=== PATIENT | female | born 1940 | race Caucasian/White ===

== ENCOUNTER 2016-06-16 10:56 | Outpatient (RCR) | payer MEDICARE ==
[2016-03-24 10:28] LABS: BASOPHILS % (AUTO) 0 % (0-10); EOSINOPHILS % (AUTO) 0 % (0-10); LYMPHOCYTES % (AUTO) 23 % (12-44); MEAN CORPUSCULAR HEMOGLOBIN 34 PG (25-34); MEAN CORPUSCULAR HGB CONC 33 G/DL (32-36); MEAN CORPUSCULAR VOLUME 103 FL (80-99); MEAN PLATELET VOLUME 9.1 FL (7.4-10.4); MONOCYTES # (AUTO) 0.7 X 10^3 (0.0-1.0); MONOCYTES % (AUTO) 17 % (0-12); NEUTROPHILS # (AUTO) 2.6 X 10^3 (1.8-7.8); NEUTROPHILS % (AUTO) 61 % (42-75); PLATELET COUNT 202 10^3/uL (130-400); RED BLOOD COUNT 2.73 10^6/uL (4.35-5.85); WHITE BLOOD COUNT 4.3 10^3/uL (4.3-11.0)
[2016-03-24 10:30] LABS: PEP REPORT SEE PATH REPORT
[2016-03-24 10:53] LABS: ALBUMIN 3.9 G/DL (3.2-4.5); BILIRUBIN,TOTAL 0.8 MG/DL (0.1-1.0); CALCIUM 9.4 MG/DL (8.5-10.1); CREATININE SERUM 1.23 MG/DL (0.60-1.30); MAGNESIUM 1.7 MG/DL (1.8-2.4); POTASSIUM 3.5 MMOL/L (3.6-5.0); TOTAL PROTEIN 5.5 G/DL (6.4-8.2)
[2016-03-24 11:47] LABS: BILIRUBIN,URINE NEGATIVE (NEGATIVE); KETONES,URINE NEGATIVE (NEGATIVE); LEUKOCYTE ESTERASE ,URINE NEGATIVE (NEGATIVE); NITRITE,URINE NEGATIVE (NEGATIVE); PH,URINE 5 (5-9); PROTEIN,URINE NEGATIVE (NEGATIVE); UROBILINOGEN,URINE NORMAL (NORMAL)
[2016-03-24 12:00] LABS: SQUAMOUS EPITHELIAL CELL,UR RARE /HPF
[2016-03-25 01:29] LABS: LIGHT CHAIN KAPPA SERUM QUANT 1.33 mg/L (3.30-19.40)
[2016-03-28 17:17] LABS: CLIN PATHOLOGY REPORT FOOTNOTE; SERUM PROTEIN ELEC DETAIL L-16-0012755
[2016-04-01 10:16] LABS: BASOPHILS % (AUTO) 0 % (0-10); EOSINOPHILS % (AUTO) 0 % (0-10); LYMPHOCYTES # (AUTO) 0.9 X 10^3 (1.0-4.0); LYMPHOCYTES % (AUTO) 20 % (12-44); MEAN CORPUSCULAR HEMOGLOBIN 34 PG (25-34); MEAN CORPUSCULAR HGB CONC 33 G/DL (32-36); MEAN CORPUSCULAR VOLUME 101 FL (80-99); MEAN PLATELET VOLUME 9.2 FL (7.4-10.4); MONOCYTES # (AUTO) 0.7 X 10^3 (0.0-1.0); MONOCYTES % (AUTO) 15 % (0-12); NEUTROPHILS % (AUTO) 64 % (42-75); PLATELET COUNT 215 10^3/uL (130-400); RED BLOOD COUNT 3.15 10^6/uL (4.35-5.85); RED CELL DISTRIBUTION WIDTH 14.6 % (10.0-14.5); WHITE BLOOD COUNT 4.6 10^3/uL (4.3-11.0)
[2016-04-01 10:36] LABS: CALCIUM 9.6 MG/DL (8.5-10.1); CREATININE SERUM 0.94 MG/DL (0.60-1.30); MAGNESIUM 1.7 MG/DL (1.8-2.4); POTASSIUM 3.2 MMOL/L (3.6-5.0)
[2016-04-07 10:03] LABS: PEP REPORT SEE PATH REPORT
[2016-04-07 10:04] LABS: BASOPHILS % (AUTO) 0 % (0-10); EOSINOPHILS % (AUTO) 1 % (0-10); LYMPHOCYTES # (AUTO) 1.2 X 10^3 (1.0-4.0); LYMPHOCYTES % (AUTO) 27 % (12-44); MEAN CORPUSCULAR HEMOGLOBIN 34 PG (25-34); MEAN CORPUSCULAR HGB CONC 33 G/DL (32-36); MEAN CORPUSCULAR VOLUME 103 FL (80-99); MEAN PLATELET VOLUME 9.2 FL (7.4-10.4); MONOCYTES # (AUTO) 0.6 X 10^3 (0.0-1.0); MONOCYTES % (AUTO) 13 % (0-12); NEUTROPHILS # (AUTO) 2.7 X 10^3 (1.8-7.8); NEUTROPHILS % (AUTO) 59 % (42-75); PLATELET COUNT 232 10^3/uL (130-400); RED CELL DISTRIBUTION WIDTH 14.9 % (10.0-14.5); WHITE BLOOD COUNT 4.6 10^3/uL (4.3-11.0)
[2016-04-07 10:33] LABS: ALANINE AMINOTRANSFERASE 17 U/L (0-55); ALBUMIN 3.8 G/DL (3.2-4.5); ANION GAP 9 MMOL/L (5-14); ASPARTATE AMINO TRANSFERASE 15 U/L (5-34); BILIRUBIN,TOTAL 0.9 MG/DL (0.1-1.0); BLOOD UREA NITROGEN 12 MG/DL (7-18); BUN/CREATININE RATIO 14; CALCIUM 9.2 MG/DL (8.5-10.1); CARBON DIOXIDE 22 MMOL/L (21-32); CHLORIDE 109 MMOL/L (98-107); CREATININE SERUM 0.83 MG/DL (0.60-1.30); GFR ESTIMATED > 60; GLUCOSE 87 MG/DL (70-105); MAGNESIUM 1.7 MG/DL (1.8-2.4); POTASSIUM 3.5 MMOL/L (3.6-5.0); SODIUM 140 MMOL/L (135-145); TOTAL PROTEIN 5.6 G/DL (6.4-8.2)
[2016-04-07 10:56] LABS: THYROID STIMULATING HORMONE 1.28 UIU/ML (0.35-4.94)
[2016-04-08 02:08] LABS: LIGHT CHAIN KAPPA SERUM QUANT 4.11 mg/L (3.30-19.40)
[2016-04-12 09:32] LABS: CLIN PATHOLOGY REPORT FOOTNOTE; SERUM PROTEIN ELEC DETAIL L-16-0013400
[2016-04-14 09:16] LABS: BASOPHILS % (AUTO) 0 % (0-10); EOSINOPHILS # (AUTO) 0.1 10^3/uL (0.0-0.3); EOSINOPHILS % (AUTO) 1 % (0-10); LYMPHOCYTES # (AUTO) 1.3 X 10^3 (1.0-4.0); LYMPHOCYTES % (AUTO) 12 % (12-44); MEAN CORPUSCULAR HEMOGLOBIN 34 PG (25-34); MEAN CORPUSCULAR HGB CONC 33 G/DL (32-36); MEAN CORPUSCULAR VOLUME 102 FL (80-99); MEAN PLATELET VOLUME 9.7 FL (7.4-10.4); MONOCYTES # (AUTO) 1.2 X 10^3 (0.0-1.0); MONOCYTES % (AUTO) 11 % (0-12); NEUTROPHILS # (AUTO) 7.9 X 10^3 (1.8-7.8); NEUTROPHILS % (AUTO) 76 % (42-75); PLATELET COUNT 224 10^3/uL (130-400); RED BLOOD COUNT 3.23 10^6/uL (4.35-5.85); RED CELL DISTRIBUTION WIDTH 14.9 % (10.0-14.5); WHITE BLOOD COUNT 10.5 10^3/uL (4.3-11.0)
[2016-04-14 09:40] LABS: CALCIUM 9.2 MG/DL (8.5-10.1); CREATININE SERUM 1.03 MG/DL (0.60-1.30); MAGNESIUM 1.6 MG/DL (1.8-2.4); POTASSIUM 3.8 MMOL/L (3.6-5.0)
[2016-04-21 14:16] LABS: EOSINOPHILS % (AUTO) 1 % (0-10); LYMPHOCYTES % (AUTO) 17 % (12-44); MEAN CORPUSCULAR HEMOGLOBIN 34 PG (25-34); MEAN CORPUSCULAR HGB CONC 34 G/DL (32-36); MEAN CORPUSCULAR VOLUME 101 FL (80-99); MEAN PLATELET VOLUME 9.2 FL (7.4-10.4); MONOCYTES % (AUTO) 10 % (0-12); NEUTROPHILS % (AUTO) 72 % (42-75); PLATELET COUNT 261 10^3/uL (130-400); RED BLOOD COUNT 3.14 10^6/uL (4.35-5.85); RED CELL DISTRIBUTION WIDTH 14.6 % (10.0-14.5); WHITE BLOOD COUNT 7.6 10^3/uL (4.3-11.0)
[2016-04-21 14:17] LABS: BASOPHILS % (AUTO) 0 % (0-10); EOSINOPHILS # (AUTO) 0.1 10^3/uL (0.0-0.3); LYMPHOCYTES # (AUTO) 1.3 X 10^3 (1.0-4.0); MONOCYTES # (AUTO) 0.8 X 10^3 (0.0-1.0); NEUTROPHILS # (AUTO) 5.4 X 10^3 (1.8-7.8)
[2016-04-21 15:08] LABS: CALCIUM 9.4 MG/DL (8.5-10.1); CREATININE SERUM 1.14 MG/DL (0.60-1.30); MAGNESIUM 1.7 MG/DL (1.8-2.4); POTASSIUM 3.7 MMOL/L (3.6-5.0)
[2016-04-28 09:21] LABS: BASOPHILS % (AUTO) 0 % (0-10); EOSINOPHILS # (AUTO) 0.1 10^3/uL (0.0-0.3); EOSINOPHILS % (AUTO) 1 % (0-10); LYMPHOCYTES # (AUTO) 1.1 X 10^3 (1.0-4.0); LYMPHOCYTES % (AUTO) 19 % (12-44); MEAN CORPUSCULAR HEMOGLOBIN 34 PG (25-34); MEAN CORPUSCULAR HGB CONC 33 G/DL (32-36); MEAN CORPUSCULAR VOLUME 101 FL (80-99); MEAN PLATELET VOLUME 9.4 FL (7.4-10.4); MONOCYTES # (AUTO) 0.5 X 10^3 (0.0-1.0); MONOCYTES % (AUTO) 8 % (0-12); NEUTROPHILS # (AUTO) 4.4 X 10^3 (1.8-7.8); NEUTROPHILS % (AUTO) 72 % (42-75); PLATELET COUNT 273 10^3/uL (130-400); RED BLOOD COUNT 3.35 10^6/uL (4.35-5.85); WHITE BLOOD COUNT 6.1 10^3/uL (4.3-11.0)
[2016-04-28 09:27] LABS: PEP REPORT SEE PATH REPORT
[2016-04-28 09:57] LABS: ALBUMIN 3.8 G/DL (3.2-4.5); BILIRUBIN,TOTAL 0.8 MG/DL (0.1-1.0); CALCIUM 9.6 MG/DL (8.5-10.1); CREATININE SERUM 1.12 MG/DL (0.60-1.30); MAGNESIUM 2.2 MG/DL (1.8-2.4); POTASSIUM 3.2 MMOL/L (3.6-5.0); TOTAL PROTEIN 5.8 G/DL (6.4-8.2)
[2016-04-29 01:51] LABS: LIGHT CHAIN KAPPA SERUM QUANT 8.14 mg/L (3.30-19.40); LIGHT CHAIN LAMBDA SERUM QUANT 1.18 mg/L (5.71-26.30)
[2016-05-02 12:03] LABS: SERUM PROTEIN ELEC DETAIL L-16-0014381
[2016-05-05 13:46] LABS: BASOPHILS % (AUTO) 0 % (0-10); EOSINOPHILS % (AUTO) 1 % (0-10); LYMPHOCYTES # (AUTO) 1.7 X 10^3 (1.0-4.0); LYMPHOCYTES % (AUTO) 22 % (12-44); MEAN CORPUSCULAR HEMOGLOBIN 33 PG (25-34); MEAN CORPUSCULAR HGB CONC 32 G/DL (32-36); MEAN CORPUSCULAR VOLUME 102 FL (80-99); MEAN PLATELET VOLUME 9.4 FL (7.4-10.4); MONOCYTES # (AUTO) 0.8 X 10^3 (0.0-1.0); MONOCYTES % (AUTO) 10 % (0-12); NEUTROPHILS % (AUTO) 67 % (42-75); PLATELET COUNT 265 10^3/uL (130-400); RED BLOOD COUNT 3.34 10^6/uL (4.35-5.85); RED CELL DISTRIBUTION WIDTH 14.2 % (10.0-14.5); WHITE BLOOD COUNT 7.4 10^3/uL (4.3-11.0)
[2016-05-05 14:20] LABS: CALCIUM 9.3 MG/DL (8.5-10.1); CREATININE SERUM 1.06 MG/DL (0.60-1.30); MAGNESIUM 1.9 MG/DL (1.8-2.4); POTASSIUM 3.8 MMOL/L (3.6-5.0)
[2016-05-11 09:15] LABS: BASOPHILS % (AUTO) 0 % (0-10); EOSINOPHILS # (AUTO) 0.1 10^3/uL (0.0-0.3); EOSINOPHILS % (AUTO) 1 % (0-10); LYMPHOCYTES # (AUTO) 1.5 X 10^3 (1.0-4.0); LYMPHOCYTES % (AUTO) 20 % (12-44); MEAN CORPUSCULAR HEMOGLOBIN 33 PG (25-34); MEAN CORPUSCULAR HGB CONC 33 G/DL (32-36); MEAN CORPUSCULAR VOLUME 100 FL (80-99); MEAN PLATELET VOLUME 9.5 FL (7.4-10.4); MONOCYTES # (AUTO) 0.8 X 10^3 (0.0-1.0); MONOCYTES % (AUTO) 11 % (0-12); NEUTROPHILS # (AUTO) 5.3 X 10^3 (1.8-7.8); NEUTROPHILS % (AUTO) 69 % (42-75); PLATELET COUNT 226 10^3/uL (130-400); RED BLOOD COUNT 3.49 10^6/uL (4.35-5.85); RED CELL DISTRIBUTION WIDTH 13.8 % (10.0-14.5); WHITE BLOOD COUNT 7.7 10^3/uL (4.3-11.0)
[2016-05-11 09:43] LABS: CALCIUM 9.6 MG/DL (8.5-10.1); CREATININE SERUM 1.07 MG/DL (0.60-1.30); POTASSIUM 3.8 MMOL/L (3.6-5.0)
[2016-05-18 07:27] LABS: CLIN PATHOLOGY REPORT FOOTNOTE
[2016-05-19 13:20] LABS: BASOPHILS % (AUTO) 0 % (0-10); EOSINOPHILS # (AUTO) 0.1 10^3/uL (0.0-0.3); EOSINOPHILS % (AUTO) 1 % (0-10); LYMPHOCYTES % (AUTO) 25 % (12-44); MEAN CORPUSCULAR HEMOGLOBIN 33 PG (25-34); MEAN CORPUSCULAR HGB CONC 33 G/DL (32-36); MEAN CORPUSCULAR VOLUME 100 FL (80-99); MEAN PLATELET VOLUME 9.2 FL (7.4-10.4); MONOCYTES # (AUTO) 0.7 X 10^3 (0.0-1.0); MONOCYTES % (AUTO) 9 % (0-12); NEUTROPHILS # (AUTO) 5.1 X 10^3 (1.8-7.8); NEUTROPHILS % (AUTO) 65 % (42-75); PLATELET COUNT 241 10^3/uL (130-400); RED BLOOD COUNT 3.65 10^6/uL (4.35-5.85); RED CELL DISTRIBUTION WIDTH 14.1 % (10.0-14.5); WHITE BLOOD COUNT 7.8 10^3/uL (4.3-11.0)
[2016-05-19 14:01] LABS: CALCIUM 9.3 MG/DL (8.5-10.1); CREATININE SERUM 0.95 MG/DL (0.60-1.30)
[2016-05-26 09:20] LABS: BASOPHILS % (AUTO) 0 % (0-10); EOSINOPHILS # (AUTO) 0.1 10^3/uL (0.0-0.3); EOSINOPHILS % (AUTO) 1 % (0-10); LYMPHOCYTES # (AUTO) 1.5 X 10^3 (1.0-4.0); LYMPHOCYTES % (AUTO) 19 % (12-44); MEAN CORPUSCULAR HEMOGLOBIN 33 PG (25-34); MEAN CORPUSCULAR HGB CONC 33 G/DL (32-36); MEAN CORPUSCULAR VOLUME 99 FL (80-99); MEAN PLATELET VOLUME 9.5 FL (7.4-10.4); MONOCYTES # (AUTO) 0.8 X 10^3 (0.0-1.0); MONOCYTES % (AUTO) 10 % (0-12); NEUTROPHILS # (AUTO) 5.6 X 10^3 (1.8-7.8); NEUTROPHILS % (AUTO) 69 % (42-75); PLATELET COUNT 228 10^3/uL (130-400); RED BLOOD COUNT 3.53 10^6/uL (4.35-5.85); RED CELL DISTRIBUTION WIDTH 13.7 % (10.0-14.5)
[2016-05-26 09:23] LABS: PEP REPORT SEE PATH REPORT
[2016-05-26 09:54] LABS: ALBUMIN 3.8 G/DL (3.2-4.5); BILIRUBIN,TOTAL 0.6 MG/DL (0.1-1.0); CALCIUM 9.4 MG/DL (8.5-10.1); CREATININE SERUM 1.1 MG/DL (0.60-1.30); MAGNESIUM 1.9 MG/DL (1.8-2.4); POTASSIUM 3.7 MMOL/L (3.6-5.0); TOTAL PROTEIN 5.7 G/DL (6.4-8.2)
[2016-05-27 08:23] LABS: LIGHT CHAIN KAPPA SERUM QUANT 6.76 mg/L (3.30-19.40); LIGHT CHAIN LAMBDA SERUM QUANT 1.15 mg/L (5.71-26.30)
[2016-05-28 09:05] LABS: IMMUNOGLOBULIN IGA 17 mg/dL (71-263); IMMUNOGLOBULIN IGG 402 mg/dL (672-1680)
[2016-05-30 08:10] LABS: IMMUNOGLOBULIN IGM <10 mg/dL (47-209)
[2016-05-30 11:27] LABS: CLIN PATHOLOGY REPORT FOOTNOTE; SERUM PROTEIN ELEC DETAIL L-16-0015642
[2016-06-02 13:31] LABS: BASOPHILS % (AUTO) 0 % (0-10); EOSINOPHILS # (AUTO) 0.1 10^3/uL (0.0-0.3); EOSINOPHILS % (AUTO) 1 % (0-10); LYMPHOCYTES # (AUTO) 1.2 X 10^3 (1.0-4.0); LYMPHOCYTES % (AUTO) 13 % (12-44); MEAN CORPUSCULAR HEMOGLOBIN 33 PG (25-34); MEAN CORPUSCULAR HGB CONC 34 G/DL (32-36); MEAN CORPUSCULAR VOLUME 98 FL (80-99); MEAN PLATELET VOLUME 10.1 FL (7.4-10.4); MONOCYTES % (AUTO) 11 % (0-12); NEUTROPHILS % (AUTO) 75 % (42-75); PLATELET COUNT 268 10^3/uL (130-400); RED BLOOD COUNT 3.85 10^6/uL (4.35-5.85); RED CELL DISTRIBUTION WIDTH 14.1 % (10.0-14.5); WHITE BLOOD COUNT 9.3 10^3/uL (4.3-11.0)
[2016-06-02 14:14] LABS: CALCIUM 9.4 MG/DL (8.5-10.1); MAGNESIUM 2.2 MG/DL (1.8-2.4); POTASSIUM 3.9 MMOL/L (3.6-5.0)
[2016-06-09 11:36] LABS: BASOPHILS % (AUTO) 0 % (0-10); EOSINOPHILS % (AUTO) 0 % (0-10); LYMPHOCYTES # (AUTO) 1.5 X 10^3 (1.0-4.0); LYMPHOCYTES % (AUTO) 14 % (12-44); MEAN CORPUSCULAR HEMOGLOBIN 33 PG (25-34); MEAN CORPUSCULAR HGB CONC 34 G/DL (32-36); MEAN CORPUSCULAR VOLUME 95 FL (80-99); MEAN PLATELET VOLUME 9.9 FL (7.4-10.4); MONOCYTES # (AUTO) 0.9 X 10^3 (0.0-1.0); MONOCYTES % (AUTO) 8 % (0-12); NEUTROPHILS # (AUTO) 8.5 X 10^3 (1.8-7.8); NEUTROPHILS % (AUTO) 77 % (42-75); PLATELET COUNT 248 10^3/uL (130-400); RED BLOOD COUNT 4.01 10^6/uL (4.35-5.85); RED CELL DISTRIBUTION WIDTH 13.1 % (10.0-14.5)
[2016-06-09 11:59] LABS: CALCIUM 9.5 MG/DL (8.5-10.1); CREATININE SERUM 1.08 MG/DL (0.60-1.30); POTASSIUM 3.3 MMOL/L (3.6-5.0)
[~2016-06-16] VITALS: Ht 160 cm; Wt 63.0 kg
[~2016-06-16 10:56] MED LIST: ACETAMINOPHEN 325 MG TAB (TYLENOL) CANCER CTR PO PRN; ACYC400T PO; DARATUMUMAB IV SCH; DEXA4TAB PO; FAMOTIDINE 20MG/2ML IV (CANCER CTR) IV SCH; HYDR-3454 PO; HYDR12.56 PO; LORATADINE (CLARITIN) 10 MG TAB PO SCH; METO-270 PO; MORP15TA PO; NS IV 1000 ML (CANCER CTR) IV SCH; NS IV SCH; ONDANSETRON MDV (CANCER CENTER 16 MG in NS (IVPB) CANCER CENTER 50 ML IV SCH; PANT20TA3 PO; RT-ALBUTEROL HFA (VENTOLIN) PER PUFF IH SCH; SIMV20TA3 PO; diphenhydrAMINE 25 MG TAB (BENADRYL) CANCER CENTER PO SCH; diphenhydrAMINE 50 MG/ML INJ (CANCER CENTER) ONE; methylPREDNISolone 125 MG/2 ML (SOLU-MEDROL) CANCER CTR IV SCH
[2016-06-16 11:07] LABS: BASOPHILS % (AUTO) 0 % (0-10); EOSINOPHILS # (AUTO) 0.1 10^3/uL (0.0-0.3); EOSINOPHILS % (AUTO) 1 % (0-10); LYMPHOCYTES # (AUTO) 1.9 X 10^3 (1.0-4.0); LYMPHOCYTES % (AUTO) 16 % (12-44); MEAN CORPUSCULAR HEMOGLOBIN 32 PG (25-34); MEAN CORPUSCULAR HGB CONC 33 G/DL (32-36); MEAN CORPUSCULAR VOLUME 97 FL (80-99); MEAN PLATELET VOLUME 9.9 FL (7.4-10.4); MONOCYTES % (AUTO) 9 % (0-12); NEUTROPHILS # (AUTO) 8.7 X 10^3 (1.8-7.8); NEUTROPHILS % (AUTO) 75 % (42-75); PLATELET COUNT 349 10^3/uL (130-400); RED BLOOD COUNT 3.94 10^6/uL (4.35-5.85); RED CELL DISTRIBUTION WIDTH 13.6 % (10.0-14.5); WHITE BLOOD COUNT 11.7 10^3/uL (4.3-11.0)
[2016-06-16 11:31] LABS: CALCIUM 9.5 MG/DL (8.5-10.1); CREATININE SERUM 1.06 MG/DL (0.60-1.30); MAGNESIUM 1.9 MG/DL (1.8-2.4); POTASSIUM 4.1 MMOL/L (3.6-5.0)
== END 2016-06-22 | disposition home or self-care (01) ==
LOC: ONC 10:56
PROVIDERS: ATTEND Internal Medicine Hematology & Oncology
DX: Z51.11 Encounter for antineoplastic chemotherapy (principal); C90.00 Multiple myeloma not having achieved remission; E83.52 Hypercalcemia; D64.9 Anemia, unspecified; I10 Essential (primary) hypertension; Z79.899 Other long term (current) drug therapy
CPT/HCPCS: 36415; 36591; 80048; 80053; 81000; 82232; 82784; 83735; 83883; 84155; 84165; 84443; 85025; 87070; 87077; 87186; 87205; 96375; 96413; 96415; 99213

== ENCOUNTER 2016-09-15 11:13 | Outpatient (RCR) | payer MEDICARE ==
[2016-06-23 09:54] LABS: BASOPHILS % (AUTO) 0 % (0-10); EOSINOPHILS # (AUTO) 0.1 10^3/uL (0.0-0.3); EOSINOPHILS % (AUTO) 1 % (0-10); LYMPHOCYTES # (AUTO) 1.9 X 10^3 (1.0-4.0); LYMPHOCYTES % (AUTO) 26 % (12-44); MEAN CORPUSCULAR HEMOGLOBIN 32 PG (25-34); MEAN CORPUSCULAR HGB CONC 33 G/DL (32-36); MEAN CORPUSCULAR VOLUME 97 FL (80-99); MEAN PLATELET VOLUME 9.7 FL (7.4-10.4); MONOCYTES # (AUTO) 0.9 X 10^3 (0.0-1.0); MONOCYTES % (AUTO) 12 % (0-12); NEUTROPHILS # (AUTO) 4.4 X 10^3 (1.8-7.8); NEUTROPHILS % (AUTO) 60 % (42-75); PLATELET COUNT 212 10^3/uL (130-400); RED BLOOD COUNT 3.48 10^6/uL (4.35-5.85); WHITE BLOOD COUNT 7.3 10^3/uL (4.3-11.0)
[2016-06-23 09:59] LABS: PEP REPORT SEE PATH REPORT
[2016-06-23 10:20] LABS: ALBUMIN 3.7 G/DL (3.2-4.5); BILIRUBIN,TOTAL 0.4 MG/DL (0.1-1.0); CALCIUM 9.2 MG/DL (8.5-10.1); CREATININE SERUM 0.96 MG/DL (0.60-1.30); POTASSIUM 3.7 MMOL/L (3.6-5.0); TOTAL PROTEIN 5.6 G/DL (6.4-8.2)
[2016-06-24 05:56] LABS: IMMUNOGLOBULIN IGA 21 mg/dL (71-263); IMMUNOGLOBULIN IGG 421 mg/dL (672-1680)
[2016-06-24 06:39] LABS: LIGHT CHAIN KAPPA SERUM QUANT 6.44 mg/L (3.30-19.40); LIGHT CHAIN LAMBDA SERUM QUANT 1.19 mg/L (5.71-26.30)
[2016-06-24 07:05] LABS: IMMUNOGLOBULIN IGM 14 mg/dL (47-209)
[2016-06-28 07:52] LABS: CLIN PATHOLOGY REPORT FOOTNOTE
[2016-06-28 07:53] LABS: SERUM PROTEIN ELEC DETAIL L-17-0000229
[2016-06-30 11:11] LABS: BASOPHILS % (AUTO) 0 % (0-10); EOSINOPHILS # (AUTO) 0.1 10^3/uL (0.0-0.3); EOSINOPHILS % (AUTO) 1 % (0-10); LYMPHOCYTES # (AUTO) 1.7 X 10^3 (1.0-4.0); LYMPHOCYTES % (AUTO) 26 % (12-44); MEAN CORPUSCULAR HEMOGLOBIN 32 PG (25-34); MEAN CORPUSCULAR HGB CONC 33 G/DL (32-36); MEAN CORPUSCULAR VOLUME 97 FL (80-99); MEAN PLATELET VOLUME 9.8 FL (7.4-10.4); MONOCYTES # (AUTO) 0.7 X 10^3 (0.0-1.0); MONOCYTES % (AUTO) 10 % (0-12); NEUTROPHILS # (AUTO) 4.2 X 10^3 (1.8-7.8); NEUTROPHILS % (AUTO) 63 % (42-75); PLATELET COUNT 255 10^3/uL (130-400); RED BLOOD COUNT 3.92 10^6/uL (4.35-5.85); RED CELL DISTRIBUTION WIDTH 14.7 % (10.0-14.5); WHITE BLOOD COUNT 6.7 10^3/uL (4.3-11.0)
[2016-06-30 12:07] LABS: CALCIUM 9.4 MG/DL (8.5-10.1); CREATININE SERUM 0.93 MG/DL (0.60-1.30); MAGNESIUM 1.9 MG/DL (1.8-2.4)
[2016-07-07 09:09] LABS: BASOPHILS % (AUTO) 0 % (0-10); EOSINOPHILS # (AUTO) 0.1 10^3/uL (0.0-0.3); EOSINOPHILS % (AUTO) 1 % (0-10); LYMPHOCYTES # (AUTO) 1.8 X 10^3 (1.0-4.0); LYMPHOCYTES % (AUTO) 21 % (12-44); MEAN CORPUSCULAR HEMOGLOBIN 33 PG (25-34); MEAN CORPUSCULAR HGB CONC 34 G/DL (32-36); MEAN CORPUSCULAR VOLUME 97 FL (80-99); MEAN PLATELET VOLUME 9.6 FL (7.4-10.4); MONOCYTES # (AUTO) 0.9 X 10^3 (0.0-1.0); MONOCYTES % (AUTO) 11 % (0-12); NEUTROPHILS # (AUTO) 5.5 X 10^3 (1.8-7.8); NEUTROPHILS % (AUTO) 66 % (42-75); PLATELET COUNT 221 10^3/uL (130-400); RED BLOOD COUNT 3.72 10^6/uL (4.35-5.85); RED CELL DISTRIBUTION WIDTH 14.8 % (10.0-14.5); WHITE BLOOD COUNT 8.3 10^3/uL (4.3-11.0)
[2016-07-07 09:44] LABS: CALCIUM 9.4 MG/DL (8.5-10.1); CREATININE SERUM 1.09 MG/DL (0.60-1.30); MAGNESIUM 1.9 MG/DL (1.8-2.4); POTASSIUM 3.7 MMOL/L (3.6-5.0)
[2016-07-14 11:30] LABS: BASOPHILS % (AUTO) 0 % (0-10); EOSINOPHILS # (AUTO) 0.1 10^3/uL (0.0-0.3); EOSINOPHILS % (AUTO) 1 % (0-10); LYMPHOCYTES # (AUTO) 2.1 X 10^3 (1.0-4.0); LYMPHOCYTES % (AUTO) 27 % (12-44); MEAN CORPUSCULAR HEMOGLOBIN 33 PG (25-34); MEAN CORPUSCULAR HGB CONC 34 G/DL (32-36); MEAN CORPUSCULAR VOLUME 98 FL (80-99); MEAN PLATELET VOLUME 10.1 FL (7.4-10.4); MONOCYTES # (AUTO) 0.8 X 10^3 (0.0-1.0); MONOCYTES % (AUTO) 10 % (0-12); NEUTROPHILS # (AUTO) 5.1 X 10^3 (1.8-7.8); NEUTROPHILS % (AUTO) 63 % (42-75); PLATELET COUNT 239 10^3/uL (130-400); RED BLOOD COUNT 3.86 10^6/uL (4.35-5.85); RED CELL DISTRIBUTION WIDTH 15.1 % (10.0-14.5); WHITE BLOOD COUNT 8.1 10^3/uL (4.3-11.0)
[2016-07-14 12:30] LABS: CALCIUM 9.6 MG/DL (8.5-10.1); CREATININE SERUM 1.12 MG/DL (0.60-1.30); POTASSIUM 4.1 MMOL/L (3.6-5.0)
[2016-07-21 09:27] LABS: BASOPHILS % (AUTO) 1 % (0-10); EOSINOPHILS # (AUTO) 0.1 10^3/uL (0.0-0.3); EOSINOPHILS % (AUTO) 2 % (0-10); LYMPHOCYTES # (AUTO) 1.4 X 10^3 (1.0-4.0); LYMPHOCYTES % (AUTO) 23 % (12-44); MEAN CORPUSCULAR HEMOGLOBIN 32 PG (25-34); MEAN CORPUSCULAR HGB CONC 33 G/DL (32-36); MEAN CORPUSCULAR VOLUME 97 FL (80-99); MEAN PLATELET VOLUME 9.6 FL (7.4-10.4); MONOCYTES # (AUTO) 0.7 X 10^3 (0.0-1.0); MONOCYTES % (AUTO) 11 % (0-12); NEUTROPHILS # (AUTO) 3.9 X 10^3 (1.8-7.8); NEUTROPHILS % (AUTO) 64 % (42-75); PLATELET COUNT 216 10^3/uL (130-400); RED BLOOD COUNT 3.81 10^6/uL (4.35-5.85); RED CELL DISTRIBUTION WIDTH 14.9 % (10.0-14.5)
[2016-07-21 09:30] LABS: PEP REPORT SEE PATH REPORT
[2016-07-21 09:55] LABS: ALBUMIN 3.9 G/DL (3.2-4.5); BILIRUBIN,TOTAL 0.7 MG/DL (0.1-1.0); CALCIUM 9.4 MG/DL (8.5-10.1); CREATININE SERUM 0.99 MG/DL (0.60-1.30); MAGNESIUM 1.9 MG/DL (1.8-2.4); POTASSIUM 3.5 MMOL/L (3.6-5.0); TOTAL PROTEIN 5.8 G/DL (6.4-8.2)
[2016-07-22 02:11] LABS: LIGHT CHAIN KAPPA SERUM QUANT 5.63 mg/L (3.30-19.40); LIGHT CHAIN LAMBDA SERUM QUANT 0.88 mg/L (5.71-26.30)
[2016-07-25 13:03] LABS: CLIN PATHOLOGY REPORT FOOTNOTE; SERUM PROTEIN ELEC DETAIL L-17-0001536
[2016-07-28 13:55] LABS: BASOPHILS % (AUTO) 0 % (0-10); EOSINOPHILS # (AUTO) 0.1 10^3/uL (0.0-0.3); EOSINOPHILS % (AUTO) 1 % (0-10); LYMPHOCYTES # (AUTO) 2.2 X 10^3 (1.0-4.0); LYMPHOCYTES % (AUTO) 28 % (12-44); MEAN CORPUSCULAR HEMOGLOBIN 33 PG (25-34); MEAN CORPUSCULAR HGB CONC 34 G/DL (32-36); MEAN CORPUSCULAR VOLUME 98 FL (80-99); MEAN PLATELET VOLUME 9.5 FL (7.4-10.4); MONOCYTES # (AUTO) 0.8 X 10^3 (0.0-1.0); MONOCYTES % (AUTO) 10 % (0-12); NEUTROPHILS # (AUTO) 4.6 X 10^3 (1.8-7.8); NEUTROPHILS % (AUTO) 60 % (42-75); PLATELET COUNT 233 10^3/uL (130-400); RED BLOOD COUNT 3.91 10^6/uL (4.35-5.85); WHITE BLOOD COUNT 7.6 10^3/uL (4.3-11.0)
[2016-07-28 14:38] LABS: CALCIUM 9.1 MG/DL (8.5-10.1); CREATININE SERUM 1.34 MG/DL (0.60-1.30); MAGNESIUM 2.1 MG/DL (1.8-2.4); POTASSIUM 4.2 MMOL/L (3.6-5.0)
[2016-08-04 09:30] LABS: BASOPHILS % (AUTO) 0 % (0-10); EOSINOPHILS # (AUTO) 0.1 10^3/uL (0.0-0.3); EOSINOPHILS % (AUTO) 1 % (0-10); LYMPHOCYTES # (AUTO) 1.6 X 10^3 (1.0-4.0); LYMPHOCYTES % (AUTO) 12 % (12-44); MEAN CORPUSCULAR HEMOGLOBIN 32 PG (25-34); MEAN CORPUSCULAR HGB CONC 33 G/DL (32-36); MEAN CORPUSCULAR VOLUME 96 FL (80-99); MONOCYTES % (AUTO) 8 % (0-12); NEUTROPHILS # (AUTO) 10.1 X 10^3 (1.8-7.8); NEUTROPHILS % (AUTO) 79 % (42-75); PLATELET COUNT 242 10^3/uL (130-400); RED BLOOD COUNT 4.09 10^6/uL (4.35-5.85); RED CELL DISTRIBUTION WIDTH 14.9 % (10.0-14.5); WHITE BLOOD COUNT 12.8 10^3/uL (4.3-11.0)
[2016-08-04 09:58] LABS: BILIRUBIN,TOTAL 0.7 MG/DL (0.1-1.0); CALCIUM 9.4 MG/DL (8.5-10.1); CREATININE SERUM 1.05 MG/DL (0.60-1.30); MAGNESIUM 1.9 MG/DL (1.8-2.4); POTASSIUM 3.8 MMOL/L (3.6-5.0)
[2016-08-11 14:33] LABS: BASOPHILS % (AUTO) 0 % (0-10); EOSINOPHILS # (AUTO) 0.1 10^3/uL (0.0-0.3); EOSINOPHILS % (AUTO) 1 % (0-10); LYMPHOCYTES # (AUTO) 2.1 X 10^3 (1.0-4.0); LYMPHOCYTES % (AUTO) 23 % (12-44); MEAN CORPUSCULAR HEMOGLOBIN 33 PG (25-34); MEAN CORPUSCULAR HGB CONC 34 G/DL (32-36); MEAN CORPUSCULAR VOLUME 97 FL (80-99); MEAN PLATELET VOLUME 10.6 FL (7.4-10.4); MONOCYTES # (AUTO) 0.8 X 10^3 (0.0-1.0); MONOCYTES % (AUTO) 9 % (0-12); NEUTROPHILS # (AUTO) 6.2 X 10^3 (1.8-7.8); NEUTROPHILS % (AUTO) 67 % (42-75); PLATELET COUNT 250 10^3/uL (130-400); RED BLOOD COUNT 4.19 10^6/uL (4.35-5.85); RED CELL DISTRIBUTION WIDTH 14.8 % (10.0-14.5); WHITE BLOOD COUNT 9.2 10^3/uL (4.3-11.0)
[2016-08-11 14:46] LABS: CALCIUM 9.5 MG/DL (8.5-10.1); CREATININE SERUM 1.04 MG/DL (0.60-1.30); POTASSIUM 3.6 MMOL/L (3.6-5.0)
[2016-08-18 13:35] LABS: BASOPHILS % (AUTO) 0 % (0-10); EOSINOPHILS # (AUTO) 0.1 10^3/uL (0.0-0.3); EOSINOPHILS % (AUTO) 1 % (0-10); LYMPHOCYTES # (AUTO) 1.3 X 10^3 (1.0-4.0); LYMPHOCYTES % (AUTO) 11 % (12-44); MEAN CORPUSCULAR HEMOGLOBIN 33 PG (25-34); MEAN CORPUSCULAR HGB CONC 34 G/DL (32-36); MEAN CORPUSCULAR VOLUME 97 FL (80-99); MEAN PLATELET VOLUME 10.2 FL (7.4-10.4); MONOCYTES # (AUTO) 0.8 X 10^3 (0.0-1.0); MONOCYTES % (AUTO) 6 % (0-12); NEUTROPHILS # (AUTO) 9.8 X 10^3 (1.8-7.8); NEUTROPHILS % (AUTO) 82 % (42-75); PLATELET COUNT 245 10^3/uL (130-400); RED BLOOD COUNT 3.96 10^6/uL (4.35-5.85); RED CELL DISTRIBUTION WIDTH 14.7 % (10.0-14.5); WHITE BLOOD COUNT 11.9 10^3/uL (4.3-11.0)
[2016-08-18 14:05] LABS: CALCIUM 9.5 MG/DL (8.5-10.1); CREATININE SERUM 1.07 MG/DL (0.60-1.30); MAGNESIUM 1.9 MG/DL (1.8-2.4); POTASSIUM 3.6 MMOL/L (3.6-5.0)
[2016-08-25 13:27] LABS: BASOPHILS % (AUTO) 0 % (0-10); EOSINOPHILS % (AUTO) 0 % (0-10); LYMPHOCYTES # (AUTO) 1.7 X 10^3 (1.0-4.0); LYMPHOCYTES % (AUTO) 20 % (12-44); MEAN CORPUSCULAR HEMOGLOBIN 33 PG (25-34); MEAN CORPUSCULAR HGB CONC 34 G/DL (32-36); MEAN CORPUSCULAR VOLUME 96 FL (80-99); MEAN PLATELET VOLUME 9.7 FL (7.4-10.4); MONOCYTES # (AUTO) 0.6 X 10^3 (0.0-1.0); MONOCYTES % (AUTO) 8 % (0-12); NEUTROPHILS % (AUTO) 72 % (42-75); PLATELET COUNT 264 10^3/uL (130-400); RED CELL DISTRIBUTION WIDTH 14.6 % (10.0-14.5); WHITE BLOOD COUNT 8.4 10^3/uL (4.3-11.0)
[2016-08-25 14:05] LABS: CALCIUM 9.5 MG/DL (8.5-10.1); CREATININE SERUM 0.97 MG/DL (0.60-1.30); POTASSIUM 3.7 MMOL/L (3.6-5.0)
[2016-09-01 09:38] LABS: BASOPHILS % (AUTO) 1 % (0-10); EOSINOPHILS # (AUTO) 0.1 10^3/uL (0.0-0.3); EOSINOPHILS % (AUTO) 2 % (0-10); LYMPHOCYTES # (AUTO) 1.8 X 10^3 (1.0-4.0); LYMPHOCYTES % (AUTO) 31 % (12-44); MEAN CORPUSCULAR HEMOGLOBIN 33 PG (25-34); MEAN CORPUSCULAR HGB CONC 34 G/DL (32-36); MEAN CORPUSCULAR VOLUME 96 FL (80-99); MEAN PLATELET VOLUME 9.7 FL (7.4-10.4); MONOCYTES # (AUTO) 0.7 X 10^3 (0.0-1.0); MONOCYTES % (AUTO) 12 % (0-12); NEUTROPHILS # (AUTO) 3.2 X 10^3 (1.8-7.8); NEUTROPHILS % (AUTO) 55 % (42-75); PLATELET COUNT 255 10^3/uL (130-400); RED BLOOD COUNT 3.86 10^6/uL (4.35-5.85); RED CELL DISTRIBUTION WIDTH 14.1 % (10.0-14.5); WHITE BLOOD COUNT 5.9 10^3/uL (4.3-11.0)
[2016-09-01 09:44] LABS: PEP REPORT SEE PATH REPORT
[2016-09-01 10:05] LABS: ALBUMIN 3.9 G/DL (3.2-4.5); BILIRUBIN,TOTAL 0.6 MG/DL (0.1-1.0); CALCIUM 9.4 MG/DL (8.5-10.1); CREATININE SERUM 0.98 MG/DL (0.60-1.30); MAGNESIUM 1.9 MG/DL (1.8-2.4); POTASSIUM 3.9 MMOL/L (3.6-5.0); TOTAL PROTEIN 5.8 G/DL (6.4-8.2)
[2016-09-02 05:11] LABS: LIGHT CHAIN KAPPA SERUM QUANT 8.04 mg/L (3.30-19.40)
[2016-09-05 11:24] LABS: CLIN PATHOLOGY REPORT FOOTNOTE; SERUM PROTEIN ELEC DETAIL L-17-0003567
[2016-09-08 09:23] LABS: BASOPHILS % (AUTO) 1 % (0-10); EOSINOPHILS # (AUTO) 0.1 10^3/uL (0.0-0.3); EOSINOPHILS % (AUTO) 1 % (0-10); LYMPHOCYTES % (AUTO) 25 % (12-44); MEAN CORPUSCULAR HEMOGLOBIN 32 PG (25-34); MEAN CORPUSCULAR HGB CONC 34 G/DL (32-36); MEAN CORPUSCULAR VOLUME 96 FL (80-99); MEAN PLATELET VOLUME 9.7 FL (7.4-10.4); MONOCYTES # (AUTO) 0.9 X 10^3 (0.0-1.0); MONOCYTES % (AUTO) 11 % (0-12); NEUTROPHILS % (AUTO) 62 % (42-75); PLATELET COUNT 230 10^3/uL (130-400); RED BLOOD COUNT 3.86 10^6/uL (4.35-5.85); RED CELL DISTRIBUTION WIDTH 14.3 % (10.0-14.5)
[2016-09-08 10:00] LABS: CALCIUM 9.5 MG/DL (8.5-10.1); CREATININE SERUM 0.99 MG/DL (0.60-1.30); MAGNESIUM 1.9 MG/DL (1.8-2.4); POTASSIUM 3.9 MMOL/L (3.6-5.0)
[~2016-09-15] VITALS: Ht 160 cm; Wt 63.0 kg
[~2016-09-15 11:13] MED LIST changes: -diphenhydrAMINE 50 MG/ML INJ (CANCER CENTER) ONE
[2016-09-15 11:30] LABS: BASOPHILS % (AUTO) 0 % (0-10); EOSINOPHILS # (AUTO) 0.1 10^3/uL (0.0-0.3); EOSINOPHILS % (AUTO) 1 % (0-10); LYMPHOCYTES # (AUTO) 2.2 X 10^3 (1.0-4.0); LYMPHOCYTES % (AUTO) 22 % (12-44); MEAN CORPUSCULAR HEMOGLOBIN 32 PG (25-34); MEAN CORPUSCULAR HGB CONC 34 G/DL (32-36); MEAN CORPUSCULAR VOLUME 97 FL (80-99); MONOCYTES % (AUTO) 10 % (0-12); NEUTROPHILS # (AUTO) 6.7 X 10^3 (1.8-7.8); NEUTROPHILS % (AUTO) 67 % (42-75); PLATELET COUNT 244 10^3/uL (130-400); RED BLOOD COUNT 4.29 10^6/uL (4.35-5.85); RED CELL DISTRIBUTION WIDTH 14.4 % (10.0-14.5)
[2016-09-15 12:45] LABS: CALCIUM 9.7 MG/DL (8.5-10.1); CREATININE SERUM 1.17 MG/DL (0.60-1.30); MAGNESIUM 2.2 MG/DL (1.8-2.4)
== END 2016-09-21 | disposition home or self-care (01) ==
LOC: ONC 11:13
PROVIDERS: ATTEND Internal Medicine Hematology & Oncology
DX: Z51.11 Encounter for antineoplastic chemotherapy (principal); C90.00 Multiple myeloma not having achieved remission; E83.52 Hypercalcemia; D64.9 Anemia, unspecified; I10 Essential (primary) hypertension; Z79.899 Other long term (current) drug therapy
CPT/HCPCS: 36415; 36591; 80048; 80053; 82232; 82784; 83615; 83735; 83883; 84155; 84165; 85025; 96375; 96413; 96415; 99213

== ENCOUNTER → 2016-11-07 | Outpatient (CLI) | payer MEDICARE ==
[~2016-11-07] MED LIST changes: -ACETAMINOPHEN 325 MG TAB (TYLENOL) CANCER CTR PO PRN; -DARATUMUMAB IV SCH; -FAMOTIDINE 20MG/2ML IV (CANCER CTR) IV SCH; -LORATADINE (CLARITIN) 10 MG TAB PO SCH; -NS IV 1000 ML (CANCER CTR) IV SCH; -NS IV SCH; -ONDANSETRON MDV (CANCER CENTER 16 MG in NS (IVPB) CANCER CENTER 50 ML IV SCH; -RT-ALBUTEROL HFA (VENTOLIN) PER PUFF IH SCH; -diphenhydrAMINE 25 MG TAB (BENADRYL) CANCER CENTER PO SCH; -methylPREDNISolone 125 MG/2 ML (SOLU-MEDROL) CANCER CTR IV SCH
--- NOTE | 2016-11-07 10:19 | Diagnostic Imaging Report ---
PROCEDURE: CT pelvis without contrast. TECHNIQUE: Multiple contiguous axial images were obtained through the pelvis without the use of intravenous contrast. Sagittal and coronal reformations were performed. INDICATION: Bilateral hip pain. Multiple myeloma. FINDINGS: There are advanced degenerative changes at the hip joints worse on the right side with near cfzm-gi-ektc appearance compatible with complete cartilage loss at the lateral aspect of the right hip joint. There are prominent osteophytes bilaterally. Moderate/severe joint space loss in the left hip lateral aspect is noted. There is no acute fracture. The sacroiliac joints demonstrate mild degenerative changes with subchondral sclerosis. No subluxation or dislocation is seen. There are areas of decreased bone density suggestive of osteopenia with no discrete soft tissue mass identified. Degenerative changes in the lower lumbar spine seen with disc herniation of mild degree at L5-S1 level suggested. Bilateral foraminal stenosis at L5-S1 is also noted of moderate degree on the right and moderate/ severe degree on the left. There is deformity along the inferior left pubic ramus suggestive of an old fracture. The soft tissue findings demonstrate diverticulosis. No diverticulitis or fluid collection. No soft tissue mass in the pelvis identified. IMPRESSION: Advanced degenerative changes in the hip joints, worse on the right side. Osteopenia. No acute fracture. Dictated by: Dictated on workstation # [id number]
== END ==
LOC: RAD 08:41
PROVIDERS: ATTEND Internal Medicine Hematology & Oncology
DX: M25.551 Pain in right hip (principal); M25.552 Pain in left hip; M16.0 Bilateral primary osteoarthritis of hip; M85.80 Other specified disorders of bone density and structure, unspecified site
CPT/HCPCS: 72192

== ENCOUNTER → 2016-11-30 | Outpatient (CLI) | payer MEDICARE ==
[2016-11-30 10:28] LABS: CHOLESTEROL 180 MG/DL (< 200); DIRECT LDL 97 MG/DL (1-129); TRIGLYCERIDES 115 MG/DL (<150); VLDL CHOLESTEROL 23 MG/DL (5-40)
== END ==
LOC: LAB 09:27
PROVIDERS: ATTEND Family Medicine
DX: E78.5 Hyperlipidemia, unspecified (principal)
CPT/HCPCS: 36415; 80061

== ENCOUNTER 2016-12-15 14:16 | Outpatient (RCR) | payer MEDICARE ==
[2016-09-22 11:36] LABS: BASOPHILS % (AUTO) 0 % (0-10); EOSINOPHILS # (AUTO) 0.1 10^3/uL (0.0-0.3); EOSINOPHILS % (AUTO) 1 % (0-10); LYMPHOCYTES # (AUTO) 1.8 X 10^3 (1.0-4.0); LYMPHOCYTES % (AUTO) 21 % (12-44); MEAN CORPUSCULAR HEMOGLOBIN 33 PG (25-34); MEAN CORPUSCULAR HGB CONC 34 G/DL (32-36); MEAN CORPUSCULAR VOLUME 97 FL (80-99); MONOCYTES # (AUTO) 0.8 X 10^3 (0.0-1.0); MONOCYTES % (AUTO) 9 % (0-12); NEUTROPHILS # (AUTO) 5.9 X 10^3 (1.8-7.8); NEUTROPHILS % (AUTO) 69 % (42-75); PLATELET COUNT 217 10^3/uL (130-400); RED CELL DISTRIBUTION WIDTH 14.1 % (10.0-14.5); WHITE BLOOD COUNT 8.6 10^3/uL (4.3-11.0)
[2016-09-22 12:06] LABS: CALCIUM 9.5 MG/DL (8.5-10.1); CREATININE SERUM 1.1 MG/DL (0.60-1.30); POTASSIUM 4.5 MMOL/L (3.6-5.0)
[2016-09-29 13:07] LABS: BASOPHILS % (AUTO) 0 % (0-10); EOSINOPHILS # (AUTO) 0.1 10^3/uL (0.0-0.3); EOSINOPHILS % (AUTO) 1 % (0-10); LYMPHOCYTES # (AUTO) 2.2 X 10^3 (1.0-4.0); LYMPHOCYTES % (AUTO) 28 % (12-44); MEAN CORPUSCULAR HEMOGLOBIN 33 PG (25-34); MEAN CORPUSCULAR HGB CONC 34 G/DL (32-36); MEAN CORPUSCULAR VOLUME 96 FL (80-99); MEAN PLATELET VOLUME 10.1 FL (7.4-10.4); MONOCYTES # (AUTO) 0.6 X 10^3 (0.0-1.0); MONOCYTES % (AUTO) 8 % (0-12); NEUTROPHILS # (AUTO) 4.9 X 10^3 (1.8-7.8); NEUTROPHILS % (AUTO) 63 % (42-75); PLATELET COUNT 251 10^3/uL (130-400); RED CELL DISTRIBUTION WIDTH 13.8 % (10.0-14.5); WHITE BLOOD COUNT 7.8 10^3/uL (4.3-11.0)
[2016-09-29 13:59] LABS: ANION GAP 12 MMOL/L (5-14); BLOOD UREA NITROGEN 18 MG/DL (7-18); BUN/CREATININE RATIO 21; CALCIUM 9.7 MG/DL (8.5-10.1); CARBON DIOXIDE 23 MMOL/L (21-32); CHLORIDE 108 MMOL/L (98-107); CREATININE SERUM 0.86 MG/DL (0.60-1.30); GFR ESTIMATED > 60; GLUCOSE 90 MG/DL (70-105); MAGNESIUM 1.9 MG/DL (1.8-2.4); POTASSIUM 3.9 MMOL/L (3.6-5.0); SODIUM 143 MMOL/L (135-145)
[2016-10-06 09:24] LABS: BASOPHILS % (AUTO) 0 % (0-10); EOSINOPHILS # (AUTO) 0.1 10^3/uL (0.0-0.3); EOSINOPHILS % (AUTO) 2 % (0-10); LYMPHOCYTES # (AUTO) 1.8 X 10^3 (1.0-4.0); LYMPHOCYTES % (AUTO) 26 % (12-44); MEAN CORPUSCULAR HEMOGLOBIN 33 PG (25-34); MEAN CORPUSCULAR HGB CONC 34 G/DL (32-36); MEAN CORPUSCULAR VOLUME 96 FL (80-99); MEAN PLATELET VOLUME 9.9 FL (7.4-10.4); MONOCYTES # (AUTO) 0.8 X 10^3 (0.0-1.0); MONOCYTES % (AUTO) 11 % (0-12); NEUTROPHILS # (AUTO) 4.3 X 10^3 (1.8-7.8); NEUTROPHILS % (AUTO) 61 % (42-75); PLATELET COUNT 233 10^3/uL (130-400); RED BLOOD COUNT 3.79 10^6/uL (4.35-5.85); RED CELL DISTRIBUTION WIDTH 13.6 % (10.0-14.5)
[2016-10-06 09:26] LABS: PEP REPORT SEE PATH REPORT
[2016-10-06 09:47] LABS: ALBUMIN 3.9 G/DL (3.2-4.5); BILIRUBIN,TOTAL 0.7 MG/DL (0.1-1.0); CALCIUM 9.1 MG/DL (8.5-10.1); CREATININE SERUM 0.98 MG/DL (0.60-1.30); MAGNESIUM 1.8 MG/DL (1.8-2.4); POTASSIUM 3.9 MMOL/L (3.6-5.0); TOTAL PROTEIN 5.8 G/DL (6.4-8.2)
[2016-10-07 06:23] LABS: IMMUNOGLOBULIN IGA 13 mg/dL (71-263); IMMUNOGLOBULIN IGG 462 mg/dL (672-1680); LIGHT CHAIN KAPPA SERUM QUANT 7.93 mg/L (3.30-19.40); LIGHT CHAIN LAMBDA SERUM QUANT 0.92 mg/L (5.71-26.30)
[2016-10-07 07:24] LABS: IMMUNOGLOBULIN IGM 11 mg/dL (47-209)
[2016-10-10 09:51] LABS: CLIN PATHOLOGY REPORT FOOTNOTE; SERUM PROTEIN ELEC DETAIL L-17-0005266
[2016-10-13 12:24] LABS: BASOPHILS % (AUTO) 0 % (0-10); EOSINOPHILS # (AUTO) 0.1 10^3/uL (0.0-0.3); EOSINOPHILS % (AUTO) 1 % (0-10); LYMPHOCYTES # (AUTO) 1.7 X 10^3 (1.0-4.0); LYMPHOCYTES % (AUTO) 22 % (12-44); MEAN CORPUSCULAR HEMOGLOBIN 33 PG (25-34); MEAN CORPUSCULAR HGB CONC 34 G/DL (32-36); MEAN CORPUSCULAR VOLUME 98 FL (80-99); MEAN PLATELET VOLUME 10.8 FL (7.4-10.4); MONOCYTES # (AUTO) 0.7 X 10^3 (0.0-1.0); MONOCYTES % (AUTO) 9 % (0-12); NEUTROPHILS # (AUTO) 5.1 X 10^3 (1.8-7.8); NEUTROPHILS % (AUTO) 67 % (42-75); PLATELET COUNT 211 10^3/uL (130-400); RED BLOOD COUNT 3.95 10^6/uL (4.35-5.85); RED CELL DISTRIBUTION WIDTH 13.5 % (10.0-14.5); WHITE BLOOD COUNT 7.6 10^3/uL (4.3-11.0)
[2016-10-13 12:39] LABS: CALCIUM 9.2 MG/DL (8.5-10.1); CREATININE SERUM 0.94 MG/DL (0.60-1.30); MAGNESIUM 2.1 MG/DL (1.8-2.4); POTASSIUM 3.8 MMOL/L (3.6-5.0)
[2016-10-20 13:25] LABS: BASOPHILS % (AUTO) 0 % (0-10); EOSINOPHILS # (AUTO) 0.1 10^3/uL (0.0-0.3); EOSINOPHILS % (AUTO) 1 % (0-10); LYMPHOCYTES # (AUTO) 2.2 X 10^3 (1.0-4.0); LYMPHOCYTES % (AUTO) 25 % (12-44); MEAN CORPUSCULAR HEMOGLOBIN 33 PG (25-34); MEAN CORPUSCULAR HGB CONC 33 G/DL (32-36); MEAN CORPUSCULAR VOLUME 98 FL (80-99); MEAN PLATELET VOLUME 9.8 FL (7.4-10.4); MONOCYTES # (AUTO) 0.8 X 10^3 (0.0-1.0); MONOCYTES % (AUTO) 9 % (0-12); NEUTROPHILS # (AUTO) 5.5 X 10^3 (1.8-7.8); NEUTROPHILS % (AUTO) 64 % (42-75); PLATELET COUNT 228 10^3/uL (130-400); RED CELL DISTRIBUTION WIDTH 13.7 % (10.0-14.5); WHITE BLOOD COUNT 8.6 10^3/uL (4.3-11.0)
[2016-10-20 14:13] LABS: CALCIUM 9.5 MG/DL (8.5-10.1); CREATININE SERUM 1.13 MG/DL (0.60-1.30); MAGNESIUM 1.9 MG/DL (1.8-2.4); POTASSIUM 4.1 MMOL/L (3.6-5.0)
[2016-10-27 11:26] LABS: BASOPHILS % (AUTO) 0 % (0-10); EOSINOPHILS # (AUTO) 0.1 10^3/uL (0.0-0.3); EOSINOPHILS % (AUTO) 1 % (0-10); LYMPHOCYTES # (AUTO) 1.9 X 10^3 (1.0-4.0); LYMPHOCYTES % (AUTO) 28 % (12-44); MEAN CORPUSCULAR HEMOGLOBIN 33 PG (25-34); MEAN CORPUSCULAR HGB CONC 34 G/DL (32-36); MEAN CORPUSCULAR VOLUME 97 FL (80-99); MONOCYTES # (AUTO) 0.7 X 10^3 (0.0-1.0); MONOCYTES % (AUTO) 10 % (0-12); NEUTROPHILS # (AUTO) 4.1 X 10^3 (1.8-7.8); NEUTROPHILS % (AUTO) 60 % (42-75); PLATELET COUNT 245 10^3/uL (130-400); RED BLOOD COUNT 3.76 10^6/uL (4.35-5.85); RED CELL DISTRIBUTION WIDTH 13.6 % (10.0-14.5); WHITE BLOOD COUNT 6.8 10^3/uL (4.3-11.0)
[2016-10-27 12:11] LABS: CALCIUM 9.6 MG/DL (8.5-10.1); CREATININE SERUM 0.97 MG/DL (0.60-1.30)
[2016-11-03 09:29] LABS: PEP REPORT SEE PATH REPORT
[2016-11-03 09:30] LABS: BASOPHILS % (AUTO) 0 % (0-10); EOSINOPHILS # (AUTO) 0.1 10^3/uL (0.0-0.3); EOSINOPHILS % (AUTO) 1 % (0-10); LYMPHOCYTES # (AUTO) 2.1 X 10^3 (1.0-4.0); LYMPHOCYTES % (AUTO) 29 % (12-44); MEAN CORPUSCULAR HEMOGLOBIN 33 PG (25-34); MEAN CORPUSCULAR HGB CONC 34 G/DL (32-36); MEAN CORPUSCULAR VOLUME 95 FL (80-99); MEAN PLATELET VOLUME 10.1 FL (7.4-10.4); MONOCYTES # (AUTO) 0.8 X 10^3 (0.0-1.0); MONOCYTES % (AUTO) 10 % (0-12); NEUTROPHILS # (AUTO) 4.3 X 10^3 (1.8-7.8); NEUTROPHILS % (AUTO) 59 % (42-75); PLATELET COUNT 217 10^3/uL (130-400); RED BLOOD COUNT 3.87 10^6/uL (4.35-5.85); WHITE BLOOD COUNT 7.2 10^3/uL (4.3-11.0)
[2016-11-03 09:50] LABS: BILIRUBIN,TOTAL 0.6 MG/DL (0.1-1.0); CALCIUM 9.6 MG/DL (8.5-10.1); CREATININE SERUM 0.92 MG/DL (0.60-1.30); MAGNESIUM 2.1 MG/DL (1.8-2.4); POTASSIUM 3.8 MMOL/L (3.6-5.0); TOTAL PROTEIN 5.8 G/DL (6.4-8.2)
--- NOTE | 2016-11-03 18:36 | Diagnostic Imaging Report ---
EXAMINATION: AP pelvis and bilateral hip radiographs. INDICATION: Bilateral hip pain. FINDINGS: There is hcmldhto-eo-cwwtyt osteoarthritis in the hip joints more on the right side. Joint space narrowing is seen. No subluxation or dislocation. No acute fracture. Old fracture in the inferior pubic ramus on the right side is seen. SI joints demonstrate mild degenerative changes. IMPRESSION: Zwxqahyj-wb-tpssei osteoarthritis of the hip joints, worse on the right side. Dictated by: Dictated on workstation # [id number]
[2016-11-04 01:33] LABS: LIGHT CHAIN KAPPA SERUM QUANT 8.86 mg/L (3.30-19.40); LIGHT CHAIN LAMBDA SERUM QUANT 1.18 mg/L (5.71-26.30)
[2016-11-08 08:03] LABS: CLIN PATHOLOGY REPORT FOOTNOTE; SERUM PROTEIN ELEC DETAIL L-17-0006546
[2016-11-10 11:01] LABS: BASOPHILS % (AUTO) 0 % (0-10); EOSINOPHILS # (AUTO) 0.1 10^3/uL (0.0-0.3); EOSINOPHILS % (AUTO) 1 % (0-10); LYMPHOCYTES # (AUTO) 2.4 X 10^3 (1.0-4.0); LYMPHOCYTES % (AUTO) 25 % (12-44); MEAN CORPUSCULAR HEMOGLOBIN 33 PG (25-34); MEAN CORPUSCULAR HGB CONC 34 G/DL (32-36); MEAN CORPUSCULAR VOLUME 96 FL (80-99); MEAN PLATELET VOLUME 10.3 FL (7.4-10.4); MONOCYTES % (AUTO) 10 % (0-12); NEUTROPHILS # (AUTO) 6.2 X 10^3 (1.8-7.8); NEUTROPHILS % (AUTO) 64 % (42-75); PLATELET COUNT 216 10^3/uL (130-400); RED BLOOD COUNT 4.19 10^6/uL (4.35-5.85); RED CELL DISTRIBUTION WIDTH 13.3 % (10.0-14.5); WHITE BLOOD COUNT 9.7 10^3/uL (4.3-11.0)
[2016-11-10 11:20] LABS: CALCIUM 9.7 MG/DL (8.5-10.1); CREATININE SERUM 0.97 MG/DL (0.60-1.30); MAGNESIUM 2.1 MG/DL (1.8-2.4)
[2016-11-17 14:01] LABS: BASOPHILS % (AUTO) 0 % (0-10); EOSINOPHILS # (AUTO) 0.1 10^3/uL (0.0-0.3); EOSINOPHILS % (AUTO) 1 % (0-10); LYMPHOCYTES # (AUTO) 2.5 X 10^3 (1.0-4.0); LYMPHOCYTES % (AUTO) 28 % (12-44); MEAN CORPUSCULAR HEMOGLOBIN 32 PG (25-34); MEAN CORPUSCULAR HGB CONC 34 G/DL (32-36); MEAN CORPUSCULAR VOLUME 96 FL (80-99); MEAN PLATELET VOLUME 9.8 FL (7.4-10.4); MONOCYTES # (AUTO) 0.7 X 10^3 (0.0-1.0); MONOCYTES % (AUTO) 8 % (0-12); NEUTROPHILS # (AUTO) 5.8 X 10^3 (1.8-7.8); NEUTROPHILS % (AUTO) 63 % (42-75); PLATELET COUNT 248 10^3/uL (130-400); RED CELL DISTRIBUTION WIDTH 13.6 % (10.0-14.5); WHITE BLOOD COUNT 9.1 10^3/uL (4.3-11.0)
[2016-11-17 14:41] LABS: CALCIUM 10.3 MG/DL (8.5-10.1); CREATININE SERUM 1.11 MG/DL (0.60-1.30); MAGNESIUM 2.1 MG/DL (1.8-2.4); POTASSIUM 4.2 MMOL/L (3.6-5.0)
[2016-11-30 09:51] LABS: PEP REPORT SEE PATH REPORT
[2016-11-30 09:55] LABS: BASOPHILS % (AUTO) 0 % (0-10); EOSINOPHILS # (AUTO) 0.1 10^3/uL (0.0-0.3); EOSINOPHILS % (AUTO) 1 % (0-10); LYMPHOCYTES % (AUTO) 28 % (12-44); MEAN CORPUSCULAR HEMOGLOBIN 32 PG (25-34); MEAN CORPUSCULAR HGB CONC 34 G/DL (32-36); MEAN CORPUSCULAR VOLUME 96 FL (80-99); MEAN PLATELET VOLUME 10.1 FL (7.4-10.4); MONOCYTES # (AUTO) 0.6 X 10^3 (0.0-1.0); MONOCYTES % (AUTO) 9 % (0-12); NEUTROPHILS # (AUTO) 4.4 X 10^3 (1.8-7.8); NEUTROPHILS % (AUTO) 61 % (42-75); PLATELET COUNT 241 10^3/uL (130-400); RED CELL DISTRIBUTION WIDTH 13.4 % (10.0-14.5); WHITE BLOOD COUNT 7.1 10^3/uL (4.3-11.0)
[2016-11-30 10:27] LABS: ALBUMIN 3.9 GM/DL (3.2-4.5); BILIRUBIN,TOTAL 0.5 MG/DL (0.1-1.0); CALCIUM 9.8 MG/DL (8.5-10.1); CREATININE SERUM 0.98 MG/DL (0.60-1.30); MAGNESIUM 1.9 MG/DL (1.8-2.4); POTASSIUM 3.4 MMOL/L (3.6-5.0); TOTAL PROTEIN 6.2 GM/DL (6.4-8.2)
[2016-12-01 07:50] LABS: LIGHT CHAIN KAPPA SERUM QUANT 10.11 mg/L (3.30-19.40); LIGHT CHAIN LAMBDA SERUM QUANT 0.96 mg/L (5.71-26.30)
[2016-12-02 17:04] LABS: CLIN PATHOLOGY REPORT FOOTNOTE
[2016-12-02 17:05] LABS: SERUM PROTEIN ELEC DETAIL L-17-0007755
[2016-12-08 11:58] LABS: BASOPHILS % (AUTO) 0 % (0-10); EOSINOPHILS # (AUTO) 0.1 10^3/uL (0.0-0.3); EOSINOPHILS % (AUTO) 1 % (0-10); LYMPHOCYTES # (AUTO) 2.4 X 10^3 (1.0-4.0); LYMPHOCYTES % (AUTO) 25 % (12-44); MEAN CORPUSCULAR HEMOGLOBIN 33 PG (25-34); MEAN CORPUSCULAR HGB CONC 34 G/DL (32-36); MEAN CORPUSCULAR VOLUME 95 FL (80-99); MEAN PLATELET VOLUME 10.6 FL (7.4-10.4); MONOCYTES # (AUTO) 0.9 X 10^3 (0.0-1.0); MONOCYTES % (AUTO) 9 % (0-12); NEUTROPHILS # (AUTO) 6.5 X 10^3 (1.8-7.8); NEUTROPHILS % (AUTO) 66 % (42-75); PLATELET COUNT 212 10^3/uL (130-400); RED BLOOD COUNT 4.11 10^6/uL (4.35-5.85); RED CELL DISTRIBUTION WIDTH 13.5 % (10.0-14.5); WHITE BLOOD COUNT 9.9 10^3/uL (4.3-11.0)
[2016-12-08 12:21] LABS: POTASSIUM 3.9 MMOL/L (3.6-5.0)
[2016-12-08 12:22] LABS: ALBUMIN 4.2 GM/DL (3.2-4.5); BILIRUBIN,TOTAL 0.6 MG/DL (0.1-1.0); CALCIUM 9.8 MG/DL (8.5-10.1); CREATININE SERUM 0.97 MG/DL (0.60-1.30); ICTERUS 0.6 (-100-1.9); TOTAL PROTEIN 6.6 GM/DL (6.4-8.2)
[~2016-12-15] VITALS: Ht 160 cm; Wt 61.7 kg
[~2016-12-15 14:16] MED LIST changes: +ACETAMINOPHEN 325 MG TAB (TYLENOL) CANCER CTR PO PRN; +DARATUMUMAB IV SCH; +FAMOTIDINE 20MG/2ML IV (CANCER CTR) IV SCH; +LORATADINE (CLARITIN) 10 MG TAB PO SCH; -METO-270 PO; +METO-387 PO; +NS IV 1000 ML (CANCER CTR) IV SCH; +NS IV SCH; +ONDANSETRON MDV (CANCER CENTER 16 MG in NS (IVPB) CANCER CENTER 50 ML IV SCH; +RT-ALBUTEROL HFA (VENTOLIN) PER PUFF IH SCH; +diphenhydrAMINE 25 MG TAB (BENADRYL) CANCER CENTER PO SCH; +methylPREDNISolone 125 MG/2 ML (SOLU-MEDROL) CANCER CTR IV SCH
[2016-12-15 14:47] LABS: BASOPHILS % (AUTO) 0 % (0-10); EOSINOPHILS # (AUTO) 0.1 10^3/uL (0.0-0.3); EOSINOPHILS % (AUTO) 1 % (0-10); LYMPHOCYTES # (AUTO) 2.1 X 10^3 (1.0-4.0); LYMPHOCYTES % (AUTO) 21 % (12-44); MEAN CORPUSCULAR HEMOGLOBIN 33 PG (25-34); MEAN CORPUSCULAR HGB CONC 35 G/DL (32-36); MEAN CORPUSCULAR VOLUME 95 FL (80-99); MEAN PLATELET VOLUME 10.6 FL (7.4-10.4); MONOCYTES # (AUTO) 0.7 X 10^3 (0.0-1.0); MONOCYTES % (AUTO) 7 % (0-12); NEUTROPHILS # (AUTO) 7.1 X 10^3 (1.8-7.8); NEUTROPHILS % (AUTO) 72 % (42-75); PLATELET COUNT 226 10^3/uL (130-400); RED BLOOD COUNT 3.93 10^6/uL (4.35-5.85); RED CELL DISTRIBUTION WIDTH 13.4 % (10.0-14.5); WHITE BLOOD COUNT 9.9 10^3/uL (4.3-11.0)
[2016-12-15 15:07] LABS: CALCIUM 9.6 MG/DL (8.5-10.1); CREATININE SERUM 0.97 MG/DL (0.60-1.30); MAGNESIUM 2.1 MG/DL (1.8-2.4); POTASSIUM 3.7 MMOL/L (3.6-5.0)
== END 2016-12-21 | disposition home or self-care (01) ==
LOC: ONC 14:16
PROVIDERS: ATTEND Internal Medicine Hematology & Oncology
DX: Z51.11 Encounter for antineoplastic chemotherapy (principal); C90.00 Multiple myeloma not having achieved remission; E83.52 Hypercalcemia; D64.9 Anemia, unspecified; I10 Essential (primary) hypertension; Z79.899 Other long term (current) drug therapy
CPT/HCPCS: 36415; 36591; 73523; 80048; 80053; 82232; 82784; 83735; 83883; 84155; 84165; 85025; 96375; 96413; 96415; 99213

== ENCOUNTER 2016-12-29 09:10 | Outpatient (RCR) | payer MEDICARE ==
[2016-12-23 10:08] LABS: BASOPHILS % (AUTO) 1 % (0-10); EOSINOPHILS # (AUTO) 0.1 10^3/uL (0.0-0.3); EOSINOPHILS % (AUTO) 1 % (0-10); LYMPHOCYTES # (AUTO) 1.9 X 10^3 (1.0-4.0); LYMPHOCYTES % (AUTO) 26 % (12-44); MEAN CORPUSCULAR HEMOGLOBIN 33 PG (25-34); MEAN CORPUSCULAR HGB CONC 34 G/DL (32-36); MEAN CORPUSCULAR VOLUME 95 FL (80-99); MEAN PLATELET VOLUME 10.6 FL (7.4-10.4); MONOCYTES # (AUTO) 0.6 X 10^3 (0.0-1.0); MONOCYTES % (AUTO) 8 % (0-12); NEUTROPHILS # (AUTO) 4.5 X 10^3 (1.8-7.8); NEUTROPHILS % (AUTO) 64 % (42-75); PLATELET COUNT 248 10^3/uL (130-400); RED BLOOD COUNT 3.99 10^6/uL (4.35-5.85); RED CELL DISTRIBUTION WIDTH 13.4 % (10.0-14.5); WHITE BLOOD COUNT 7.1 10^3/uL (4.3-11.0)
[2016-12-23 10:27] LABS: ANION GAP 9 MMOL/L (5-14); BLOOD UREA NITROGEN 15 MG/DL (7-18); BUN/CREATININE RATIO 17; CALCIUM 10.2 MG/DL (8.5-10.1); CARBON DIOXIDE 26 MMOL/L (21-32); CHLORIDE 104 MMOL/L (98-107); GFR ESTIMATED > 60; GLUCOSE 95 MG/DL (70-105); MAGNESIUM 1.9 MG/DL (1.8-2.4); SODIUM 139 MMOL/L (135-145)
[~2016-12-29] VITALS: Ht 160 cm; Wt 61.7 kg
[~2016-12-29 09:10] MED LIST changes: +METO-270 PO; -METO-387 PO
[2016-12-29 09:36] LABS: BASOPHILS % (AUTO) 1 % (0-10); EOSINOPHILS # (AUTO) 0.1 10^3/uL (0.0-0.3); EOSINOPHILS % (AUTO) 1 % (0-10); LYMPHOCYTES # (AUTO) 2.4 X 10^3 (1.0-4.0); LYMPHOCYTES % (AUTO) 32 % (12-44); MEAN CORPUSCULAR HEMOGLOBIN 33 PG (25-34); MEAN CORPUSCULAR HGB CONC 34 G/DL (32-36); MEAN CORPUSCULAR VOLUME 95 FL (80-99); MEAN PLATELET VOLUME 9.8 FL (7.4-10.4); MONOCYTES # (AUTO) 0.7 X 10^3 (0.0-1.0); MONOCYTES % (AUTO) 10 % (0-12); NEUTROPHILS # (AUTO) 4.2 X 10^3 (1.8-7.8); NEUTROPHILS % (AUTO) 56 % (42-75); PLATELET COUNT 258 10^3/uL (130-400); RED BLOOD COUNT 3.93 10^6/uL (4.35-5.85); RED CELL DISTRIBUTION WIDTH 13.4 % (10.0-14.5); WHITE BLOOD COUNT 7.4 10^3/uL (4.3-11.0)
[2016-12-29 09:46] LABS: PEP REPORT SEE PATH REPORT
[2016-12-29 10:14] LABS: ALBUMIN 4.1 GM/DL (3.2-4.5); BILIRUBIN,TOTAL 0.7 MG/DL (0.1-1.0); CALCIUM 9.7 MG/DL (8.5-10.1); CREATININE SERUM 0.93 MG/DL (0.60-1.30); MAGNESIUM 1.9 MG/DL (1.8-2.4); POTASSIUM 3.7 MMOL/L (3.6-5.0); TOTAL PROTEIN 6.5 GM/DL (6.4-8.2)
[2016-12-31 08:30] LABS: LIGHT CHAIN KAPPA SERUM QUANT 12.26 mg/L (3.30-19.40); LIGHT CHAIN LAMBDA SERUM QUANT 0.98 mg/L (5.71-26.30)
[2017-01-05 07:04] LABS: CLIN PATHOLOGY REPORT FOOTNOTE; SERUM PROTEIN ELEC DETAIL L-17-0009113
== END 2017-01-25 10:43 | disposition home or self-care (01) ==
LOC: ONC 09:10
PROVIDERS: ATTEND Internal Medicine Hematology & Oncology
DX: Z51.11 Encounter for antineoplastic chemotherapy (principal); C90.00 Multiple myeloma not having achieved remission; E83.52 Hypercalcemia; D64.9 Anemia, unspecified; I10 Essential (primary) hypertension; Z79.899 Other long term (current) drug therapy
CPT/HCPCS: 36415; 36591; 80048; 80053; 82232; 83735; 83883; 84155; 84165; 85025; 96375; 96413; 96415

== ENCOUNTER 2017-02-23 10:11 | Outpatient (RCR) | payer MEDICARE ==
[2017-01-26 09:42] LABS: BASOPHILS % (AUTO) 0 % (0-10); EOSINOPHILS # (AUTO) 0.2 10^3/uL (0.0-0.3); EOSINOPHILS % (AUTO) 2 % (0-10); LYMPHOCYTES # (AUTO) 2.1 X 10^3 (1.0-4.0); LYMPHOCYTES % (AUTO) 25 % (12-44); MEAN CORPUSCULAR HEMOGLOBIN 33 PG (25-34); MEAN CORPUSCULAR HGB CONC 34 G/DL (32-36); MEAN CORPUSCULAR VOLUME 96 FL (80-99); MEAN PLATELET VOLUME 9.8 FL (7.4-10.4); MONOCYTES # (AUTO) 0.8 X 10^3 (0.0-1.0); MONOCYTES % (AUTO) 10 % (0-12); NEUTROPHILS # (AUTO) 5.1 X 10^3 (1.8-7.8); NEUTROPHILS % (AUTO) 62 % (42-75); PLATELET COUNT 255 10^3/uL (130-400); RED BLOOD COUNT 3.87 10^6/uL (4.35-5.85); RED CELL DISTRIBUTION WIDTH 13.7 % (10.0-14.5); WHITE BLOOD COUNT 8.2 10^3/uL (4.3-11.0)
[2017-01-26 09:53] LABS: PEP REPORT SEE PATH REPORT
[2017-01-26 10:17] LABS: ALBUMIN 4.2 GM/DL (3.2-4.5); BILIRUBIN,TOTAL 0.7 MG/DL (0.1-1.0); CALCIUM 10.1 MG/DL (8.5-10.1); CREATININE SERUM 1.19 MG/DL (0.60-1.30); MAGNESIUM 1.9 MG/DL (1.8-2.4); POTASSIUM 3.7 MMOL/L (3.6-5.0); TOTAL PROTEIN 6.4 GM/DL (6.4-8.2)
[2017-01-27 08:43] LABS: LIGHT CHAIN KAPPA SERUM QUANT 14.73 mg/L (3.30-19.40); LIGHT CHAIN LAMBDA SERUM QUANT 0.81 mg/L (5.71-26.30)
[2017-01-30 15:51] LABS: CLIN PATHOLOGY REPORT FOOTNOTE; SERUM PROTEIN ELEC DETAIL L-17-0010533
[~2017-02-23] VITALS: Ht 160 cm; Wt 63.5 kg
[2017-02-23 10:37] LABS: BASOPHILS % (AUTO) 1 % (0-10); EOSINOPHILS # (AUTO) 0.2 10^3/uL (0.0-0.3); EOSINOPHILS % (AUTO) 3 % (0-10); LYMPHOCYTES % (AUTO) 28 % (12-44); MEAN CORPUSCULAR HEMOGLOBIN 33 PG (25-34); MEAN CORPUSCULAR HGB CONC 34 G/DL (32-36); MEAN CORPUSCULAR VOLUME 96 FL (80-99); MEAN PLATELET VOLUME 10.1 FL (7.4-10.4); MONOCYTES # (AUTO) 0.8 X 10^3 (0.0-1.0); MONOCYTES % (AUTO) 11 % (0-12); NEUTROPHILS % (AUTO) 57 % (42-75); PLATELET COUNT 232 10^3/uL (130-400); RED BLOOD COUNT 3.83 10^6/uL (4.35-5.85); RED CELL DISTRIBUTION WIDTH 13.3 % (10.0-14.5)
[2017-02-23 11:02] LABS: ALBUMIN 3.9 GM/DL (3.2-4.5); BILIRUBIN,TOTAL 0.7 MG/DL (0.1-1.0); CALCIUM 9.8 MG/DL (8.5-10.1); CREATININE SERUM 0.97 MG/DL (0.60-1.30); POTASSIUM 3.8 MMOL/L (3.6-5.0); TOTAL PROTEIN 6.1 GM/DL (6.4-8.2)
[2017-02-23] MEDS ORDERED: NS IV SCH ×2 (11:45)
[2017-02-23] MEDS ORDERED: DARATUMUMAB IV SCH ×2 (11:45)
[2017-02-24 02:35] LABS: LIGHT CHAIN KAPPA SERUM QUANT 18.61 mg/L (3.30-19.40); LIGHT CHAIN LAMBDA SERUM QUANT 0.99 mg/L (5.71-26.30)
== END 2017-03-18 | disposition home or self-care (01) ==
LOC: ONC 10:11
PROVIDERS: ATTEND Internal Medicine Hematology & Oncology
DX: Z51.11 Encounter for antineoplastic chemotherapy (principal); C90.00 Multiple myeloma not having achieved remission; E83.52 Hypercalcemia; D64.9 Anemia, unspecified; I10 Essential (primary) hypertension; Z79.899 Other long term (current) drug therapy
CPT/HCPCS: 36591; 80053; 82232; 82784; 83735; 83883; 84155; 84165; 85025; 96375; 96413; 96415

== ENCOUNTER 2017-03-23 09:17 | Outpatient (RCR) | payer MEDICARE ==
[~2017-03-23] VITALS: Ht 160 cm; Wt 64.4 kg
[2017-03-23 09:56] LABS: BASOPHILS # (AUTO) 0.1 10^3/uL (0.0-0.1); BASOPHILS % (AUTO) 1 % (0-10); EOSINOPHILS # (AUTO) 0.2 10^3/uL (0.0-0.3); EOSINOPHILS % (AUTO) 3 % (0-10); LYMPHOCYTES # (AUTO) 2.1 X 10^3 (1.0-4.0); LYMPHOCYTES % (AUTO) 28 % (12-44); MEAN CORPUSCULAR HEMOGLOBIN 33 PG (25-34); MEAN CORPUSCULAR HGB CONC 34 G/DL (32-36); MEAN CORPUSCULAR VOLUME 96 FL (80-99); MONOCYTES # (AUTO) 0.8 X 10^3 (0.0-1.0); MONOCYTES % (AUTO) 10 % (0-12); NEUTROPHILS # (AUTO) 4.3 X 10^3 (1.8-7.8); NEUTROPHILS % (AUTO) 58 % (42-75); PLATELET COUNT 231 10^3/uL (130-400); RED CELL DISTRIBUTION WIDTH 13.4 % (10.0-14.5); WHITE BLOOD COUNT 7.4 10^3/uL (4.3-11.0)
[2017-03-23 10:14] LABS: BILIRUBIN,TOTAL 0.6 MG/DL (0.1-1.0); CALCIUM 9.7 MG/DL (8.5-10.1); CREATININE SERUM 0.95 MG/DL (0.60-1.30); POTASSIUM 3.5 MMOL/L (3.6-5.0); TOTAL PROTEIN 6.5 GM/DL (6.4-8.2)
== END 2017-04-19 12:05 | disposition home or self-care (01) ==
LOC: ONC 09:17
PROVIDERS: ATTEND Internal Medicine Hematology & Oncology
DX: Z51.11 Encounter for antineoplastic chemotherapy (principal); C90.00 Multiple myeloma not having achieved remission; E83.52 Hypercalcemia; D64.9 Anemia, unspecified; I10 Essential (primary) hypertension; Z79.899 Other long term (current) drug therapy
CPT/HCPCS: 36591; 80053; 82232; 85025; 96375; 96413; 96415

== ENCOUNTER 2017-07-13 08:23 | Outpatient (RCR) | payer MEDICARE ==
[2017-04-20 09:32] LABS: BASOPHILS % (AUTO) 0 % (0-10); EOSINOPHILS # (AUTO) 0.2 10^3/uL (0.0-0.3); EOSINOPHILS % (AUTO) 3 % (0-10); HEMATOCRIT 37 % (35-52); HEMOGLOBIN 12.6 G/DL (11.5-16.0); LYMPHOCYTES # (AUTO) 2.2 X 10^3 (1.0-4.0); LYMPHOCYTES % (AUTO) 31 % (12-44); MEAN CORPUSCULAR HEMOGLOBIN 33 PG (25-34); MEAN CORPUSCULAR HGB CONC 34 G/DL (32-36); MEAN CORPUSCULAR VOLUME 97 FL (80-99); MEAN PLATELET VOLUME 10.2 FL (7.4-10.4); MONOCYTES # (AUTO) 0.8 X 10^3 (0.0-1.0); MONOCYTES % (AUTO) 12 % (0-12); NEUTROPHILS # (AUTO) 3.8 X 10^3 (1.8-7.8); NEUTROPHILS % (AUTO) 54 % (42-75); PLATELET COUNT 250 10^3/uL (130-400); RED BLOOD COUNT 3.79 10^6/uL (4.35-5.85); RED CELL DISTRIBUTION WIDTH 13.5 % (10.0-14.5); WHITE BLOOD COUNT 7.1 10^3/uL (4.3-11.0)
[2017-04-20 09:51] LABS: BILIRUBIN,TOTAL 0.5 MG/DL (0.1-1.0); CALCIUM 9.8 MG/DL (8.5-10.1); CREATININE SERUM 1.11 MG/DL (0.60-1.30); POTASSIUM 3.8 MMOL/L (3.6-5.0); TOTAL PROTEIN 6.3 GM/DL (6.4-8.2)
[2017-05-18 09:01] LABS: BASOPHILS % (AUTO) 0 % (0-10); EOSINOPHILS # (AUTO) 0.2 10^3/uL (0.0-0.3); EOSINOPHILS % (AUTO) 2 % (0-10); HEMATOCRIT 35 % (35-52); HEMOGLOBIN 12.1 G/DL (11.5-16.0); LYMPHOCYTES # (AUTO) 2.3 X 10^3 (1.0-4.0); LYMPHOCYTES % (AUTO) 30 % (12-44); MEAN CORPUSCULAR HEMOGLOBIN 33 PG (25-34); MEAN CORPUSCULAR HGB CONC 35 G/DL (32-36); MEAN CORPUSCULAR VOLUME 96 FL (80-99); MONOCYTES # (AUTO) 0.9 X 10^3 (0.0-1.0); MONOCYTES % (AUTO) 11 % (0-12); NEUTROPHILS # (AUTO) 4.3 X 10^3 (1.8-7.8); NEUTROPHILS % (AUTO) 56 % (42-75); PLATELET COUNT 232 10^3/uL (130-400); RED BLOOD COUNT 3.66 10^6/uL (4.35-5.85); RED CELL DISTRIBUTION WIDTH 13.3 % (10.0-14.5); WHITE BLOOD COUNT 7.7 10^3/uL (4.3-11.0)
[2017-05-18 09:21] LABS: ALANINE AMINOTRANSFERASE 14 U/L (0-55); ALBUMIN 3.9 GM/DL (3.2-4.5); ALKALINE PHOSPHATASE 51 U/L (40-136); BILIRUBIN,TOTAL 0.7 MG/DL (0.1-1.0); BUN/CREATININE RATIO 19; CALCIUM 9.5 MG/DL (8.5-10.1); CARBON DIOXIDE 25 MMOL/L (21-32); CHLORIDE 101 MMOL/L (98-107); CREATININE SERUM 0.85 MG/DL (0.60-1.30); GFR ESTIMATED > 60; GLUCOSE 87 MG/DL (70-105); POTASSIUM 3.8 MMOL/L (3.6-5.0); SODIUM 135 MMOL/L (135-145)
[2017-06-15 09:02] LABS: BASOPHILS % (AUTO) 1 % (0-10); EOSINOPHILS # (AUTO) 0.2 10^3/uL (0.0-0.3); EOSINOPHILS % (AUTO) 2 % (0-10); HEMATOCRIT 35 % (35-52); HEMOGLOBIN 12.2 G/DL (11.5-16.0); LYMPHOCYTES # (AUTO) 2.2 X 10^3 (1.0-4.0); LYMPHOCYTES % (AUTO) 30 % (12-44); MEAN CORPUSCULAR HEMOGLOBIN 33 PG (25-34); MEAN CORPUSCULAR HGB CONC 35 G/DL (32-36); MEAN CORPUSCULAR VOLUME 96 FL (80-99); MEAN PLATELET VOLUME 10.1 FL (7.4-10.4); MONOCYTES # (AUTO) 0.9 X 10^3 (0.0-1.0); MONOCYTES % (AUTO) 13 % (0-12); NEUTROPHILS # (AUTO) 3.9 X 10^3 (1.8-7.8); NEUTROPHILS % (AUTO) 54 % (42-75); PLATELET COUNT 223 10^3/uL (130-400); RED BLOOD COUNT 3.69 10^6/uL (4.35-5.85); RED CELL DISTRIBUTION WIDTH 13.1 % (10.0-14.5); WHITE BLOOD COUNT 7.2 10^3/uL (4.3-11.0)
[2017-06-15 09:32] LABS: ALBUMIN 3.9 GM/DL (3.2-4.5); BILIRUBIN,TOTAL 0.6 MG/DL (0.1-1.0); CALCIUM 9.4 MG/DL (8.5-10.1); CREATININE SERUM 0.96 MG/DL (0.60-1.30); POTASSIUM 3.8 MMOL/L (3.6-5.0); TOTAL PROTEIN 6.2 GM/DL (6.4-8.2)
[2017-07-07 11:46] LABS: BASOPHILS % (AUTO) 0 % (0-10); EOSINOPHILS # (AUTO) 0.1 10^3/uL (0.0-0.3); EOSINOPHILS % (AUTO) 1 % (0-10); HEMATOCRIT 36 % (35-52); HEMOGLOBIN 12.6 G/DL (11.5-16.0); LYMPHOCYTES % (AUTO) 29 % (12-44); MEAN CORPUSCULAR HEMOGLOBIN 33 PG (25-34); MEAN CORPUSCULAR HGB CONC 35 G/DL (32-36); MEAN CORPUSCULAR VOLUME 96 FL (80-99); MEAN PLATELET VOLUME 10.7 FL (7.4-10.4); MONOCYTES # (AUTO) 0.7 X 10^3 (0.0-1.0); MONOCYTES % (AUTO) 10 % (0-12); NEUTROPHILS # (AUTO) 4.1 X 10^3 (1.8-7.8); NEUTROPHILS % (AUTO) 59 % (42-75); PLATELET COUNT 248 10^3/uL (130-400); RED BLOOD COUNT 3.78 10^6/uL (4.35-5.85); RED CELL DISTRIBUTION WIDTH 13.2 % (10.0-14.5); WHITE BLOOD COUNT 6.9 10^3/uL (4.3-11.0)
[2017-07-07 12:06] LABS: BILIRUBIN,TOTAL 0.6 MG/DL (0.1-1.0); CALCIUM 9.8 MG/DL (8.5-10.1); CREATININE SERUM 0.96 MG/DL (0.60-1.30); MAGNESIUM 1.9 MG/DL (1.8-2.4); POTASSIUM 3.8 MMOL/L (3.6-5.0); TOTAL PROTEIN 6.6 GM/DL (6.4-8.2)
[~2017-07-13] VITALS: Ht 160 cm; Wt 66.7 kg
[~2017-07-13 08:23] MED LIST changes: -METO-270 PO; +METO-387 PO
[2017-07-13] MEDS ORDERED: PEGFILGRASTIM 6 MG/0.6ML NEULASTA SC SCH (09:15)
== END 2017-07-19 | disposition home or self-care (01) ==
LOC: ONC 08:23
PROVIDERS: ATTEND Internal Medicine Hematology & Oncology
DX: Z51.11 Encounter for antineoplastic chemotherapy (principal); C90.00 Multiple myeloma not having achieved remission; E83.52 Hypercalcemia; D64.9 Anemia, unspecified; I10 Essential (primary) hypertension; Z79.899 Other long term (current) drug therapy
CPT/HCPCS: 36591; 80053; 82232; 82784; 83735; 83883; 84155; 84165; 85025; 96375; 96413; 96415

== ENCOUNTER 2017-08-10 08:21 | Outpatient (RCR) | payer MEDICARE ==
[2017-08-08 10:00] LABS: BASOPHILS % (AUTO) 0 % (0-10); EOSINOPHILS # (AUTO) 0.2 10^3/uL (0.0-0.3); EOSINOPHILS % (AUTO) 2 % (0-10); HEMATOCRIT 38 % (35-52); HEMOGLOBIN 13.2 G/DL (11.5-16.0); LYMPHOCYTES # (AUTO) 2.2 X 10^3 (1.0-4.0); LYMPHOCYTES % (AUTO) 23 % (12-44); MEAN CORPUSCULAR HEMOGLOBIN 33 PG (25-34); MEAN CORPUSCULAR HGB CONC 35 G/DL (32-36); MEAN CORPUSCULAR VOLUME 96 FL (80-99); MEAN PLATELET VOLUME 10.3 FL (7.4-10.4); MONOCYTES # (AUTO) 0.9 X 10^3 (0.0-1.0); MONOCYTES % (AUTO) 10 % (0-12); NEUTROPHILS # (AUTO) 6.4 X 10^3 (1.8-7.8); NEUTROPHILS % (AUTO) 66 % (42-75); PLATELET COUNT 271 10^3/uL (130-400); RED BLOOD COUNT 4.01 10^6/uL (4.35-5.85); RED CELL DISTRIBUTION WIDTH 13.1 % (10.0-14.5); WHITE BLOOD COUNT 9.6 10^3/uL (4.3-11.0)
[2017-08-08 10:17] LABS: ALBUMIN 4.1 GM/DL (3.2-4.5); BILIRUBIN,TOTAL 0.6 MG/DL (0.1-1.0); CALCIUM 9.8 MG/DL (8.5-10.1); CREATININE SERUM 1.07 MG/DL (0.60-1.30); POTASSIUM 3.6 MMOL/L (3.6-5.0); TOTAL PROTEIN 6.9 GM/DL (6.4-8.2)
[~2017-08-10] VITALS: Ht 160 cm; Wt 64.0 kg
[~2017-08-10 08:21] MED LIST changes: -FAMOTIDINE 20MG/2ML IV (CANCER CTR) IV SCH; -LORATADINE (CLARITIN) 10 MG TAB PO SCH; -ONDANSETRON MDV (CANCER CENTER 16 MG in NS (IVPB) CANCER CENTER 50 ML IV SCH; -RT-ALBUTEROL HFA (VENTOLIN) PER PUFF IH SCH
[2017-08-14] MEDS ORDERED: POTASSIUM CHL INJ (CANCER CTR) 20 MEQ in NS IV 1000 ML (CANCER CTR) 1,000 ML IV SCH (09:15)
== END 2017-08-14 09:21 | disposition home or self-care (01) ==
LOC: ONC 08:21
PROVIDERS: ATTEND Internal Medicine Hematology & Oncology
DX: Z51.11 Encounter for antineoplastic chemotherapy (principal); C90.00 Multiple myeloma not having achieved remission; E83.52 Hypercalcemia; D64.9 Anemia, unspecified; I10 Essential (primary) hypertension; Z79.899 Other long term (current) drug therapy
CPT/HCPCS: 36415; 80053; 82784; 83883; 84155; 84165; 85025; 96375; 96413; 96415

== ENCOUNTER 2017-08-14 09:23 | Outpatient (RCR) | payer MEDICARE ==
[~2017-08-14 09:23] MED LIST changes: -ACETAMINOPHEN 325 MG TAB (TYLENOL) CANCER CTR PO PRN; -DARATUMUMAB IV SCH; -NS IV 1000 ML (CANCER CTR) IV SCH; -NS IV SCH; -diphenhydrAMINE 25 MG TAB (BENADRYL) CANCER CENTER PO SCH; -methylPREDNISolone 125 MG/2 ML (SOLU-MEDROL) CANCER CTR IV SCH
[2017-08-14 09:28] LABS: BASOPHILS % (AUTO) 0 % (0-10); EOSINOPHILS # (AUTO) 0.1 10^3/uL (0.0-0.3); EOSINOPHILS % (AUTO) 1 % (0-10); HEMATOCRIT 40 % (35-52); HEMOGLOBIN 14.1 G/DL (11.5-16.0); LYMPHOCYTES # (AUTO) 1.4 X 10^3 (1.0-4.0); LYMPHOCYTES % (AUTO) 9 % (12-44); MEAN CORPUSCULAR HEMOGLOBIN 33 PG (25-34); MEAN CORPUSCULAR HGB CONC 35 G/DL (32-36); MEAN CORPUSCULAR VOLUME 93 FL (80-99); MEAN PLATELET VOLUME 10.2 FL (7.4-10.4); MONOCYTES # (AUTO) 0.7 X 10^3 (0.0-1.0); MONOCYTES % (AUTO) 4 % (0-12); NEUTROPHILS # (AUTO) 14.7 X 10^3 (1.8-7.8); NEUTROPHILS % (AUTO) 87 % (42-75); PLATELET COUNT 279 10^3/uL (130-400); RED BLOOD COUNT 4.34 10^6/uL (4.35-5.85)
[2017-08-14 09:45] LABS: ALBUMIN 3.8 GM/DL (3.2-4.5); BILIRUBIN,TOTAL 0.6 MG/DL (0.1-1.0); CREATININE SERUM 1.35 MG/DL (0.60-1.30); MAGNESIUM 2.2 MG/DL (1.8-2.4); POTASSIUM 2.8 MMOL/L (3.6-5.0); TOTAL PROTEIN 6.6 GM/DL (6.4-8.2)
== END 2017-08-30 09:54 | disposition home or self-care (01) ==
LOC: ONC 09:23
PROVIDERS: ATTEND Internal Medicine Hematology & Oncology
DX: C90.00 Multiple myeloma not having achieved remission (principal); E83.52 Hypercalcemia; D64.9 Anemia, unspecified; I10 Essential (primary) hypertension; Z79.899 Other long term (current) drug therapy
CPT/HCPCS: 36591; 80053; 83735; 85025; 87324; 87449; 87493; 96365; 96366

== ENCOUNTER → 2017-09-26 | Outpatient (CLI) | payer MEDICARE ==
--- NOTE | 2017-09-26 14:30 | Diagnostic Imaging Report ---
Indication: Multiple myeloma AND plasmacytoma. Serum blood glucose level at time of injection is 98 mg/dL. The patient was administered 13.6 mCi of F-18 FDG intravenously in a left antecubital location and PET imaging was performed from the top of the skull to the mid thighs. In addition, noncontrast CT imaging was performed for anatomic correlation and attenuation correction. No prior PET/CT studies available for comparison. Comparison is made with prior conventional CT chest, abdomen and pelvis study from 10/30/2015. There is symmetric metabolism throughout the brain. The soft tissues of the neck are unremarkable. There is hypermetabolic focus in the left mandible, corresponding to a lucency at this location on the CT images, posterior to the most posterior teeth on the left. A lytic lesion at this location cannot be excluded. Correlation with mandibular films would be useful. SUV max is approximately 7. Low-level metabolism most superior aspect of the left scapula is seen. There is some very mild low level hypermetabolism in the acromion of the left scapula as well. SUV max approximately 3.7. No mediastinal or hilar hypermetabolism is seen. There is some mild uptake in the sternum with SUV max approximately 3. There appears to be a soft tissue component in the retrosternal location in the lower sternum on today's study, new since prior CT from October 2015. Soft tissue component measures 3.7 cm transverse x 1.6 cm AP. There is some low-level hypermetabolism within the soft tissue component reaching approximately 3.3 SUV max. Normal physiologic activity within the abdomen is seen. No significant hypermetabolism within ribs, thoracic spine, lumbar spine or pelvis is seen. There is some mild low-level marrow uptake involving bilateral femora. IMPRESSION: 1. Hypermetabolic focus in the left mandible with associated lytic lesion. Correlation with mandibular films would be useful. 2. Low-level hypermetabolism in the left scapula, as described. 3. New retrosternal soft tissue mass is present since prior CT from October 2015 demonstrating some mild hyper metabolism. Dictated by: Dictated on workstation # [id number]
== END ==
LOC: RAD 08:47
PROVIDERS: ATTEND Internal Medicine Hematology & Oncology
DX: C90.30 Solitary plasmacytoma not having achieved remission (principal)

== ENCOUNTER 2017-11-02 08:17 | Outpatient (RCR) | payer MEDICARE ==
[2017-08-30 10:20] LABS: ABSOLUTE RETIC # 73 10e9/L (24-90); BASOPHILS % (AUTO) 1 % (0-10); EOSINOPHILS # (AUTO) 0.1 10^3/uL (0.0-0.3); EOSINOPHILS % (AUTO) 2 % (0-10); HEMATOCRIT 39 % (35-52); LYMPHOCYTES % (AUTO) 39 % (12-44); MEAN CORPUSCULAR HEMOGLOBIN 32 PG (25-34); MEAN CORPUSCULAR HGB CONC 33 G/DL (32-36); MEAN CORPUSCULAR VOLUME 97 FL (80-99); MEAN PLATELET VOLUME 10.6 FL (7.4-10.4); MONOCYTES # (AUTO) 0.7 X 10^3 (0.0-1.0); MONOCYTES % (AUTO) 9 % (0-12); NEUTROPHILS # (AUTO) 3.9 X 10^3 (1.8-7.8); NEUTROPHILS % (AUTO) 50 % (42-75); PLATELET COUNT 291 10^3/uL (130-400); RED BLOOD COUNT 4.02 10^6/uL (4.35-5.85); RED CELL DISTRIBUTION WIDTH 14.1 % (10.0-14.5); RETICULOCYTE % 1.82 % (0.50-2.40); WHITE BLOOD COUNT 7.8 10^3/uL (4.3-11.0)
[2017-08-30 10:36] LABS: ALBUMIN 3.9 GM/DL (3.2-4.5); BILIRUBIN,TOTAL 0.6 MG/DL (0.1-1.0); CALCIUM 9.4 MG/DL (8.5-10.1); CREATININE SERUM 0.95 MG/DL (0.60-1.30); POTASSIUM 4.2 MMOL/L (3.6-5.0); TOTAL PROTEIN 6.3 GM/DL (6.4-8.2)
[2017-08-30 10:52] LABS: EOSINOPHILS % (MANUAL) 2 %; LYMPHOCYTES % (MANUAL) 15 %; MONOCYTES % (MANUAL) 7 %; NEUTROPHILS % (MANUAL) 54 %; REACTIVE LYMPHOCYTES 22 %
[2017-08-30 10:54] LABS: RBC MORPH NORMAL
[2017-09-08 07:03] LABS: MISC LAB TEST & RESULT CHROM AN PB
[2017-10-05 08:33] LABS: BASOPHILS % (AUTO) 0 % (0-10); EOSINOPHILS # (AUTO) 0.2 10^3/uL (0.0-0.3); EOSINOPHILS % (AUTO) 3 % (0-10); HEMATOCRIT 35 % (35-52); HEMOGLOBIN 11.6 G/DL (11.5-16.0); LYMPHOCYTES # (AUTO) 2.6 X 10^3 (1.0-4.0); LYMPHOCYTES % (AUTO) 38 % (12-44); MEAN CORPUSCULAR HEMOGLOBIN 32 PG (25-34); MEAN CORPUSCULAR HGB CONC 33 G/DL (32-36); MEAN CORPUSCULAR VOLUME 95 FL (80-99); MEAN PLATELET VOLUME 10.2 FL (7.4-10.4); MONOCYTES # (AUTO) 0.7 X 10^3 (0.0-1.0); MONOCYTES % (AUTO) 10 % (0-12); NEUTROPHILS # (AUTO) 3.4 X 10^3 (1.8-7.8); NEUTROPHILS % (AUTO) 49 % (42-75); PLATELET COUNT 280 10^3/uL (130-400); RED BLOOD COUNT 3.66 10^6/uL (4.35-5.85); RED CELL DISTRIBUTION WIDTH 14.6 % (10.0-14.5); WHITE BLOOD COUNT 6.9 10^3/uL (4.3-11.0)
[2017-10-05 08:51] LABS: ALANINE AMINOTRANSFERASE 10 U/L (0-55); ALBUMIN 3.9 GM/DL (3.2-4.5); ALKALINE PHOSPHATASE 46 U/L (40-136); BILIRUBIN,TOTAL 0.6 MG/DL (0.1-1.0); BUN/CREATININE RATIO 18; CALCIUM 9.4 MG/DL (8.5-10.1); CARBON DIOXIDE 27 MMOL/L (21-32); CHLORIDE 103 MMOL/L (98-107); CREATININE SERUM 0.88 MG/DL (0.60-1.30); GFR ESTIMATED > 60; GLUCOSE 100 MG/DL (70-105); POTASSIUM 3.6 MMOL/L (3.6-5.0); SODIUM 137 MMOL/L (135-145); TOTAL PROTEIN 6.5 GM/DL (6.4-8.2)
[~2017-11-02] VITALS: Ht 160 cm; Wt 62.6 kg
[~2017-11-02 08:17] MED LIST changes: +ACETAMINOPHEN 325 MG TAB (TYLENOL) CANCER CTR PO PRN; +DARATUMUMAB IV SCH; +NS IV 1000 ML (CANCER CTR) IV SCH; +NS IV SCH; +ZOLEDRONIC ACID (CANCER CTR) 4 MG in NS (IVPB) CANCER CENTER 100 ML IV SCH; +diphenhydrAMINE 25 MG TAB (BENADRYL) CANCER CENTER PO SCH; +methylPREDNISolone 125 MG/2 ML (SOLU-MEDROL) CANCER CTR IV SCH
[2017-11-02 08:53] LABS: BASOPHILS % (AUTO) 1 % (0-10); EOSINOPHILS # (AUTO) 0.1 10^3/uL (0.0-0.3); EOSINOPHILS % (AUTO) 2 % (0-10); HEMATOCRIT 36 % (35-52); LYMPHOCYTES # (AUTO) 3.3 X 10^3 (1.0-4.0); LYMPHOCYTES % (AUTO) 41 % (12-44); MEAN CORPUSCULAR HEMOGLOBIN 32 PG (25-34); MEAN CORPUSCULAR HGB CONC 34 G/DL (32-36); MEAN CORPUSCULAR VOLUME 96 FL (80-99); MEAN PLATELET VOLUME 10.5 FL (7.4-10.4); MONOCYTES # (AUTO) 0.8 X 10^3 (0.0-1.0); MONOCYTES % (AUTO) 10 % (0-12); NEUTROPHILS # (AUTO) 3.7 X 10^3 (1.8-7.8); NEUTROPHILS % (AUTO) 46 % (42-75); PLATELET COUNT 317 10^3/uL (130-400); RED BLOOD COUNT 3.74 10^6/uL (4.35-5.85); RED CELL DISTRIBUTION WIDTH 14.3 % (10.0-14.5)
[2017-11-02 09:16] LABS: ALANINE AMINOTRANSFERASE 7 U/L (0-55); ALBUMIN 3.9 GM/DL (3.2-4.5); ALKALINE PHOSPHATASE 48 U/L (40-136); BILIRUBIN,TOTAL 0.5 MG/DL (0.1-1.0); BUN/CREATININE RATIO 24; CALCIUM 9.5 MG/DL (8.5-10.1); CARBON DIOXIDE 23 MMOL/L (21-32); CHLORIDE 109 MMOL/L (98-107); CREATININE SERUM 0.84 MG/DL (0.60-1.30); GFR ESTIMATED > 60; GLUCOSE 98 MG/DL (70-105); POTASSIUM 3.7 MMOL/L (3.6-5.0); SODIUM 141 MMOL/L (135-145); TOTAL PROTEIN 6.8 GM/DL (6.4-8.2)
== END 2017-11-28 | disposition home or self-care (01) ==
LOC: ONC 08:17
PROVIDERS: ATTEND Internal Medicine Hematology & Oncology
DX: Z51.11 Encounter for antineoplastic chemotherapy (principal); C90.00 Multiple myeloma not having achieved remission; E83.52 Hypercalcemia; D64.9 Anemia, unspecified; I10 Essential (primary) hypertension; Z79.899 Other long term (current) drug therapy
CPT/HCPCS: 36415; 36591; 38222; 80053; 82232; 82784; 83883; 84155; 84165; 85007; 85025; 85027; 85045; 88184; 88185; 88305; 88311; 88313; 96367; 96375; 96413; 96415; 99213

== ENCOUNTER → 2017-11-30 | Outpatient (CLI) | payer MEDICARE ==
[~2017-11-30] MED LIST changes: -ACETAMINOPHEN 325 MG TAB (TYLENOL) CANCER CTR PO PRN; -DARATUMUMAB IV SCH; -NS IV 1000 ML (CANCER CTR) IV SCH; -NS IV SCH; -ZOLEDRONIC ACID (CANCER CTR) 4 MG in NS (IVPB) CANCER CENTER 100 ML IV SCH; -diphenhydrAMINE 25 MG TAB (BENADRYL) CANCER CENTER PO SCH; -methylPREDNISolone 125 MG/2 ML (SOLU-MEDROL) CANCER CTR IV SCH
--- NOTE | 2017-11-30 16:23 | Diagnostic Imaging Report ---
INDICATION: Left hip pain for one to two weeks. TIME OF EXAM: 02:35 p.m. FINDINGS: Two views of the left hip were obtained. Femoroacetabular alignment is normal. The femoral head and neck are intact. Joint space is fairly well maintained. There are some mild degenerative changes of the left hip. Old left inferior pubic ramus fracture is again noted. IMPRESSION: Stable left hip. No acute bony abnormality is detected. Dictated by: Dictated on workstation # [id number]
== END ==
LOC: RAD 13:57
PROVIDERS: ATTEND Internal Medicine Hematology & Oncology
DX: M25.552 Pain in left hip (principal)
CPT/HCPCS: 73502

== ENCOUNTER 2018-01-16 14:27 | Outpatient (RCR) | payer MEDICARE ==
[2017-11-30 08:34] LABS: BASOPHILS % (AUTO) 0 % (0-10); EOSINOPHILS # (AUTO) 0.2 10^3/uL (0.0-0.3); EOSINOPHILS % (AUTO) 3 % (0-10); HEMATOCRIT 35 % (35-52); HEMOGLOBIN 12.2 G/DL (11.5-16.0); LYMPHOCYTES # (AUTO) 2.4 X 10^3 (1.0-4.0); LYMPHOCYTES % (AUTO) 34 % (12-44); MEAN CORPUSCULAR HEMOGLOBIN 32 PG (25-34); MEAN CORPUSCULAR HGB CONC 35 G/DL (32-36); MEAN CORPUSCULAR VOLUME 94 FL (80-99); MEAN PLATELET VOLUME 9.8 FL (7.4-10.4); MONOCYTES # (AUTO) 0.6 X 10^3 (0.0-1.0); MONOCYTES % (AUTO) 8 % (0-12); NEUTROPHILS # (AUTO) 3.7 X 10^3 (1.8-7.8); NEUTROPHILS % (AUTO) 54 % (42-75); PLATELET COUNT 260 10^3/uL (130-400); RED BLOOD COUNT 3.76 10^6/uL (4.35-5.85); RED CELL DISTRIBUTION WIDTH 13.9 % (10.0-14.5); WHITE BLOOD COUNT 6.9 10^3/uL (4.3-11.0)
[2017-11-30 08:54] LABS: ALBUMIN 3.9 GM/DL (3.2-4.5); BILIRUBIN,TOTAL 0.6 MG/DL (0.1-1.0); CALCIUM 9.8 MG/DL (8.5-10.1); CREATININE SERUM 1.04 MG/DL (0.60-1.30); POTASSIUM 3.5 MMOL/L (3.6-5.0); TOTAL PROTEIN 7.2 GM/DL (6.4-8.2)
[2017-12-28 08:12] LABS: BASOPHILS % (AUTO) 0 % (0-10); EOSINOPHILS # (AUTO) 0.2 10^3/uL (0.0-0.3); EOSINOPHILS % (AUTO) 2 % (0-10); HEMATOCRIT 36 % (35-52); HEMOGLOBIN 12.2 G/DL (11.5-16.0); LYMPHOCYTES # (AUTO) 2.6 X 10^3 (1.0-4.0); LYMPHOCYTES % (AUTO) 27 % (12-44); MEAN CORPUSCULAR HEMOGLOBIN 32 PG (25-34); MEAN CORPUSCULAR HGB CONC 34 G/DL (32-36); MEAN CORPUSCULAR VOLUME 93 FL (80-99); MEAN PLATELET VOLUME 10.1 FL (7.4-10.4); MONOCYTES # (AUTO) 1.1 X 10^3 (0.0-1.0); MONOCYTES % (AUTO) 12 % (0-12); NEUTROPHILS # (AUTO) 5.6 X 10^3 (1.8-7.8); NEUTROPHILS % (AUTO) 59 % (42-75); PLATELET COUNT 303 10^3/uL (130-400); RED BLOOD COUNT 3.81 10^6/uL (4.35-5.85); RED CELL DISTRIBUTION WIDTH 14.4 % (10.0-14.5); WHITE BLOOD COUNT 9.5 10^3/uL (4.3-11.0)
[2017-12-28 08:33] LABS: ALBUMIN 3.9 GM/DL (3.2-4.5); BILIRUBIN,TOTAL 0.5 MG/DL (0.1-1.0); CALCIUM 9.6 MG/DL (8.5-10.1); CREATININE SERUM 1.28 MG/DL (0.60-1.30); POTASSIUM 3.9 MMOL/L (3.6-5.0); TOTAL PROTEIN 7.3 GM/DL (6.4-8.2)
[~2018-01-16] VITALS: Ht 160 cm; Wt 62.1 kg
[~2018-01-16 14:27] MED LIST changes: +ACETAMINOPHEN 325 MG TAB (TYLENOL) CANCER CTR PO PRN; +DARATUMUMAB IV SCH; +NS IV 1000 ML (CANCER CTR) IV SCH; +NS IV SCH; +ZOLEDRONIC ACID (CANCER CTR) 4 MG in NS (IVPB) CANCER CENTER 100 ML IV SCH; +diphenhydrAMINE 25 MG TAB (BENADRYL) CANCER CENTER PO SCH; +methylPREDNISolone 125 MG/2 ML (SOLU-MEDROL) CANCER CTR IV SCH
== END 2018-01-16 14:35 | disposition home or self-care (01) ==
LOC: ONC 14:27
PROVIDERS: ATTEND Internal Medicine Hematology & Oncology
DX: Z51.11 Encounter for antineoplastic chemotherapy (principal); C90.00 Multiple myeloma not having achieved remission; E83.52 Hypercalcemia; D64.9 Anemia, unspecified; I10 Essential (primary) hypertension; Z79.899 Other long term (current) drug therapy
CPT/HCPCS: 36591; 80053; 82232; 82784; 83883; 84155; 84165; 85025; 96367; 96375; 96413; 96415

== ENCOUNTER 2018-02-27 09:36 | Outpatient (RCR) | payer MEDICARE ==
[2018-01-25 08:42] LABS: BASOPHILS % (AUTO) 0 % (0-10); EOSINOPHILS # (AUTO) 0.3 10^3/uL (0.0-0.3); EOSINOPHILS % (AUTO) 4 % (0-10); HEMATOCRIT 34 % (35-52); HEMOGLOBIN 11.4 G/DL (11.5-16.0); LYMPHOCYTES # (AUTO) 2.4 X 10^3 (1.0-4.0); LYMPHOCYTES % (AUTO) 34 % (12-44); MEAN CORPUSCULAR HEMOGLOBIN 31 PG (25-34); MEAN CORPUSCULAR HGB CONC 33 G/DL (32-36); MEAN CORPUSCULAR VOLUME 93 FL (80-99); MEAN PLATELET VOLUME 9.9 FL (7.4-10.4); MONOCYTES # (AUTO) 0.8 X 10^3 (0.0-1.0); MONOCYTES % (AUTO) 11 % (0-12); NEUTROPHILS # (AUTO) 3.6 X 10^3 (1.8-7.8); NEUTROPHILS % (AUTO) 51 % (42-75); PLATELET COUNT 285 10^3/uL (130-400); RED BLOOD COUNT 3.67 10^6/uL (4.35-5.85); RED CELL DISTRIBUTION WIDTH 14.7 % (10.0-14.5); WHITE BLOOD COUNT 7.1 10^3/uL (4.3-11.0)
[2018-01-25 09:09] LABS: ALBUMIN 3.9 GM/DL (3.2-4.5); BILIRUBIN,TOTAL 0.6 MG/DL (0.1-1.0); CALCIUM 9.6 MG/DL (8.5-10.1); CREATININE SERUM 1.41 MG/DL (0.60-1.30); POTASSIUM 3.3 MMOL/L (3.6-5.0); TOTAL PROTEIN 7.3 GM/DL (6.4-8.2)
[2018-02-22 08:43] LABS: BASOPHILS % (AUTO) 0 % (0-10); EOSINOPHILS # (AUTO) 0.1 10^3/uL (0.0-0.3); EOSINOPHILS % (AUTO) 2 % (0-10); HEMATOCRIT 32 % (35-52); HEMOGLOBIN 10.4 G/DL (11.5-16.0); LYMPHOCYTES # (AUTO) 1.5 X 10^3 (1.0-4.0); LYMPHOCYTES % (AUTO) 25 % (12-44); MEAN CORPUSCULAR HEMOGLOBIN 31 PG (25-34); MEAN CORPUSCULAR HGB CONC 33 G/DL (32-36); MEAN CORPUSCULAR VOLUME 94 FL (80-99); MEAN PLATELET VOLUME 9.9 FL (7.4-10.4); MONOCYTES # (AUTO) 0.6 X 10^3 (0.0-1.0); MONOCYTES % (AUTO) 9 % (0-12); NEUTROPHILS # (AUTO) 3.8 X 10^3 (1.8-7.8); NEUTROPHILS % (AUTO) 63 % (42-75); PLATELET COUNT 284 10^3/uL (130-400); RED BLOOD COUNT 3.37 10^6/uL (4.35-5.85); RED CELL DISTRIBUTION WIDTH 14.4 % (10.0-14.5)
[2018-02-22 09:02] LABS: ALBUMIN 3.8 GM/DL (3.2-4.5); BILIRUBIN,TOTAL 0.6 MG/DL (0.1-1.0); CALCIUM 9.5 MG/DL (8.5-10.1); CREATININE SERUM 1.13 MG/DL (0.60-1.30); POTASSIUM 3.5 MMOL/L (3.6-5.0); TOTAL PROTEIN 7.6 GM/DL (6.4-8.2)
== END 2018-03-27 09:57 | disposition home or self-care (01) ==
LOC: ONC 09:36
PROVIDERS: ATTEND Internal Medicine Hematology & Oncology
DX: Z51.0 Encounter for antineoplastic radiation therapy (principal); C90.00 Multiple myeloma not having achieved remission; E83.52 Hypercalcemia; D64.9 Anemia, unspecified; I10 Essential (primary) hypertension; Z79.899 Other long term (current) drug therapy
CPT/HCPCS: 36591; 77280; 77290; 77295; 77300; 77334; 77336; 77402; 77417; 77470; 80053; 82232; 82784; 83883; 84155; 84165; 85025; 99204

== ENCOUNTER 2018-05-29 15:30 | Inpatient (IN) | payer MEDICARE ==
[~2018-05-29] VITALS: Ht 157.5 cm; Wt 60.3 kg
[~2018-05-29 15:30] MED LIST changes: -ACETAMINOPHEN 325 MG TAB (TYLENOL) CANCER CTR PO PRN; -DARATUMUMAB IV SCH; -NS IV 1000 ML (CANCER CTR) IV SCH; -NS IV SCH; -ZOLEDRONIC ACID (CANCER CTR) 4 MG in NS (IVPB) CANCER CENTER 100 ML IV SCH; -diphenhydrAMINE 25 MG TAB (BENADRYL) CANCER CENTER PO SCH; -methylPREDNISolone 125 MG/2 ML (SOLU-MEDROL) CANCER CTR IV SCH
[2018-05-29 16:09] LABS: BASOPHILS % (AUTO) 0 % (0-10); EOSINOPHILS # (AUTO) 0.1 10^3/uL (0.0-0.3); EOSINOPHILS % (AUTO) 1 % (0-10); LYMPHOCYTES # (AUTO) 1.7 X 10^3 (1.0-4.0); LYMPHOCYTES % (AUTO) 12 % (12-44); MEAN CORPUSCULAR HEMOGLOBIN 32 PG (25-34); MEAN CORPUSCULAR HGB CONC 33 G/DL (32-36); MEAN CORPUSCULAR VOLUME 97 FL (80-99); MEAN PLATELET VOLUME 12.5 FL (7.4-10.4); MONOCYTES # (AUTO) 0.7 X 10^3 (0.0-1.0); MONOCYTES % (AUTO) 5 % (0-12); NEUTROPHILS # (AUTO) 11.9 X 10^3 (1.8-7.8); NEUTROPHILS % (AUTO) 83 % (42-75); PLATELET COUNT 121 10^3/uL (130-400); RED BLOOD COUNT 1.13 10^6/uL (4.35-5.85); RED CELL DISTRIBUTION WIDTH 15.7 % (10.0-14.5); WHITE BLOOD COUNT 14.4 10^3/uL (4.3-11.0)
--- NOTE | 2018-05-29 16:11 | ED Lower Extremity ---
General Chief Complaint: Trauma-Non Activation Stated Complaint: ELECTROLIGHTS LOW Nursing Triage Note: PT PRESENTS TO ED WITH COMPLAINTS OF INCREASED LETHARGY, CONSTIPATION, AND A FALL LAST NIGHT WITH PAIN TO R ARM. Nursing Sepsis Screen: No Definite Risk Source: patient Exam Limitations: no limitations History of Present Illness Date Seen by Provider: May 29, 2018 Time Seen by Provider: 15:30 Initial Comments Patient is an 78-year-old female who presents to the emergency room with increasing weakness, possible electrolyte imbalance, fall with complaints of right arm pain last night. She reports that over the past week she has been Increasingly weak causing her fall last night onto her right arm. She denies other injuries from the fall denies hitting her head, neck pain, loss of consciousness. She reports that she has a history of multiple myeloma that causes anemia. Denies any shortness of breath, nausea, vomiting or diarrhea. Onset: last week Pain/Injury Location: right other (arm) Method of Injury: fell Modifying Factors: Worse With Movement Allergies and Home Medications Allergies Coded Allergies: Sulfa (Sulfonamide Antibiotics) (Verified Allergy, Unknown, 05/29/18) Home Medications Acyclovir 400 Mg Tablet, 400 MG PO BID, (Reported) Dexamethasone 4 Mg Tablet, 20 MG PO weekly, (Reported) take 5 (4mg) tabs Hydrochlorothiazide 12.5 Mg Tablet, 12.5 MG PO DAILY, (Reported) Hydrocodone/Acetaminophen 1 Each Tablet, 1 EACH PO Q4H PRN for PAIN Prescribed by: URVASHI PRIETO on 12/18/15 1052 Metoprolol Succinate 25 Mg Tab.er.24h, 25 MG PO DAILY, (Reported) Morphine Sulfate 15 Mg Tablet, 15 MG PO HS, (Reported) Pantoprazole Sodium 20 Mg Tablet.dr, 20 MG PO DAILY, (Reported) Simvastatin 20 Mg Tablet, 20 MG PO HS, (Reported) Patient Home Medication List Home Medication List Reviewed: Yes Review of Systems Constitutional: see HPI, weakness Musculoskeletal: see HPI, other (right arm pain.) All Other Systems Reviewed Negative Unless Noted: Yes Past Vspssfd-Tuehtl-Ylpaju Hx Past Med/Social Hx: Reviewed Nursing Past Med/Soc Hx Patient Social History Alcohol Use: Denies Use Recreational Drug Use: No Smoking Status: Never a Smoker Recent Foreign Travel: No Contact w/Someone Who Travel: No Recent Infectious Disease Expo: No Physical Abuse: No Sexual Abuse: No Mistreated: No Fear: No Past Medical History Surgeries: Yes (left knee scope, PORT PLACED) Appendectomy, Hysterectomy Respiratory: No Cardiac: Yes Hypertension Neurological: No Female Reproductive Disorders: Denies Genitourinary: No Gastrointestinal: No Musculoskeletal: No (multiple myeloma) Endocrine: No Cancer: Yes (multiple myeloma) Psychosocial: No Integumentary: No Blood Disorders: Yes (anemia) Family Medical History Reviewed Nursing Family Hx Physical Exam Vital Signs Vital Signs - First Documented 05/29/18 15:37 Temp 98.2 Pulse 81 Resp 20 B/P (MAP) 144/49 (80) Pulse Ox 99 Capillary Refill : Less Than 3 Seconds Height, Weight, BMI Height: 5'2.00" Weight: 133lbs. 0.0oz. 60.951435pn; 23.0 BMI Method:Stated General Appearance: WD/WN, no apparent distress HEENT: pale conjunctivae (R), pale conjunctivae (L), other (pale mucous membranes) Cardiovascular: normal peripheral pulses, regular rate, rhythm, no edema, no gallop, no JVD, no murmur Respiratory: chest non-tender, lungs clear, normal breath sounds, no respiratory distress, no accessory muscle use Gastrointestinal: normal bowel sounds, non tender, soft, no organomegaly, no pulsatile mass Neurologic/Tendon: normal sensation, normal motor functions, normal tendon functions, responds to pain, no evidence tendon injury, other (pain to right forearm. No obvious deformity, no ecchymosis. Distal pulses present.) Neurologic/Psychiatric: alert, normal mood/affect, oriented x 3 Skin: normal color, warm/dry Progress/Results/Core Measures Results/Orders Lab Results Laboratory Tests Test 05/29/18 16:00 05/29/18 16:18 Range/Units White Blood Count 14.4 H 4.3-11.0 10^3/uL Red Blood Count 1.13 L 4.35-5.85 10^6/uL Hemoglobin 3.6 *L 11.5-16.0 G/DL Hematocrit 11 *L 35-52 % Mean Corpuscular Volume 97 80-99 FL Mean Corpuscular Hemoglobin 32 25-34 PG Mean Corpuscular Hemoglobin Concent 33 32-36 G/DL Red Cell Distribution Width 15.7 H 10.0-14.5 % Platelet Count 121 L 130-400 10^3/uL Mean Platelet Volume 12.5 H 7.4-10.4 FL Neutrophils (%) (Auto) 83 H 42-75 % Lymphocytes (%) (Auto) 12 12-44 % Monocytes (%) (Auto) 5 0-12 % Eosinophils (%) (Auto) 1 0-10 % Basophils (%) (Auto) 0 0-10 % Neutrophils # (Auto) 11.9 H 1.8-7.8 X 10^3 Lymphocytes # (Auto) 1.7 1.0-4.0 X 10^3 Monocytes # (Auto) 0.7 0.0-1.0 X 10^3 Eosinophils # (Auto) 0.1 0.0-0.3 10^3/uL Basophils # (Auto) 0.0 0.0-0.1 10^3/uL Neutrophils % (Manual) 85 % Lymphocytes % (Manual) 10 % Monocytes % (Manual) 3 % Eosinophils % (Manual) 0 % Basophils % (Manual) 0 % Band Neutrophils 2 % Blood Morphology Comment NORMAL Sodium Level 144 135-145 MMOL/L Potassium Level 3.7 3.6-5.0 MMOL/L Chloride Level 115 H 98-107 MMOL/L Carbon Dioxide Level 20 L 21-32 MMOL/L Anion Gap 9 5-14 MMOL/L Blood Urea Nitrogen 77 H 7-18 MG/DL Creatinine 1.23 0.60-1.30 MG/DL Estimat Glomerular Filtration Rate 42 BUN/Creatinine Ratio 63 Glucose Level 110 H 70-105 MG/DL Calcium Level 9.5 8.5-10.1 MG/DL Corrected Calcium 10.1 8.5-10.1 MG/DL Total Bilirubin 0.4 0.1-1.0 MG/DL Aspartate Amino Transf (AST/SGOT) 16 5-34 U/L Alanine Aminotransferase (ALT/SGPT) 11 0-55 U/L Alkaline Phosphatase 26 L 40-136 U/L Total Protein 5.7 L 6.4-8.2 GM/DL Albumin 3.2 3.2-4.5 GM/DL Urine Color YELLOW Urine Clarity SLIGHTLY CLOUDY Urine pH 5 5-9 Urine Specific [place] 1.010 L 1.016-1.022 Urine Protein 1+ H NEGATIVE Urine Glucose (UA) NEGATIVE NEGATIVE Urine Ketones NEGATIVE NEGATIVE Urine Nitrite NEGATIVE NEGATIVE Urine Bilirubin NEGATIVE NEGATIVE Urine Urobilinogen NORMAL NORMAL MG/DL Urine Leukocyte Esterase 1+ H NEGATIVE Urine RBC (Auto) 5+ H NEGATIVE Urine RBC 5-10 H /HPF Urine WBC 0-2 /HPF Urine Squamous Epithelial Cells 0-2 /HPF Urine Crystals PRESENT H /LPF Urine Amorphous Sediment FEW SANDRA URATES H /LPF Urine Bacteria NONE /HPF Urine Casts NONE /LPF Urine Mucus NEGATIVE /LPF Urine Culture Indicated NO My Orders Orders - KYLE COCHRAN Forearm, Right, 2 Views (05/29/18 15:38) Comprehensive Metabolic Panel (05/29/18 15:38) Ua Culture If Indicated (05/29/18 15:38) Saline Lock/Iv-Start (05/29/18 15:38) Cbc With Automated Diff (05/29/18 15:38) Type And Screen (05/29/18 15:38) Manual Differential (05/29/18 16:00) Vital Signs: Special (Order) (05/29/18 16:14) Red Cells Leukocytes Reduced (05/29/18 16:14) Vital Signs/I&O 05/29/18 15:37 Temp 98.2 Pulse 81 Resp 20 B/P (MAP) 144/49 (80) Pulse Ox 99 Blood Pressure Mean: 80 Progress Progress Note : Time: 16:44 Progress Note I have seen and evaluated the patient. I have discussed the case with Dr. Tran ,he agrees to accept the patient to the hospitalist services and recommends transfusing 2 units of packed red blood cells tonight and repeating labs in the morning. I also consulted Dr. Ramos for fracture of the right radius, he recommends putting the patient in a sling tonight for immobilization and he will see the patient in the morning. Patient agrees with plan of care. Diagnostic Imaging Diagonstic Imaging: Xray Plain Films/CT/US/NM/MRI: forearm Comments NAME: LOPEZJOHANN A MED REC#: [id number] PT STATUS: REG ER : 1940 PHYSICIAN: KYLE COCHRAN ADMIT DATE: 05/29/18/ER Signed Date of Exam:05/29/18 FOREARM, RIGHT, 2 VIEWS PATIENT HISTORY: Fall, right forearm pain. TECHNIQUE: 2 views of the right forearm. COMPARISON: None FINDINGS: There is a moderately medially displaced oblique fracture of the proximal right radial diaphysis. There are degenerative changes in the elbow and wrist, and basal joints of the thumb. Linear lucency seen at the trapezium is thought to be due to overlapping structures. The ulna just proximal to the fracture has a somewhat moth-eaten appearance. There is soft tissue edema about the fracture site. IMPRESSION: 1. Medially displaced oblique fracture of the proximal right radial diaphysis. Decreased density in the proximal ulna is concerning for a pathologic fracture, consider cross-sectional imaging. Dictated by: Dictated on workstation # [id number] Dict: 05/29/18 1612 Trans: 05/29/18 1710 [facility] [id number] Interpreted by: DAYAMI POWELL MD Electronically signed by: DAYAMI POWELL MD 05/29/18 1710 Reviewed: Reviewed by Me Departure Communication (Admissions) Time/Spoke to Admitting Phy: 16:44 Marc Time/Spoke to Consulting Phy: 16:51 Maliafuta Impression Primary Impression: Fracture, radius, proximal Additional Impressions: Multiple myeloma Anemia Disposition: ADMITTED INPATIENT Condition: Stable/Unchanged Admissions Decision to Admit Reason: Admit from ER (General) Decision to Admit/Date: May 29, 2018 Time/Decision to Admit Time: 16:44 Departure-Patient Inst. Referrals: KAITLIN MERCADO MD (PCP/Family) Primary Care Physician KYLE COCHRAN May 29, 2018 16:11
[2018-05-29 16:13] LABS: HEMATOCRIT 11 % (35-52); HEMOGLOBIN 3.6 G/DL (11.5-16.0)
--- NOTE | 2018-05-29 16:19 | Diagnostic Imaging Report ---
PATIENT HISTORY: Fall, right forearm pain. TECHNIQUE: 2 views of the right forearm. COMPARISON: None FINDINGS: There is a moderately medially displaced oblique fracture of the proximal right radial diaphysis. There are degenerative changes in the elbow and wrist, and basal joints of the thumb. Linear lucency seen at the trapezium is thought to be due to overlapping structures. The ulna just proximal to the fracture has a somewhat moth-eaten appearance. There is soft tissue edema about the fracture site. IMPRESSION: 1. Medially displaced oblique fracture of the proximal right radial diaphysis. Decreased density in the proximal ulna is concerning for a pathologic fracture, consider cross-sectional imaging. Dictated by: Dictated on workstation # [id number]
[2018-05-29 16:34] LABS: BILIRUBIN,URINE NEGATIVE (NEGATIVE); CLARITY,URINE SLIGHTLY CLOUDY; COLOR,URINE YELLOW; GLUCOSE, URINE (UA) NEGATIVE (NEGATIVE); KETONES,URINE NEGATIVE (NEGATIVE); LEUKOCYTE ESTERASE ,URINE 1+ (NEGATIVE); NITRITE,URINE NEGATIVE (NEGATIVE); PH,URINE 5 (5-9); PROTEIN,URINE 1+ (NEGATIVE); UROBILINOGEN,URINE NORMAL (NORMAL)
[2018-05-29 16:38] LABS: ALBUMIN 3.2 GM/DL (3.2-4.5); BILIRUBIN,TOTAL 0.4 MG/DL (0.1-1.0); CALCIUM 9.5 MG/DL (8.5-10.1); CREATININE SERUM 1.23 MG/DL (0.60-1.30); POTASSIUM 3.7 MMOL/L (3.6-5.0); TOTAL PROTEIN 5.7 GM/DL (6.4-8.2)
[2018-05-29 17:02] LABS: AMORPHOUS SEDIMENT,UR FEW AMOR URATES /LPF; SQUAMOUS EPITHELIAL CELL,UR 0-2 /HPF; WBC,URINE 0-2 /HPF
[2018-05-29 17:09] LABS: BAND NEUTROPHILS 2 %; BASOPHILS % (MANUAL) 0 %; EOSINOPHILS % (MANUAL) 0 %; LYMPHOCYTES % (MANUAL) 10 %; MONOCYTES % (MANUAL) 3 %; NEUTROPHILS % (MANUAL) 85 %; RBC MORPH NORMAL
[2018-05-29] MEDS ORDERED: HYDROcodone/APAP 5 MG/325 MG (LORTAB) TAB PO ONE (17:30)
--- NOTE | 2018-05-29 18:00 | NUR ---
Hawa Lopez admitted to room 415-1, with an admitting diagnosis of right radial head fracture , on 05/29/18 from ED via bed, accompanied by Bernice- Yuriysin.HAWA LOPEZ introduced to surroundings, call light, bed controls, phone, TV, temperature control, lights, meal times, smoking policy, visitor policy, side rail policy, bathrooms and showers. Patient Rights given to patient in the handbook.HAWA LOPEZ verbalizes understanding that [facility] is not responsible for the loss or damage to any personal effects or valuables that are kept in the patients possession during their hospitalization. The following Patient Care Plans were discussed with the patient: Discharge Planning, Anemia, Right Arm Fracture, and knowledge deficit. HAWA LOPEZ verbalizes understanding of Interdisciplinary Patient Education. Patient and/or family were informed about the Rapid Response Team and its purpose.
[2018-05-29] MEDS ORDERED: NS IV 500 ML 500 ML IV SCH (18:30)
[2018-05-29 19:02] VITALS: BP 144/64
[2018-05-29 19:16] VITALS: BP 131/61
--- NOTE | 2018-05-29 19:20 | NUR ---
Started blood at 1906, stayed in room with patient for first 15 minutes. No adverse reactions noted. Vitals stable. Blood rate increased to 125ml/hr. Will report to ARASELI Sanchez.
[2018-05-29 20:00] VITALS: BP 137/53
[2018-05-29 21:28] VITALS: BP 134/62
[2018-05-29] MEDS: HYDROcodone/APAP 5 MG/325 MG (LORTAB) TAB PO PRN (21:32)
[2018-05-29 21:45] VITALS: BP 127/57
[2018-05-29 22:06] VITALS: BP 124/61
[2018-05-30] VITALS (10 sets, daily range): BP systolic 120–144; BP diastolic 57–67
[2018-05-30] MEDS: HYDROcodone/APAP 5 MG/325 MG (LORTAB) TAB PO PRN (04:47)
[2018-05-30 06:13] LABS: BASOPHILS % (AUTO) 0 % (0-10); EOSINOPHILS # (AUTO) 0.3 10^3/uL (0.0-0.3); EOSINOPHILS % (AUTO) 2 % (0-10); LYMPHOCYTES # (AUTO) 1.5 X 10^3 (1.0-4.0); LYMPHOCYTES % (AUTO) 13 % (12-44); MEAN CORPUSCULAR HEMOGLOBIN 31 PG (25-34); MEAN CORPUSCULAR HGB CONC 34 G/DL (32-36); MEAN CORPUSCULAR VOLUME 91 FL (80-99); MEAN PLATELET VOLUME 11.1 FL (7.4-10.4); MONOCYTES # (AUTO) 0.8 X 10^3 (0.0-1.0); MONOCYTES % (AUTO) 7 % (0-12); NEUTROPHILS # (AUTO) 8.9 X 10^3 (1.8-7.8); NEUTROPHILS % (AUTO) 78 % (42-75); PLATELET COUNT 112 10^3/uL (130-400); RED BLOOD COUNT 1.85 10^6/uL (4.35-5.85); RED CELL DISTRIBUTION WIDTH 16.6 % (10.0-14.5); WHITE BLOOD COUNT 11.4 10^3/uL (4.3-11.0)
[2018-05-30 06:22] LABS: HEMATOCRIT 17 % (35-52); HEMOGLOBIN 5.8 G/DL (11.5-16.0)
--- NOTE | 2018-05-30 06:26 | NUR ---
Lab called critical lab values of hemoglobin: 5.8 and hematocrit: 16.9 to this RN. This RN called Dr. Tran to report lab values. Orders received to start the 3rd unit of packed red blood cells that is on hold. Orders read back and verified.
[2018-05-30] MEDS ORDERED: NS IV 500 ML 500 ML ONE (06:35)
[2018-05-30 06:41] LABS: ALBUMIN 2.8 GM/DL (3.2-4.5); BILIRUBIN,TOTAL 0.6 MG/DL (0.1-1.0); CALCIUM 8.7 MG/DL (8.5-10.1); CREATININE SERUM 1.24 MG/DL (0.60-1.30); POTASSIUM 3.7 MMOL/L (3.6-5.0); TOTAL PROTEIN 5.2 GM/DL (6.4-8.2)
[2018-05-30] MEDS ORDERED: NS IV 500 ML 500 ML IV SCH (06:45)
--- NOTE | 2018-05-30 09:30 | History & Physical-Hospitalist ---
DANIELLE FALCON DO 05/30/18 0930: History of Present Illness HPI/Chief Complaint CC: Fall with severe anemia and right radial fracture HPI: This is an 78yoWF clinic patient [place] Dr Seth out [place] [facility] who recently began chemotherapy for MM who presented to the ER s/p fall with right arm pain and found to have an acute right radial fracture but also hgb was 3.6 so she was given 2 units of blood with adequate results but required another unit of blood under hematology recommendations. Currently she is needing her scheduled pain meds she takes at home and denies any other concerns. Source: patient Date Seen 05/30/18 Time Seen by a Provider: 09:00 Attending Physician Micha Tran MD PCP Osmin Seth MD Referring Physician Date of Admission May 29, 2018 at 16:55 Home Medications & Allergies Home Medications Reviewed patient Home Medication Reconciliation performed by pharmacy medication reconciliations tire technician and/or nursing. Patients Allergies have been reviewed. Allergies Allergies Coded Allergies Sulfa (Sulfonamide Antibiotics) (Verified Allergy, Unknown, 05/29/18) Past Lzppofp-Kzatpy-Aohtze Hx Past Med/Social Hx: Reviewed Nursing Past Med/Soc Hx, Reviewed and Corrections made Patient Social History Marrital Status: single Employed/Student: retired Alcohol Use: Denies Use Number of Drinks Today: AA Recreational Drug Use: No Smoking Status: Never a Smoker Physical Abuse Screen: No Sexual Abuse: No Recent Foreign Travel: No Contact w/other who traveled: No Recent Hopitalizations: No Recent Infectious Disease Expo: No Immunizations Up To Date Date of Influenza Vaccine: Feb 21, 2018 Seasonal Allergies Seasonal Allergies: Yes Past Medical History Surgeries: Appendectomy, Hysterectomy Cardiac: Hypertension Female Reproductive Disorders: Denies Cancer: Bone Did You Recieve Any Treatments: Yes What Type of Treatment Did You: Chemotherapy History of Blood Disorders: Yes (anemia) Adverse Reaction to Blood Sheridan: No Family History Reviewed Nursing Family Hx Cardiovascular disease 19 MOTHER Review of Systems Constitutional: see HPI, dizziness, weakness EENTM: no symptoms reported Respiratory: no symptoms reported Cardiovascular: no symptoms reported Gastrointestinal: no symptoms reported Musculoskeletal: see HPI Skin: no symptoms reported Psychiatric/Neurological: No Symptoms Reported All Other Systems Reviewed Negative Unless Noted: Yes Physical Exam Physical Exam Vital Signs Vital Signs - First Documented 05/29/18 05/29/18 15:37 17:41 Temp 98.2 Pulse 81 Resp 20 B/P (MAP) 144/49 (80) Pulse Ox 99 O2 Delivery Room Air Capillary Refill : Less Than 3 SecondsLess Than 3 Seconds Height, Weight, BMI Height: 5'2.00" Weight: 133lbs. 0.0oz. 60.019135uf; 24.3 BMI Method:Stated General Appearance: No Apparent Distress, WD/WN, Chronically ill Eyes: Bilateral Eye Normal Inspection, Bilateral Eye PERRL HEENT: PERRL/EOMI, Normal ENT Inspection, Pharynx Normal Neck: Full Range of Motion, Normal Inspection, Non Tender, Supple, Carotid Bruit Respiratory: Chest Non Tender, Lungs Clear, Normal Breath Sounds, No Accessory Muscle Use, No Respiratory Distress Cardiovascular: Regular Rate, Rhythm, No Edema, No Gallop, No JVD, No Murmur, Normal Peripheral Pulses Gastrointestinal: Normal Bowel Sounds, No Organomegaly, No Pulsatile Mass, Non Tender, Soft Back: Normal Inspection, No CVA Tenderness, No Vertebral Tenderness Extremity: Normal Capillary Refill, Normal Inspection, Normal Range of Motion, Non Tender, No Calf Tenderness, No Pedal Edema, Other (right arm in sling) Neurologic/Psychiatric: Alert, Oriented x3, No Motor/Sensory Deficits, Normal Mood/Affect Skin: Normal Color, Warm/Dry Lymphatic: No Adenopathy Results Results/Procedures Labs Laboratory Tests 05/29/18 16:00 05/30/18 06:05 Patient resulted labs reviewed. Assessment/Plan Admission Diagnosis Assessment: Severe anemia due to chemotherapy Multiple Myeloma Acute right radial fracture Plan: Pain meds Donnell Soto and Richard consultations Monitor hgb Admission Status: Inpatient Order (span 2 midnights) Reason for Inpatient Admission: Severe anemia from MM chemotherapy will require transfusions and possibly right radial fracture surgery Diagnosis/Problems Diagnosis/Problems (1) Anemia Status: Acute Qualifiers: Anemia type: unspecified type Qualified Codes: D64.9 - Anemia, unspecified (2) Multiple myeloma Status: Chronic Qualifiers: Multiple myeloma remission status: not in remission Qualified Codes: C90.00 - Multiple myeloma not having achieved remission (3) Fracture, radius, proximal Status: Acute Qualifiers: Encounter type: initial encounter Fracture type: closed Fracture morphology: unspecified fracture morphology Laterality: right Qualified Codes: S52.101A - Unspecified fracture of upper end of right radius, initial encounter for closed fracture Clinical Quality Measures DVT/VTE Risk/Contraindication: Risk Factor Score Per Nursin RFS Level Per Nursing on Admit: 4+=Very High RONIT TONY MED STUDENT 05/30/18 0953: History of Present Illness HPI/Chief Complaint CC: Anemia, R radial head fracture HPI: This is an 78 yo WF with a PMHx of multiple myeloma and severe anemia who presents today with a R radial fracture. Pt states that she fell on her arm when she went to go to the bathroom- denies LOC, hitting her head, or dizziness. No hx of recent falls. She had been feeling progressively weak for the past 5 or so days before the fall. No recent hx of acute illness. Of note, she has recently started back up on her chemotherapy for her multiple myeloma. Her ER course was significant for a hgb of 3.6- subsequently transfused with 2 units. Third unit was given once she arrived on 4th floor. Source: patient, old records Time Seen by a Provider: 07:40 Past Qwvzjya-Kzeyxf-Grvpnx Hx Family History Cardiovascular disease 19 MOTHER Review of Systems Constitutional: see HPI, weakness EENTM: no symptoms reported Cardiovascular: no symptoms reported Gastrointestinal: no symptoms reported Musculoskeletal: see HPI, other Physical Exam Physical Exam General Appearance: No Apparent Distress, Chronically ill Neck: Normal Inspection Respiratory: Lungs Clear, Normal Breath Sounds Cardiovascular: Regular Rate, Rhythm Extremity: Normal Capillary Refill Neurologic/Psychiatric: Alert, Oriented x3, Normal Mood/Affect Assessment/Plan Assessment and Plan Assessment; R radial head fracture Anemia Multiple myeloma HTN Hyperlipidemia Macular degeneration, L eye Plan: Consult hem/onc for anemia mgmt Consult ortho Pain mgmt Monitor labs closely DANIELLE FALCON DO May 30, 2018 09:30 RONIT TONY MED STUDENT May 30, 2018 09:53
--- NOTE | 2018-05-30 09:40 | CONSULTATION REPORT ---
DATE OF SERVICE: 05/30/2018 INPATIENT CONSULTATION REASON FOR CONSULTATION: Right radius fracture. HISTORY: The patient is an 78-year-old right hand dominant female, who fell early yesterday morning and presented to the Emergency Department. She was found to be markedly anemic. She was also found to have a minimally displaced proximal radial shaft fracture. She was placed in a sling for comfort and admitted for anemia. The patient does have a history of multiple myeloma, but reports this was a traumatic injury in which she fell into side rail at her apartment. PHYSICAL EXAMINATION: The patient has intact MCP extension, finger abduction, thumb IP flexion and extension. She has intact sensation in the radial, ulnar and median distribution. She is tender over her proximal radius. She is nontender over proximal ulna. She is nontender over distal radial ulnar joint. She has no pain with wrist range of motion. Radiographs reveal a very proximal radial shaft fracture with minimal displacement. IMPRESSION: Minimally displaced right proximal radius fracture. PLAN: The patient was counseled that this could require operative intervention. She does not desire this currently. She was placed in a sugar tong cast. We will plan on checking her in the office as an outpatient in 2 weeks with x-rays on arrival. Thank you for the consultation on the patient. Job ID: [id number] DocumentID: [id number] Dictated Date: 05/30/2018 09:30:08 Melt House Drag Operator Date: 05/30/2018 09:39:21 Dictated By: LINO WOOTEN MD
[2018-05-30] MEDS ORDERED: ONDA8TAB12 PO (09:55)
[2018-05-30] MEDS ORDERED: HYDR12.5 PO (09:55)
[2018-05-30] MEDS ORDERED: CALC-676 PO (09:57)
[2018-05-30] MEDS ORDERED: UBID1CAP53 PO (09:57)
[2018-05-30] MEDS ORDERED: OMG1KC PO (09:57)
[2018-05-30] MEDS ORDERED: DIPH25CA79 PO (09:57)
[2018-05-30] MEDS ORDERED: MORP-33 PO (09:58)
--- NOTE | 2018-05-30 10:00 | NUR ---
WENT OVER THE EXT MED HX WITH THE PATIENT AND SHE VERIFIED HOW SHE TAKES THEM. SHE ALSO LISTED HER OTC MEDICATIONS. SHE STATES SHE HAS MORPHINE IR AND MORPHINE ER NEEDED HOWEVER SHE DOES NOT TAKE THEM OFTEN SO SHE HAS NOT FILLED THEM IN QUITE SOME TIME. I CALLED [facility] AND VERIFIED THEY LAST FILLED HER MORPHINE IR 15MG 18 AND MORPHINE ER 15MG 17. OTC MEDS: BENADRYL DAILY ON DAYS SHE TAKES CHEMO CO Q 10 DAILY CALCIUM +D DAILY FISH OIL DAILY
[2018-05-30] MEDS ORDERED: ONDANSETRON 8 MG (ZOFRAN) ORAL DISSOLVE TAB PO PRN (12:30)
[2018-05-30] MEDS: morphine ER 15 MG (MS CONTIN) TAB PO PRN ×2 (14:30→22:54)
--- NOTE | 2018-05-30 17:31 | Consultation ---
History of Present Illness History of Present Illness Patient Consulted On(rosanne/time) 05/30/18 17:25 Date Seen by Provider: May 30, 2018 Time Seen by Provider: 17:30 History of Present Illness Ms. Rice is an 78 yo female with history of multiple myeloma who has progressed on 3-4 different lines of therapy. She was started on elotuzumab, bortezomib and dexamethasone on 05/15/18 after several months without chemotherapy. She was admitted last night with right radius fracture and severe weakness. On arrival, she was found to have a profound acute on chronic anemia, with a hgb drop from 9.2 on 05/22/18 to hgb 3.6 on 05/29/18. Patient reports doing well and attending multiple social events until about four days ago on Monday night, when she developed extreme fatigue and weakness. She fell yesterday morning and hit her right arm against a shower grab bar. She required assistance from family for mobility and toileting. Previously she was wholly independent. Patient denies any gross bleeding; denies blood in stools, blood in urine, abdominal pain or distension, epistaxis. She has been eating well without issues. Denies any syncope or presyncope, chest pain or palpitations. She does not recall the fall event completely but knows she did not pass out. Allergies and Home Medications Allergies Coded Allergies: Sulfa (Sulfonamide Antibiotics) (Verified Allergy, Unknown, 05/29/18) Home Medications Acyclovir 400 Mg Tablet, 400 MG PO BID, (Reported) Calcium Carbonate/Vitamin D3 1 Each Tablet, 1 TAB PO DAILY, (Reported) Dexamethasone 4 Mg Tablet, 20 MG PO Tu PRN for WHEN TAKING CHEMO, (Reported) TAKES 5 (4MG) TABLETS ON CHEMO DAYS Diphenhydramine HCl 25 Mg Capsule, 25 MG PO DAILY PRN for WHEN TAKING CHEMO, ( Reported) Hydrochlorothiazide 12.5 Mg Capsule, 12.5 MG PO DAILY, (Reported) Metoprolol Succinate 25 Mg Tab.er.24h, 25 MG PO DAILY, (Reported) Morphine Sulfate 15 Mg Tablet, 15 MG PO QID PRN for BREAKTHROUGH PAIN, (Reported ) Morphine Sulfate 15 Mg Tablet.er, 15 MG PO Q8H PRN for PAIN-SEVERE, (Reported) Reserve 3 Polyunsat Fatty Acids 1,000 Mg Cap, 1,000 MG PO DAILY, (Reported) Ondansetron HCl 8 Mg Tablet, 8 MG PO TID PRN for NAUSEA/VOMITING-1ST LINE, ( Reported) Simvastatin 20 Mg Tablet, 20 MG PO HS, (Reported) Ubidecarenone/Vit E Acetate 1 Each Capsule, 100 MG PO DAILY, (Reported) Patient Home Medication List Home Medication List Reviewed: Yes Past Pycdosu-Xvdtoo-Kdfhcp Hx Past Med/Social Hx: Reviewed Nursing Past Med/Soc Hx Patient Social History Alcohol Use: Denies Use Number of Drinks Today: AA Recreational Drug Use: No Smoking Status: Never a Smoker Recent Foreign Travel: No Contact w/Someone Who Travel: No Recent Infectious Disease Expo: No Recent Hopitalizations: No Physical Abuse: No Sexual Abuse: No Mistreated: No Fear: No Immunizations Up To Date Date of Influenza Vaccine: Feb 21, 2018 Seasonal Allergies Seasonal Allergies: Yes Past Medical History Surgeries: Yes (left knee scope, PORT PLACED) Appendectomy, Hysterectomy Respiratory: No Cardiac: Yes Hypertension Neurological: No Female Reproductive Disorders: Denies Genitourinary: No Gastrointestinal: No Musculoskeletal: Yes (multiple myeloma) Endocrine: No Cancer: Yes (multiple myeloma) Did You Recieve Any Treatments: Yes What Type of Treatment Did You: Chemotherapy Psychosocial: No Integumentary: No Blood Disorders: Yes (anemia) Adverse Reaction/Blood Tranf: No Family Medical History Reviewed Nursing Family Hx Cardiovascular disease 19 MOTHER Review of Systems-General Constitutional: No chills, No diaphoresis, No dizziness, No fever; weakness EENTM: no symptoms reported Respiratory: no symptoms reported Cardiovascular: no symptoms reported Gastrointestinal: no symptoms reported Genitourinary: no symptoms reported Musculoskeletal: muscle pain Psychiatric/Neurological: No Symptoms Reported Physical Exam-General Problems Physical Exam Vital Signs Vital Signs - First Documented 05/29/18 05/29/18 15:37 17:41 Temp 98.2 Pulse 81 Resp 20 B/P (MAP) 144/49 (80) Pulse Ox 99 O2 Delivery Room Air Capillary Refill : Less Than 3 SecondsLess Than 3 Seconds Eyes: Bilateral Eye Normal Inspection, Bilateral Eye EOMI HEENT: normal ENT inspection Neck: non-tender, normal inspection Respiratory: chest non-tender, lungs clear, normal breath sounds Cardiovascular: regular rate, rhythm, no edema, no gallop, no JVD, no murmur Peripheral Pulses: 2+ Radial Pulses (L) Gastrointestinal: normal bowel sounds, non tender, soft, no organomegaly, no pulsatile mass Extremities: other (right arm in splint and completely wrapped, limited elbow extension/flexion) 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 Recently started on new chemotherapy regimen and was admitted with severe anemia leading to weakness, fall, and right radius fracture. 1. Acute on chronic anemia. Previously disease related and chronic disease associated anemia. Acute decline in hgb over course of 1 week is suspicious for acute blood loss. Theoretically, anemia could be caused by bortezomib, but she has had many months of bortezomib in the past in combination with other myeloma directed agents, and she has never had significant issues with the drug. Elotuzumab and dexamethasone are not known to cause anemia. Progression of marrow disease is possible but I would not expect such a rapid decline. Recommend ruling out acute blood loss with endoscopy. Agree with transfusion as needed to keep hgb >7.0. 2. IgG kappa multiple myeloma. Progressive after several lines of chemotherapy. Currently on elotuzumab, bortezomib, and dexamethasone combination. Just started therapy, unable to assess disease response at this time. If anemia is disease related, it would be in her best interest to continue with this regimen until we know its effectiveness. Thank you for allowing me to participate in the care of Ms. Rice. I will continue to follow while she is admitted. Clinical Quality Measures DVT/VTE Risk/Contraindication: Risk Factor Score Per Nursin RFS Level Per Nursing on Admit: 4+=Very High Results Labs Labs Laboratory Tests 05/30/18 06:05: White Blood Count 11.4H, Red Blood Count 1.85L, Hemoglobin 5.8#*L, Hematocrit 17 *L, Mean Corpuscular Volume 91, Mean Corpuscular Hemoglobin 31, Mean Corpuscular Hemoglobin Concent 34, Red Cell Distribution Width 16.6H, Platelet Count 112L, Mean Platelet Volume 11.1H, Neutrophils (%) (Auto) 78H, Lymphocytes (%) (Auto) 13, Monocytes (%) (Auto) 7, Eosinophils (%) (Auto) 2, Basophils (%) ( Auto) 0, Neutrophils # (Auto) 8.9H, Lymphocytes # (Auto) 1.5, Monocytes # (Auto ) 0.8, Eosinophils # (Auto) 0.3, Basophils # (Auto) 0.0, Sodium Level 143, Potassium Level 3.7, Chloride Level 115H, Carbon Dioxide Level 21, Anion Gap 7, Blood Urea Nitrogen 64H, Creatinine 1.24, Estimat Glomerular Filtration Rate 42 , BUN/Creatinine Ratio 52, Glucose Level 94, Calcium Level 8.7, Corrected Calcium 9.7, Total Bilirubin 0.6, Aspartate Amino Transf (AST/SGOT) 13, Alanine Aminotransferase (ALT/SGPT) 9, Alkaline Phosphatase 23L, Total Protein 5.2L, Albumin 2.8L 05/30/18 13:05: Lab Scanned Report Transfusion Reaction Form Procedures Procedures FOREARM, RIGHT, 2 VIEWS PATIENT HISTORY: Fall, right forearm pain. TECHNIQUE: 2 views of the right forearm. COMPARISON: None FINDINGS: There is a moderately medially displaced oblique fracture of the proximal right radial diaphysis. There are degenerative changes in the elbow and wrist, and basal joints of the thumb. Linear lucency seen at the trapezium is thought to be due to overlapping structures. The ulna just proximal to the fracture has a somewhat moth-eaten appearance. There is soft tissue edema about the fracture site. IMPRESSION: 1. Medially displaced oblique fracture of the proximal right radial diaphysis. Decreased density in the proximal ulna is concerning for a pathologic fracture, consider cross-sectional imaging. TAYLOR HILL MD May 30, 2018 17:31
[2018-05-30] MEDS: ACYCLOVIR 400 MG TABLET (ZOVIRAX) PO SCH (20:16)
[2018-05-30] MEDS ORDERED: diphenhydrAMINE 25 MG TAB (BENADRYL) PO PRN (21:00)
[2018-05-30] MEDS ORDERED: ALPRAZolam 0.25 MG (XANAX) TAB PO PRN (21:00)
[2018-05-30] MEDS ORDERED: DOCUSATE SODIUM 100 MG (COLACE) CAP PO PRN (21:00)
[2018-05-30] MEDS ORDERED: CALCIUM CARBONATE 500 MG (TUMS) TAB.CHEW PO PRN (21:00)
[2018-05-30] MEDS ORDERED: fentaNYL INJECTION 100 MCG/2 ML AMP IVP PRN (21:00)
[2018-05-30] MEDS ORDERED: ONDANSETRON 4 MG/2 ML (SDV) Z0FRAN IVP PRN (21:00)
[2018-05-31] VITALS: BP 134/62
[2018-05-31 04:00] VITALS: BP 134/62
[2018-05-31 06:43] LABS: BASOPHILS % (AUTO) 0 % (0-10); EOSINOPHILS # (AUTO) 0.3 10^3/uL (0.0-0.3); EOSINOPHILS % (AUTO) 3 % (0-10); HEMATOCRIT 21 % (35-52); LYMPHOCYTES # (AUTO) 1.6 X 10^3 (1.0-4.0); LYMPHOCYTES % (AUTO) 17 % (12-44); MEAN CORPUSCULAR HEMOGLOBIN 30 PG (25-34); MEAN CORPUSCULAR HGB CONC 33 G/DL (32-36); MEAN CORPUSCULAR VOLUME 91 FL (80-99); MEAN PLATELET VOLUME 11.2 FL (7.4-10.4); MONOCYTES # (AUTO) 0.7 X 10^3 (0.0-1.0); MONOCYTES % (AUTO) 7 % (0-12); NEUTROPHILS # (AUTO) 6.6 X 10^3 (1.8-7.8); NEUTROPHILS % (AUTO) 73 % (42-75); PLATELET COUNT 135 10^3/uL (130-400); RED BLOOD COUNT 2.33 10^6/uL (4.35-5.85); RED CELL DISTRIBUTION WIDTH 18.9 % (10.0-14.5); WHITE BLOOD COUNT 9.1 10^3/uL (4.3-11.0)
[2018-05-31 07:17] LABS: ALBUMIN 2.9 GM/DL (3.2-4.5); BILIRUBIN,TOTAL 0.5 MG/DL (0.1-1.0); CALCIUM 8.6 MG/DL (8.5-10.1); CREATININE SERUM 1.08 MG/DL (0.60-1.30); POTASSIUM 3.6 MMOL/L (3.6-5.0); TOTAL PROTEIN 5.5 GM/DL (6.4-8.2)
[2018-05-31 08:45] VITALS: BP 135/67
[2018-05-31] MEDS: ACYCLOVIR 400 MG TABLET (ZOVIRAX) PO SCH ×2 (09:17→20:16)
[2018-05-31] MEDS ORDERED: FLEET ENEMA ADULT 1 EA BTL PR PRN (10:15)
--- NOTE | 2018-05-31 11:10 | Progress Note-Hospitalist ---
DANIELLE FALCON DO 05/31/18 1110: Subjective HPI/CC On Admission Date Seen by Provider: May 31, 2018 Time Seen by Provider: 10:00 CC: Fall with severe anemia and right radial fracture HPI: This is an 78yoWF clinic patient of Dr Seth out of [facility] [place] Soto who recently began chemotherapy for MM who presented to the ER s/p fall with right arm pain and found to have an acute right radial fracture but also hgb was 3.6 so she was given 2 units of blood with adequate results but required another unit of blood under hematology recommendations. Currently she is needing her scheduled pain meds she takes at home and denies any other concerns. Subjective/Events-last exam Patient doing much better today Does not require surgery for radial fracture Hgb 7.0 Iron level drawn No Blood per rectum and had Colonoscopy yrs ago. Review of Systems General: Fatigue Gastrointestinal: Constipation Musculoskeletal: arm pain Objective Exam Vital Signs Vital Signs Date Time Temp Pulse Resp B/P (MAP) Pulse Ox O2 Delivery O2 Flow Rate FiO2 05/31/18 15:30 98.8 65 18 149/66 (93) 94 Room Air Capillary Refill : Less Than 3 SecondsLess Than 3 Seconds General Appearance: No Apparent Distress, WD/WN, Chronically ill Respiratory: Chest Non Tender, Lungs Clear, Normal Breath Sounds, No Accessory Muscle Use, No Respiratory Distress Cardiovascular: Regular Rate, Rhythm, No Edema, No Gallop, No JVD, No Murmur, Normal Peripheral Pulses Neurologic/Psychiatric: Alert, Oriented x3, No Motor/Sensory Deficits, Normal Mood/Affect Results/Procedures Lab Laboratory Tests 05/31/18 06:33 Patient resulted labs reviewed. Assessment/Plan Assessment and Plan Assess & Plan/Chief Complaint Monitor labs IRF Hemoccult testing Dr Ruiz consult Iron level Diagnosis/Problems Diagnosis/Problems (1) Anemia Status: Acute Qualifiers: Anemia type: unspecified type Qualified Codes: D64.9 - Anemia, unspecified (2) Multiple myeloma Status: Chronic Qualifiers: Multiple myeloma remission status: not in remission Qualified Codes: C90.00 - Multiple myeloma not having achieved remission (3) Fracture, radius, proximal Status: Acute Qualifiers: Encounter type: initial encounter Fracture type: closed Fracture morphology: unspecified fracture morphology Laterality: right Qualified Codes: S52.101A - Unspecified fracture of upper end of right radius, initial encounter for closed fracture Clinical Quality Measures DVT/VTE Risk/Contraindication: Risk Factor Score Per Nursin RFS Level Per Nursing on Admit: 4+=Very High RONIT TONY MED STUDENT 05/31/18 1121: Subjective Subjective/Events-last exam Pt is sitting up in a chair, awake and alert this morning She reports feeling a lot better today- arm isn't as painful. Will be managed outpatient after d/c. Would like to start ambulating today. Her hips have been bothering her from laying in bed. Requested laxative Focused Exam Respiratory: Chest Non Tender, Lungs Clear Cardiovascular: Regular Rate, Rhythm Skin: warm/dry Objective Exam General Appearance: No Apparent Distress Neck: Normal Inspection Respiratory: Chest Non Tender, Lungs Clear, No Accessory Muscle Use Cardiovascular: Regular Rate, Rhythm, Normal Peripheral Pulses Extremity: No Pedal Edema Neurologic/Psychiatric: Alert, Oriented x3 Assessment/Plan Assessment and Plan Assess & Plan/Chief Complaint Assessment: R radial head fracture Anemia, s/p transfusion Multiple myeloma Plan: D/C catheter Consult surgery - possible scope to evaluate source of blood loss Iron studies Hemoccult testing Bowel regimen PT Pain management Monitor labs DANIELLE FALCON DO May 31, 2018 11:10 RONIT TONY MED STUDENT May 31, 2018 11:21
[2018-05-31 12:00] VITALS: BP 148/77
[2018-05-31] MEDS: DOCUSATE SODIUM 100 MG (COLACE) CAP PO SCH ×2 (12:07→20:16)
[2018-05-31] MEDS: POLYETHYLENE GLYCOL 17 GM (MIRALAX) PACK PO SCH ×2 (12:07→20:17)
[2018-05-31] MEDS: LACTULOSE SYRUP 10GM/15ML (ENULOSE) 30ML UDC PO SCH ×2 (12:08→20:17)
--- NOTE | 2018-05-31 13:41 | Physical Therapy Evaluation ---
PT Evaluation-General Medical Diagnosis Admission Date May 29, 2018 at 16:55 Medical Diagnosis: anemia/multiple myeloma/right radial head fracture Onset Date: May 29, 2018 Therapy Diagnosis Therapy Diagnosis: debibility/weakness Height/Weight Height (Feet): 5 Height (Inches): 2.00 Weight (Pounds): 133 Weight (Ounces): 0.0 Precautions Precautions/Isolations: Fall Prevention, Standard Precautions Weight Bear Status Right Lower Extremity: Right Full Weight Bearing Left Lower Extremity: Left Full Weight Bearing Referral Physician: Farida Reason for Referral: Evaluation/Treatment Medical History Additional Medical History multiple myeloma Current History ED with s/o lethargy, constipation and a fall landing on right UE resulting in right radial head fracture Reviewed History: Yes Social History Home: Assisted Living Current Living Status: Alone Entry Into Home: Level Entry Prior/Core FIM Prior Level of Function Therapy Code Descriptions/Definitions Functional [place] Measure: 0=Not Assessed/NA 4=Minimal Assistance 1=Total Assistance 5=Supervision or Setup 2=Maximal Assistance 6=Modified [place] 3=Moderate Assistance 7=Complete [place] Therapy Quality Codes: 6 Independent with activity with or without an assistive device 5 Patient requires set up or clean up by helper. Patient completes activity by themselves 4 Supervision or touching assist (CGA). [place] provide cues , steadying assist 3 The helper provides less than half the effort to complete the activity 2 The helper provides more than half the effort to complete the activity 1 Dependent. The helper does all the effort to complete an activity 7 Patient refused to complete or attempt activity 9 The patient did not perform the activity before the current illness or injury 88 Not attempted due to Medical conditions or safety concerns Functional Abilities and Goals: Independent: Patient completed the activities by him/herself, with or without an assistive device, with no assistance from a helper. Needed Some Help: Patient needed partial assistance from another person to complete activities. Dependent: A helper completed the activities for the patient. Unknown: Not Applicable: Bed Mobility: 6 Transfers (B,C,W/C) (FIM): 6 Gait: 6 Indoor Mobility (Ambulation): Independent Stairs: Independent Prior Devices Use: None Prior Device Use: cane PT Evaluation-Current Subjective Patient agrees to PT. Pain Numeric Pain Scale: 0-No Pain Location: No Pain Reported Objective Patient Orientation: Normal For Age Problem Solving: Fair Attachments: Franco Catheter ROM/Strength ROM Lower Extremities bilateral LE WFL Strength Lower Extremities 4-/5 grossly bilaterally Integumentary/Posture Integumentary refer to nursing notes Bowel Incontinence: No Bladder Incontinence: Franco Cath Posture WFL Neuromuscular (Tone, Coordination, Reflexes) grossly intact Sensory Vision: Wears Glasses Hearing: Functional Sensation Right Upper Extremit: Intact Sensation Left Upper Extremity: Intact Sensation Right Lower Extremit: Intact Sensation Left Lower Extremity: Intact Transfers Therapy Code Descriptions/Definitions Functional [place] Measure: 0=Not Assessed/NA 4=Minimal Assistance 1=Total Assistance 5=Supervision or Setup 2=Maximal Assistance 6=Modified [place] 3=Moderate Assistance 7=Complete [place] Transfers (B, C, W/C) (FIM): 5 Scootin Rollin Supine to/from Sit: 6 Sit to/from Stand: 5 Gait Mode of Locomotion: Walk Anticipated Mode of Locomotion: Walk Gait (FIM): 5 Distance (FIM): 3=150 ft Distance: 425' Gait Level of Assist: 5 Gait Assistive Device: Cane Single Point Comments/Gait Description steady, safe gait sequence Balance Sitting Static: Normal Sitting Dynamic: Normal Standing Static: Normal Standing Dynamic: Normal Assessment/Needs 78 y.o. female, will benefit from short term skilled PT to address functional strength and mobility to improve current LOF. Patient is SBA with all mobility at this time. Rehab Potential: Fair PT Librarian Special Collections Goals Librarian Special Collections Goals PT [facility] Goals Time Frame: Jun 09, 2018 Transfers (B,C,W/C) (FIM): 6 Gait (FIM): 6 Gait distance (FIM): 3=150 ft Distance: 400' Gait Level of Assist: 6 Gait Assistive Device: Cane Single Point PT Plan Treatment/Plan Treatment Plan: Continue Plan of Care Treatment Plan: Bed Mobility, Education, Functional Activity Yasmany, Functional Strength, Gait, Safety, Therapeutic Exercise, Transfers Treatment Duration: Jun 09, 2018 Frequency: 6 times per week Estimated Hrs Per Day: .25 hour per day Patient and/or Family Agrees t: Yes Discharge Recommendations Therapy D/C Recommendations: Assisted Living, Physical Therapy Home Care Time/GCodes Time In: 1245 Time Out: 1300 Total Billed Treatment Time: 15 Total Billed Treatment 1 visit EVModC 15 min G Codes Necessary: No RAYMUNDO DELEON PT May 31, 2018 13:41
--- NOTE | 2018-05-31 14:23 | NUR ---
IRF Evaluation: Order received to evaluate patient for the ARU. According to PT Evaluation, patient is transferring and ambulating (425ft, SPC) with supervision; therefore, patient does not require intensive therapies, at this time. Thank you for this referral.
[2018-05-31] MEDS ORDERED: BISACODYL 5 MG (DULCOLAX) TABLET PO NR (15:00)
[2018-05-31] MEDS ORDERED: POLYETHYLENE GLYCOL 17 GM (MIRALAX) PACK PO NR (15:00)
--- NOTE | 2018-05-31 15:05 | Consultation ---
History of Present Illness History of Present Illness Patient Consulted On(rosanne/time) 05/31/18 14:56 Time Seen by Provider: 12:28 History of Present Illness Surgery asked to consult regarding Profound Anemia HPI per IM: This is an 78yoWF clinic patient of Dr Seth out of [facility] and Dr Soto who recently began chemotherapy for MM who presented to the ER s/p fall with right arm pain and found to have an acute right radial fracture but also hgb was 3.6 so she was given 2 units of blood with adequate results but required another unit of blood under hematology recommendations. Currently she is needing her scheduled pain meds she takes at home and denies any other concerns. When I spoke to pt this afternoon she denied any abdominal pain. She denied melena, hematochezia, and hematemesis. She states she felt very weak and that is what caused the fall at home. She thinks her blood level has been low before ; but never this low. Allergies and Home Medications Allergies Coded Allergies: Sulfa (Sulfonamide Antibiotics) (Verified Allergy, Unknown, 05/29/18) Home Medications Acyclovir 400 Mg Tablet, 400 MG PO BID, (Reported) Calcium Carbonate/Vitamin D3 1 Each Tablet, 1 TAB PO DAILY, (Reported) Dexamethasone 4 Mg Tablet, 20 MG PO Tu PRN for WHEN TAKING CHEMO, (Reported) TAKES 5 (4MG) TABLETS ON CHEMO DAYS Diphenhydramine HCl 25 Mg Capsule, 25 MG PO DAILY PRN for WHEN TAKING CHEMO, ( Reported) Hydrochlorothiazide 12.5 Mg Capsule, 12.5 MG PO DAILY, (Reported) Metoprolol Succinate 25 Mg Tab.er.24h, 25 MG PO DAILY, (Reported) Morphine Sulfate 15 Mg Tablet, 15 MG PO QID PRN for BREAKTHROUGH PAIN, (Reported ) Morphine Sulfate 15 Mg Tablet.er, 15 MG PO Q8H PRN for PAIN-SEVERE, (Reported) Lucas 3 Polyunsat Fatty Acids 1,000 Mg Cap, 1,000 MG PO DAILY, (Reported) Ondansetron HCl 8 Mg Tablet, 8 MG PO TID PRN for NAUSEA/VOMITING-1ST LINE, ( Reported) Simvastatin 20 Mg Tablet, 20 MG PO HS, (Reported) Ubidecarenone/Vit E Acetate 1 Each Capsule, 100 MG PO DAILY, (Reported) Patient Home Medication List Home Medication List Reviewed: Yes Past Mhpcoxh-Qicrix-Agwvyr Hx Patient Social History Alcohol Use: Denies Use Number of Drinks Today: AA Recreational Drug Use: No Smoking Status: Never a Smoker Recent Foreign Travel: No Contact w/Someone Who Travel: No Recent Infectious Disease Expo: No Recent Hopitalizations: No Physical Abuse Screen: No Sexual Abuse: No Immunizations Up To Date Date of Influenza Vaccine: Feb 21, 2018 Seasonal Allergies Seasonal Allergies: Yes Surgeries History of Surgeries: Yes (left knee scope, PORT PLACED) Surgeries: Appendectomy, Hysterectomy Respiratory History of Respiratory Disorde: No Cardiovascular History of Cardiac Disorders: Yes Cardiac Disorders: Hypertension Neurological History of Neurological Disord: No Reproductive System Female Reproductive Disorders: Denies Genitourinary History of Genitourinary Disor: No Gastrointestinal History of Gastrointestinal Di: No Musculoskeletal History of Musculoskeletal Dis: Yes (multiple myeloma) Endocrine History of Endocrine Disorders: No Cancer History of Cancer: Yes (multiple myeloma) Cancer: Bone Psychosocial History of Psychiatric Problem: No Integumentary History of Skin or Integumenta: No Blood Transfusions History of Blood Disorders: Yes (anemia) Adverse Reaction to a Blood Tr: No Family Medical History Significant Family History: CAD Over 55 Years Old Family Medial History: Cardiovascular disease 19 MOTHER Review of Systems-General Constitutional: No chills; dizziness, malaise, weakness EENTM: blurred vision; No mouth swelling, No epistaxis, No throat swelling Respiratory: No cough, No dyspnea on exertion; short of breath Cardiovascular: No chest pain, No edema, No palpitations Gastrointestinal: No abdominal pain, No constipation, No diarrhea, No dysphagia , No hematemesis Genitourinary: No dysuria, No frequency, No hematuria Musculoskeletal: back pain, joint pain, muscle stiffness Skin: No change in color, No change in hair/nails Psychiatric/Neurological: Denies Anxiety, Denies Depressed, Denies Seizure; Weakness Other pt denies any abnormal bleeding or bruising Physical Exam-General Problems Physical Exam Vital Signs Vital Signs - First Documented 05/29/18 05/29/18 15:37 17:41 Temp 98.2 Pulse 81 Resp 20 B/P (MAP) 144/49 (80) Pulse Ox 99 O2 Delivery Room Air Capillary Refill : Less Than 3 SecondsLess Than 3 Seconds General Appearance: WD/WN, no apparent distress, thin Eyes: Bilateral Eye PERRL, Bilateral Eye EOMI HEENT: pharynx normal; No scleral icterus (R), No scleral icterus (L) Neck: non-tender, normal inspection; No thyromegaly Respiratory: chest non-tender, lungs clear, normal breath sounds, no respiratory distress, no accessory muscle use Cardiovascular: regular rate, rhythm, no edema, no murmur Gastrointestinal: normal bowel sounds, non tender, soft, no organomegaly, no pulsatile mass Rectal: deferred Back: no CVA tenderness, no vertebral tenderness Extremities: no calf tenderness, normal capillary refill, other (right arm in soft cast) Neurologic/Psychiatric: community health program coordinator II-XII nml as tested, no motor/sensory deficits, alert, normal mood/affect, oriented x 3 Skin: normal color, warm/dry Lymphatic: no adenopathy (neck, axilla or groin) Data Review Labs Laboratory Tests 05/31/18 06:33: White Blood Count 9.1, Red Blood Count 2.33L, Hemoglobin 7.0L, Hematocrit 21L, Mean Corpuscular Volume 91, Mean Corpuscular Hemoglobin 30, Mean Corpuscular Hemoglobin Concent 33, Red Cell Distribution Width 18.9H, Platelet Count 135, Mean Platelet Volume 11.2H, Neutrophils (%) (Auto) 73, Lymphocytes (%) (Auto) 17 , Monocytes (%) (Auto) 7, Eosinophils (%) (Auto) 3, Basophils (%) (Auto) 0, Neutrophils # (Auto) 6.6, Lymphocytes # (Auto) 1.6, Monocytes # (Auto) 0.7, Eosinophils # (Auto) 0.3, Basophils # (Auto) 0.0, Sodium Level 143, Potassium Level 3.6, Chloride Level 114H, Carbon Dioxide Level 22, Anion Gap 7, Blood Urea Nitrogen 38H, Creatinine 1.08, Estimat Glomerular Filtration Rate 49, BUN/ Creatinine Ratio 35, Glucose Level 86, Calcium Level 8.6, Corrected Calcium 9.5 , Total Bilirubin 0.5, Aspartate Amino Transf (AST/SGOT) 26, Alanine Aminotransferase (ALT/SGPT) 10, Alkaline Phosphatase 30L, Total Protein 5.5L, Albumin 2.9L 05/31/18 10:55: Assessment/Plan Assessment/Plan Assessment/Plan Profound Anemial - S/P blood transfusion Multiple Myeloma - on chemotherapy Right radial fx - displaced Pt has profound anemia which has come up slightly with transfusions. She denies seeing any obvious acute blood loss and it has occurred to quickly to be due to the chemotherapy. Her Hg started dropping in January, but very quickly dropped over past 2 weeks down to 3.8. Plan to do EGD and Colonoscopy to rule out GI as cause of blood loss. Discussed risks and complications with patient; including but not limited to pain, bleeding, infection and intestinal perforation. All questions answered to her satisfaction. She states it has been "many years" since she had colonoscopy. Clinical Quality Measures DVT/VTE Risk/Contraindication: Risk Factor Score Per Nursin RFS Level Per Nursing on Admit: 4+=Very High GLADYS ALEJO DO May 31, 2018 15:05
[2018-05-31 15:30] VITALS: BP 149/66
--- NOTE | 2018-05-31 16:01 | NUR ---
CALLED REPORT TO ISHMAEL RN --
--- NOTE | 2018-05-31 17:52 | Oncology Progress Note ---
Subjective Date Seen by a Provider: May 31, 2018 Time Seen by a Provider: 17:43 Subjective/Events-last exam Ms. Rice was doing well this evening, with few complaints. She was able to work with physical therapy effectively, the latter who said she probably did not need inpatient rehabilitation. She has no complaints today. Denies fatigue , weakness, shortness of breath, chest pain or palpitations. Review of Systems General: No Chills, No Night Sweats, No Fatigue, No Malaise HEENT: No Head Aches, No Eye Pain, No Ear Pain, No Dysphasia, No Sinus Congestion, No Post Nasal Drip, No Sore Throat Pulmonary: No Dyspnea, No Cough, No Pleuritic Chest Pain Cardiovascular: No: Chest Pain, Palpitations, Orthopnea, Paroxysmal Noc. Dyspnea, Edema, Lt Headedness Gastrointestinal: No: Nausea, Vomiting, Abdominal Pain, Diarrhea, Constipation , Melena, Hematochezia Genitourinary: No Dysuria, No Frequency, No Incontinence, No Hematuria, No Retention Musculoskeletal: arm pain Neurological: No: Weakness, Numbness, Incoordination, Change in speech, Confusion, Seizures, Other Data Review Labs Laboratory Tests 05/31/18 06:33 Laboratory Tests 05/29/18 16:00: White Blood Count 14.4H, Red Blood Count 1.13L, Hemoglobin 3.6*L, Hematocrit 11* L, Red Cell Distribution Width 15.7H, Platelet Count 121L, Mean Platelet Volume 12.5H, Neutrophils (%) (Auto) 83H, Neutrophils # (Auto) 11.9H, Chloride Level 115H, Carbon Dioxide Level 20L, Blood Urea Nitrogen 77H, Glucose Level 110H, Alkaline Phosphatase 26L, Total Protein 5.7L 05/29/18 16:18: Urine Specific [place] 1.010L, Urine Protein 1+H, Urine Leukocyte Esterase 1+H, Urine RBC (Auto) 5+H, Urine RBC 5-10H, Urine Crystals PRESENTH, Urine Amorphous Sediment FEW SANDRA URATESH 05/30/18 06:05: White Blood Count 11.4H, Red Blood Count 1.85L, Hemoglobin 5.8#*L, Hematocrit 17 *L, Red Cell Distribution Width 16.6H, Platelet Count 112L, Mean Platelet Volume 11.1H, Neutrophils (%) (Auto) 78H, Neutrophils # (Auto) 8.9H, Chloride Level 115H, Blood Urea Nitrogen 64H, Alkaline Phosphatase 23L, Total Protein 5.2L, Albumin 2.8L 05/30/18 13:05: 05/31/18 06:33: Red Blood Count 2.33L, Hemoglobin 7.0L, Hematocrit 21L, Red Cell Distribution Width 18.9H, Mean Platelet Volume 11.2H, Chloride Level 114H, Blood Urea Nitrogen 38H, Alkaline Phosphatase 30L, Total Protein 5.5L, Albumin 2.9L 05/31/18 10:55: Physical Exam Vital Signs Vital Signs - First Documented 05/29/18 05/29/18 15:37 17:41 Temp 98.2 Pulse 81 Resp 20 B/P (MAP) 144/49 (80) Pulse Ox 99 O2 Delivery Room Air Capillary Refill : Less Than 3 SecondsLess Than 3 Seconds Height, Weight, BMI Height: 5'2.00" Weight: 133lbs. 0.0oz. 60.729012yh; 24.3 BMI Method:Stated General Appearance: No Apparent Distress, WD/WN Eyes: Bilateral Eye Normal Inspection HEENT: PERRL/EOMI, Normal ENT Inspection, Pharynx Normal, Moist Mucous Membranes Neck: Full Range of Motion Respiratory: Chest Non Tender, Lungs Clear, Normal Breath Sounds Cardiovascular: Regular Rate, Rhythm Gastrointestinal: Normal Bowel Sounds, Non Tender, Soft Extremity: Normal Inspection, No Pedal Edema Neurologic/Psychiatric: Alert, Oriented x3, No Motor/Sensory Deficits, Normal Mood/Affect Skin: Normal Color, Warm/Dry Impression & Plan Impression & Plan 78 yo female with progressive multiple myeloma after multiple lines of therapy. Recently started on new chemotherapy regimen and was admitted with severe anemia leading to weakness, fall, and right radius fracture. 1. Acute on chronic anemia. She received three units of PRBCs and improved hgb from 3.6 at admission to 7.0 this morning. Since we expect about a 1g/dl increase in hgb per unit of blood given, this is an appropriate response to therapy. It also suggests there is no longer acute blood loss, but without consecutive measurements, this is difficult to determine. She is prepared for endoscopy to rule out GI bleed tomorrow. 2. IgG kappa multiple myeloma. Progressive after several lines of chemotherapy. Currently on elotuzumab, bortezomib, and dexamethasone combination. If endoscopy is negative for GI bleed, I would be more concerned for disease progression. In this case, we would be prompted to resume treatment more quickly. Would give patient a week break before resuming therapy on the outpatient side. Clinical Quality Measures DVT/VTE Risk/Contraindication: Risk Factor Score Per Nursin RFS Level Per Nursing on Admit: 4+=Very High TAYLOR HILL MD May 31, 2018 17:52
[2018-05-31 19:50] VITALS: BP 156/70
[2018-05-31] MEDS: BISACODYL 10 MG SUPP (DULCOLAX) PR SCH (20:16)
[2018-05-31] MEDS: morphine ER 15 MG (MS CONTIN) TAB PO PRN (22:46)
[2018-06-01] VITALS: BP 145/67
[2018-06-01 04:00] VITALS: BP 132/64
[2018-06-01 06:27] LABS: BASOPHILS % (AUTO) 0 % (0-10); EOSINOPHILS # (AUTO) 0.1 10^3/uL (0.0-0.3); EOSINOPHILS % (AUTO) 1 % (0-10); HEMATOCRIT 22 % (35-52); HEMOGLOBIN 7.2 G/DL (11.5-16.0); LYMPHOCYTES # (AUTO) 1.3 X 10^3 (1.0-4.0); LYMPHOCYTES % (AUTO) 15 % (12-44); MEAN CORPUSCULAR HEMOGLOBIN 31 PG (25-34); MEAN CORPUSCULAR HGB CONC 33 G/DL (32-36); MEAN CORPUSCULAR VOLUME 92 FL (80-99); MEAN PLATELET VOLUME 10.8 FL (7.4-10.4); MONOCYTES # (AUTO) 0.8 X 10^3 (0.0-1.0); MONOCYTES % (AUTO) 9 % (0-12); NEUTROPHILS # (AUTO) 6.7 X 10^3 (1.8-7.8); NEUTROPHILS % (AUTO) 76 % (42-75); PLATELET COUNT 165 10^3/uL (130-400); RED BLOOD COUNT 2.36 10^6/uL (4.35-5.85); RED CELL DISTRIBUTION WIDTH 18.8 % (10.0-14.5); WHITE BLOOD COUNT 8.9 10^3/uL (4.3-11.0)
[2018-06-01 06:55] LABS: ALBUMIN 2.9 GM/DL (3.2-4.5); BILIRUBIN,TOTAL 1.1 MG/DL (0.1-1.0); CREATININE SERUM 0.97 MG/DL (0.60-1.30); POTASSIUM 3.6 MMOL/L (3.6-5.0); TOTAL PROTEIN 5.8 GM/DL (6.4-8.2)
--- NOTE | 2018-06-01 07:15 | NUR ---
Patient to procedure at this time.
[2018-06-01] MEDS ORDERED: KETAMINE HCL 100 MG/ML 5 ML VIAL ONE (07:20)
[2018-06-01] MEDS ORDERED: PROPOFOL INJECTION 50 ML IV ONE (07:20)
[2018-06-01] MEDS ORDERED: proPOfol 200 MG/20 ML (DIPRIVAN) VIAL IV ONE (07:20)
[2018-06-01] MEDS ORDERED: MIDAZOLAM 2 MG/2 ML (VERSED) VIAL ONE (07:20)
[2018-06-01] MEDS ORDERED: HURRICAINE EXT TUBE (BENZOCAINE) ONE (07:27)
[2018-06-01] MEDS ORDERED: LACTATED RINGERS 1,000 ML IV ONE ×2 (07:28→08:00)
[2018-06-01] MEDS ORDERED: HURRICAINE EXT TUBE (BENZOCAINE) XX ONE (08:00)
--- NOTE | 2018-06-01 08:20 | Progress Note-Post Operative ---
Post-Operative Progess Note Surgeon (s)/Felt Pad Cutter (s) Surgeon GLADYS ALEJO DO Felt Pad Cutter: none Pre-Operative Diagnosis Anemia, Multiple Myeloma Post-Operative Diagnosis Gastric Mass Gastric Ulcer Poor prep Procedure & Operative Findings Date of Procedure 06/01/18 Procedure Performed/Findings EGD with bx Flex sig Anesthesia Type IV sedation by ACCOUNTS PAYABLE TECHNICIAN Estimated Blood Loss Estimated blood loss (mL): scant Specimens/Packing Specimens Removed Antral bx Bx of ulcer in body of stomach Bx of fundic mass GLADYS ALEJO DO Jun 01, 2018 08:20
--- NOTE | 2018-06-01 08:31 | Progress Note-Hospitalist ---
Subjective HPI/CC On Admission Date Seen by Provider: Jun 01, 2018 Time Seen by Provider: 10:30 CC: Fall with severe anemia and right radial fracture HPI: This is an 78yoWF clinic patient of Dr Seth out of [facility] and Dr Soto who recently began chemotherapy for MM who presented to the ER s/p fall with right arm pain and found to have an acute right radial fracture but also hgb was 3.6 so she was given 2 units of blood with adequate results but required another unit of blood under hematology recommendations. Currently she is needing her scheduled pain meds she takes at home and denies any other concerns. Subjective/Events-last exam Patient doing much better Pain is getting more under control Hemoglobin 7.2 Receiving iron infusions Bowels are moving Hemoccult-positive EGD revealed gastric mass awaiting pathology results but appears to be cancerous Active bleeding from the gastric mass and gastric ulcer Will monitor closely Review of Systems General: Fatigue Musculoskeletal: arm pain Objective Exam Vital Signs Vital Signs Date Time Temp Pulse Resp B/P (MAP) Pulse Ox O2 Delivery O2 Flow Rate FiO2 06/01/18 08:00 Room Air 06/01/18 04:00 99.1 69 20 132/64 (86) 96 Capillary Refill : Less Than 3 SecondsLess Than 3 Seconds General Appearance: No Apparent Distress, WD/WN, Chronically ill Respiratory: Chest Non Tender, Lungs Clear, Normal Breath Sounds, No Accessory Muscle Use, No Respiratory Distress Cardiovascular: Regular Rate, Rhythm, No Edema, No Gallop, No JVD, No Murmur, Normal Peripheral Pulses Neurologic/Psychiatric: Alert, Oriented x3, No Motor/Sensory Deficits, Normal Mood/Affect Results/Procedures Lab Laboratory Tests 06/01/18 06:20 Patient resulted labs reviewed. Assessment/Plan Assessment and Plan Assess & Plan/Chief Complaint Assessment: Severe anemia hemoglobin 3.6 on admission status post 3 units of blood and severe iron deficiency of 19 receiving iron infusions now hemoglobin 7.2 Gastric mass likely cancer noted on EGD per Dr. Ruiz this morning at 0820 Gastric ulcer Multiple myeloma Right radial fracture acute does not require surgery Plan: Monitor hemoglobin Await gastric mass pathology results but she is aware that she just has a stomach ulcer until pathology completed Ambulate Pain control Monitor closely Discharge home on Monday Diagnosis/Problems Diagnosis/Problems (1) Anemia Status: Acute Qualifiers: Anemia type: iron deficiency Iron deficiency anemia type: chronic blood loss Qualified Codes: D50.0 - Iron deficiency anemia secondary to blood loss ( chronic) (2) Multiple myeloma Status: Chronic Qualifiers: Multiple myeloma remission status: not in remission Qualified Codes: C90.00 - Multiple myeloma not having achieved remission (3) Fracture, radius, proximal Status: Acute Qualifiers: Encounter type: initial encounter Fracture type: closed Fracture morphology: unspecified fracture morphology Laterality: right Qualified Codes: S52.101A - Unspecified fracture of upper end of right radius, initial encounter for closed fracture (4) Mass of stomach Status: Acute (5) Gastric ulcer with hemorrhage Qualifiers: Gastric ulcer chronicity: acute Qualified Codes: K25.0 - Acute gastric ulcer with hemorrhage Clinical Quality Measures DVT/VTE Risk/Contraindication: Risk Factor Score Per Nursin RFS Level Per Nursing on Admit: 4+=Very High DANIELLE FALCON DO Jun 01, 2018 08:31
[2018-06-01] MEDS: DOCUSATE SODIUM 100 MG (COLACE) CAP PO SCH ×2 (09:25→20:07)
[2018-06-01] MEDS: LACTULOSE SYRUP 10GM/15ML (ENULOSE) 30ML UDC PO SCH ×2 (09:25→20:07)
[2018-06-01] MEDS: ACYCLOVIR 400 MG TABLET (ZOVIRAX) PO SCH ×2 (09:25→20:07)
[2018-06-01] MEDS: POLYETHYLENE GLYCOL 17 GM (MIRALAX) PACK PO SCH ×2 (09:26→20:07)
[2018-06-01] MEDS: BISACODYL 10 MG SUPP (DULCOLAX) PR SCH ×2 (09:26→20:08)
[2018-06-01] MEDS: IRON SUCROSE 200 MG/10 ML (VENOFER) VIAL IV SCH (09:40)
--- NOTE | 2018-06-01 09:51 | NUR ---
Pt didn't qualify for Acute Rehab admission as was considered too functional.Pt lives at [facility]. She complains of feeling weak and is fearful that she will fall again.Discussed continued care options and is interested in hiring private caregivers. Contacted [facility] Director who states pt does have a pull cord in her room which will alert staff of problems but is also willing to assist her in finding private caregivers. will further discuss with pt.
--- NOTE | 2018-06-01 10:57 | Physical Therapy Daily Note ---
PT Daily Note-Current Subjective Patient agrees to PT. Pain Numeric Pain Scale: 0-No Pain Location: No Pain Reported Mental Status Patient Orientation: Normal For Age Transfers Therapy Code Descriptions/Definitions Functional Mccone Measure: 0=Not Assessed/NA 4=Minimal Assistance 1=Total Assistance 5=Supervision or Setup 2=Maximal Assistance 6=Modified Mccone 3=Moderate Assistance 7=Complete Mccone Therapy Quality Codes: 6 Independent with activity with or without an assistive device 5 Patient requires set up or clean up by helper. Patient completes activity by themselves 4 Supervision or touching assist (CGA). [place] provide cues , steadying assist 3 The helper provides less than half the effort to complete the activity 2 The helper provides more than half the effort to complete the activity 1 Dependent. The helper does all the effort to complete an activity 7 Patient refused to complete or attempt activity 9 The patient did not perform the activity before the current illness or injury 88 Not attempted due to Medical conditions or safety concerns Transfers (B, C, W/C) (FIM): 6 Scootin Sit to/from Stand: 6 Weight Bearing Right Lower Extremity: Right Full Weight Bearing Left Lower Extremity: Left Full Weight Bearing Gait Training Gait (FIM): 6 Distance (FIM): 3=150 ft Distance: 175' Gait Level of Assist: 6 Gait Assistive Device: Cane Single Point slow, steady Assessment Patient tolerated treatment well and is up in recliner with needs met. PT to continue to address functional mobility to ensure safe return to home. PT Audiology Assistant Goals Snf Goals PT Audiology Assistant Goals Time Frame: Jun 09, 2018 Transfers (B,C,W/C) (FIM): 6 Gait (FIM): 6 Gait distance (FIM): 3=150 ft Distance: 400' Gait Level of Assist: 6 Gait Assistive Device: Cane Single Point PT Plan Treatment/Plan Treatment Plan: Continue Plan of Care Treatment Plan: Bed Mobility, Education, Functional Activity Yasmany, Functional Strength, Gait, Safety, Therapeutic Exercise, Transfers Treatment Duration: Jun 09, 2018 Frequency: 6 times per week Estimated Hrs Per Day: .25 hour per day Patient and/or Family Agrees t: Yes Time/GCodes Time In: 1016 Time Out: 1028 Total Billed Treatment Time: 12 Total Billed Treatment 1 visit FA 12 min RAYMUNDO DELEON PT Jun 01, 2018 10:57
[2018-06-01 12:00] VITALS: BP 124/60
--- NOTE | 2018-06-01 13:13 | OPERATIVE REPORT ---
DATE OF SERVICE: 06/01/2018 PREOPERATIVE DIAGNOSIS: Profound anemia. POSTOPERATIVE DIAGNOSES: 1. Gastric mass. 2. Gastric ulcer. 3. Hiatal hernia. 4. Gastritis. 5. Poor prep. PROCEDURES: 1. EGD with biopsy. 2. Flexible sigmoidoscopy. SURGEON: Lucien Ruiz DO ITALIAN TEACHER: None. ANESTHESIA: IV sedation by the BOREMATIC OPERATOR. SPECIMENS: Biopsy from the antrum, one biopsy of an ulcer from the body of the stomach and then biopsy of a gastric mass in the fundus. BLOOD LOSS: Scant. FLUIDS: Per anesthesia. POSTOPERATIVE CONDITION: Stable. INDICATION FOR PROCEDURE: The patient is an 78-year-old female, who had a profound anemia and needed a workup to find if there was a primary source of GI bleed causing the anemia. FINDINGS: The patient had mild gastritis. It had been looking like an ulcer in the body of the stomach and then had a large mass that had an ulcerated center up in the fundus as well as some hiatal hernia. Attempted colonoscopy was unsuccessful because of large amounts of retained melanotic stool in the colon and I am able to only do a flexible sigmoidoscopy. PROCEDURE NOTE: After informed consent was obtained, the patient was brought to the endoscopy suite and placed in the left lateral decubitus position. She was administered IV sedation by the BOREMATIC OPERATOR, who then monitored her vitals the entire time, heart rate, blood pressure and pulse ox and the scope was inserted down the mouth through the esophagus and into the stomach, pushed towards the antrum, took a picture of mild gastritis, also saw a small ulcer, took a picture of this pushing the duodenum. Duodenum looked fine. Pulled back and then did a biopsy of antrum, then pulled back a little bit more and then biopsy of the ulcer. Retroflexed the scope and saw a large gastric mass with a very large ulcerated center. This was most likely the cause of the profound GI bleed. Also, when retroflexing the scope, saw small hiatal hernia, did biopsy of this mass, trying not to make it bleed and then pulled the scope up out of the stomach, suctioned out the stomach and then out the esophagus and out the mouth. Switched camera, switched gloves and went to do the colonoscopy. Unfortunately, the patient had a lot of retained melanotic fecal stool. Able to push the scope in up to about the splenic, just short of the splenic flexure, but could not get all of the melanotic stool out. After multiple attempts of suctioning and flushing, at this point, I just elected to stop, did not see any diverticula in the descending colon or sigmoid colon. May have had some small internal hemorrhoids, but again very hard to see because of the large amount of retained fecal material. Scope was removed. The patient tolerated the procedure and she was recovered in the endoscopy suite. Job ID: [id number] DocumentID: [id number] Dictated Date: 06/01/2018 09:48:10 Chair Pad Maker Date: 06/01/2018 13:12:46 Dictated By: LUCIEN RUIZ DO
[2018-06-01] MEDS: HYDROcodone/APAP 5 MG/325 MG (LORTAB) TAB PO PRN ×2 (14:41→22:27)
--- NOTE | 2018-06-01 15:22 | NUR ---
Pt feeling fatigued and fragile. She thinks by Monday she will feel well enough to return to her apt. at [facility]. Advised the facility that she woun't be discharged till after the week-end.
[2018-06-01 15:30] VITALS: BP 127/62
--- NOTE | 2018-06-01 16:38 | Oncology Progress Note ---
Subjective Date Seen by a Provider: Jun 01, 2018 Time Seen by a Provider: 16:33 Subjective/Events-last exam Ms. Rice completed her EGD and colonoscopy this morning. She is feeling well this evening and has no additional complaints. Data Review Labs Laboratory Tests 06/01/18 06:20 Laboratory Tests 05/30/18 06:05: White Blood Count 11.4H, Red Blood Count 1.85L, Hemoglobin 5.8#*L, Hematocrit 17 *L, Red Cell Distribution Width 16.6H, Platelet Count 112L, Mean Platelet Volume 11.1H, Neutrophils (%) (Auto) 78H, Neutrophils # (Auto) 8.9H, Chloride Level 115H, Blood Urea Nitrogen 64H, Alkaline Phosphatase 23L, Total Protein 5.2L, Albumin 2.8L 05/30/18 13:05: 05/31/18 06:33: Red Blood Count 2.33L, Hemoglobin 7.0L, Hematocrit 21L, Red Cell Distribution Width 18.9H, Mean Platelet Volume 11.2H, Chloride Level 114H, Blood Urea Nitrogen 38H, Alkaline Phosphatase 30L, Total Protein 5.5L, Albumin 2.9L 05/31/18 10:55: Iron Level 19L 05/31/18 20:00: Stool Occult Blood Immunoassay POSITIVEH 06/01/18 06:20: Red Blood Count 2.36L, Hemoglobin 7.2L, Hematocrit 22L, Red Cell Distribution Width 18.8H, Mean Platelet Volume 10.8H, Neutrophils (%) (Auto) 76H, Chloride Level 111H, Blood Urea Nitrogen 26H, Calcium Level 8.0L, Total Bilirubin 1.1H, Alkaline Phosphatase 38L, Total Protein 5.8L, Albumin 2.9L Physical Exam Vital Signs Vital Signs - First Documented 05/29/18 05/29/18 15:37 17:41 Temp 98.2 Pulse 81 Resp 20 B/P (MAP) 144/49 (80) Pulse Ox 99 O2 Delivery Room Air Capillary Refill : Less Than 3 SecondsLess Than 3 Seconds Height, Weight, BMI Height: 5'2.00" Weight: 133lbs. 0.0oz. [id number]; 24.3 BMI Method:Stated General Appearance: No Apparent Distress, WD/WN Eyes: Bilateral Eye Normal Inspection HEENT: PERRL/EOMI, Normal ENT Inspection Neck: Full Range of Motion Respiratory: Lungs Clear, Normal Breath Sounds, No Accessory Muscle Use, No Respiratory Distress Cardiovascular: Regular Rate, Rhythm, No Edema Gastrointestinal: Normal Bowel Sounds, Non Tender, Soft Extremity: Normal Inspection, Normal Range of Motion, No Pedal Edema Neurologic/Psychiatric: Alert, Oriented x3, Normal Mood/Affect Skin: Normal Color, Warm/Dry Impression & Plan Impression & Plan 78 yo female with progressive multiple myeloma after multiple lines of therapy. Recently started on new chemotherapy regimen and was admitted with severe anemia leading to weakness, fall, and right radius fracture. 1. Acute on chronic anemia. Hgb is stable after appropriate response to PRBC transfusion. EGD revealed an ulcerated gastric mass that was the likely source of bleeding, although it was not bleeding at the time of endoscopy. 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 Resuming myeloma therapy will be vital, and radiation treatment may also be in the picture. In the less likely situation of primary gastric cancer, we will have to talk extensively about prognosis and goals of care. 2. IgG kappa multiple myeloma. Progressive after several lines of chemotherapy. Currently on elotuzumab, bortezomib, and dexamethasone combination. Will restart treatment as soon as possible once discharged from the hospital and short term nursing care. Clinical Quality Measures DVT/VTE Risk/Contraindication: Risk Factor Score Per Nursin RFS Level Per Nursing on Admit: 4+=Very High TAYLOR HILL MD Jun 01, 2018 16:37
[2018-06-01] MEDS: ACETAMINOPHEN 500 MG TAB (TYLENOL) PO PRN (17:11)
[2018-06-01 20:35] VITALS: BP 132/59
[2018-06-02] VITALS: BP 132/58
[2018-06-02 04:00] VITALS: BP 131/62
[2018-06-02 04:46] LABS: BASOPHILS % (AUTO) 0 % (0-10); EOSINOPHILS # (AUTO) 0.1 10^3/uL (0.0-0.3); EOSINOPHILS % (AUTO) 1 % (0-10); HEMATOCRIT 21 % (35-52); LYMPHOCYTES # (AUTO) 0.8 X 10^3 (1.0-4.0); LYMPHOCYTES % (AUTO) 10 % (12-44); MEAN CORPUSCULAR HEMOGLOBIN 32 PG (25-34); MEAN CORPUSCULAR HGB CONC 33 G/DL (32-36); MEAN CORPUSCULAR VOLUME 95 FL (80-99); MEAN PLATELET VOLUME 11.1 FL (7.4-10.4); MONOCYTES # (AUTO) 0.6 X 10^3 (0.0-1.0); MONOCYTES % (AUTO) 7 % (0-12); NEUTROPHILS % (AUTO) 82 % (42-75); PLATELET COUNT 175 10^3/uL (130-400); RED BLOOD COUNT 2.18 10^6/uL (4.35-5.85); RED CELL DISTRIBUTION WIDTH 18.7 % (10.0-14.5); WHITE BLOOD COUNT 8.6 10^3/uL (4.3-11.0)
[2018-06-02 05:06] LABS: ALBUMIN 2.7 GM/DL (3.2-4.5); BILIRUBIN,TOTAL 0.7 MG/DL (0.1-1.0); CALCIUM 8.2 MG/DL (8.5-10.1); CREATININE SERUM 1.01 MG/DL (0.60-1.30); POTASSIUM 3.3 MMOL/L (3.6-5.0); TOTAL PROTEIN 5.5 GM/DL (6.4-8.2)
--- NOTE | 2018-06-02 07:43 | NUR ---
prior to a.m. medications pulse was 76 b/p 137/52
[2018-06-02] MEDS: LACTULOSE SYRUP 10GM/15ML (ENULOSE) 30ML UDC PO SCH ×2 (07:45→21:37)
[2018-06-02] MEDS: morphine ER 15 MG (MS CONTIN) TAB PO PRN (07:45)
[2018-06-02] MEDS: ACYCLOVIR 400 MG TABLET (ZOVIRAX) PO SCH ×2 (07:45→21:36)
[2018-06-02] MEDS: DOCUSATE SODIUM 100 MG (COLACE) CAP PO SCH ×2 (07:45→21:36)
[2018-06-02] MEDS: POLYETHYLENE GLYCOL 17 GM (MIRALAX) PACK PO SCH ×2 (07:46→22:23)
[2018-06-02] MEDS: BISACODYL 10 MG SUPP (DULCOLAX) PR SCH ×2 (07:51→22:23)
[2018-06-02 08:00] VITALS: BP 128/71
--- NOTE | 2018-06-02 09:46 | Progress Note-Hospitalist ---
Subjective HPI/CC On Admission Date Seen by Provider: Jun 02, 2018 Time Seen by Provider: 09:40 CC: Fall with severe anemia and right radial fracture HPI: This is an 78yoWF clinic patient of Dr Seth out of [facility] and Dr Soto who recently began chemotherapy for MM who presented to the ER s/p fall with right arm pain and found to have an acute right radial fracture but also hgb was 3.6 so she was given 2 units of blood with adequate results but required another unit of blood under hematology recommendations. Currently she is needing her scheduled pain meds she takes at home and denies any other concerns. Subjective/Events-last exam Patient's hemoglobin remains at about 7. She is having increased difficulty walking because of pain in her pelvis and hips. She did not have this before. She is almost a full assistance with transfer and ambulation. Review of Systems Musculoskeletal: other Neurological: Weakness Objective Exam Vital Signs Vital Signs Date Time Temp Pulse Resp B/P (MAP) Pulse Ox O2 Delivery O2 Flow Rate FiO2 06/02/18 08:00 96 Room Air 06/02/18 04:00 99.8 69 20 131/62 (85) Capillary Refill : Less Than 3 SecondsLess Than 3 Seconds General Appearance: Chronically ill, Mild Distress HEENT: Pale Conjunctivae (R) Neck: Normal Inspection, Non Tender Respiratory: Lungs Clear, Normal Breath Sounds, No Accessory Muscle Use Cardiovascular: Regular Rate, Rhythm, No Edema, No Gallop, Systolic Murmur Gastrointestinal: Normal Bowel Sounds, Non Tender, Soft Back: Normal Inspection Extremity: No Pedal Edema Neurologic/Psychiatric: Alert, Oriented x3, No Motor/Sensory Deficits, Depressed Affect Skin: Pallor Results/Procedures Lab Laboratory Tests 06/02/18 04:35 Patient resulted labs reviewed. Assessment/Plan Assessment and Plan Assess & Plan/Chief Complaint Severe anemia hemoglobin stable at 7. Status post transfusion with 3 units of packed cells. Iron deficient and is on iron replacement. Increased disability with pelvic and hip pain since she had a fall will x-ray- she may need a CT Gastric ulcer with GI bleeding pathology pending Multiple myeloma Hypokalemia-will replace Diagnosis/Problems Diagnosis/Problems (1) Hip joint painful on movement Status: Acute Qualifiers: Laterality: unspecified laterality Qualified Codes: M25.559 - Pain in unspecified hip (2) Anemia Status: Acute Qualifiers: Anemia type: iron deficiency Iron deficiency anemia type: chronic blood loss Qualified Codes: D50.0 - Iron deficiency anemia secondary to blood loss ( chronic) (3) Multiple myeloma Status: Chronic Qualifiers: Multiple myeloma remission status: not in remission Qualified Codes: C90.00 - Multiple myeloma not having achieved remission (4) Fracture, radius, proximal Status: Acute Qualifiers: Encounter type: initial encounter Fracture type: closed Fracture morphology: unspecified fracture morphology Laterality: right Qualified Codes: S52.101A - Unspecified fracture of upper end of right radius, initial encounter for closed fracture (5) Gastric ulcer with hemorrhage Qualifiers: Gastric ulcer chronicity: acute Qualified Codes: K25.0 - Acute gastric ulcer with hemorrhage (6) Mass of stomach Status: Acute Clinical Quality Measures DVT/VTE Risk/Contraindication: Risk Factor Score Per Nursin RFS Level Per Nursing on Admit: 4+=Very High DESMOND LOJA MD Jun 02, 2018 09:46
[2018-06-02] MEDS: ACETAMINOPHEN 500 MG TAB (TYLENOL) PO PRN ×2 (10:29→17:44)
--- NOTE | 2018-06-02 11:13 | NUR ---
AFTER GIVING TYLENOL 500 MG PO TEMPERATURE IS DOWN TO 100.0
[2018-06-02] MEDS: KCL 20 MEQ TAB (K-DUR) PO SCH (11:19)
[2018-06-02 11:41] VITALS: BP 132/62
--- NOTE | 2018-06-02 12:59 | Diagnostic Imaging Report ---
INDICATION: Fall one week ago. Pelvic and hip pain. FINDINGS: AP pelvis shows bony ring intact. The SI joints show moderate degenerative change. Femoral heads are in normal articulation bilaterally. 2 views of the right and 2 views of the left hip were obtained. There is advanced degenerative disease more severe on the right. Mild hypertrophic bony changes noted along the lateral aspect of the base of the humeral heads bilaterally. Articulating surfaces are smooth. No fractures are demonstrated. There is old healed fracture along the inferior pubic ramus on the left. IMPRESSION: 1. Diffuse degenerative changes as described with no acute abnormalities. Dictated by: Dictated on workstation # [id number]
--- NOTE | 2018-06-02 13:36 | Physical Therapy Daily Note ---
PT Daily Note-Current Subjective Pt laying Supine in bed upon arrival. Pt agrees to PT. Pain Numeric Pain Scale: 8 Location: Left Location Body Site: Hip Pain Description: Sharp Mental Status Patient Orientation: Person, Place, Time, Situation Attachments: Oxygen Transfers Therapy Code Descriptions/Definitions Functional [place] Measure: 0=Not Assessed/NA 4=Minimal Assistance 1=Total Assistance 5=Supervision or Setup 2=Maximal Assistance 6=Modified [place] 3=Moderate Assistance 7=Complete [place] Therapy Quality Codes: 6 Independent with activity with or without an assistive device 5 Patient requires set up or clean up by helper. Patient completes activity by themselves 4 Supervision or touching assist (CGA). [place] provide cues , steadying assist 3 The helper provides less than half the effort to complete the activity 2 The helper provides more than half the effort to complete the activity 1 Dependent. The helper does all the effort to complete an activity 7 Patient refused to complete or attempt activity 9 The patient did not perform the activity before the current illness or injury 88 Not attempted due to Medical conditions or safety concerns Weight Bearing Right Lower Extremity: Right Full Weight Bearing Left Lower Extremity: Left Full Weight Bearing Exercises Supine Ex: Ankle pumps, Quad Set, Glut sets, Heel Slides, Straight leg raise, Hip abd/add Supine Reps: 15 Treatments Pt completes Supine Ex in bed since she had just gotten back from Xray shortly ago and was fatigued. Pt reported pain in L hip with Ex and was only able to complete AP, QS, GS with both sides, attempted but could not complete with LLE. Assessment Current Status: Fair Progress Pt limited by pain in L hip with Ex. Xray should notify if further action is needed. PT Retirement Goals Buffer Automatic Goals PT Buffer Automatic Goals Time Frame: Jun 09, 2018 Transfers (B,C,W/C) (FIM): 6 Gait (FIM): 6 Gait distance (FIM): 3=150 ft Distance: 400' Gait Level of Assist: 6 Gait Assistive Device: Cane Single Point PT Plan Problem List Problem List: Activity Tolerance, Functional Strength Treatment/Plan Treatment Plan: Continue Plan of Care Treatment Plan: Bed Mobility, Education, Functional Activity Yasmany, Functional Strength, Gait, Safety, Therapeutic Exercise, Transfers Treatment Duration: Jun 09, 2018 Frequency: 6 times per week Estimated Hrs Per Day: .25 hour per day Patient and/or Family Agrees t: Yes Safety Risks/Education Patient Education: Transfer Techniques, Correct Positioning, Safety Issues Teaching Recipient: Patient Teaching Methods: Discussion Response to Teaching: Verbalize Understanding Time/GCodes Time In: 1315 Time Out: 1330 Total Billed Treatment Time: 15 Total Billed Treatment 1, EX (15m) G Codes Necessary: LUKE Paul PTA Jun 02, 2018 13:36
--- NOTE | 2018-06-02 15:03 | Progress Note ---
Subjective Date Seen by a Provider: Jun 02, 2018 Time Seen by a Provider: 08:52 Subjective/Events-last exam patient having some pain in the hips and pelvis. She is tolerating diet. Her Hgb stable at 7. Denies any fever sweats chills shortness of breath or chest pain. Objective Exam Vital Signs Date Time Temp Pulse Resp B/P (MAP) Pulse Ox O2 Delivery O2 Flow Rate FiO2 06/02/18 11:41 100.0 72 18 132/62 (85) 98 Room Air 06/02/18 10:29 100.5 06/02/18 08:00 99.9 75 18 128/71 (90) 97 Room Air 06/02/18 08:00 96 Room Air 06/02/18 04:00 99.8 69 20 131/62 (85) 96 Room Air 06/02/18 00:00 99.3 74 20 132/58 (82) 96 Room Air 06/01/18 20:35 99.4 69 20 132/59 (83) 97 Room Air 06/01/18 20:00 Room Air 06/01/18 17:41 100.6 06/01/18 17:11 100.6 06/01/18 17:10 100.6 06/01/18 15:30 100.2 77 16 127/62 (83) 96 Room Air I & O 06/02/18 07:00 Intake Total 1180 ml Output Total 800 ml Balance 380 ml Capillary Refill : Less Than 3 SecondsLess Than 3 Seconds General Appearance: Chronically ill, Mild Distress HEENT: Pale Conjunctivae (R) Neck: Normal Inspection, Non Tender Respiratory: Lungs Clear, Normal Breath Sounds, No Accessory Muscle Use Cardiovascular: Regular Rate, Rhythm, No Edema, No Gallop Peripheral Pulses: 2+ Radial Pulses (L) Gastrointestinal: normal bowel sounds, non tender, soft, no organomegaly, no pulsatile mass Extremity: No Pedal Edema Neurologic/Psychiatric: Alert, Oriented x3, No Motor/Sensory Deficits, Depressed Affect Skin: Pallor Lymphatic: No Adenopathy Results Lab Laboratory Tests 06/02/18 04:35: White Blood Count 8.6, Red Blood Count 2.18L, Hemoglobin 7.0L, Hematocrit 21L, Mean Corpuscular Volume 95, Mean Corpuscular Hemoglobin 32, Mean Corpuscular Hemoglobin Concent 33, Red Cell Distribution Width 18.7H, Platelet Count 175, Mean Platelet Volume 11.1H, Neutrophils (%) (Auto) 82H, Lymphocytes (%) (Auto) 10L, Monocytes (%) (Auto) 7, Eosinophils (%) (Auto) 1, Basophils (%) (Auto) 0, Neutrophils # (Auto) 7.0, Lymphocytes # (Auto) 0.8L, Monocytes # (Auto) 0.6, Eosinophils # (Auto) 0.1, Basophils # (Auto) 0.0, Sodium Level 139, Potassium Level 3.3L, Chloride Level 112H, Carbon Dioxide Level 19L, Anion Gap 8, Blood Urea Nitrogen 27H, Creatinine 1.01, Estimat Glomerular Filtration Rate 53, BUN/ Creatinine Ratio 27, Glucose Level 101, Calcium Level 8.2L, Corrected Calcium 9.2, Total Bilirubin 0.7, Aspartate Amino Transf (AST/SGOT) 25, Alanine Aminotransferase (ALT/SGPT) 16, Alkaline Phosphatase 43, Total Protein 5.5L, Albumin 2.7L Microbiology 05/31/18 MRSA Screen - Final, Complete MRSA not isolated Assessment/Plan Assessment/Plan Assessment/Plan Profound Anemial - S/P blood transfusion Gastric ulcer/mass Multiple Myeloma - on chemotherapy Right radial fx - displaced Pt has profound anemia which hgb stable at this time. continue to monitor await biopsy results. no changes at this time. Clinical Quality Measures DVT/VTE Risk/Contraindication: Risk Factor Score Per Nursin RFS Level Per Nursing on Admit: 4+=Very High SWATI CAMPOS DO Jun 02, 2018 15:03
--- NOTE | 2018-06-02 15:27 | NUR ---
THIS RN COBY BONNER RN REPORT AT THIS TIME, SHE WILL ASSUME CARE AT THIS TIME.
[2018-06-02 16:15] VITALS: BP 154/77
[2018-06-02] MEDS: HYDROcodone/APAP 5 MG/325 MG (LORTAB) TAB PO PRN (21:37)
[2018-06-03] VITALS (7 sets, daily range): BP systolic 104–154; BP diastolic 51–67
[2018-06-03] MEDS: ACETAMINOPHEN 500 MG TAB (TYLENOL) PO PRN (02:04)
[2018-06-03 05:33] LABS: MEAN PLATELET VOLUME 10.7 FL (7.4-10.4); RED BLOOD COUNT 2.03 10^6/uL (4.35-5.85); RED CELL DISTRIBUTION WIDTH 18.7 % (10.0-14.5); WHITE BLOOD COUNT 8.3 10^3/uL (4.3-11.0)
[2018-06-03 05:35] LABS: HEMOGLOBIN 6.2 G/DL (11.5-16.0)
[2018-06-03 05:56] LABS: ALBUMIN 2.6 GM/DL (3.2-4.5); BILIRUBIN,TOTAL 0.7 MG/DL (0.1-1.0); CALCIUM 7.8 MG/DL (8.5-10.1); CREATININE SERUM 1.2 MG/DL (0.60-1.30); POTASSIUM 3.8 MMOL/L (3.6-5.0); TOTAL PROTEIN 5.7 GM/DL (6.4-8.2)
[2018-06-03] MEDS: DOCUSATE SODIUM 100 MG (COLACE) CAP PO SCH ×2 (09:41→20:42)
[2018-06-03] MEDS: IRON SUCROSE 200 MG/10 ML (VENOFER) VIAL IV SCH (09:41)
[2018-06-03] MEDS: POLYETHYLENE GLYCOL 17 GM (MIRALAX) PACK PO SCH ×3 (09:41→20:42)
[2018-06-03] MEDS: LACTULOSE SYRUP 10GM/15ML (ENULOSE) 30ML UDC PO SCH ×3 (09:41→20:42)
[2018-06-03] MEDS: morphine ER 15 MG (MS CONTIN) TAB PO PRN ×2 (09:42→20:42)
[2018-06-03] MEDS: BISACODYL 10 MG SUPP (DULCOLAX) PR SCH ×3 (09:42→20:48)
[2018-06-03] MEDS: ACYCLOVIR 400 MG TABLET (ZOVIRAX) PO SCH ×2 (09:42→20:42)
--- NOTE | 2018-06-03 10:30 | Progress Note ---
Subjective Date Seen by a Provider: Jun 03, 2018 Time Seen by a Provider: 10:28 Subjective/Events-last exam patient no new complaints. still with pain in hips and legs. tolerating diet. slight drop in hgb. denies n/v fever sweats chills shortness of breath or chest pain. Objective Exam Vital Signs Date Time Temp Pulse Resp B/P (MAP) Pulse Ox O2 Delivery O2 Flow Rate FiO2 06/03/18 04:20 99.3 06/03/18 00:55 100.3 72 20 104/51 (68) 97 Room Air 06/02/18 20:35 100.4 06/02/18 20:00 Room Air 06/02/18 19:01 101.4 06/02/18 16:15 101.2 77 18 154/77 (102) 98 Room Air 06/02/18 11:41 100.0 72 18 132/62 (85) 98 Room Air 06/02/18 10:29 100.5 I & O 06/03/18 07:00 Intake Total 1400 ml Output Total 1050 ml Balance 350 ml Capillary Refill : Less Than 3 SecondsLess Than 3 Seconds General Appearance: Chronically ill, Mild Distress HEENT: Pale Conjunctivae (R) Neck: Normal Inspection, Non Tender Respiratory: Lungs Clear, Normal Breath Sounds, No Accessory Muscle Use Cardiovascular: Regular Rate, Rhythm, No Edema, No Gallop Peripheral Pulses: 2+ Radial Pulses (L) Gastrointestinal: normal bowel sounds, non tender, soft, no organomegaly, no pulsatile mass Extremity: No Pedal Edema Neurologic/Psychiatric: Alert, Oriented x3, No Motor/Sensory Deficits, Depressed Affect Skin: Pallor Lymphatic: No Adenopathy Results Lab Laboratory Tests 06/03/18 05:10: White Blood Count 8.3, Red Blood Count 2.03L, Hemoglobin 6.2*L, Hematocrit 19*L , Mean Corpuscular Volume 96, Mean Corpuscular Hemoglobin 31, Mean Corpuscular Hemoglobin Concent 32, Red Cell Distribution Width 18.7H, Platelet Count 222, Mean Platelet Volume 10.7H 06/03/18 05:26: Sodium Level 140, Potassium Level 3.8, Chloride Level 113H, Carbon Dioxide Level 19L, Anion Gap 8, Blood Urea Nitrogen 27H, Creatinine 1.20, Estimat Glomerular Filtration Rate 43, BUN/Creatinine Ratio 23, Glucose Level 96, Calcium Level 7.8L, Corrected Calcium 8.9, Total Bilirubin 0.7, Aspartate Amino Transf (AST/SGOT) 28, Alanine Aminotransferase (ALT/SGPT) 20, Alkaline Phosphatase 64, Total Protein 5.7L, Albumin 2.6L Microbiology 05/31/18 MRSA Screen - Final, Complete MRSA not isolated Assessment/Plan Assessment/Plan Assessment/Plan Profound Anemial - S/P blood transfusion Gastric ulcer/mass Multiple Myeloma - on chemotherapy Right radial fx - displaced Pt has profound anemia which hgb slight drop at this time, consider prbc transfusion and continue to monitor await biopsy results. no changes at this time. Clinical Quality Measures DVT/VTE Risk/Contraindication: Risk Factor Score Per Nursin RFS Level Per Nursing on Admit: 4+=Very High SWATI CAMPOS DO Jun 03, 2018 10:30
[2018-06-03] MEDS ORDERED: NS IV 500 ML 500 ML ONE (11:03)
[2018-06-03] MEDS: KCL 20 MEQ TAB (K-DUR) PO SCH (12:01)
[2018-06-03] MEDS: HYDROcodone/APAP 5 MG/325 MG (LORTAB) TAB PO PRN (15:31)
[2018-06-04] VITALS: BP 138/61
[2018-06-04] MEDS: ACETAMINOPHEN 500 MG TAB (TYLENOL) PO PRN ×2 (01:41→08:05)
[2018-06-04 08:00] VITALS: BP 134/71
[2018-06-04] MEDS: LACTULOSE SYRUP 10GM/15ML (ENULOSE) 30ML UDC PO SCH ×2 (08:05→20:30)
[2018-06-04] MEDS: DOCUSATE SODIUM 100 MG (COLACE) CAP PO SCH ×2 (08:05→20:30)
[2018-06-04] MEDS: BISACODYL 10 MG SUPP (DULCOLAX) PR SCH ×2 (08:05→20:31)
[2018-06-04] MEDS: ACYCLOVIR 400 MG TABLET (ZOVIRAX) PO SCH ×2 (08:05→20:32)
[2018-06-04] MEDS: POLYETHYLENE GLYCOL 17 GM (MIRALAX) PACK PO SCH ×2 (08:05→20:30)
--- NOTE | 2018-06-04 10:26 | Diagnostic Imaging Report ---
INDICATION: Fever. PA and lateral views of the chest are obtained. Comparison is made to study of 04/07/2016. FINDINGS: There is mild cardiomegaly. There has been mild increase in pulmonary vascularity and interstitial markings. Expansion of the right sixth rib is again noted. Overall, no other new abnormality is seen. IMPRESSION: Mild pulmonary venous congestion and mild interstitial prominence may reflect underlying edema or possible pneumonitis. Otherwise, there is mild cardiomegaly without other evidence of acute abnormality. Dictated by: Dictated on workstation # [id number]
[2018-06-04 10:52] LABS: BASOPHILS % (AUTO) 0 % (0-10); EOSINOPHILS # (AUTO) 0.2 10^3/uL (0.0-0.3); EOSINOPHILS % (AUTO) 2 % (0-10); HEMATOCRIT 27 % (35-52); HEMOGLOBIN 8.9 G/DL (11.5-16.0); LYMPHOCYTES # (AUTO) 0.6 X 10^3 (1.0-4.0); LYMPHOCYTES % (AUTO) 7 % (12-44); MEAN CORPUSCULAR HGB CONC 33 G/DL (32-36); MEAN CORPUSCULAR VOLUME 93 FL (80-99); MEAN PLATELET VOLUME 10.7 FL (7.4-10.4); MONOCYTES # (AUTO) 0.7 X 10^3 (0.0-1.0); MONOCYTES % (AUTO) 7 % (0-12); NEUTROPHILS # (AUTO) 8.1 X 10^3 (1.8-7.8); NEUTROPHILS % (AUTO) 84 % (42-75); PLATELET COUNT 305 10^3/uL (130-400); RED BLOOD COUNT 2.92 10^6/uL (4.35-5.85); RED CELL DISTRIBUTION WIDTH 17.7 % (10.0-14.5); WHITE BLOOD COUNT 9.6 10^3/uL (4.3-11.0)
[2018-06-04 10:53] LABS: MEAN CORPUSCULAR HEMOGLOBIN 30 PG (25-34)
[2018-06-04 11:11] LABS: BAND NEUTROPHILS 1 %; BASOPHILS % (MANUAL) 0 %; EOSINOPHILS % (MANUAL) 3 %; LYMPHOCYTES % (MANUAL) 7 %; MONOCYTES % (MANUAL) 8 %; NEUTROPHILS % (MANUAL) 81 %
[2018-06-04 11:12] LABS: ANISOCYTOSIS SLIGHT
[2018-06-04 11:16] LABS: CALCIUM 8.5 MG/DL (8.5-10.1); CREATININE SERUM 1.11 MG/DL (0.60-1.30); POTASSIUM 3.9 MMOL/L (3.6-5.0)
[2018-06-04 12:11] LABS: BILIRUBIN,URINE NEGATIVE (NEGATIVE); CLARITY,URINE VERY CLOUDY; COLOR,URINE AMBER; GLUCOSE, URINE (UA) NEGATIVE (NEGATIVE); KETONES,URINE NEGATIVE (NEGATIVE); NITRITE,URINE NEGATIVE (NEGATIVE)
[2018-06-04 12:25] LABS: LEUKOCYTE ESTERASE ,URINE 3+ (NEGATIVE); PH,URINE 5 (5-9); PROTEIN,URINE 3+ (NEGATIVE); UROBILINOGEN,URINE 1 MG/DL (NORMAL)
[2018-06-04] MEDS: KCL 20 MEQ TAB (K-DUR) PO SCH (12:26)
[2018-06-04 12:37] LABS: RBC,URINE 50-100 /HPF; WBC,URINE TNTC /HPF
[2018-06-04 12:38] LABS: BACTERIA,URINE MODERATE /HPF
--- NOTE | 2018-06-04 14:22 | Physical Therapy Daily Note ---
PT Daily Note-Current Subjective Patient agrees to PT. No c/o. Pain Numeric Pain Scale: 0-No Pain Location: No Pain Reported Mental Status Patient Orientation: Normal For Age Transfers Therapy Code Descriptions/Definitions Functional [place] Measure: 0=Not Assessed/NA 4=Minimal Assistance 1=Total Assistance 5=Supervision or Setup 2=Maximal Assistance 6=Modified [place] 3=Moderate Assistance 7=Complete [place] Therapy Quality Codes: 6 Independent with activity with or without an assistive device 5 Patient requires set up or clean up by helper. Patient completes activity by themselves 4 Supervision or touching assist (CGA). [place] provide cues , steadying assist 3 The helper provides less than half the effort to complete the activity 2 The helper provides more than half the effort to complete the activity 1 Dependent. The helper does all the effort to complete an activity 7 Patient refused to complete or attempt activity 9 The patient did not perform the activity before the current illness or injury 88 Not attempted due to Medical conditions or safety concerns Transfers (B, C, W/C) (FIM): 5 Scootin Rollin Supine to/from Sit: 5 Sit to/from Stand: 5 Weight Bearing Right Lower Extremity: Right Full Weight Bearing Left Lower Extremity: Left Full Weight Bearing Gait Training Gait (FIM): 5 Distance (FIM): 3=150 ft Distance: 275' Gait Level of Assist: 5 Gait Assistive Device: Cane Single Point slow, and steady Assessment Patient returned to bed with needs met. Plans dismissal this week to home with caregiver. PT Mcc Goals Mcc Goals PT Mcc Goals Time Frame: Jun 09, 2018 Transfers (B,C,W/C) (FIM): 6 Gait (FIM): 6 Gait distance (FIM): 3=150 ft Distance: 400' Gait Level of Assist: 6 Gait Assistive Device: Cane Single Point PT Plan Treatment/Plan Treatment Plan: Continue Plan of Care Treatment Plan: Bed Mobility, Education, Functional Activity Yasmany, Functional Strength, Gait, Safety, Therapeutic Exercise, Transfers Treatment Duration: Jun 09, 2018 Frequency: 6 times per week Estimated Hrs Per Day: .25 hour per day Patient and/or Family Agrees t: Yes Time/GCodes Time In: 1307 Time Out: 1320 Total Billed Treatment Time: 13 Total Billed Treatment 1 visit FA 13 min RAYMUNDO DELEON PT Jun 04, 2018 14:22
--- NOTE | 2018-06-04 14:48 | Progress Note-Hospitalist ---
Subjective HPI/CC On Admission Date Seen by Provider: Jun 04, 2018 Time Seen by Provider: 10:27 CC: Fall with severe anemia and right radial fracture HPI: This is an 78yoWF clinic patient of Dr Seth out [place] [facility] [place] Soto who recently began chemotherapy for MM who presented to the ER s/p fall with right arm pain and found to have an acute right radial fracture but also hgb was 3.6 so she was given 2 units of blood with adequate results but required another unit of blood under hematology recommendations. Currently she is needing her scheduled pain meds she takes at home and denies any other concerns. Subjective/Events-last exam Pt reports feeling better today. Reports weakness improving. No other complaints. States has arranged from a friend to come stay with her as she knows she need help upon discharge. Objective Exam Vital Signs Vital Signs Date Time Temp Pulse Resp B/P (MAP) Pulse Ox O2 Delivery O2 Flow Rate FiO2 06/06/18 08:15 98 Room Air 06/06/18 07:53 98.4 84 20 135/58 (83) Capillary Refill : Less Than 3 SecondsLess Than 3 Seconds General Appearance: No Apparent Distress, Chronically ill Respiratory: Lungs Clear, No Respiratory Distress Cardiovascular: Regular Rate, Rhythm, No Murmur Gastrointestinal: Normal Bowel Sounds, Soft Neurologic/Psychiatric: Alert, Oriented x3 Results/Procedures Lab Laboratory Tests 06/06/18 04:50 Patient resulted labs reviewed. Assessment/Plan Assessment and Plan Assess & Plan/Chief Complaint Severe anemia of 3.6 on admission now 8.9 following 5 units pRBCs Radial fracture- Ortho consulted appreciate recs, currently in sugar tong cast Increased disability with falls at home- continue PT/OT Gastric ulcer with GI bleeding pathology pending Multiple myeloma- likely contributing to anemia Hypokalemia- resolved Diagnosis/Problems Diagnosis/Problems (1) Gastric ulcer with hemorrhage Qualifiers: Gastric ulcer chronicity: acute Qualified Codes: K25.0 - Acute gastric ulcer with hemorrhage (2) Mass of stomach Status: Acute (3) Fracture, radius, proximal Status: Acute Qualifiers: Encounter type: initial encounter Fracture type: closed Fracture morphology: unspecified fracture morphology Laterality: right Qualified Codes: S52.101A - Unspecified fracture of upper end of right radius, initial encounter for closed fracture (4) Multiple myeloma Status: Chronic Qualifiers: Multiple myeloma remission status: not in remission Qualified Codes: C90.00 - Multiple myeloma not having achieved remission (5) Anemia Status: Acute Qualifiers: Anemia type: iron deficiency Iron deficiency anemia type: chronic blood loss Qualified Codes: D50.0 - Iron deficiency anemia secondary to blood loss ( chronic) Clinical Quality Measures DVT/VTE Risk/Contraindication: Risk Factor Score Per Nursin RFS Level Per Nursing on Admit: 4+=Very High PHUONG FORTE MD Jun 04, 2018 14:48
[2018-06-04 16:00] VITALS: BP 149/65
[2018-06-04] MEDS: HYDROcodone/APAP 5 MG/325 MG (LORTAB) TAB PO PRN ×2 (16:20→21:45)
--- NOTE | 2018-06-04 16:25 | NUR ---
On this date,pt states she's feeling better. She has hired a friend to stay with her nights at her Assisted Living Cottage at [facility]. Will discuss possible acceptance of Home Health Care follow-up if ordered by her physician.
[2018-06-05] VITALS: BP 125/58
[2018-06-05] MEDS: HYDROcodone/APAP 5 MG/325 MG (LORTAB) TAB PO PRN ×3 (04:26→18:09)
[2018-06-05 06:12] LABS: BASOPHILS % (AUTO) 0 % (0-10); EOSINOPHILS # (AUTO) 0.2 10^3/uL (0.0-0.3); EOSINOPHILS % (AUTO) 3 % (0-10); HEMATOCRIT 23 % (35-52); HEMOGLOBIN 7.5 G/DL (11.5-16.0); LYMPHOCYTES # (AUTO) 0.7 X 10^3 (1.0-4.0); LYMPHOCYTES % (AUTO) 9 % (12-44); MEAN CORPUSCULAR HEMOGLOBIN 31 PG (25-34); MEAN CORPUSCULAR HGB CONC 33 G/DL (32-36); MEAN CORPUSCULAR VOLUME 94 FL (80-99); MEAN PLATELET VOLUME 10.9 FL (7.4-10.4); MONOCYTES # (AUTO) 0.6 X 10^3 (0.0-1.0); MONOCYTES % (AUTO) 8 % (0-12); NEUTROPHILS # (AUTO) 6.3 X 10^3 (1.8-7.8); NEUTROPHILS % (AUTO) 80 % (42-75); PLATELET COUNT 330 10^3/uL (130-400); RED BLOOD COUNT 2.45 10^6/uL (4.35-5.85); RED CELL DISTRIBUTION WIDTH 17.4 % (10.0-14.5); WHITE BLOOD COUNT 7.9 10^3/uL (4.3-11.0)
[2018-06-05 06:36] LABS: CREATININE SERUM 1.07 MG/DL (0.60-1.30); POTASSIUM 3.9 MMOL/L (3.6-5.0)
[2018-06-05 08:00] VITALS: BP 138/63
[2018-06-05] MEDS: IRON SUCROSE 200 MG/10 ML (VENOFER) VIAL IV SCH (09:07)
[2018-06-05] MEDS: ACYCLOVIR 400 MG TABLET (ZOVIRAX) PO SCH ×2 (09:07→20:44)
[2018-06-05] MEDS: POLYETHYLENE GLYCOL 17 GM (MIRALAX) PACK PO SCH ×2 (09:08→20:44)
[2018-06-05] MEDS: BISACODYL 10 MG SUPP (DULCOLAX) PR SCH ×2 (09:25→20:44)
[2018-06-05] MEDS: LACTULOSE SYRUP 10GM/15ML (ENULOSE) 30ML UDC PO SCH ×2 (09:25→20:44)
[2018-06-05] MEDS: DOCUSATE SODIUM 100 MG (COLACE) CAP PO SCH ×2 (09:25→20:44)
--- NOTE | 2018-06-05 09:41 | Progress Note-Hospitalist ---
Subjective HPI/CC On Admission Date Seen by Provider: Jun 05, 2018 Time Seen by Provider: 09:40 CC: Fall with severe anemia and right radial fracture HPI: This is an 78yoWF clinic patient of Dr Seth out of [facility] and Dr Soto who recently began chemotherapy for MM who presented to the ER s/p fall with right arm pain and found to have an acute right radial fracture but also hgb was 3.6 so she was given 2 units of blood with adequate results but required another unit of blood under hematology recommendations. Currently she is needing her scheduled pain meds she takes at home and denies any other concerns. Subjective/Events-last exam Pt reports feeling better today but considering possible surgical intervention as proposed by Dr Ruiz. She is unsure if she wants to proceed and would like to think about it more. Objective Exam Vital Signs Vital Signs Date Time Temp Pulse Resp B/P (MAP) Pulse Ox O2 Delivery O2 Flow Rate FiO2 06/06/18 08:15 98 Room Air 06/06/18 07:53 98.4 84 20 135/58 (83) Capillary Refill : Less Than 3 SecondsLess Than 3 Seconds General Appearance: No Apparent Distress, WD/WN Respiratory: Lungs Clear, No Respiratory Distress Cardiovascular: Regular Rate, Rhythm, No Murmur Gastrointestinal: Normal Bowel Sounds, Non Tender, Soft Results/Procedures Lab Laboratory Tests 06/06/18 04:50 Patient resulted labs reviewed. Assessment/Plan Assessment and Plan Assess & Plan/Chief Complaint Severe anemia of 3.6 on admission- down 1.5g since yesterday Gastric ulcer with GI bleeding pathology pending, discussed with Dr Ruiz and likely needs gastrectomy due to continued bleeding Multiple myeloma- likely contributing to anemia Radial fracture- Ortho consulted appreciate recs, currently in sugar tong cast Increased disability with falls at home- continue PT/OT Hypokalemia- resolved Diagnosis/Problems Diagnosis/Problems (1) Gastric ulcer with hemorrhage Qualifiers: Gastric ulcer chronicity: acute Qualified Codes: K25.0 - Acute gastric ulcer with hemorrhage (2) Mass of stomach Status: Acute (3) Fracture, radius, proximal Status: Acute Qualifiers: Encounter type: initial encounter Fracture type: closed Fracture morphology: unspecified fracture morphology Laterality: right Qualified Codes: S52.101A - Unspecified fracture of upper end of right radius, initial encounter for closed fracture (4) Multiple myeloma Status: Chronic Qualifiers: Multiple myeloma remission status: not in remission Qualified Codes: C90.00 - Multiple myeloma not having achieved remission (5) Anemia Status: Acute Qualifiers: Anemia type: iron deficiency Iron deficiency anemia type: chronic blood loss Qualified Codes: D50.0 - Iron deficiency anemia secondary to blood loss ( chronic) Clinical Quality Measures DVT/VTE Risk/Contraindication: Risk Factor Score Per Nursin RFS Level Per Nursing on Admit: 4+=Very High PHUONG FORTE MD Jun 05, 2018 09:41
--- NOTE | 2018-06-05 10:52 | Physical Therapy Daily Note ---
PT Daily Note-Current Subjective Patient agrees to PT. She is very tearful due to surgeon report. Family is present. Pain Numeric Pain Scale: 0-No Pain Location: No Pain Reported Mental Status Patient Orientation: Normal For Age Transfers Therapy Code Descriptions/Definitions Functional Hunter Measure: 0=Not Assessed/NA 4=Minimal Assistance 1=Total Assistance 5=Supervision or Setup 2=Maximal Assistance 6=Modified Hunter 3=Moderate Assistance 7=Complete Hunter Therapy Quality Codes: 6 Independent with activity with or without an assistive device 5 Patient requires set up or clean up by helper. Patient completes activity by themselves 4 Supervision or touching assist (CGA). Cuervo provide cues , steadying assist 3 The helper provides less than half the effort to complete the activity 2 The helper provides more than half the effort to complete the activity 1 Dependent. The helper does all the effort to complete an activity 7 Patient refused to complete or attempt activity 9 The patient did not perform the activity before the current illness or injury 88 Not attempted due to Medical conditions or safety concerns Transfers (B, C, W/C) (FIM): 5 Scootin Rollin Supine to/from Sit: 5 Sit to/from Stand: 5 Bed to/from Chair: 5 Weight Bearing Right Lower Extremity: Right Full Weight Bearing Left Lower Extremity: Left Full Weight Bearing Gait Training Gait (FIM): 5 Distance (FIM): 3=150 ft Distance: 275' Gait Level of Assist: 5 Gait Assistive Device: Cane Single Point slightly unsteady with self correction Assessment Patient limits PT due to emotional state and desire to discuss plan with family. PT to continue with POC. PT Crusher Feeder Goals Intermediate Goals PT Intermediate Goals Time Frame: Jun 09, 2018 Transfers (B,C,W/C) (FIM): 6 Gait (FIM): 6 Gait distance (FIM): 3=150 ft Distance: 400' Gait Level of Assist: 6 Gait Assistive Device: Cane Single Point PT Plan Treatment/Plan Treatment Plan: Continue Plan of Care Treatment Plan: Bed Mobility, Education, Functional Activity Yasmany, Functional Strength, Gait, Safety, Therapeutic Exercise, Transfers Treatment Duration: Jun 09, 2018 Frequency: 6 times per week Estimated Hrs Per Day: .25 hour per day Patient and/or Family Agrees t: Yes Time/GCodes Time In: 1031 Time Out: 1042 Total Billed Treatment Time: 11 Total Billed Treatment 1 visit FA 11 min RAYMUNDO DELEON PT Jun 05, 2018 10:52
[2018-06-05] MEDS: KCL 20 MEQ TAB (K-DUR) PO SCH (12:20)
--- NOTE | 2018-06-05 14:16 | Progress Note ---
Subjective Time Seen by a Provider: 09:51 Subjective/Events-last exam Pt seen and examined, states she feels fine but knows that her Hemoglobin dropped again. She is tolerating diet and denies abdominal pain. She states she has seen some black BM's. Review of Systems General: No Chills, No Night Sweats Pulmonary: No Dyspnea, No Cough Cardiovascular: No: Chest Pain, Palpitations Gastrointestinal: No: Nausea, Vomiting, Abdominal Pain Objective Exam Vital Signs Date Time Temp Pulse Resp B/P (MAP) Pulse Ox O2 Delivery O2 Flow Rate FiO2 06/05/18 11:33 99.8 06/05/18 08:00 98.1 68 18 138/63 (88) 98 Room Air 06/05/18 00:00 100.4 73 20 125/58 (80) 97 Room Air 06/04/18 16:00 99.8 67 18 149/65 (93) 99 Room Air I & O 06/05/18 07:00 Intake Total 1770 ml Balance 1770 ml Capillary Refill : Less Than 3 SecondsLess Than 3 Seconds General Appearance: No Apparent Distress, Thin HEENT: Pharynx Normal, Moist Mucous Membranes, Pale Conjunctivae (L), Pale Conjunctivae (R) Neck: Non Tender; No Thyromegaly Respiratory: Lungs Clear, Normal Breath Sounds, No Respiratory Distress Cardiovascular: Regular Rate, Rhythm, No Murmur Peripheral Pulses: 2+ Radial Pulses (L) Gastrointestinal: normal bowel sounds, non tender, soft, no organomegaly, no pulsatile mass Extremity: No Pedal Edema Neurologic/Psychiatric: Alert, Oriented x3 Skin: Pallor Results Lab Laboratory Tests 06/05/18 05:40: White Blood Count 7.9, Red Blood Count 2.45L, Hemoglobin 7.5L, Hematocrit 23L, Mean Corpuscular Volume 94, Mean Corpuscular Hemoglobin 31, Mean Corpuscular Hemoglobin Concent 33, Red Cell Distribution Width 17.4H, Platelet Count 330, Mean Platelet Volume 10.9H, Neutrophils (%) (Auto) 80H, Lymphocytes (%) (Auto) 9L, Monocytes (%) (Auto) 8, Eosinophils (%) (Auto) 3, Basophils (%) (Auto) 0, Neutrophils # (Auto) 6.3, Lymphocytes # (Auto) 0.7L, Monocytes # (Auto) 0.6, Eosinophils # (Auto) 0.2, Basophils # (Auto) 0.0, Sodium Level 138, Potassium Level 3.9, Chloride Level 114H, Carbon Dioxide Level 19L, Anion Gap 5, Blood Urea Nitrogen 39H, Creatinine 1.07, Estimat Glomerular Filtration Rate 49, BUN/ Creatinine Ratio 36, Glucose Level 102, Calcium Level 8.0L Microbiology 05/31/18 MRSA Screen - Final, Complete MRSA not isolated 06/04/18 Urine Culture - Preliminary, Resulted Gram Negative Stefan Assessment/Plan Assessment/Plan Assessment/Plan Profound Anemial - S/P blood transfusion Gastric ulcer/mass Multiple Myeloma - on chemotherapy Right radial fx - displaced Pt continues to have drop in Hg. Unfortunately path is not yet back on the Gastric Mass. I did have conversation with pt about this mass and gave her 3 options. #1 Do nothing, #2 Attempt endoscopic removal of mass #3 Gastric resection to remove mass. We discussed that option 1 is a bad choice because she continues to bleed and it could bleed more than it is now. Option 2 is a possibility, however I am concerned that we could get into bleeding that would be unable to be controlled with the EGD scope. I believe option 3 is her best option, but I am unsure exactly where the mass is located in the stomach. If the mass is on the greater curvature it will be easy to remove, if it is on the lesser curvature than a wedge resection is just a little harder. I think she needs an EGD and tattoing of the mass so that we can see where it is Laparoscopically. I would like to do the surgery without making an open incision; although, that is a possible outcome of attempted surgery. She thinks she wants it removed because of the continued bleeding. Therefore, I will do an EGD with injection of ink around mass tomorrow. All questions answered to her satisfaction. Clinical Quality Measures DVT/VTE Risk/Contraindication: Risk Factor Score Per Nursin RFS Level Per Nursing on Admit: 4+=Very High GLADYS ALEJO DO Jun 05, 2018 14:16
--- NOTE | 2018-06-05 15:15 | NUR ---
Pastoral Care Visit.
[2018-06-05 15:40] VITALS: BP 143/73
[2018-06-05 15:50] VITALS: BP 124/66
[2018-06-05] MEDS: ACETAMINOPHEN 500 MG TAB (TYLENOL) PO PRN (19:14)
[2018-06-05] MEDS: cefTRIAXone FOR IV USE 1,000 MG in NS (IVPB) 50 ML IV SCH (19:16)
[2018-06-06] VITALS: BP 134/63
[2018-06-06] MEDS: HYDROcodone/APAP 5 MG/325 MG (LORTAB) TAB PO PRN ×4 (04:21→18:57)
[2018-06-06 04:56] LABS: BASOPHILS % (AUTO) 1 % (0-10); EOSINOPHILS # (AUTO) 0.2 10^3/uL (0.0-0.3); EOSINOPHILS % (AUTO) 3 % (0-10); HEMATOCRIT 22 % (35-52); HEMOGLOBIN 7.2 G/DL (11.5-16.0); LYMPHOCYTES % (AUTO) 14 % (12-44); MEAN CORPUSCULAR HEMOGLOBIN 31 PG (25-34); MEAN CORPUSCULAR HGB CONC 32 G/DL (32-36); MEAN CORPUSCULAR VOLUME 95 FL (80-99); MEAN PLATELET VOLUME 10.3 FL (7.4-10.4); MONOCYTES # (AUTO) 0.7 X 10^3 (0.0-1.0); MONOCYTES % (AUTO) 10 % (0-12); NEUTROPHILS # (AUTO) 5.2 X 10^3 (1.8-7.8); NEUTROPHILS % (AUTO) 73 % (42-75); PLATELET COUNT 360 10^3/uL (130-400); RED BLOOD COUNT 2.35 10^6/uL (4.35-5.85); RED CELL DISTRIBUTION WIDTH 16.9 % (10.0-14.5); WHITE BLOOD COUNT 7.1 10^3/uL (4.3-11.0)
[2018-06-06 05:14] LABS: CALCIUM 8.4 MG/DL (8.5-10.1); CREATININE SERUM 1.03 MG/DL (0.60-1.30); POTASSIUM 4.1 MMOL/L (3.6-5.0)
[2018-06-06 07:53] VITALS: BP 135/58
[2018-06-06] MEDS: DOCUSATE SODIUM 100 MG (COLACE) CAP PO SCH ×2 (09:10→20:30)
[2018-06-06] MEDS: LACTULOSE SYRUP 10GM/15ML (ENULOSE) 30ML UDC PO SCH ×2 (09:10→20:30)
[2018-06-06] MEDS: POLYETHYLENE GLYCOL 17 GM (MIRALAX) PACK PO SCH ×2 (09:11→20:30)
[2018-06-06] MEDS: BISACODYL 10 MG SUPP (DULCOLAX) PR SCH ×2 (09:11→20:31)
[2018-06-06] MEDS: ACYCLOVIR 400 MG TABLET (ZOVIRAX) PO SCH ×2 (09:11→20:30)
--- NOTE | 2018-06-06 09:20 | NUR ---
0815 ASSESSMENT COMPLETE SEE FLOW SHEET, PT C/O OF PAIN IN RIGHT SHOULDER RATES PAIN AT 6 ON 0-10 SCALE, LORTAB GIVEN FOR PAIN, PT REPOSITIONED IN BED PER COMFORT AND RIGHT ARM/HAND ELEVATED ON PILLOW. PT'S RIGHT FINGERS NOTED TO BE EDEMATOUS, PERIPHERAL PULSES +/+, CALL LIGHT AND OTHER PERSONAL ITEMS WITHIN REACH WILL CONTINUE TO MONITOR.
--- NOTE | 2018-06-06 10:59 | Progress Note-Hospitalist ---
Subjective HPI/CC On Admission Date Seen by Provider: Jun 06, 2018 Time Seen by Provider: 10:57 CC: Fall with severe anemia and right radial fracture HPI: This is an 78yoWF clinic patient of Dr Seth out of [facility] [place] [facility] and Dr Soto who recently began chemotherapy for MM who presented to the ER s/p fall with right arm pain and found to have an acute right radial fracture but also hgb was 3.6 so she was given 2 units of blood with adequate results but required another unit of blood under hematology recommendations. Currently she is needing her scheduled pain meds she takes at home and denies any other concerns. Subjective/Events-last exam Pt reports feeling well today. Plan for EGD with inking of lesion today. Objective Exam Vital Signs Vital Signs Date Time Temp Pulse Resp B/P (MAP) Pulse Ox O2 Delivery O2 Flow Rate FiO2 06/06/18 08:15 98 Room Air 06/06/18 07:53 98.4 84 20 135/58 (83) Capillary Refill : Less Than 3 SecondsLess Than 3 Seconds General Appearance: No Apparent Distress, WD/WN Respiratory: Lungs Clear, No Respiratory Distress Cardiovascular: Regular Rate, Rhythm, No Murmur Neurologic/Psychiatric: Alert, Oriented x3 Results/Procedures Lab Laboratory Tests 06/06/18 04:50 Patient resulted labs reviewed. Assessment/Plan Assessment and Plan Assess & Plan/Chief Complaint Severe anemia of 3.6 on admission- down to 7.2 today Gastric ulcer with GI bleeding pathology pending, discussed with Dr Ruiz and likely needs gastrectomy due to continued bleeding EGD today for marking Multiple myeloma- likely contributing to anemia, oncology consulted, appreciate recs Radial fracture- Ortho consulted appreciate recs, currently in sugar tong cast Increased disability with falls at home- continue PT/OT Hypokalemia- resolved Diagnosis/Problems Diagnosis/Problems (1) Gastric ulcer with hemorrhage Qualifiers: Gastric ulcer chronicity: acute Qualified Codes: K25.0 - Acute gastric ulcer with hemorrhage (2) Mass of stomach Status: Acute (3) Fracture, radius, proximal Status: Acute Qualifiers: Encounter type: initial encounter Fracture type: closed Fracture morphology: unspecified fracture morphology Laterality: right Qualified Codes: S52.101A - Unspecified fracture of upper end of right radius, initial encounter for closed fracture (4) Multiple myeloma Status: Chronic Qualifiers: Multiple myeloma remission status: not in remission Qualified Codes: C90.00 - Multiple myeloma not having achieved remission (5) Anemia Status: Acute Qualifiers: Anemia type: iron deficiency Iron deficiency anemia type: chronic blood loss Qualified Codes: D50.0 - Iron deficiency anemia secondary to blood loss ( chronic) Clinical Quality Measures DVT/VTE Risk/Contraindication: Risk Factor Score Per Nursin RFS Level Per Nursing on Admit: 4+=Very High PHUONG FORTE MD Jun 06, 2018 10:59
--- NOTE | 2018-06-06 11:53 | NUR ---
PT TO ENDOSCOPY VIA W/C ACCOMPANIED BY ENDO STAFF.
[2018-06-06] MEDS ORDERED: proPOfol 200 MG/20 ML (DIPRIVAN) VIAL IV ONE (12:34)
[2018-06-06] MEDS ORDERED: NS IV 500 ML 500 ML ONE (12:34)
--- NOTE | 2018-06-06 12:35 | Physical Therapy Progress Note ---
Therapy Progress Note 0945am Attempted physical therapy visit for up out of bed, transfer training and or gait training, pt refusing all. offered just bed exercises, pt also refusing. Pt showing emotional distress at this time, tearful and crying, states she has a procedure this morning. Requesting no therapy at all today. will attempt visit again tomorrow, pt agreeable BEATRIZ BROOKS RIBBER Jun 06, 2018 12:35
[2018-06-06] MEDS ORDERED: HURRICAINE EXT TUBE (BENZOCAINE) ONE (12:37)
[2018-06-06] MEDS: NS IV 500 ML 500 ML IV SCH (12:40)
[2018-06-06] MEDS ORDERED: LACTATED RINGERS 0 ML IV ONE (12:42)
[2018-06-06] MEDS: KCL 20 MEQ TAB (K-DUR) PO SCH (12:49)
--- NOTE | 2018-06-06 13:06 | Progress Note-Post Operative ---
Post-Operative Progess Note Surgeon (s)/Gauge Maker Apprentice (s) Surgeon GLADYS ALEJO DO Gauge Maker Apprentice: none Pre-Operative Diagnosis Anemia, Multiple Myeloma, Gastric mass Post-Operative Diagnosis same Procedure & Operative Findings Date of Procedure 06/06/18 Procedure Performed/Findings EGD with tattooing around gastric mass Anesthesia Type IV sedation by anesthesia Estimated Blood Loss Estimated blood loss (mL): none Specimens/Packing Specimens Removed none GLADYS ALEJO DO Jun 06, 2018 13:06
[2018-06-06 13:24] VITALS: BP 146/67
--- NOTE | 2018-06-06 13:26 | NUR ---
PT BACK TO ROOM 415 VIA W/C ACCOMPANIED BY ENDOSCOPY STAFF. , PT AWAKE, ALERT, PT ASSISTED TO BED, NO C/O OF PAIN PT POSITIONED PER COMFORT, CALL LIGHT AND OTHER PERSONAL ITEMS WITHIN REACH WILL CONTINUE TO MONITOR.
--- NOTE | 2018-06-06 13:35 | NUR ---
Pastoral Care Visit.
--- NOTE | 2018-06-06 13:57 | Anesthesia-General Post-Op ---
MAC Patient Condition Mental Status/LOC: Same as Preop Cardiovascular: Satisfactory Nausea/Vomiting: Absent Respiratory: Satisfactory Pain: Controlled Complications: Absent Post Op Complications Complications None Follow Up Care/Instructions Patient Instructions None needed. Anesthesiology Discharge Order Discharge Order Patient is doing well, no complaints, stable vital signs, no apparent adverse anesthesia problems. No complications reported per nursing. JUAN JOSE VANCE CRNA Jun 06, 2018 13:57
[2018-06-06] MEDS ORDERED: HURRICAINE EXT TUBE (BENZOCAINE) XX ONE (15:30)
[2018-06-06 15:31] VITALS: BP 163/68
--- NOTE | 2018-06-06 16:11 | Oncology Progress Note ---
Subjective Date Seen by a Provider: Jun 06, 2018 Time Seen by a Provider: 16:04 Subjective/Events-last exam Patient was asleep, did not speak with or examine today Data Review Labs Laboratory Tests 06/06/18 04:50 Laboratory Tests 06/04/18 10:45: Red Blood Count 2.92L, Hemoglobin 8.9#L, Hematocrit 27L, Red Cell Distribution Width 17.7H, Mean Platelet Volume 10.7H, Neutrophils (%) (Auto) 84H, Lymphocytes (%) (Auto) 7L, Neutrophils # (Auto) 8.1H, Lymphocytes # (Auto) 0.6L , Chloride Level 111H, Carbon Dioxide Level 19L, Blood Urea Nitrogen 36H 06/04/18 11:15: 06/04/18 11:55: Urine Color AMBERH, Urine Clarity VERY CLOUDYH, Urine Protein 3+H, Urine Leukocyte Esterase 3+H, Urine RBC (Auto) 5+H, Urine RBC 50-100H, Urine WBC TNTCH , Urine Bacteria MODERATEH, Urine Granular Casts 5-10H 06/05/18 05:40: Red Blood Count 2.45L, Hemoglobin 7.5L, Hematocrit 23L, Red Cell Distribution Width 17.4H, Mean Platelet Volume 10.9H, Neutrophils (%) (Auto) 80H, Lymphocytes (%) (Auto) 9L, Lymphocytes # (Auto) 0.7L, Chloride Level 114H, Carbon Dioxide Level 19L, Blood Urea Nitrogen 39H, Calcium Level 8.0L 06/06/18 04:50: Red Blood Count 2.35L, Hemoglobin 7.2L, Hematocrit 22L, Red Cell Distribution Width 16.9H, Chloride Level 114H, Carbon Dioxide Level 18L, Blood Urea Nitrogen 34H, Calcium Level 8.4L Physical Exam Vital Signs Vital Signs - First Documented 05/31/18 00:00 Temp 98.9 Pulse 97 Resp 18 B/P (MAP) 134/62 (86) Pulse Ox 98 O2 Delivery Room Air Capillary Refill : Less Than 3 SecondsLess Than 3 Seconds Height, Weight, BMI Height: 5'2.00" Weight: 133lbs. 0.0oz. [id number]; 24.3 BMI Method:Stated General Appearance: No Apparent Distress Impression & Plan Impression & Plan 78 yo female with progressive multiple myeloma after multiple lines of therapy. Recently started on new chemotherapy regimen and was admitted with severe anemia leading to weakness, fall, and right radius fracture. 1. Acute on chronic anemia. EGD revealed an ulcerated gastric mass that was the likely source of bleeding. Patient is continuing to bleed slowly. 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 Unfortunately, last week's biopsy proved unrevealing. Patient is currently undergoing evaluation for surgical resection, which would be ideal since a second primary cancer has significantly different prognosis than progressive myeloma alone. We still have at least 2 or 3 different options for treatment of myeloma, but having to deal with a second major primary malignancy would be very difficult; difficult enough to prompt more immediate end of life care discussions. 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 2. IgG kappa multiple myeloma. Progressive after several lines of chemotherapy. Currently on elotuzumab, bortezomib, and dexamethasone combination. Will restart treatment as soon as possible once discharged from the hospital and short term nursing care. Clinical Quality Measures DVT/VTE Risk/Contraindication: Risk Factor Score Per Nursin RFS Level Per Nursing on Admit: 4+=Very High TAYLOR HILL MD Jun 06, 2018 16:11
[2018-06-06] MEDS: cefTRIAXone FOR IV USE 1,000 MG in NS (IVPB) 50 ML IV SCH (18:29)
[2018-06-07] VITALS: BP 162/65
[2018-06-07] MEDS: HYDROcodone/APAP 5 MG/325 MG (LORTAB) TAB PO PRN ×3 (00:27→20:01)
[2018-06-07 05:22] LABS: BASOPHILS % (AUTO) 0 % (0-10); EOSINOPHILS # (AUTO) 0.2 10^3/uL (0.0-0.3); EOSINOPHILS % (AUTO) 2 % (0-10); HEMATOCRIT 23 % (35-52); HEMOGLOBIN 7.1 G/DL (11.5-16.0); LYMPHOCYTES # (AUTO) 1.1 X 10^3 (1.0-4.0); LYMPHOCYTES % (AUTO) 15 % (12-44); MEAN CORPUSCULAR HEMOGLOBIN 30 PG (25-34); MEAN CORPUSCULAR HGB CONC 32 G/DL (32-36); MEAN CORPUSCULAR VOLUME 96 FL (80-99); MEAN PLATELET VOLUME 9.8 FL (7.4-10.4); MONOCYTES # (AUTO) 0.5 X 10^3 (0.0-1.0); MONOCYTES % (AUTO) 7 % (0-12); NEUTROPHILS # (AUTO) 5.5 X 10^3 (1.8-7.8); NEUTROPHILS % (AUTO) 76 % (42-75); PLATELET COUNT 407 10^3/uL (130-400); RED BLOOD COUNT 2.35 10^6/uL (4.35-5.85); RED CELL DISTRIBUTION WIDTH 16.8 % (10.0-14.5); WHITE BLOOD COUNT 7.3 10^3/uL (4.3-11.0)
[2018-06-07 05:49] LABS: CALCIUM 8.5 MG/DL (8.5-10.1); CREATININE SERUM 0.98 MG/DL (0.60-1.30); POTASSIUM 4.1 MMOL/L (3.6-5.0)
[2018-06-07 08:00] VITALS: BP 142/62
[2018-06-07] MEDS: DOCUSATE SODIUM 100 MG (COLACE) CAP PO SCH ×2 (08:09→21:29)
[2018-06-07] MEDS: LACTULOSE SYRUP 10GM/15ML (ENULOSE) 30ML UDC PO SCH ×2 (08:09→21:29)
[2018-06-07] MEDS: POLYETHYLENE GLYCOL 17 GM (MIRALAX) PACK PO SCH ×2 (08:09→21:29)
[2018-06-07] MEDS: IRON SUCROSE 200 MG/10 ML (VENOFER) VIAL IV SCH (08:09)
[2018-06-07] MEDS: ACYCLOVIR 400 MG TABLET (ZOVIRAX) PO SCH ×2 (08:09→21:29)
[2018-06-07] MEDS: BISACODYL 10 MG SUPP (DULCOLAX) PR SCH ×2 (08:15→21:30)
[2018-06-07] MEDS: NS IV 500 ML 500 ML IV SCH (08:18)
--- NOTE | 2018-06-07 09:55 | Progress Note ---
Subjective Time Seen by a Provider: 09:34 Subjective/Events-last exam Pt seen and examined, states she doesn't feel great today "mostly tired and my throat is sore". She denies abdominal pain. Review of Systems General: No Chills, No Night Sweats; Malaise Pulmonary: No Dyspnea, No Cough Cardiovascular: No: Chest Pain, Palpitations Gastrointestinal: No: Nausea, Vomiting, Abdominal Pain Objective Exam Vital Signs Date Time Temp Pulse Resp B/P (MAP) Pulse Ox O2 Delivery O2 Flow Rate FiO2 06/07/18 08:05 Room Air 06/07/18 00:00 100.9 76 18 162/65 (97) 99 Room Air 06/06/18 20:00 100.0 06/06/18 20:00 Room Air 06/06/18 15:31 99.3 70 18 163/68 (99) 98 Room Air 06/06/18 13:24 98.2 65 20 146/67 (93) 98 Room Air I & O 06/07/18 07:00 Intake Total 1000 ml Balance 1000 ml Capillary Refill : Less Than 3 SecondsLess Than 3 Seconds General Appearance: No Apparent Distress, Thin HEENT: Pharynx Normal, Moist Mucous Membranes, Pale Conjunctivae (L), Pale Conjunctivae (R) Neck: Non Tender; No Thyromegaly Respiratory: Lungs Clear, No Respiratory Distress Cardiovascular: Regular Rate, Rhythm, No Murmur Peripheral Pulses: 2+ Radial Pulses (L) Gastrointestinal: normal bowel sounds, non tender, soft, no organomegaly, no pulsatile mass Extremity: No Pedal Edema Neurologic/Psychiatric: Alert, Oriented x3 Skin: Pallor Results Lab Laboratory Tests 06/07/18 05:20: White Blood Count 7.3, Red Blood Count 2.35L, Hemoglobin 7.1L, Hematocrit 23L, Mean Corpuscular Volume 96, Mean Corpuscular Hemoglobin 30, Mean Corpuscular Hemoglobin Concent 32, Red Cell Distribution Width 16.8H, Platelet Count 407H, Mean Platelet Volume 9.8, Neutrophils (%) (Auto) 76H, Lymphocytes (%) (Auto) 15 , Monocytes (%) (Auto) 7, Eosinophils (%) (Auto) 2, Basophils (%) (Auto) 0, Neutrophils # (Auto) 5.5, Lymphocytes # (Auto) 1.1, Monocytes # (Auto) 0.5, Eosinophils # (Auto) 0.2, Basophils # (Auto) 0.0, Sodium Level 139, Potassium Level 4.1, Chloride Level 113H, Carbon Dioxide Level 18L, Anion Gap 8, Blood Urea Nitrogen 25H, Creatinine 0.98, Estimat Glomerular Filtration Rate 55, BUN/ Creatinine Ratio 26, Glucose Level 92, Calcium Level 8.5 Microbiology 05/31/18 MRSA Screen - Final, Complete MRSA not isolated 06/04/18 Urine Culture - Final, Complete Escherichia coli Assessment/Plan Assessment/Plan Assessment/Plan 1. Gastric ulcer/mass 2. Profound Anemia - S/P blood transfusion secondary to # 1 3. Multiple Myeloma - on chemotherapy 4. Right radial fx - displaced Pt continues to have drop in Hg. The Gastric Mass was inked yesterday and pt has consented to Partial Gastric resection to remove mass. The plan is to do this laparoscopically but there is always the possibility of open. Discussed risks and complications of procedure not limited to pain, bleeding, infection scar and damage to intestines with need for further procedure. All questions answered to her satisfaction and the case has been scheduled. Clinical Quality Measures DVT/VTE Risk/Contraindication: Risk Factor Score Per Nursin RFS Level Per Nursing on Admit: 4+=Very High GLADYS ALEJO DO Jun 07, 2018 09:55
--- NOTE | 2018-06-07 09:58 | Physical Therapy Progress Note ---
Therapy Progress Note Patient declined PT secondary to prepping for surgery this p.m. PT to resume in a.m. 1 ref RAYMUNDO DELEON PT Jun 07, 2018 09:58
--- NOTE | 2018-06-07 10:25 | Progress Note-Hospitalist ---
Subjective HPI/CC On Admission Date Seen by Provider: Jun 07, 2018 Time Seen by Provider: 10:22 CC: Fall with severe anemia and right radial fracture HPI: This is an 78yoWF clinic patient of Dr Seth out [place] [facility] [place] Soto who recently began chemotherapy for MM who presented to the ER s/p fall with right arm pain and found to have an acute right radial fracture but also hgb was 3.6 so she was given 2 units of blood with adequate results but required another unit of blood under hematology recommendations. Currently she is needing her scheduled pain meds she takes at home and denies any other concerns. Subjective/Events-last exam Reports doing well. No complaints. Plan for OR today. Objective Exam Vital Signs Vital Signs Date Time Temp Pulse Resp B/P (MAP) Pulse Ox O2 Delivery O2 Flow Rate FiO2 06/07/18 08:05 Room Air 06/07/18 00:00 100.9 76 18 162/65 (97) 99 Capillary Refill : Less Than 3 SecondsLess Than 3 Seconds General Appearance: No Apparent Distress, Chronically ill Cardiovascular: Regular Rate, Rhythm, No Murmur Gastrointestinal: Normal Bowel Sounds, Soft Neurologic/Psychiatric: Alert, Oriented x3 Results/Procedures Lab Laboratory Tests 06/07/18 05:20 Patient resulted labs reviewed. Assessment/Plan Assessment and Plan Assess & Plan/Chief Complaint Severe anemia of 3.6 on admission- relatively stable today at 7.1 Gastric ulcer with GI bleeding pathology pending, discussed with Dr Ruiz and likely needs gastrectomy due to continued bleeding Plan for OR today for gastrectomy- will send for path as well Multiple myeloma- likely contributing to anemia, oncology consulted, appreciate recs Radial fracture- Ortho consulted appreciate recs, currently in sugar tong cast Increased disability with falls at home- continue PT/OT Hypokalemia- resolved Diagnosis/Problems Diagnosis/Problems (1) Gastric ulcer with hemorrhage Qualifiers: Gastric ulcer chronicity: acute Qualified Codes: K25.0 - Acute gastric ulcer with hemorrhage (2) Mass of stomach Status: Acute (3) Fracture, radius, proximal Status: Acute Qualifiers: Encounter type: initial encounter Fracture type: closed Fracture morphology: unspecified fracture morphology Laterality: right Qualified Codes: S52.101A - Unspecified fracture of upper end of right radius, initial encounter for closed fracture (4) Multiple myeloma Status: Chronic Qualifiers: Multiple myeloma remission status: not in remission Qualified Codes: C90.00 - Multiple myeloma not having achieved remission (5) Anemia Status: Acute Qualifiers: Anemia type: iron deficiency Iron deficiency anemia type: chronic blood loss Qualified Codes: D50.0 - Iron deficiency anemia secondary to blood loss ( chronic) Clinical Quality Measures DVT/VTE Risk/Contraindication: Risk Factor Score Per Nursin RFS Level Per Nursing on Admit: 4+=Very High PHUONG FORTE MD Jun 07, 2018 10:25
[2018-06-07] MEDS: KCL 20 MEQ TAB (K-DUR) PO SCH (12:13)
[2018-06-07] MEDS: LACTATED RINGERS 1,000 ML IV PRN ×2 (14:15→16:37)
[2018-06-07] MEDS ORDERED: fentaNYL INJECTION 100 MCG/2 ML AMP ONE (14:18)
[2018-06-07] MEDS ORDERED: MIDAZOLAM 2 MG/2 ML (VERSED) VIAL ONE (14:27)
[2018-06-07] MEDS ORDERED: LIDOCAINE/EPI 1%-1:100,000 (XYLOCAINE) 20ML ONE ×2 (15:25→15:39)
[2018-06-07] MEDS ORDERED: morphine INJ 10 MG/ML 1ML (SYR OR VIAL) ONE (16:30)
[2018-06-07] MEDS ORDERED: ROCURONIUM 10 MG/ML 5 ML SYRINGE IV ONE (16:40)
[2018-06-07] MEDS ORDERED: SUCCINYLCHOLINE INJ 100 MG/5 ML SYR ONE (16:40)
[2018-06-07] MEDS ORDERED: proPOfol 200 MG/20 ML (DIPRIVAN) VIAL IV ONE (16:40)
[2018-06-07] MEDS ORDERED: PHENYLEPHRINE 100 MCG/ML 10 ML (ANESTHESIA) SYR ONE (16:40)
[2018-06-07] MEDS ORDERED: LIDOCAINE PF 2% 5 ML (XYLOCAINE) VIAL ONE (16:40)
[2018-06-07] MEDS ORDERED: ONDANSETRON 4 MG/2 ML (SDV) Z0FRAN ONE (16:40)
[2018-06-07] MEDS ORDERED: SEVOFLURANE (ULTANE) 15 ML INHAL SOLN ONE (16:41)
[2018-06-07] MEDS ORDERED: SUGAMMADEX 500 MG/5 ML VIAL (BRIDION) IV ONE ×2 (16:44→17:21)
[2018-06-07] MEDS ORDERED: morphine INJ 10 MG/ML 1ML (SYR OR VIAL) IVP ONE (17:15)
[2018-06-07] MEDS ORDERED: ONDANSETRON 4 MG/2 ML (SDV) Z0FRAN IVP PRN (17:15)
[2018-06-07] MEDS ORDERED: MEPERIDINE (DEMEROL) INJ 50 MG/ML IVP ONE (17:15)
[2018-06-07] MEDS ORDERED: LABETALOL HCL 20 MG/4 ML VIAL ONE (17:21)
[2018-06-07] MEDS ORDERED: IOHEXOL 350 MG/ML 100 ML (OMNIPAQUE 350) VIAL IV ONE (17:30)
[2018-06-07] MEDS ORDERED: NS 100 ML (IVPB) BAG IV ONE (17:30)
[2018-06-07] MEDS ORDERED: RECEIVED CONTRAST (Hold Metformin) IV SCH (17:30)
[2018-06-07 18:27] VITALS: BP 170/72
[2018-06-07] MEDS: CATHETER FLUSH 10 ML SYR IV PRN (19:23)
--- NOTE | 2018-06-07 19:26 | Progress Note-Post Operative ---
Post-Operative Progess Note Surgeon (s)/Fretted Instruments Inspector (s) Surgeon GLADYS ALEJO DO Fretted Instruments Inspector: Sara Pre-Operative Diagnosis Anemia, Multiple Myeloma, Gastric mass Post-Operative Diagnosis Same pending pathology and questionable abdominal fullness, possible pancreatic Procedure & Operative Findings Date of Procedure 06/07/18 Procedure Performed/Findings Partial Gastrectomy Anesthesia Type GET Estimated Blood Loss Estimated blood loss (mL): less than 20 ml Specimens/Packing Specimens Removed portion of stomach GLADYS ALEJO DO Jun 07, 2018 19:26
[2018-06-07 19:45] VITALS: BP 178/70
[2018-06-07] MEDS: cefTRIAXone FOR IV USE 1,000 MG in NS (IVPB) 50 ML IV SCH (20:01)
--- NOTE | 2018-06-07 20:55 | Diagnostic Imaging Report ---
PROCEDURE: CT abdomen and pelvis with contrast. TECHNIQUE: Multiple contiguous axial images were obtained through the abdomen and pelvis after administration of intravenous contrast. INDICATION: Abdominal mass. COMPARISON: There are no recent exams available for comparison. FINDINGS: The PET/CT exam performed on 09/26/2017 failed to show any hypermetabolic activity in the abdomen to suggest neoplastic disease. Reportedly, the patient underwent a partial gastrectomy earlier today. There is a small amount of free air present related to that procedure. In addition, there is a sizable 5.7 x 6.9 cm mass with the epicenter in the head of the pancreas. The central portion of the mass is of diminished density suggesting necrosis. This mass was not present on the prior PET/CT exam and consequently should be considered neoplastic until proven otherwise. The liver, spleen, adrenals, kidneys, gallbladder, aorta and inferior vena cava show no sign of an acute abnormality. There are surgical sutures about the stomach. There is a small amount of free fluid in the pelvis. This may be related to the recent surgical procedure. There is also some gas in the urinary bladder. This too is probably related to recent instrumentation related to the recent surgery. There is no solid pelvic mass identified. The bone windows show no sign of an acute fracture or of a destructive lesion. There is a healed fracture of the inferior pubic ramus on the left. There is mild bibasilar atelectasis/infiltrate. IMPRESSION: 1. There is a large mass in the region of the head of the pancreas. This mass should be considered neoplastic until proven otherwise. 2. There is a pneumoperitoneum and some fluid in the pelvis. There is also air in the bladder. These findings are most likely related to the patient's recent surgical procedure. 3. There is no acute abnormality in the abdomen or pelvis noted otherwise. 4. These results were discussed with Dr. Lucien Ruiz. Dictated by: Dictated on workstation # [id number]
[2018-06-07] MEDS: morphine ER 15 MG (MS CONTIN) TAB PO PRN (21:54)
[2018-06-08] VITALS (7 sets, daily range): BP systolic 114–163; BP diastolic 50–70
--- NOTE | 2018-06-08 01:29 | OPERATIVE REPORT ---
DATE OF SERVICE: 06/06/2018 PREOPERATIVE DIAGNOSIS: Anemia, GI bleed. POSTOPERATIVE DIAGNOSIS: Anemia, GI bleed. PROCEDURE: EGD with tattooing. SURGEON: Lucien Ruiz DO BLACK OXIDE OPERATOR: None. ANESTHESIA: IV sedation by anesthesiologist. SPECIMENS: None. BLOOD LOSS: None. FLUIDS: Per anesthesia. POSTOPERATIVE CONDITION: Stable. INDICATION FOR PROCEDURE: The patient is an 78-year-old female who has a gastric mass and she had another episode of bleeding and hemoglobin dropped. She has a gastric mass that is known. I would like to try and possibly do surgery laparoscopically and need to be able to visualize so elected to inject some tattooing around this mass. FINDINGS: The patient had a gastric mass. The tattoo was placed around it. PROCEDURE NOTE: After informed consent was obtained, the patient was brought to the endoscopy suite, placed in the bed in left lateral decubitus position. She was administered IV sedation by the anesthesiologist who then monitored vitals the entire time, heart rate, blood pressure and pulse ox and the scope was inserted down the mouth through the esophagus into the stomach, again I saw the gastric mass, saw some melena, but no active bleeding. Retroflexed the scope and then placed a needle in and then subcutaneously placed ink about a mL at around the mass at about the 12, 3 and 6 o'clock position. Looked to be good positioning of the tattooing, at this point I removed the scope up and suctioned out the air out of the stomach up the stomach into the esophagus and then out the mouth. The patient tolerated the procedure. She was recovered in endoscopy suite. Job ID: [id number] DocumentID: [id number] Dictated Date: 06/07/2018 18:50:45 Lmft Date: 06/08/2018 01:27:58 Dictated By: LUCIEN RUIZ DO
[2018-06-08] MEDS: NS IV 500 ML 500 ML IV SCH (04:39)
[2018-06-08] MEDS: morphine ER 15 MG (MS CONTIN) TAB PO PRN ×2 (06:01→20:29)
[2018-06-08 06:55] LABS: BASOPHILS % (AUTO) 0 % (0-10); EOSINOPHILS # (AUTO) 0.1 10^3/uL (0.0-0.3); EOSINOPHILS % (AUTO) 1 % (0-10); HEMATOCRIT 22 % (35-52); LYMPHOCYTES # (AUTO) 0.7 X 10^3 (1.0-4.0); LYMPHOCYTES % (AUTO) 9 % (12-44); MEAN CORPUSCULAR HEMOGLOBIN 30 PG (25-34); MEAN CORPUSCULAR HGB CONC 31 G/DL (32-36); MEAN CORPUSCULAR VOLUME 97 FL (80-99); MEAN PLATELET VOLUME 9.4 FL (7.4-10.4); MONOCYTES # (AUTO) 0.6 X 10^3 (0.0-1.0); MONOCYTES % (AUTO) 7 % (0-12); NEUTROPHILS # (AUTO) 6.8 X 10^3 (1.8-7.8); NEUTROPHILS % (AUTO) 83 % (42-75); PLATELET COUNT 407 10^3/uL (130-400); RED BLOOD COUNT 2.27 10^6/uL (4.35-5.85); RED CELL DISTRIBUTION WIDTH 16.5 % (10.0-14.5); WHITE BLOOD COUNT 8.2 10^3/uL (4.3-11.0)
[2018-06-08 06:58] LABS: HEMOGLOBIN 6.7 G/DL (11.5-16.0)
[2018-06-08 07:10] LABS: CALCIUM 8.5 MG/DL (8.5-10.1); CREATININE SERUM 1.1 MG/DL (0.60-1.30); POTASSIUM 4.1 MMOL/L (3.6-5.0)
[2018-06-08] MEDS ORDERED: NS IV 500 ML 500 ML IV ONE (08:15)
--- NOTE | 2018-06-08 08:15 | NUR ---
CONSENT FOR BLOOD ADMINISTRATION SIGNED.
--- NOTE | 2018-06-08 08:20 | NUR ---
DR. FORTE HERE. NOTIFIED DRAnant NDIAYE IVF INFUSING, NOT ABLE TO CARMEL REG DIET, AND REFUSED NUMEROUS LAXATIVES ON EMAR. ATTEMPTED TO REACH DR. ALEJO.
[2018-06-08] MEDS: POLYETHYLENE GLYCOL 17 GM (MIRALAX) PACK PO SCH (08:23)
[2018-06-08] MEDS: LACTULOSE SYRUP 10GM/15ML (ENULOSE) 30ML UDC PO SCH (08:23)
[2018-06-08] MEDS: DOCUSATE SODIUM 100 MG (COLACE) CAP PO SCH (08:23)
[2018-06-08] MEDS: BISACODYL 10 MG SUPP (DULCOLAX) PR SCH (08:24)
--- NOTE | 2018-06-08 08:25 | NUR ---
MSIR 15MG PO FOR ABD PAIN.
--- NOTE | 2018-06-08 08:30 | NUR ---
TEMP 101.2. ORDER TO HOLD BLOOD FROM DR. FORTE.
[2018-06-08] MEDS: CATHETER FLUSH 10 ML SYR IV PRN (08:31)
[2018-06-08] MEDS: morphine IMMEDIATE RELEASE 15 MG TABLET PO PRN (08:34)
[2018-06-08] MEDS: ACYCLOVIR 400 MG TABLET (ZOVIRAX) PO SCH ×2 (08:34→20:29)
[2018-06-08] MEDS ORDERED: APAP 325 MG/10.15 ML LIQ (TYLENOL) UDC PO PRN (09:00)
--- NOTE | 2018-06-08 09:00 | NUR ---
TYLENOL 500MG PO FOR ELEVATED TEMP.
[2018-06-08] MEDS: ACETAMINOPHEN 500 MG TAB (TYLENOL) PO PRN ×2 (09:01→13:03)
--- NOTE | 2018-06-08 10:00 | NUR ---
TEMP 100.7. ORDER TO HOLD BLOOD UNTIL THIS AFTERNOON FROM DR. FORTE.
--- NOTE | 2018-06-08 10:06 | Anesthesia-General Post-Op ---
General Patient Condition Mental Status/LOC: Same as Preop Cardiovascular: Satisfactory Nausea/Vomiting: Absent Respiratory: Satisfactory Pain: Controlled Complications: Absent Post Op Complications Complications None Follow Up Care/Instructions Patient Instructions None needed. Anesthesia/Patient Condition Patient Condition Patient is doing well, no complaints, stable vital signs, no apparent adverse anesthesia problems. No complications reported per nursing. PAYTON FERRERA CRNA Jun 08, 2018 10:06
--- NOTE | 2018-06-08 10:20 | NUR ---
Received a referral from Pastoral Care Visit, Pt shared her health journey and having just been told of some further health issues. Pt shared of still struggling with the loss of her . Pt processed much, including telling of her support system and yars[facility] community. I offered support, and listening, I had prayer with pt. She was was tearful but open and coping.
--- NOTE | 2018-06-08 10:30 | NUR ---
REACHED DR. ALEJO. ORDER FOR IVF AND IS Q2H AND DECREASE DIET TO SOFT.
[2018-06-08] MEDS: LACTATED RINGERS 1,000 ML IV SCH ×3 (10:35→21:16)
--- NOTE | 2018-06-08 10:42 | Progress Note-Hospitalist ---
Subjective HPI/CC On Admission Date Seen by Provider: Jun 08, 2018 Time Seen by Provider: 10:37 CC: Fall with severe anemia and right radial fracture HPI: This is an 78yoWF clinic [place] [facility] [place] who recently began chemotherapy for MM who presented to the ER s/p fall with right arm pain and found to have an acute right radial fracture but also hgb was 3.6 so she was given 2 units of blood with adequate results but required another unit of blood under hematology recommendations. Currently she is needing her scheduled pain meds she takes at home and denies any other concerns. Subjective/Events-last exam Patient lying in bed tearful during out discussion. States Dr Soto told her about mass in pancreas. She would like to wait until the pathology is back but if new primary cancer then would like to transition to PSYCH ARNP with hospice. Objective Exam Vital Signs Vital Signs Date Time Temp Pulse Resp B/P (MAP) Pulse Ox O2 Delivery O2 Flow Rate FiO2 06/08/18 10:00 100.7 06/08/18 08:00 94 20 121/58 (79) 96 Room Air Capillary Refill : Less Than 3 SecondsLess Than 3 Seconds General Appearance: Other (appropriately tearful during conversation) Respiratory: Lungs Clear, No Respiratory Distress Cardiovascular: Regular Rate, Rhythm, No Murmur Neurologic/Psychiatric: Alert, Oriented x3 Results/Procedures Lab Laboratory Tests 06/08/18 06:50 Patient resulted labs reviewed. Assessment/Plan Assessment and Plan Assess & Plan/Chief Complaint Pancreatic Mass- concern for new primary care, discussed with Dr Soto, Dr Ruiz , and Dr Torres- path will likely not be back until Monday, patient would like to await path and if new primary neoplasm would like to transition to PSYCH ARNP and hospice palliative care consulted, appreciate recs Severe anemia of 3.6 on admission- Down to 6.2 this AM postoperatively, transfuse x1 today Fever- Will get CXR and UA Gastric ulcer with GI bleeding- POD #1 partial gastrectomy- await path Multiple myeloma- likely contributing to anemia, oncology consulted, appreciate recs Radial fracture- Ortho consulted appreciate recs, currently in sugar tong cast Increased disability with falls at home- continue PT/OT Hypokalemia- resolved Diagnosis/Problems Diagnosis/Problems (1) Gastric ulcer with hemorrhage Qualifiers: Gastric ulcer chronicity: acute Qualified Codes: K25.0 - Acute gastric ulcer with hemorrhage (2) Mass of stomach Status: Acute (3) Fracture, radius, proximal Status: Acute Qualifiers: Encounter type: initial encounter Fracture type: closed Fracture morphology: unspecified fracture morphology Laterality: right Qualified Codes: S52.101A - Unspecified fracture of upper end of right radius, initial encounter for closed fracture (4) Multiple myeloma Status: Chronic Qualifiers: Multiple myeloma remission status: not in remission Qualified Codes: C90.00 - Multiple myeloma not having achieved remission (5) Anemia Status: Acute Qualifiers: Anemia type: iron deficiency Iron deficiency anemia type: chronic blood loss Qualified Codes: D50.0 - Iron deficiency anemia secondary to blood loss ( chronic) (6) Mass of pancreas Clinical Quality Measures End of Life/Advance Care Plan: Advance Care discuss with: patient End of Life Care: Pallative Care, Hospice Care (Home) Plan: initiate discussion, clarifying prognosis DVT/VTE Risk/Contraindication: Risk Factor Score Per Nursin RFS Level Per Nursing on Admit: 4+=Very High PHUONG FORTE MD Jun 08, 2018 10:42
--- NOTE | 2018-06-08 11:29 | NUR ---
Palliative Care consult received on this 78 year old patient. She has MM and has had GIB with recent gastrectomy and new mass found during surgery. Consulted now to get acquainted and when pathology results are available with the possibility of the need to have hospice discussion. Patient is agreeable to my visit. She is tearful off and on through out discussion verbalizing this as a difficult time of year with the loss of her and now the recent discovery of the mass found yesterday during her gastrectomy surgery. She reports that she is familiar with hospice and had [facility] for her . She has arranged for a friend to stay with her at night when she return to her [facility] and really would like to return to her home if possible. Palliative Care RN will continue to follow with support as needed.
--- NOTE | 2018-06-08 13:00 | NUR ---
TYLENOL 500 MG PO FOR PAIN.
[2018-06-08] MEDS: KCL 20 MEQ TAB (K-DUR) PO SCH (13:03)
--- NOTE | 2018-06-08 14:05 | Diagnostic Imaging Report ---
INDICATION: Fever and cough. TIME OF EXAM: 1:00 p.m. COMPARISON: Comparison is made with prior chest from 06/04/2018. FINDINGS: Right chest wall port has tip over the right atrium SVC. There is a small pneumoperitoneum. The patient is status post abdominal surgery one day earlier. The lungs are clear. The pulmonary vascularity is normal. No effusion or pneumothorax is seen. IMPRESSION: 1. No acute cardiopulmonary process is detected. 2. Pneumoperitoneum, status post abdominal surgery one day earlier. Dictated by: Dictated on workstation # [id number]
--- NOTE | 2018-06-08 14:46 | Physical Therapy Progress Note ---
Therapy Progress Note Patient declined PT secondary to information given to her about her prognosis. PT respects patient wishes. 1 ref RAYMUNDO DELEON PT Jun 08, 2018 14:46
--- NOTE | 2018-06-08 15:32 | Progress Note ---
Subjective Time Seen by a Provider: 14:51 Subjective/Events-last exam Pt seen and examined. States pain is controlled, trying to eat but food doesn' t taste good. Review of Systems General: No Chills, No Night Sweats Pulmonary: No Dyspnea, No Cough Cardiovascular: No: Chest Pain, Palpitations Objective Exam Vital Signs Date Time Temp Pulse Resp B/P (MAP) Pulse Ox O2 Delivery O2 Flow Rate FiO2 06/08/18 14:18 98.0 06/08/18 13:35 98.0 75 114/57 06/08/18 13:18 98.8 79 16 116/50 Room Air 06/08/18 12:00 98.8 79 20 116/50 (72) 96 Room Air 06/08/18 09:01 101.2 06/08/18 08:00 101.2 94 20 121/58 (79) 96 Room Air 06/08/18 08:00 Room Air 06/08/18 00:00 99.2 98 20 121/58 (79) 97 Room Air 06/07/18 20:00 Room Air 06/07/18 19:45 98.0 86 20 178/70 (106) 97 Room Air 06/07/18 18:27 96.9 85 18 170/72 (104) 93 Room Air I & O 06/08/18 06:59 Intake Total 1400 ml Output Total 410 ml Balance 990 ml Capillary Refill : Less Than 3 SecondsLess Than 3 Seconds General Appearance: No Apparent Distress, Other (appropriately tearful during conversation) HEENT: Pharynx Normal, Moist Mucous Membranes, Pale Conjunctivae (L), Pale Conjunctivae (R) Respiratory: Lungs Clear, No Respiratory Distress Cardiovascular: Regular Rate, Rhythm, No Murmur Peripheral Pulses: 2+ Radial Pulses (L) Gastrointestinal: soft, tenderness (mainly at incisions) Extremity: No Pedal Edema Neurologic/Psychiatric: Alert, Oriented x3 Skin: Pallor Results Lab Laboratory Tests 06/08/18 06:50: White Blood Count 8.2, Red Blood Count 2.27L, Hemoglobin 6.7*L, Hematocrit 22L, Mean Corpuscular Volume 97, Mean Corpuscular Hemoglobin 30, Mean Corpuscular Hemoglobin Concent 31L, Red Cell Distribution Width 16.5H, Platelet Count 407H, Mean Platelet Volume 9.4, Neutrophils (%) (Auto) 83H, Lymphocytes (%) (Auto) 9L , Monocytes (%) (Auto) 7, Eosinophils (%) (Auto) 1, Basophils (%) (Auto) 0, Neutrophils # (Auto) 6.8, Lymphocytes # (Auto) 0.7L, Monocytes # (Auto) 0.6, Eosinophils # (Auto) 0.1, Basophils # (Auto) 0.0, Sodium Level 136, Potassium Level 4.1, Chloride Level 109H, Carbon Dioxide Level 18L, Anion Gap 9, Blood Urea Nitrogen 21H, Creatinine 1.10, Estimat Glomerular Filtration Rate 48, BUN/ Creatinine Ratio 19, Glucose Level 88, Calcium Level 8.5 Microbiology 05/31/18 MRSA Screen - Final, Complete MRSA not isolated 06/04/18 Urine Culture - Final, Complete Escherichia coli Assessment/Plan Assessment/Plan Assessment/Plan Pt had CT which showed new Pancreatic head mass, not seen on PET scan in September. Plan to get pt home for [place] and probably will go on hospice. 1. S/P Partial Gastrectomy to remove Gastric ulcer/mass 2. Profound Anemia - S/P blood transfusion secondary to # 1 3. Multiple Myeloma - on chemotherapy 4. Right radial fx - displaced Pt encouraged to eat and ambulate, currently getting blood transfustion. Encouraged her to use IS. Clinical Quality Measures DVT/VTE Risk/Contraindication: Risk Factor Score Per Nursin RFS Level Per Nursing on Admit: 4+=Very High GLADYS ALEJO DO Jun 08, 2018 15:32
[2018-06-08 15:46] LABS: BILIRUBIN,URINE NEGATIVE (NEGATIVE); CLARITY,URINE SLIGHTLY CLOUDY; COLOR,URINE YELLOW; GLUCOSE, URINE (UA) NEGATIVE (NEGATIVE); KETONES,URINE NEGATIVE (NEGATIVE); LEUKOCYTE ESTERASE ,URINE 1+ (NEGATIVE); NITRITE,URINE NEGATIVE (NEGATIVE); PH,URINE 5 (5-9); PROTEIN,URINE 2+ (NEGATIVE); UROBILINOGEN,URINE NORMAL (NORMAL)
[2018-06-08 15:53] LABS: RBC,URINE >100 /HPF
--- NOTE | 2018-06-08 16:08 | NUR ---
[facility] Director Nadia was notified of pt's possible discharge Monday. Pt has arranged for night care and states that her friend can stay longer if necessary. Pt lives in an independent cottage with a Emergency pull code and meals at a [facility]. Pt states she can have family transport her when discharged. Will follow
--- NOTE | 2018-06-08 17:25 | Oncology Progress Note ---
Subjective Date Seen by a Provider: Jun 08, 2018 Time Seen by a Provider: 17:19 Subjective/Events-last exam Patient underwent partial gastrectomy early last night. She suffered from significant periumbilical and epigastric pain this morning but pain medication regimen has done well for pain control this evening. Data Review Labs Laboratory Tests 06/08/18 06:50 Laboratory Tests 06/06/18 04:50: Red Blood Count 2.35L, Hemoglobin 7.2L, Hematocrit 22L, Red Cell Distribution Width 16.9H, Chloride Level 114H, Carbon Dioxide Level 18L, Blood Urea Nitrogen 34H, Calcium Level 8.4L 06/07/18 05:20: Red Blood Count 2.35L, Hemoglobin 7.1L, Hematocrit 23L, Red Cell Distribution Width 16.8H, Chloride Level 113H, Carbon Dioxide Level 18L, Blood Urea Nitrogen 25H, Platelet Count 407H, Neutrophils (%) (Auto) 76H 06/08/18 06:50: Red Blood Count 2.27L, Hemoglobin 6.7*L, Hematocrit 22L, Red Cell Distribution Width 16.5H, Chloride Level 109H, Carbon Dioxide Level 18L, Blood Urea Nitrogen 21H, Platelet Count 407H, Neutrophils (%) (Auto) 83H, Mean Corpuscular Hemoglobin Concent 31L, Lymphocytes (%) (Auto) 9L, Lymphocytes # (Auto) 0.7L 06/08/18 15:30: Urine Protein 2+H, Urine Leukocyte Esterase 1+H, Urine RBC (Auto) 5+H, Urine RBC >100H Radiology Signed Date of Exam: 06/07/18 CT ABDOMEN/PELVIS W PROCEDURE: CT abdomen and pelvis with contrast. TECHNIQUE: Multiple contiguous axial images were obtained through the abdomen and pelvis after administration of intravenous contrast. INDICATION: Abdominal mass. COMPARISON: There are no recent exams available for comparison. FINDINGS: The PET/CT exam performed on 09/26/2017 failed to show any hypermetabolic activity in the abdomen to suggest neoplastic disease. Reportedly, the patient underwent a partial gastrectomy earlier today. There is a small amount of free air present related to that procedure. In addition, there is a sizable 5.7 x 6.9 cm mass with the epicenter in the head of the pancreas. The central portion of the mass is of diminished density suggesting necrosis. This mass was not present on the prior PET/CT exam and consequently should be considered neoplastic until proven otherwise. The liver, spleen, adrenals, kidneys, gallbladder, aorta and inferior vena cava show no sign of an acute abnormality. There are surgical sutures about the stomach. There is a small amount of free fluid in the pelvis. This may be related to the recent surgical procedure. There is also some gas in the urinary bladder. This too is probably related to recent instrumentation related to the recent surgery. There is no solid pelvic mass identified. The bone windows show no sign of an acute fracture or of a destructive lesion. There is a healed fracture of the inferior pubic ramus on the left. There is mild bibasilar atelectasis/infiltrate. IMPRESSION: 1. There is a large mass in the region of the head of the pancreas. This mass should be considered neoplastic until proven otherwise. 2. There is a pneumoperitoneum and some fluid in the pelvis. There is also air in the bladder. These findings are most likely related to the patient's recent surgical procedure. 3. There is no acute abnormality in the abdomen or pelvis noted otherwise. 4. These results were discussed with Dr. Lucien Ruiz. Physical Exam Vital Signs Vital Signs - First Documented 06/02/18 00:00 Temp 99.3 Pulse 74 Resp 20 B/P (MAP) 132/58 (82) Pulse Ox 96 O2 Delivery Room Air Capillary Refill : Less Than 3 SecondsLess Than 3 Seconds Height, Weight, BMI Height: 5'2.00" Weight: 133lbs. 0.0oz. 60.413253dm; 24.3 BMI Method:Stated General Appearance: No Apparent Distress, WD/WN Eyes: Bilateral Eye Normal Inspection HEENT: Pharynx Normal Neck: Full Range of Motion Respiratory: Chest Non Tender, Lungs Clear, Normal Breath Sounds, No Accessory Muscle Use, No Respiratory Distress Cardiovascular: Regular Rate, Rhythm Gastrointestinal: Abnormal Bowel Sounds, Tenderness Extremity: Normal Inspection Neurologic/Psychiatric: Alert, Oriented x3, No Motor/Sensory Deficits, Normal Mood/Affect Impression & Plan Impression & Plan 78 yo female with progressive multiple myeloma after multiple lines of therapy. Recently started on new chemotherapy regimen and was admitted with severe anemia leading to weakness, fall, and right radius fracture. 1. Acute on chronic anemia secondary to ulcerated gastric mass s/p successful partial gastrectomy. Incidentally noted pancreatic head mass during surgery. CT confirms large mass in the pancreas. We are awaiting pathology results. Expected decline in hgb after major surgery. Transfuse to keep hgb > 7.0. Hopefully her hgb will stabilize now. After hospital discharge, we will see her in clinic to discuss pathology results and plan of care. 2. IgG kappa multiple myeloma. Progressive after several lines of chemotherapy. Currently on elotuzumab, bortezomib, and dexamethasone combination. May resume therapy as outpatient depending on results of the pathology of the gastric mass. Clinical Quality Measures DVT/VTE Risk/Contraindication: Risk Factor Score Per Nursin RFS Level Per Nursing on Admit: 4+=Very High TAYLOR HILL MD Jun 08, 2018 17:25
[2018-06-09] MEDS: morphine IMMEDIATE RELEASE 15 MG TABLET PO PRN (03:35)
[2018-06-09 04:00] VITALS: BP 158/67
[2018-06-09] MEDS: LACTATED RINGERS 1,000 ML IV SCH ×3 (04:59→23:25)
[2018-06-09 07:02] LABS: BASOPHILS % (AUTO) 1 % (0-10); EOSINOPHILS # (AUTO) 0.2 10^3/uL (0.0-0.3); EOSINOPHILS % (AUTO) 2 % (0-10); HEMATOCRIT 23 % (35-52); HEMOGLOBIN 7.2 G/DL (11.5-16.0); LYMPHOCYTES # (AUTO) 0.9 X 10^3 (1.0-4.0); LYMPHOCYTES % (AUTO) 11 % (12-44); MEAN CORPUSCULAR HEMOGLOBIN 30 PG (25-34); MEAN CORPUSCULAR HGB CONC 31 G/DL (32-36); MEAN CORPUSCULAR VOLUME 96 FL (80-99); MEAN PLATELET VOLUME 9.2 FL (7.4-10.4); MONOCYTES # (AUTO) 0.6 X 10^3 (0.0-1.0); MONOCYTES % (AUTO) 7 % (0-12); NEUTROPHILS # (AUTO) 6.3 X 10^3 (1.8-7.8); NEUTROPHILS % (AUTO) 79 % (42-75); PLATELET COUNT 373 10^3/uL (130-400); RED BLOOD COUNT 2.39 10^6/uL (4.35-5.85); RED CELL DISTRIBUTION WIDTH 16.2 % (10.0-14.5)
[2018-06-09 07:24] LABS: CALCIUM 8.1 MG/DL (8.5-10.1); CREATININE SERUM 0.96 MG/DL (0.60-1.30); POTASSIUM 4.2 MMOL/L (3.6-5.0)
[2018-06-09 08:27] VITALS: BP 172/72
[2018-06-09] MEDS: IRON SUCROSE 200 MG/10 ML (VENOFER) VIAL IV SCH (09:06)
[2018-06-09] MEDS: ACYCLOVIR 400 MG TABLET (ZOVIRAX) PO SCH ×2 (09:06→20:39)
--- NOTE | 2018-06-09 11:11 | Progress Note-Hospitalist ---
Subjective HPI/CC On Admission Date Seen by Provider: Jun 09, 2018 Time Seen by Provider: 08:45 CC: Fall with severe anemia and right radial fracture HPI: This is an 78yoWF clinic patient of Dr Seth out of [facility] [place] Soto who recently began chemotherapy for MM who presented to the ER s/p fall with right arm pain and found to have an acute right radial fracture but also hgb was 3.6 so she was given 2 units of blood with adequate results but required another unit of blood under hematology recommendations. Currently she is needing her scheduled pain meds she takes at home and denies any other concerns. Subjective/Events-last exam Patient reports some abdominal pain this morning is feeling better after oral pain medication and currently voices no complaints other than fatigue. She currently denies any significant abdominal pain chest discomfort or shortness of breath. Objective Exam Vital Signs Vital Signs Date Time Temp Pulse Resp B/P (MAP) Pulse Ox O2 Delivery O2 Flow Rate FiO2 06/09/18 08:27 100.5 96 20 172/72 (105) 96 Room Air Capillary Refill : Less Than 3 SecondsLess Than 3 Seconds General Appearance: No Apparent Distress, Chronically ill Respiratory: Chest Non Tender, Lungs Clear, Normal Breath Sounds, No Accessory Muscle Use, No Respiratory Distress Cardiovascular: Regular Rate, Rhythm, No Edema, No Gallop, No JVD, No Murmur, Normal Peripheral Pulses Gastrointestinal: Other (Trocar sites revealed no evidence for hematoma formation or significant erythema. Mild abdominal distention is noted the bowel sounds are positive.) Extremity: Normal Capillary Refill, Normal Inspection, Normal Range of Motion, Non Tender, No Calf Tenderness, No Pedal Edema Results/Procedures Lab Laboratory Tests 06/09/18 06:54 Patient resulted labs reviewed. Assessment/Plan Assessment and Plan Assess & Plan/Chief Complaint Pancreatic Mass- concern for new primary care, discussed with Dr Soto, Dr Ruiz , and Dr Torres- path will likely not be back until Monday, patient would like to await path and if new primary neoplasm would like to transition to [facility] and hospice palliative care consulted, appreciate recs Severe anemia of 3.6 on admission-above 7 today with no evidence for hemodynamic compromise continue to monitor likely a combination of anemia of chronic disease and GI loss from bleeding gastric ulcer ceased post partial gastrectomy. Gastric ulcer with GI bleeding- POD #1 partial gastrectomy- await path Multiple myeloma- likely contributing to anemia, oncology consulted, appreciate recs Radial fracture- Ortho consulted appreciate recs, currently in sugar tong cast Increased disability with falls at home- continue PT/OT Hypokalemia- resolved Blood pressure elevation asymptomatic no evidence for heart failure considering likely terminal diagnosis likely treat symptomatic blood pressure elevation. Clinical Quality Measures DVT/VTE Risk/Contraindication: Risk Factor Score Per Nursin RFS Level Per Nursing on Admit: 4+=Very High NICOLE DELEON MD Jun 09, 2018 11:11
[2018-06-09] MEDS: KCL 20 MEQ TAB (K-DUR) PO SCH (11:43)
[2018-06-09 12:00] VITALS: BP 155/67
--- NOTE | 2018-06-09 12:22 | Progress Note ---
Subjective Time Seen by a Provider: 11:21 Subjective/Events-last exam Pt seen and examined, looks good about the same as yesterday. Complains of some abdominal pain across lower abdomen, but most pain in her arm. Review of Systems General: No Chills, No Night Sweats Pulmonary: No Dyspnea, No Cough Cardiovascular: No: Chest Pain, Palpitations Gastrointestinal: No: Nausea, Vomiting Objective Exam Vital Signs Date Time Temp Pulse Resp B/P (MAP) Pulse Ox O2 Delivery O2 Flow Rate FiO2 06/09/18 08:27 100.5 96 20 172/72 (105) 96 Room Air 06/09/18 08:00 Room Air 06/09/18 04:00 99.3 93 20 158/67 (97) 94 Room Air 06/08/18 20:00 Room Air 06/08/18 20:00 99.3 78 18 163/70 (101) 97 Room Air 06/08/18 15:26 96.8 79 136/61 06/08/18 14:18 98.0 06/08/18 13:35 98.0 75 114/57 06/08/18 13:18 98.8 79 16 116/50 Room Air I & O 06/09/18 07:00 Intake Total 1330 ml Output Total 1175 ml Balance 155 ml Capillary Refill : Less Than 3 SecondsLess Than 3 Seconds General Appearance: No Apparent Distress, Chronically ill HEENT: Pharynx Normal Neck: Full Range of Motion Respiratory: Chest Non Tender, Lungs Clear, Normal Breath Sounds, No Accessory Muscle Use, No Respiratory Distress Cardiovascular: Regular Rate, Rhythm, No Edema, No Murmur, Normal Peripheral Pulses Peripheral Pulses: 2+ Radial Pulses (L) Gastrointestinal: soft, tenderness (mainly at incisions) Extremity: No Calf Tenderness, No Pedal Edema Neurologic/Psychiatric: Alert, Oriented x3, No Motor/Sensory Deficits, Normal Mood/Affect Skin: Pallor Results Lab Laboratory Tests 06/08/18 15:30: Urine Color YELLOW, Urine Clarity SLIGHTLY CLOUDY, Urine pH 5, Urine Specific [place] 1.020, Urine Protein 2+H, Urine Glucose (UA) NEGATIVE, Urine Ketones NEGATIVE, Urine Nitrite NEGATIVE, Urine Bilirubin NEGATIVE, Urine Urobilinogen NORMAL, Urine Leukocyte Esterase 1+H, Urine RBC (Auto) 5+H, Urine RBC >100H, Urine WBC 2-5, Urine Squamous Epithelial Cells 2-5, Urine Crystals NONE, Urine Bacteria NONE, Urine Casts NONE, Urine Mucus NEGATIVE, Urine Culture Indicated NO 06/09/18 06:54: White Blood Count 8.0, Red Blood Count 2.39L, Hemoglobin 7.2L, Hematocrit 23L, Mean Corpuscular Volume 96, Mean Corpuscular Hemoglobin 30, Mean Corpuscular Hemoglobin Concent 31L, Red Cell Distribution Width 16.2H, Platelet Count 373, Mean Platelet Volume 9.2, Neutrophils (%) (Auto) 79H, Lymphocytes (%) (Auto) 11L , Monocytes (%) (Auto) 7, Eosinophils (%) (Auto) 2, Basophils (%) (Auto) 1, Neutrophils # (Auto) 6.3, Lymphocytes # (Auto) 0.9L, Monocytes # (Auto) 0.6, Eosinophils # (Auto) 0.2, Basophils # (Auto) 0.0, Sodium Level 137, Potassium Level 4.2, Chloride Level 109H, Carbon Dioxide Level 18L, Anion Gap 10, Blood Urea Nitrogen 17, Creatinine 0.96, Estimat Glomerular Filtration Rate 56, BUN/ Creatinine Ratio 18, Glucose Level 60*L, Calcium Level 8.1L Microbiology 05/31/18 MRSA Screen - Final, Complete MRSA not isolated 06/04/18 Urine Culture - Final, Complete Escherichia coli Assessment/Plan Assessment/Plan Assessment/Plan Pt had CT which showed new Pancreatic head mass, not seen on PET scan in September. Plan to get pt home for [place] and probably will go on hospice. 1. S/P Partial Gastrectomy to remove Gastric ulcer/mass 2. Profound Anemia - S/P blood transfusion secondary to # 1 3. Multiple Myeloma - on chemotherapy 4. Right radial fx - displaced Pt encouraged to eat (will increase diet as tolerated) and ambulate encouraged her to use IS. Clinical Quality Measures DVT/VTE Risk/Contraindication: Risk Factor Score Per Nursin RFS Level Per Nursing on Admit: 4+=Very High GLADYS ALEJO DO Jun 09, 2018 12:22
[2018-06-09] MEDS: morphine ER 15 MG (MS CONTIN) TAB PO PRN (20:38)
[2018-06-10 06:51] LABS: BASOPHILS % (AUTO) 1 % (0-10); EOSINOPHILS # (AUTO) 0.2 10^3/uL (0.0-0.3); EOSINOPHILS % (AUTO) 3 % (0-10); HEMATOCRIT 24 % (35-52); HEMOGLOBIN 7.6 G/DL (11.5-16.0); LYMPHOCYTES # (AUTO) 0.9 X 10^3 (1.0-4.0); LYMPHOCYTES % (AUTO) 14 % (12-44); MEAN CORPUSCULAR HEMOGLOBIN 30 PG (25-34); MEAN CORPUSCULAR HGB CONC 31 G/DL (32-36); MEAN CORPUSCULAR VOLUME 96 FL (80-99); MEAN PLATELET VOLUME 8.9 FL (7.4-10.4); MONOCYTES # (AUTO) 0.5 X 10^3 (0.0-1.0); MONOCYTES % (AUTO) 8 % (0-12); NEUTROPHILS # (AUTO) 4.5 X 10^3 (1.8-7.8); NEUTROPHILS % (AUTO) 75 % (42-75); PLATELET COUNT 378 10^3/uL (130-400); RED BLOOD COUNT 2.52 10^6/uL (4.35-5.85); WHITE BLOOD COUNT 6.1 10^3/uL (4.3-11.0)
[2018-06-10 07:10] LABS: CALCIUM 8.5 MG/DL (8.5-10.1); CREATININE SERUM 0.92 MG/DL (0.60-1.30)
[2018-06-10 08:00] VITALS: BP 140/63
[2018-06-10] MEDS: ACYCLOVIR 400 MG TABLET (ZOVIRAX) PO SCH ×2 (08:22→20:22)
[2018-06-10] MEDS: LACTATED RINGERS 1,000 ML IV SCH ×2 (08:26→15:52)
--- NOTE | 2018-06-10 10:52 | Oncology Progress Note ---
Subjective Date Seen by a Provider: Jun 10, 2018 Time Seen by a Provider: 10:41 Subjective/Events-last exam Epigastric pain is better controlled this morning. She is able to sit up in a chair an hour at a time. Requires assistance for many activities due to her right arm fracture. Data Review Labs Laboratory Tests 06/10/18 06:45 Laboratory Tests 06/08/18 06:50: Red Blood Count 2.27L, Hemoglobin 6.7*L, Hematocrit 22L, Mean Corpuscular Hemoglobin Concent 31L, Red Cell Distribution Width 16.5H, Platelet Count 407H, Neutrophils (%) (Auto) 83H, Lymphocytes (%) (Auto) 9L, Lymphocytes # (Auto) 0.7L , Chloride Level 109H, Carbon Dioxide Level 18L, Blood Urea Nitrogen 21H 06/08/18 15:30: Urine Protein 2+H, Urine Leukocyte Esterase 1+H, Urine RBC (Auto) 5+H, Urine RBC >100H 06/09/18 06:54: Red Blood Count 2.39L, Hemoglobin 7.2L, Hematocrit 23L, Mean Corpuscular Hemoglobin Concent 31L, Red Cell Distribution Width 16.2H, Neutrophils (%) (Auto ) 79H, Lymphocytes (%) (Auto) 11L, Lymphocytes # (Auto) 0.9L, Chloride Level 109H, Carbon Dioxide Level 18L, Glucose Level 60*L, Calcium Level 8.1L 06/10/18 06:45: Red Blood Count 2.52L, Hemoglobin 7.6L, Hematocrit 24L, Mean Corpuscular Hemoglobin Concent 31L, Red Cell Distribution Width 16.0H, Lymphocytes # (Auto) 0.9L, Chloride Level 109H Radiology Signed Date of Exam: 06/07/18 CT ABDOMEN/PELVIS W PROCEDURE: CT abdomen and pelvis with contrast. TECHNIQUE: Multiple contiguous axial images were obtained through the abdomen and pelvis after administration of intravenous contrast. INDICATION: Abdominal mass. COMPARISON: There are no recent exams available for comparison. FINDINGS: The PET/CT exam performed on 09/26/2017 failed to show any hypermetabolic activity in the abdomen to suggest neoplastic disease. Reportedly, the patient underwent a partial gastrectomy earlier today. There is a small amount of free air present related to that procedure. In addition, there is a sizable 5.7 x 6.9 cm mass with the epicenter in the head of the pancreas. The central portion of the mass is of diminished density suggesting necrosis. This mass was not present on the prior PET/CT exam and consequently should be considered neoplastic until proven otherwise. The liver, spleen, adrenals, kidneys, gallbladder, aorta and inferior vena cava show no sign of an acute abnormality. There are surgical sutures about the stomach. There is a small amount of free fluid in the pelvis. This may be related to the recent surgical procedure. There is also some gas in the urinary bladder. This too is probably related to recent instrumentation related to the recent surgery. There is no solid pelvic mass identified. The bone windows show no sign of an acute fracture or of a destructive lesion. There is a healed fracture of the inferior pubic ramus on the left. There is mild bibasilar atelectasis/infiltrate. IMPRESSION: 1. There is a large mass in the region of the head of the pancreas. This mass should be considered neoplastic until proven otherwise. 2. There is a pneumoperitoneum and some fluid in the pelvis. There is also air in the bladder. These findings are most likely related to the patient's recent surgical procedure. 3. There is no acute abnormality in the abdomen or pelvis noted otherwise. 4. These results were discussed with Dr. Lucien Ruiz. Physical Exam Vital Signs Vital Signs - First Documented 06/04/18 00:00 Temp 102.1 Pulse 79 Resp 18 B/P (MAP) 138/61 (86) Pulse Ox 96 O2 Delivery Room Air Capillary Refill : Less Than 3 SecondsLess Than 3 Seconds Height, Weight, BMI Height: 5'2.00" Weight: 133lbs. 0.0oz. [id number]; 24.3 BMI Method:Stated General Appearance: No Apparent Distress, WD/WN Eyes: Bilateral Eye Normal Inspection HEENT: Normal ENT Inspection, Pharynx Normal Neck: Full Range of Motion Respiratory: Chest Non Tender, Lungs Clear, Normal Breath Sounds, No Accessory Muscle Use, No Respiratory Distress Cardiovascular: Regular Rate, Rhythm, No Edema Gastrointestinal: Abnormal Bowel Sounds (hypoactive) Extremity: Non Tender, No Pedal Edema Neurologic/Psychiatric: Alert, Oriented x3, No Motor/Sensory Deficits Impression & Plan Impression & Plan 78 yo female with progressive multiple myeloma after multiple lines of therapy. Recently started on new chemotherapy regimen and was admitted with severe anemia leading to weakness, fall, and right radius fracture. 1. Acute on chronic anemia secondary to ulcerated gastric mass s/p successful partial gastrectomy POD #2. Incidentally noted pancreatic head mass during surgery. CT confirms large mass in the pancreas. We are awaiting pathology results, which are unlikely to come back during the holiday weekend. Hgb has been stable for the last two days, and last transfusion was given the day of surgery. As long as there is no continued blood loss, she is stable for discharge from the oncology perspective. Without results from pathology, discussion about goals of care is premature. We will address this in the office setting after discharge. 2. IgG kappa multiple myeloma. Progressive after several lines of chemotherapy. Currently on elotuzumab, bortezomib, and dexamethasone combination. May resume therapy as outpatient depending on results of the pathology of the gastric mass. Clinical Quality Measures DVT/VTE Risk/Contraindication: Risk Factor Score Per Nursin RFS Level Per Nursing on Admit: 4+=Very High TAYLOR HILL MD Jun 10, 2018 10:52
--- NOTE | 2018-06-10 10:53 | Progress Note-Hospitalist ---
Subjective HPI/CC On Admission Date Seen by Provider: Jun 10, 2018 Time Seen by Provider: 10:49 CC: Fall with severe anemia and right radial fracture HPI: This is an 78yoWF clinic patient [place] [facility] [place] who recently began chemotherapy for MM who presented to the ER s/p fall with right arm pain and found to have an acute right radial fracture but also hgb was 3.6 so she was given 2 units of blood with adequate results but required another unit of blood under hematology recommendations. Currently she is needing her scheduled pain meds she takes at home and denies any other concerns. Subjective/Events-last exam Patient reports she's not requiring narcotic medication is often for abdominal pain. By mouth intake is improving. She does report that her bowels have not moved since prior to surgery. She denies chest pain or shortness of breath there is no shoulder pain at rest only with limited mobility with sling on. Objective Exam Vital Signs Vital Signs Date Time Temp Pulse Resp B/P (MAP) Pulse Ox O2 Delivery O2 Flow Rate FiO2 06/10/18 08:00 Room Air 06/09/18 12:00 100.3 88 18 155/67 (96) 94 Capillary Refill : Less Than 3 SecondsLess Than 3 Seconds General Appearance: No Apparent Distress, Chronically ill Respiratory: Chest Non Tender, Lungs Clear, Normal Breath Sounds, No Accessory Muscle Use, No Respiratory Distress Cardiovascular: Regular Rate, Rhythm, No Edema, No Gallop, No JVD, No Murmur, Normal Peripheral Pulses Gastrointestinal: Normal Bowel Sounds, No Organomegaly, Distended (Mild improving) Results/Procedures Lab Laboratory Tests 06/10/18 06:45 Patient resulted labs reviewed. Assessment/Plan Assessment and Plan Assess & Plan/Chief Complaint Pancreatic Mass- concern for new primary care, discussed with Dr Soto, Dr Ruiz , and Dr Torres- path will likely not be back until Monday, patient would like to await path and if new primary neoplasm would like to transition to [employer] and hospice palliative care consulted, appreciate recs. Considering multiple medical comorbidities the need for right upper extremity mobility due to radial fracture of the right arm patient has no help until Monday so we'll need to keep until then. Severe anemia of 3.6 on admission-above 7 today with no evidence for hemodynamic compromise continue to monitor likely a combination of anemia of chronic disease and GI loss from bleeding gastric ulcer ceased post partial gastrectomy. Gastric ulcer with GI bleeding- POD #1 partial gastrectomy- await path Multiple myeloma- likely contributing to anemia, oncology consulted, appreciate recs Radial fracture- Ortho consulted appreciate recs, currently in sugar tong cast Increased disability with falls at home- continue PT/OT Hypokalemia- resolved Blood pressure elevation asymptomatic no evidence for heart failure considering likely terminal diagnosis likely treat symptomatic blood pressure elevation. Constipation aggravated by narcotic therapy will initiate Senokot twice a day. Clinical Quality Measures DVT/VTE Risk/Contraindication: Risk Factor Score Per Nursin RFS Level Per Nursing on Admit: 4+=Very High NICOLE DELEON MD Jun 10, 2018 10:53
[2018-06-10] MEDS ORDERED: SENNA W/DOCUSATE (SENOKOT S) TABLET PO NR (11:00)
[2018-06-10] MEDS: KCL 20 MEQ TAB (K-DUR) PO SCH (11:30)
--- NOTE | 2018-06-10 11:44 | Progress Note ---
Subjective Time Seen by a Provider: 11:21 Subjective/Events-last exam Pt seen and examined, denies abdominal pain. States she feels pretty good today. Tolerating diet. Review of Systems General: No Chills, No Night Sweats Pulmonary: No Dyspnea, No Cough Cardiovascular: No: Chest Pain Objective Exam Vital Signs Date Time Temp Pulse Resp B/P (MAP) Pulse Ox O2 Delivery O2 Flow Rate FiO2 06/10/18 08:00 Room Air 06/10/18 08:00 97.6 71 18 140/63 (88) 98 Room Air 06/09/18 20:00 Room Air 06/09/18 12:00 100.3 88 18 155/67 (96) 94 Room Air I & O 06/10/18 07:00 Intake Total 2130 ml Output Total 1350 ml Balance 780 ml Capillary Refill : Less Than 3 SecondsLess Than 3 Seconds General Appearance: No Apparent Distress, Chronically ill HEENT: Pharynx Normal, Moist Mucous Membranes Respiratory: Chest Non Tender, Lungs Clear, Normal Breath Sounds, No Accessory Muscle Use, No Respiratory Distress Cardiovascular: Regular Rate, Rhythm, No Edema, No Murmur Peripheral Pulses: 2+ Radial Pulses (L) Gastrointestinal: soft, tenderness (mainly at incisions) Extremity: No Pedal Edema Neurologic/Psychiatric: Alert, Oriented x3, No Motor/Sensory Deficits Skin: Pallor Results Lab Laboratory Tests 06/10/18 06:45: White Blood Count 6.1, Red Blood Count 2.52L, Hemoglobin 7.6L, Hematocrit 24L, Mean Corpuscular Volume 96, Mean Corpuscular Hemoglobin 30, Mean Corpuscular Hemoglobin Concent 31L, Red Cell Distribution Width 16.0H, Platelet Count 378, Mean Platelet Volume 8.9, Neutrophils (%) (Auto) 75, Lymphocytes (%) (Auto) 14, Monocytes (%) (Auto) 8, Eosinophils (%) (Auto) 3, Basophils (%) (Auto) 1, Neutrophils # (Auto) 4.5, Lymphocytes # (Auto) 0.9L, Monocytes # (Auto) 0.5, Eosinophils # (Auto) 0.2, Basophils # (Auto) 0.0, Sodium Level 138, Potassium Level 4.0, Chloride Level 109H, Carbon Dioxide Level 22, Anion Gap 7, Blood Urea Nitrogen 11, Creatinine 0.92, Estimat Glomerular Filtration Rate 59, BUN/ Creatinine Ratio 12, Glucose Level 88, Calcium Level 8.5 Microbiology 05/31/18 MRSA Screen - Final, Complete MRSA not isolated 06/04/18 Urine Culture - Final, Complete Escherichia coli Assessment/Plan Assessment/Plan Assessment/Plan 1. S/P Partial Gastrectomy to remove Gastric ulcer/mass 2. Profound Anemia - S/P blood transfusion secondary to # 1 3. Multiple Myeloma - on chemotherapy 4. Right radial fx - displaced 5. Pancreatic mass - will wait to see if pathology on stomach mass gives us indication of this mass Plan to d/c home tomorrow, need to set up help at home and get pt ride. Clinical Quality Measures DVT/VTE Risk/Contraindication: Risk Factor Score Per Nursin RFS Level Per Nursing on Admit: 4+=Very High GLADYS ALEJO DO Jun 10, 2018 11:44
[2018-06-10 12:00] VITALS: BP 172/74
[2018-06-10] MEDS: SENNA W/DOCUSATE (SENOKOT S) TABLET PO SCH (20:22)
[2018-06-10] MEDS: HYDROcodone/APAP 5 MG/325 MG (LORTAB) TAB PO PRN (23:38)
[2018-06-11] MEDS: LACTATED RINGERS 1,000 ML IV SCH ×2 (00:02→08:15)
[2018-06-11 07:05] LABS: BASOPHILS % (AUTO) 1 % (0-10); EOSINOPHILS # (AUTO) 0.2 10^3/uL (0.0-0.3); EOSINOPHILS % (AUTO) 4 % (0-10); HEMATOCRIT 23 % (35-52); HEMOGLOBIN 7.2 G/DL (11.5-16.0); LYMPHOCYTES # (AUTO) 0.7 X 10^3 (1.0-4.0); LYMPHOCYTES % (AUTO) 15 % (12-44); MEAN CORPUSCULAR HEMOGLOBIN 31 PG (25-34); MEAN CORPUSCULAR HGB CONC 31 G/DL (32-36); MEAN CORPUSCULAR VOLUME 98 FL (80-99); MEAN PLATELET VOLUME 9.1 FL (7.4-10.4); MONOCYTES # (AUTO) 0.4 X 10^3 (0.0-1.0); MONOCYTES % (AUTO) 9 % (0-12); NEUTROPHILS # (AUTO) 3.3 X 10^3 (1.8-7.8); NEUTROPHILS % (AUTO) 71 % (42-75); PLATELET COUNT 348 10^3/uL (130-400); RED BLOOD COUNT 2.36 10^6/uL (4.35-5.85); RED CELL DISTRIBUTION WIDTH 15.7 % (10.0-14.5); WHITE BLOOD COUNT 4.6 10^3/uL (4.3-11.0)
[2018-06-11 07:23] LABS: BUN/CREATININE RATIO 10; CALCIUM 8.3 MG/DL (8.5-10.1); CARBON DIOXIDE 24 MMOL/L (21-32); CHLORIDE 111 MMOL/L (98-107); CREATININE SERUM 0.84 MG/DL (0.60-1.30); GFR ESTIMATED > 60; GLUCOSE 87 MG/DL (70-105); POTASSIUM 3.9 MMOL/L (3.6-5.0); SODIUM 141 MMOL/L (135-145)
[2018-06-11 07:50] VITALS: BP 174/70
[2018-06-11] MEDS: ACYCLOVIR 400 MG TABLET (ZOVIRAX) PO SCH (08:15)
[2018-06-11] MEDS: SENNA W/DOCUSATE (SENOKOT S) TABLET PO SCH (08:15)
--- NOTE | 2018-06-11 09:46 | Progress Note ---
Subjective Time Seen by a Provider: 09:37 Subjective/Events-last exam Pt seen and examined, no complaints. Review of Systems General: No Chills, No Night Sweats Pulmonary: No Cough Cardiovascular: No: Chest Pain Gastrointestinal: No: Nausea, Vomiting, Abdominal Pain Objective Exam Vital Signs Date Time Temp Pulse Resp B/P (MAP) Pulse Ox O2 Delivery O2 Flow Rate FiO2 06/11/18 08:00 Room Air 06/11/18 07:50 98.9 65 18 174/70 (104) 98 Room Air 06/10/18 20:00 Room Air 06/10/18 12:00 98.9 67 20 172/74 (106) 97 Room Air I & O 06/11/18 07:00 Intake Total 3410 ml Output Total 3200 ml Balance 210 ml Capillary Refill : Less Than 3 SecondsLess Than 3 Seconds General Appearance: No Apparent Distress, Chronically ill HEENT: Pharynx Normal, Moist Mucous Membranes Respiratory: Chest Non Tender, Lungs Clear, Normal Breath Sounds, No Accessory Muscle Use, No Respiratory Distress Cardiovascular: Regular Rate, Rhythm, No Edema, No Murmur Peripheral Pulses: 2+ Radial Pulses (L) Gastrointestinal: soft, tenderness (mainly at incisions) Extremity: No Pedal Edema Neurologic/Psychiatric: Alert, Oriented x3, No Motor/Sensory Deficits Skin: Pallor Results Lab Laboratory Tests 06/11/18 06:55: White Blood Count 4.6, Red Blood Count 2.36L, Hemoglobin 7.2L, Hematocrit 23L, Mean Corpuscular Volume 98, Mean Corpuscular Hemoglobin 31, Mean Corpuscular Hemoglobin Concent 31L, Red Cell Distribution Width 15.7H, Platelet Count 348, Mean Platelet Volume 9.1, Neutrophils (%) (Auto) 71, Lymphocytes (%) (Auto) 15, Monocytes (%) (Auto) 9, Eosinophils (%) (Auto) 4, Basophils (%) (Auto) 1, Neutrophils # (Auto) 3.3, Lymphocytes # (Auto) 0.7L, Monocytes # (Auto) 0.4, Eosinophils # (Auto) 0.2, Basophils # (Auto) 0.0, Sodium Level 141, Potassium Level 3.9, Chloride Level 111H, Carbon Dioxide Level 24, Anion Gap 6, Blood Urea Nitrogen 8, Creatinine 0.84, Estimat Glomerular Filtration Rate > 60, BUN/ Creatinine Ratio 10, Glucose Level 87, Calcium Level 8.3L Microbiology 05/31/18 MRSA Screen - Final, Complete MRSA not isolated 06/04/18 Urine Culture - Final, Complete Escherichia coli Assessment/Plan Assessment/Plan Assessment/Plan 1. S/P Partial Gastrectomy to remove Gastric ulcer/mass 2. Profound Anemia - S/P blood transfusion secondary to # 1 3. Multiple Myeloma - on chemotherapy 4. Right radial fx - displaced 5. Pancreatic mass - will wait to see if pathology on stomach mass gives us indication of this mass OK to d/c home from surgical standpoint. Clinical Quality Measures DVT/VTE Risk/Contraindication: Risk Factor Score Per Nursin RFS Level Per Nursing on Admit: 4+=Very High GLADYS ALEJO DO Jun 11, 2018 09:46
--- NOTE | 2018-06-11 10:13 | NUR ---
Palliative Care RN in to see patient and discuss discharge plans. She is anticipating discharge today to home ([facility]). She is not wanting to do Hospice at this time but would like the brochures to look at. She reports that she is trying to arrange for a sitter 3 hours a day as well as her friend staying over night. She is questioning her becky and what to do with them. She is also question what diet she should be on . Now that she has had a bowel movement she may be able to advance to regular from the soft she is currently on.
[2018-06-11] MEDS ORDERED: MORP-33 PO (11:27)
[2018-06-11] MEDS ORDERED: POTA20TA8 PO (11:27)
[2018-06-11] MEDS ORDERED: ACHD5005 PO (11:27)
[2018-06-11] MEDS ORDERED: SENN-20 PO (11:27)
[2018-06-11] MEDS ORDERED: MORP15TA PO (11:27)
[2018-06-11] MEDS ORDERED: DOCU100C37 PO (11:27)
--- NOTE | 2018-06-11 11:29 | Discharge Summary-Hospitalist ---
Diagnosis/Chief Complaint Date of Admission May 29, 2018 at 16:55 Date of Discharge Discharge Date: Jun 11, 2018 Admission Diagnosis Assessment: Severe anemia due to chemotherapy Multiple Myeloma Acute right radial fracture Plan: Pain meds Donnell Soto and Richard consultations Monitor hgb Discharge Diagnosis (1) Gastric ulcer with hemorrhage Status: Acute (2) Mass of stomach Status: Acute (3) Fracture, radius, proximal Status: Acute (4) Multiple myeloma Status: Chronic (5) Anemia Status: Acute (6) Mass of pancreas Status: Acute Discharge Summary Discharge Physical Exam Allergies: Coded Allergies: Sulfa (Sulfonamide Antibiotics) (Verified Allergy, Unknown, 05/29/18) Vitals & I&Os Vital Signs Date Time Temp Pulse Resp B/P (MAP) Pulse Ox O2 Delivery O2 Flow Rate FiO2 06/11/18 11:55 65 18 174/70 98 Room Air 06/11/18 07:50 98.9 General Appearance: No Apparent Distress, WD/WN, Chronically ill Respiratory: Chest Non Tender, Lungs Clear, Normal Breath Sounds, No Accessory Muscle Use, No Respiratory Distress Cardiovascular: Regular Rate, Rhythm, No Edema, No Gallop, No JVD, No Murmur, Normal Peripheral Pulses Neurologic/Psychiatric: Alert, Oriented x3, No Motor/Sensory Deficits, Normal Mood/Affect Hospital Course Hospital course: Patient was admitted after a fall didn't ER workup revealed hemoglobin 3.6 was given 3 units of blood and oncology was consulted for anemia thought to be from chemotherapy for multiple myeloma that had recurred after long remission. 6 general surgery was consulted for Hemoccult-positive stools found to have gastric mass with bleeding. Hemoglobin was maintained at 7 range underwent gastric mass excision noted to have a large mass near the gastric region CT scan showed large pancreatic mass and at time of discharge gastric mass pathology was pending. She will have close follow-up with hematology oncology for pathology results and Dr. Ruiz in one week. She was discharged back to the [facility] in assisted living facility with help staying with her at night and patient will continue on all current pain medication and bowel regimen. Labs (last 24 hrs) Laboratory Tests 06/11/18 06:55: White Blood Count 4.6, Red Blood Count 2.36L, Hemoglobin 7.2L, Hematocrit 23L, Mean Corpuscular Volume 98, Mean Corpuscular Hemoglobin 31, Mean Corpuscular Hemoglobin Concent 31L, Red Cell Distribution Width 15.7H, Platelet Count 348, Mean Platelet Volume 9.1, Neutrophils (%) (Auto) 71, Lymphocytes (%) (Auto) 15, Monocytes (%) (Auto) 9, Eosinophils (%) (Auto) 4, Basophils (%) (Auto) 1, Neutrophils # (Auto) 3.3, Lymphocytes # (Auto) 0.7L, Monocytes # (Auto) 0.4, Eosinophils # (Auto) 0.2, Basophils # (Auto) 0.0, Sodium Level 141, Potassium Level 3.9, Chloride Level 111H, Carbon Dioxide Level 24, Anion Gap 6, Blood Urea Nitrogen 8, Creatinine 0.84, Estimat Glomerular Filtration Rate > 60, BUN/ Creatinine Ratio 10, Glucose Level 87, Calcium Level 8.3L Microbiology 05/31/18 MRSA Screen - Final, Complete MRSA not isolated 06/04/18 Urine Culture - Final, Complete Escherichia coli Patient resulted labs reviewed. Pending Labs Laboratory Tests 06/11/18 06:55: White Blood Count 4.6, Red Blood Count 2.36, Hemoglobin 7.2, Hematocrit 23, Mean Corpuscular Volume 98, Mean Corpuscular Hemoglobin 31, Mean Corpuscular Hemoglobin Concent 31, Red Cell Distribution Width 15.7, Platelet Count 348, Mean Platelet Volume 9.1, Neutrophils (%) (Auto) 71, Lymphocytes (%) (Auto) 15, Monocytes (%) (Auto) 9, Eosinophils (%) (Auto) 4, Basophils (%) (Auto) 1, Neutrophils # (Auto) 3.3, Lymphocytes # (Auto) 0.7, Monocytes # (Auto) 0.4, Eosinophils # (Auto) 0.2, Basophils # (Auto) 0.0, Sodium Level 141, Potassium Level 3.9, Chloride Level 111, Carbon Dioxide Level 24, Anion Gap 6, Blood Urea Nitrogen 8, Creatinine 0.84, Estimat Glomerular Filtration Rate > 60, BUN/ Creatinine Ratio 10, Glucose Level 87, Calcium Level 8.3 Discussion & Recommendations Discharge Planning: <30 minutes discharge planning Discharge Home Medications: Active Scripts Active Klor-Con M20 (Potassium Chloride) 20 Meq Tab.er.prt 20 Meq PO DAILY@1200 Senna-Time S Tablet (Sennosides/Docusate Sodium) 1 Each Tablet 1 Ea PO BID Docusate Sodium 100 Mg Capsule 100 Mg PO BID PRN Hydrocodone/Acetaminophen 5/325mg Tablet (Acetaminophen/Hydrocodone Bitart) 1 Tab Tab 1 Tab PO Q4H PRN Morphine Sulfate ER (Morphine Sulfate) 15 Mg Tablet.er 15 Mg PO Q8H PRN Morphine Sulfate 15 Mg Tablet 15 Mg PO QID PRN Reported Calcium 500 + Vit D 200 Caplet (Calcium Carbonate/Vitamin D3) 1 Each Tablet 1 Tab PO DAILY Benadryl (Diphenhydramine HCl) 25 Mg Capsule 25 Mg PO DAILY PRN Ondansetron HCl 8 Mg Tablet 8 Mg PO TID PRN Metoprolol Succinate 25 Mg Tab.er.24h 25 Mg PO DAILY Acyclovir 400 Mg Tablet 400 Mg PO BID Instructions to patient/family Please see electronic discharge instructions given to patient. Clinical Quality Measures DVT/VTE Risk/Contraindication: Risk Factor Score Per Nursin RFS Level Per Nursing on Admit: 4+=Very High Problem Qualifiers (1) Gastric ulcer with hemorrhage: Gastric ulcer chronicity: acute Qualified Codes: K25.0 - Acute gastric ulcer with hemorrhage (2) Fracture, radius, proximal: Encounter type: initial encounter Fracture type: closed Fracture morphology : unspecified fracture morphology Laterality: right Qualified Codes: S52.101A - Unspecified fracture of upper end of right radius, initial encounter for closed fracture (3) Multiple myeloma: Multiple myeloma remission status: not in remission Qualified Codes: C90.00 - Multiple myeloma not having achieved remission (4) Anemia: Anemia type: iron deficiency Iron deficiency anemia type: chronic blood loss Qualified Codes: D50.0 - Iron deficiency anemia secondary to blood loss ( chronic) DANIELLE FALCON DO Jun 11, 2018 11:29
--- NOTE | 2018-06-11 11:36 | NUR ---
PALLIATIVE CARE RN in to see the patient. She is anticipating returning today to the her previous placement in the [facility]. Patient will need to make on Monday and make an appointment to see Dr. Ruiz for 1 week out to have the becky removed.. Nurse is made aware and [facility] is made aware.
--- NOTE | 2018-06-11 11:43 | Physical Therapy Progress Note ---
Therapy Progress Note Pt in process of being discharged home. Discussed any needs or concerns, pt denies any at this time except sometimes has a difficult time getting into bed. Discussed and demonstrated techniques to make it easier for pt, pt verbalizes understanding. No therapy treatment BEATRIZ BROOKS PTA Jun 11, 2018 11:43
[2018-06-11 11:55] VITALS: BP 174/70
--- NOTE | 2018-06-11 11:55 | NUR ---
JOHANN LOPEZ demonstrates understanding of discharge instructions and accurately returns instructions upon questioning. Copy of Post-Discharge Instructions and Medication Discharge Instructions given to PT. JOHANN LOPEZ is able to manage continuing needs after discharge. Patients belongings returned to PT. Patient discharged from [facility]- on 06/11/18 at 1155 . JOHANN LOPEZ left floor via WHEELCHAIR, accompanied by STAFF.
--- NOTE | 2018-06-13 09:18 | OPERATIVE REPORT ---
DATE OF SERVICE: 06/07/2018 PREOPERATIVE DIAGNOSES: Gastric mass, anemia and GI bleed. POSTOPERATIVE DIAGNOSES: Gastric mass, anemia and gastrointestinal bleed, pending pathology. PROCEDURE: Partial gastrectomy. SURGEON: Lucien Ruiz DO ALTERNATIVE ENERGY ENGINEER: Dat Wilder DO ANESTHESIA: General endotracheal tube. SPECIMEN: Portion of the stomach. BLOOD LOSS: Less than 20 mL. FLUIDS: Per anesthesia. POSTOPERATIVE CONDITION: Stable. INDICATION FOR PROCEDURE: The patient is an 78-year-old female who has GI bleed, known gastric mass and bleeding from this mass with anemia. FINDINGS: 1. The patient had a gastric mass removed completely with a partial gastric resection. 2. The patient also had a palpable mass in the upper portion of the stomach. PROCEDURE NOTE: After informed consent was obtained, the patient was brought to the operating room, placed on the operating table in supine position. She was sterilely prepped and draped in normal fashion. Local lidocaine was used to infiltrate the skin above the umbilicus. Made incision with #11 blade, carried down to the skin into the subcutaneous tissue, then deepened down to subcutaneous tissue with Bovie electrocautery down to the fascia. Fascia incised with Bovie electrocautery and bluntly entered the abdomen, placed an 11 mm trocar port and then created pneumoperitoneum. Once pneumoperitoneum was created then placed a one 5 mm port just subxiphoid to be able to place the liver retractor, I placed another 5 mm port out in the right upper quadrant. Using local lidocaine, an 11 blade used for stab incision and Versed system, all done under direct visualization. I did this for the subxiphoid one as well and then put another 5 mm left upper quadrant further out laterally and then with the VersaStep system as well as then placed a 10 mm VersaStep port about 5 cm from the midline in the left upper quadrant as another working port, could see the tattooing. Unfortunately, there was too much tattooing placed in the stomach. Moved the liver out of the way, just could not see anything in the abdomen. There was obvious this a fullness or mass that we felt in the right upper quadrant, but it looked like it was coming from the pancreas, but could see a hiatal hernia as well and took a picture of this. At this point, then elected to open the stomach, so we could see where the gastric mass was so that we were able to remove this and not leave it behind. Opened the stomach with a L-hook cautery as well as then LigaSure, clamping, coagulating and transecting, opening this up able to visualize the gastric mass. At this point, taken off the short gastrics at about midway up coming across and past the pancreas and then all the way up with a LigaSure, clamping, coagulating and transecting freeing the stomach up laterally so it was completely freed up, then brought a Nirav needle into the abdominal wall and placed it into the stomach and then brought this up back up through the abdominal wall to make sure that we were able to pull the mass laterally so we could get into our incision. Anesthesia placed a bougie down to make sure that we did not compromise the stomach. At this point, then you brought in through our 10 port, brought in an Endo-DENIS 60 mm purple load stapler, grabbed the area where we had made a gastrotomy and went below this and then clamped the Endo-DENIS and then fired, then used two more 60 loads to come across and do a partial gastrectomy. No bleeding from the stomach line and made sure the bougie did not get crossed and it did not. At this point, then placed a bag in the abdomen, placed a portion of the stomach in the bag and then pulled this through the supraumbilical incision, went off and checked to make sure the mass was in this portion of the stomach and it was. Switched gloves and went back to the abdomen. Looked under the stomach in the lesser sac, could not see anything obvious in the pancreas. We had copiously irrigated with normal saline, suctioned this out. I did not see any else obvious in the abdomen. At this point, then elected to remove all ports under direct visualization, allowed the pneumoperitoneum to escape, closed supraumbilical incision with 0 Vicryl [id number] suture, closed the 10 mm port with a single 0 Vicryl simple suture and then closed the skin with becky. The area was cleaned and dried, Band-Aids placed and the patient then transferred to recovery room in stable condition. Sponge, instrument and needle counts correct at the end of the case. Dr. Wilder assisted in this case helping to make incisions, close incisions, hold anatomy and identify anatomy. Job ID: [id number] DocumentID: [id number] Dictated Date: 06/07/2018 18:57:01 Beam Racker Date: 06/08/2018 00:55:45 Dictated By: DO ANAYA MARTINEZ
--- NOTE | 2018-06-15 09:37 | Physician Query Clarification ---
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 Is this multiple myeloma and the cause of the bleeding? Please document a response below. PHYSICIAN RESPONSE Pathology Report Findings: Yes,agree w/path dx as documented In responding to this query, please exercise your independent professional judgment. The purpose of this communication is to more accurately reflect the complexity of your patients condition. The fact that a question is asked does not imply that any particular answer is desired or expected. Thank you for your timely response to this clarification. Requestors name: Hina THIS PHYSICIAN QUERY FORM IS A PERMANENT PART OF THE MEDICAL RECORD HINA DONOVAN Jun 15, 2018 09:37 GLADYS ALEJO DO Jun 20, 2018 14:29
== END 2018-06-11 11:55 | DRG 841 ==
LOC: EDUNIT# 15:30 → ER 15:31 → 4TH 16:55
PROVIDERS: ADMIT Internal Medicine; ATTEND Family Medicine
PROC: 0DB78ZX Excision of Stomach, Pylorus, Via Natural or Artificial Opening Endoscopic, Diagnostic (ICD-10-PCS; principal; 2018-06-04)
PROC: 0DB68ZX Excision of Stomach, Via Natural or Artificial Opening Endoscopic, Diagnostic (ICD-10-PCS; 2018-06-04)
PROC: 0DJD8ZZ Inspection of Lower Intestinal Tract, Via Natural or Artificial Opening Endoscopic (ICD-10-PCS; 2018-06-04)
PROC: 0DJ08ZZ Inspection of Upper Intestinal Tract, Via Natural or Artificial Opening Endoscopic (ICD-10-PCS; 2018-06-06)
PROC: 0DB64ZX Excision of Stomach, Percutaneous Endoscopic Approach, Diagnostic (ICD-10-PCS; 2018-06-07)
DX: C90.00 Multiple myeloma not having achieved remission (principal); K31.9 Disease of stomach and duodenum, unspecified; K29.70 Gastritis, unspecified, without bleeding; K25.3 Acute gastric ulcer without hemorrhage or perforation; D62 Acute posthemorrhagic anemia; D50.0 Iron deficiency anemia secondary to blood loss (chronic); D64.81 Anemia due to antineoplastic chemotherapy; S52.331A Displaced oblique fracture of shaft of right radius, initial encounter for closed fracture; K44.9 Diaphragmatic hernia without obstruction or gangrene; I10 Essential (primary) hypertension; E87.6 Hypokalemia; K64.8 Other hemorrhoids; W01.198A Fall on same level from slipping, tripping and stumbling with subsequent striking against other object, initial encounter; Y92.031 Bathroom in apartment as the place of occurrence of the external cause; K59.03 Drug induced constipation; K86.9 Disease of pancreas, unspecified
CPT/HCPCS: 36415; 51702; 71045; 71046; 73090; 73522; 74177; 80048; 80053; 81000; 82274; 83540; 85007; 85025; 85027; 86850; 86900; 86901; 86920; 87077; 87081; 87088; 87186; 88305; 88307; 88341; 88342; 94664

== ENCOUNTER 2018-06-25 12:40 | Outpatient (RCR) | payer MEDICARE ==
[2018-03-28 11:04] LABS: BASOPHILS % (AUTO) 0 % (0-10); EOSINOPHILS # (AUTO) 0.1 10^3/uL (0.0-0.3); EOSINOPHILS % (AUTO) 2 % (0-10); HEMATOCRIT 30 % (35-52); HEMOGLOBIN 10.1 G/DL (11.5-16.0); LYMPHOCYTES # (AUTO) 1.5 X 10^3 (1.0-4.0); LYMPHOCYTES % (AUTO) 24 % (12-44); MEAN CORPUSCULAR HEMOGLOBIN 31 PG (25-34); MEAN CORPUSCULAR HGB CONC 33 G/DL (32-36); MEAN CORPUSCULAR VOLUME 94 FL (80-99); MEAN PLATELET VOLUME 10.1 FL (7.4-10.4); MONOCYTES # (AUTO) 0.5 X 10^3 (0.0-1.0); MONOCYTES % (AUTO) 8 % (0-12); NEUTROPHILS # (AUTO) 4.3 X 10^3 (1.8-7.8); NEUTROPHILS % (AUTO) 67 % (42-75); PLATELET COUNT 214 10^3/uL (130-400); RED BLOOD COUNT 3.22 10^6/uL (4.35-5.85); RED CELL DISTRIBUTION WIDTH 14.6 % (10.0-14.5); WHITE BLOOD COUNT 6.5 10^3/uL (4.3-11.0)
[2018-03-28 11:24] LABS: ALBUMIN 3.9 GM/DL (3.2-4.5); BILIRUBIN,TOTAL 0.3 MG/DL (0.1-1.0); CALCIUM 9.6 MG/DL (8.5-10.1); CREATININE SERUM 1.15 MG/DL (0.60-1.30); POTASSIUM 3.6 MMOL/L (3.6-5.0); TOTAL PROTEIN 7.8 GM/DL (6.4-8.2)
[2018-04-26 10:56] LABS: BASOPHILS % (AUTO) 1 % (0-10); EOSINOPHILS # (AUTO) 0.2 10^3/uL (0.0-0.3); EOSINOPHILS % (AUTO) 3 % (0-10); HEMATOCRIT 29 % (35-52); HEMOGLOBIN 9.6 G/DL (11.5-16.0); LYMPHOCYTES # (AUTO) 1.8 X 10^3 (1.0-4.0); LYMPHOCYTES % (AUTO) 29 % (12-44); MEAN CORPUSCULAR HEMOGLOBIN 31 PG (25-34); MEAN CORPUSCULAR HGB CONC 33 G/DL (32-36); MEAN CORPUSCULAR VOLUME 94 FL (80-99); MEAN PLATELET VOLUME 9.3 FL (7.4-10.4); MONOCYTES # (AUTO) 0.6 X 10^3 (0.0-1.0); MONOCYTES % (AUTO) 10 % (0-12); NEUTROPHILS # (AUTO) 3.5 X 10^3 (1.8-7.8); NEUTROPHILS % (AUTO) 58 % (42-75); PLATELET COUNT 299 10^3/uL (130-400); RED BLOOD COUNT 3.14 10^6/uL (4.35-5.85); RED CELL DISTRIBUTION WIDTH 14.9 % (10.0-14.5); WHITE BLOOD COUNT 6.1 10^3/uL (4.3-11.0)
[2018-04-26 11:14] LABS: ALBUMIN 3.7 GM/DL (3.2-4.5); BILIRUBIN,TOTAL 0.4 MG/DL (0.1-1.0); CALCIUM 9.9 MG/DL (8.5-10.1); CREATININE SERUM 1.16 MG/DL (0.60-1.30); POTASSIUM 3.4 MMOL/L (3.6-5.0); TOTAL PROTEIN 7.8 GM/DL (6.4-8.2)
[2018-05-15 10:29] LABS: BASOPHILS % (AUTO) 1 % (0-10); EOSINOPHILS # (AUTO) 0.1 10^3/uL (0.0-0.3); EOSINOPHILS % (AUTO) 3 % (0-10); HEMATOCRIT 27 % (35-52); HEMOGLOBIN 8.8 G/DL (11.5-16.0); LYMPHOCYTES # (AUTO) 1.5 X 10^3 (1.0-4.0); LYMPHOCYTES % (AUTO) 36 % (12-44); MEAN CORPUSCULAR HEMOGLOBIN 31 PG (25-34); MEAN CORPUSCULAR HGB CONC 33 G/DL (32-36); MEAN CORPUSCULAR VOLUME 95 FL (80-99); MEAN PLATELET VOLUME 10.4 FL (7.4-10.4); MONOCYTES # (AUTO) 0.5 X 10^3 (0.0-1.0); MONOCYTES % (AUTO) 11 % (0-12); NEUTROPHILS # (AUTO) 2.1 X 10^3 (1.8-7.8); NEUTROPHILS % (AUTO) 49 % (42-75); PLATELET COUNT 281 10^3/uL (130-400); RED CELL DISTRIBUTION WIDTH 15.1 % (10.0-14.5); WHITE BLOOD COUNT 4.2 10^3/uL (4.3-11.0)
[2018-05-15 10:42] LABS: ALBUMIN 3.5 GM/DL (3.2-4.5); BILIRUBIN,TOTAL 0.5 MG/DL (0.1-1.0); CALCIUM 9.5 MG/DL (8.5-10.1); CREATININE SERUM 1.42 MG/DL (0.60-1.30); POTASSIUM 3.5 MMOL/L (3.6-5.0); TOTAL PROTEIN 7.9 GM/DL (6.4-8.2)
[2018-05-22 09:16] LABS: BASOPHILS % (AUTO) 0 % (0-10); EOSINOPHILS # (AUTO) 0.1 10^3/uL (0.0-0.3); EOSINOPHILS % (AUTO) 2 % (0-10); HEMATOCRIT 28 % (35-52); HEMOGLOBIN 9.2 G/DL (11.5-16.0); LYMPHOCYTES # (AUTO) 1.3 X 10^3 (1.0-4.0); LYMPHOCYTES % (AUTO) 16 % (12-44); MEAN CORPUSCULAR HEMOGLOBIN 32 PG (25-34); MEAN CORPUSCULAR HGB CONC 33 G/DL (32-36); MEAN CORPUSCULAR VOLUME 95 FL (80-99); MEAN PLATELET VOLUME 10.7 FL (7.4-10.4); MONOCYTES # (AUTO) 0.5 X 10^3 (0.0-1.0); MONOCYTES % (AUTO) 6 % (0-12); NEUTROPHILS # (AUTO) 6.4 X 10^3 (1.8-7.8); NEUTROPHILS % (AUTO) 76 % (42-75); PLATELET COUNT 186 10^3/uL (130-400); RED BLOOD COUNT 2.92 10^6/uL (4.35-5.85); RED CELL DISTRIBUTION WIDTH 15.4 % (10.0-14.5); WHITE BLOOD COUNT 8.4 10^3/uL (4.3-11.0)
[2018-05-22 09:35] LABS: CALCIUM 9.4 MG/DL (8.5-10.1); CREATININE SERUM 1.34 MG/DL (0.60-1.30); POTASSIUM 3.9 MMOL/L (3.6-5.0)
[2018-06-15 14:11] LABS: BASOPHILS # (AUTO) 0.1 10^3/uL (0.0-0.1); BASOPHILS % (AUTO) 1 % (0-10); EOSINOPHILS # (AUTO) 0.1 10^3/uL (0.0-0.3); EOSINOPHILS % (AUTO) 2 % (0-10); HEMATOCRIT 28 % (35-52); HEMOGLOBIN 8.6 G/DL (11.5-16.0); LYMPHOCYTES # (AUTO) 1.2 X 10^3 (1.0-4.0); LYMPHOCYTES % (AUTO) 20 % (12-44); MEAN CORPUSCULAR HEMOGLOBIN 30 PG (25-34); MEAN CORPUSCULAR HGB CONC 30 G/DL (32-36); MEAN CORPUSCULAR VOLUME 99 FL (80-99); MEAN PLATELET VOLUME 9.2 FL (7.4-10.4); MONOCYTES # (AUTO) 0.4 X 10^3 (0.0-1.0); MONOCYTES % (AUTO) 7 % (0-12); NEUTROPHILS # (AUTO) 4.2 X 10^3 (1.8-7.8); NEUTROPHILS % (AUTO) 71 % (42-75); PLATELET COUNT 406 10^3/uL (130-400); RED BLOOD COUNT 2.88 10^6/uL (4.35-5.85); RED CELL DISTRIBUTION WIDTH 15.8 % (10.0-14.5); WHITE BLOOD COUNT 5.9 10^3/uL (4.3-11.0)
[2018-06-15 14:35] LABS: ALBUMIN 2.9 GM/DL (3.2-4.5); BILIRUBIN,TOTAL 0.3 MG/DL (0.1-1.0); CALCIUM 8.3 MG/DL (8.5-10.1); CREATININE SERUM 1.03 MG/DL (0.60-1.30); POTASSIUM 3.7 MMOL/L (3.6-5.0); TOTAL PROTEIN 6.7 GM/DL (6.4-8.2)
[~2018-06-25] VITALS: Ht 157.5 cm; Wt 63.0 kg
[~2018-06-25 12:40] MED LIST changes: +ACETAMINOPHEN 325 MG TAB (TYLENOL) CANCER CTR PO PRN; +ACHD5005 PO; +BORTEZOMIB 3.5 MG VELCADE SC SCH; +CALC-676 PO; +DEXAMETHASONE 4 MG PO SCH; +DEXAMETHASONE IV SCH; +DIPH25CA79 PO; +DOCU100C37 PO; +ELOTUZUMAB IV SCH; +FAMOTIDINE 20MG/2ML IV (CANCER CTR) IV SCH; +HYDR12.5 PO; +MORP-33 PO; +NS IV 1000 ML (CANCER CTR) IV SCH; +NS IV SCH; +OMG1KC PO; +ONDA8TAB12 PO; +ONDANSETRON IV SCH; +POTA20TA8 PO; +SENN-20 PO; +UBID1CAP53 PO; +ZOLEDRONIC ACID (CANCER CTR) 3 MG in NS (IVPB) CANCER CENTER 100 ML IV SCH; +ZOLEDRONIC ACID (CANCER CTR) 4 MG in NS (IVPB) CANCER CENTER 100 ML IV SCH; +[UNRECOGNIZED DRUG - OTHER] IV SCH; +diphenhydrAMINE 25 MG TAB (BENADRYL) CANCER CENTER PO SCH; +diphenhydrAMINE 50 MG/ML INJ (CANCER CENTER) IV PRN
[2018-06-25 13:14] LABS: BASOPHILS % (AUTO) 0 % (0-10); EOSINOPHILS % (AUTO) 0 % (0-10); HEMATOCRIT 28 % (35-52); HEMOGLOBIN 8.5 G/DL (11.5-16.0); LYMPHOCYTES # (AUTO) 0.9 X 10^3 (1.0-4.0); LYMPHOCYTES % (AUTO) 15 % (12-44); MEAN CORPUSCULAR HEMOGLOBIN 31 PG (25-34); MEAN CORPUSCULAR HGB CONC 31 G/DL (32-36); MEAN CORPUSCULAR VOLUME 100 FL (80-99); MEAN PLATELET VOLUME 10.3 FL (7.4-10.4); MONOCYTES # (AUTO) 0.1 X 10^3 (0.0-1.0); MONOCYTES % (AUTO) 2 % (0-12); NEUTROPHILS # (AUTO) 4.7 X 10^3 (1.8-7.8); NEUTROPHILS % (AUTO) 82 % (42-75); PLATELET COUNT 235 10^3/uL (130-400); RED BLOOD COUNT 2.78 10^6/uL (4.35-5.85); RED CELL DISTRIBUTION WIDTH 16.9 % (10.0-14.5); WHITE BLOOD COUNT 5.8 10^3/uL (4.3-11.0)
[2018-06-25 13:27] LABS: CALCIUM 8.9 MG/DL (8.5-10.1); CREATININE SERUM 1.17 MG/DL (0.60-1.30)
[2018-06-25] MEDS ORDERED: [UNRECOGNIZED DRUG - OTHER] IV ONE (13:34)
[2018-06-25] MEDS ORDERED: ONDANSETRON IV ONE (13:34)
[2018-06-25] MEDS ORDERED: DEXAMETHASONE IV ONE (13:34)
== END 2018-06-26 | disposition home or self-care (01) ==
LOC: ONC 12:40
PROVIDERS: ATTEND Internal Medicine Hematology & Oncology
DX: Z51.11 Encounter for antineoplastic chemotherapy (principal); C90.00 Multiple myeloma not having achieved remission; E83.52 Hypercalcemia; D64.9 Anemia, unspecified; I10 Essential (primary) hypertension; Z79.899 Other long term (current) drug therapy
CPT/HCPCS: 36415; 36591; 80048; 80053; 82232; 82784; 83883; 84155; 84165; 85025; 96367; 96375; 96401; 96402; 96413; 96415; 99213

== ENCOUNTER 2018-07-23 06:45 | Outpatient (CLI) | payer MEDICARE ==
[~2018-07-23] VITALS: Ht 157.5 cm; Wt 60.3 kg
[~2018-07-23 06:45] MED LIST changes: -ACETAMINOPHEN 325 MG TAB (TYLENOL) CANCER CTR PO PRN; -BORTEZOMIB 3.5 MG VELCADE SC SCH; -DEXAMETHASONE 4 MG PO SCH; -DEXAMETHASONE IV SCH; -ELOTUZUMAB IV SCH; -FAMOTIDINE 20MG/2ML IV (CANCER CTR) IV SCH; -NS IV 1000 ML (CANCER CTR) IV SCH; -NS IV SCH; -ONDANSETRON IV SCH; -ZOLEDRONIC ACID (CANCER CTR) 3 MG in NS (IVPB) CANCER CENTER 100 ML IV SCH; -ZOLEDRONIC ACID (CANCER CTR) 4 MG in NS (IVPB) CANCER CENTER 100 ML IV SCH; -[UNRECOGNIZED DRUG - OTHER] IV SCH; -diphenhydrAMINE 25 MG TAB (BENADRYL) CANCER CENTER PO SCH; -diphenhydrAMINE 50 MG/ML INJ (CANCER CENTER) IV PRN
== END 2018-07-23 12:50 | disposition home or self-care (01) ==
LOC: PREOP 06:45
PROVIDERS: ATTEND Orthopaedic Surgery
DX: Z01.818 Encounter for other preprocedural examination (principal)

== ENCOUNTER 2018-07-25 09:43 | Inpatient (IN) | payer MEDICARE ==
--- NOTE | 2018-07-16 12:51 | HISTORY AND PHYSICAL ---
DATE OF SERVICE: DATE OF ADMISSION: 07/25/2018. This will be for admission on 07/25/2018 for 23-hour observation following right radius internal fixation. HISTORY OF PRESENT ILLNESS: The patient is an 78-year-old female who sustained a right radial shaft fracture several weeks ago. Initially, she did not desire surgical intervention. Fracture has gone on to nonunion and the patient has elected to proceed with surgical intervention. She understands that she is at risk of nonunion and neurologic injury. Due to functional impairment, the patient has elected to proceed with surgical intervention. REVIEW OF SYSTEMS: No chest pain, no shortness of breath, no dysuria. PAST MEDICAL HISTORY: Hypertension, hyperlipidemia, multiple myeloma, pancreatic mass. PAST SURGICAL HISTORY: Hysterectomy, appendectomy, left knee arthroscopy. FAMILY HISTORY: Cardiovascular disease. PRIMARY CARE PROVIDER: Dr. Soto. MEDICATIONS: Acyclovir, Flonase, hydrochlorothiazide, potassium, morphine, metoprolol, pantoprazole, Zometa, Darzalex, fexofenadine, acetaminophen, methylprednisolone. ALLERGIES: SULFA. SOCIAL HISTORY: The patient denies alcohol and tobacco use. RADIOGRAPHS: Reveal a displaced proximal radial shaft fracture without significant callus formation. PHYSICAL EXAMINATION: GENERAL: The patient is a well-developed, well nourished, no acute distress. HEENT: Normocephalic, atraumatic. Pupils are equal, round and reactive to light. Oropharynx is clear. NECK: Supple, no lymphadenopathy. LUNGS: Clear to auscultation bilaterally. HEART: Regular rate and rhythm. ABDOMEN: Soft, nontender, nondistended. EXTREMITIES: The right forearm demonstrates no skin lesions. She has intact MCP extension, finger abduction, thumb IP flexion, extension. Sensation is intact in radial, ulnar and median distribution. IMPRESSION: Displaced right radius shaft fracture. PLAN: Open reduction internal fixation of right radial shaft. Risks, benefits, options, ramifications and recovery were discussed at length with the patient. She understands and wishes to proceed. Job ID: [id number] DocumentID: [id number] Dictated Date: 07/16/2018 11:40:50 Plant Reliability Engineer Date: 07/16/2018 12:50:47 Dictated By: LINO WOOTEN MD
[~2018-07-25] VITALS: Ht 162.6 cm; Wt 62.6 kg
[2018-07-25 10:00] VITALS: BP 201/82
[2018-07-25] MEDS ORDERED: ceFAZolin INJECTION 1,000 MG in WATER (STERILE) FOR INJECTION 10 ML IV ONE (10:15)
[2018-07-25] MEDS ORDERED: MORP10CA12 PO (10:17)
[2018-07-25] MEDS ORDERED: HYDR-3812 PO (10:17)
[2018-07-25] MEDS: LACTATED RINGERS 1,000 ML IV PRN ×2 (10:45→14:38)
[2018-07-25] MEDS ORDERED: LABETALOL HCL 20 MG/4 ML VIAL IV ONE ×3 (11:00→15:30)
--- NOTE | 2018-07-25 11:13 | Progress Note-Pre Operative ---
Pre-Operative Progress Note H&P Reviewed The H&P was reviewed, patient examined and no changes noted. Date Seen by Provider: Jul 25, 2018 Time Seen by Provider: 11:12 Date H&P Reviewed: Jul 25, 2018 Time H&P Reviewed: 11:12 Pre-Operative Diagnosis: non union right radius shaft fracture LINO WOOTEN MD Jul 25, 2018 11:13
--- NOTE | 2018-07-25 11:14 | Progress Note-Post Operative ---
Post-Operative Progess Note Surgeon (s)/Locomotive Boilermaker (s) Surgeon LINO WOOTEN MD Locomotive Boilermaker: [place] [address] Pre-Operative Diagnosis non union right radius shaft fracture Post-Operative Diagnosis non union right radius shaft fracture Procedure & Operative Findings Date of Procedure 07/25/18 Procedure Performed/Findings open reduction and internal fixation of the right radius shaft Anesthesia Type GETA Estimated Blood Loss Estimated blood loss (mL): minimal Specimens/Packing Specimens Removed none Packing: none LINO WOOTEN MD Jul 25, 2018 11:14
[2018-07-25] MEDS ORDERED: proPOfol 200 MG/20 ML (DIPRIVAN) VIAL IV ONE (11:41)
[2018-07-25] MEDS ORDERED: DEXAMETHASONE 10 MG/ML (DECADRON) 1 ML VIAL ONE (11:41)
[2018-07-25] MEDS ORDERED: LIDOCAINE PF 2% 5 ML (XYLOCAINE) VIAL ONE (11:41)
[2018-07-25] MEDS ORDERED: SEVOFLURANE (ULTANE) 15 ML INHAL SOLN ONE ×2 (11:41→14:09)
[2018-07-25] MEDS ORDERED: ONDANSETRON 4 MG/2 ML (SDV) Z0FRAN ONE (11:41)
[2018-07-25] MEDS ORDERED: fentaNYL INJECTION 100 MCG/2 ML AMP ONE (11:42)
[2018-07-25] MEDS ORDERED: morphine INJ 4 MG/ML 1 ML (VIAL/SYRINGE) IVP PRN (12:00)
[2018-07-25] MEDS ORDERED: BUPIVACAINE 0.5% 30 ML (SENSORCAINE) VIAL ONE (12:25)
[2018-07-25] MEDS ORDERED: morphine INJ 10 MG/ML 1ML (SYR OR VIAL) ONE (14:36)
[2018-07-25] MEDS ORDERED: MEPERIDINE (DEMEROL) INJ 50 MG/ML IVP ONE (14:45)
[2018-07-25] MEDS ORDERED: morphine INJ 10 MG/ML 1ML (SYR OR VIAL) IVP ONE (14:45)
[2018-07-25] MEDS ORDERED: ONDANSETRON 4 MG/2 ML (SDV) Z0FRAN IVP PRN (14:45)
[2018-07-25] MEDS ORDERED: LABETALOL HCL 20 MG/4 ML VIAL ONE (14:52)
[2018-07-25 15:35] VITALS: BP 158/88
--- NOTE | 2018-07-25 15:35 | NUR ---
JOHANN LOPEZ admitted to room 423-1, with an admitting diagnosis of ORIF RIGHT DISTAL RADUIS , on 07/25/18 from [facility] via BED, accompanied by STAFF.JOHANN LOPEZ introduced to surroundings, call light, bed controls, phone, TV, temperature control, lights, meal times, smoking policy, visitor policy, side rail policy, bathrooms and showers. Patient Rights given to patient in the handbook.JOHANN LOPEZ verbalizes understanding that [facility] is not responsible for the loss or damage to any personal effects or valuables that are kept in the patients posession during their hospitalization. The following Patient Care Plans were discussed with the PT: Discharge Planning, PAIN CONTROL,IV THERAPY, and TESTS AND PROCEDURES. JOHANN LOPEZ verbalizes understanding of Interdisciplinary Patient Education. Patient and/or family were informed about the Rapid Response Team and its purpose.
--- NOTE | 2018-07-25 17:21 | Diagnostic Imaging Report ---
INDICATION: Fluoroscopy for radius ORIF. EXAMINATION: Fluoroscopy was provided for Dr. Ramos for radius ORIF. FINDINGS: 6 seconds of fluoroscopy was utilized. Images demonstrate a plate and numerous screws transfixing the proximal radius. Alignment is anatomic. IMPRESSION: Fluoroscopy for proximal right radius ORIF. Dictated by: Dictated on workstation # [id number]
[2018-07-25 18:11] VITALS: BP 158/88
[2018-07-25 19:30] VITALS: BP 170/77
[2018-07-25] MEDS: oxyCODONE/APAP 5/325MG (PERCOCET 5) TABLET PO PRN (22:57)
[2018-07-25 23:00] VITALS: BP 142/68
--- NOTE | 2018-07-26 01:10 | OPERATIVE REPORT ---
DATE OF SERVICE: 07/25/2018 PREOPERATIVE DIAGNOSIS: Right radius shaft fracture nonunion. POSTOPERATIVE DIAGNOSIS: Right radius shaft fracture nonunion. PROCEDURE PERFORMED: Open reduction and internal fixation of the right radial shaft nonunion. SURGEON: Cheng Ramos MD. DIRECTOR CORRECTIONAL AGENCY: HOWARD Muniz, who assisted throughout the procedure and closed the incision. ANESTHESIA: General endotracheal by Garrett Robles CRNA. TOURNIQUET TIME: 75 minutes at 250 mmHg. ESTIMATED BLOOD LOSS: 300 mL. DRAINS: None. COMPLICATIONS: None. MATERIALS: Synthes 3.5 6-hole dynamic compression plate. The patient was transported to recovery room awake and in stable condition. STATEMENT OF MEDICAL NECESSITY: The patient is an 78-year-old female with multiple myeloma who sustained a right radial shaft fracture approximately 6 weeks ago. The patient refused surgical intervention at that time and has until over the last week. She was found to have a mass on her pancreas and wanted to have this addressed prior to any intervention on her radius. Radiographs failed to reveal any significant callus formation and the patient ultimately elected to proceed with surgical intervention. She was counseled that this particular fracture due to its location had a high risk of neurologic complications. DESCRIPTION OF PROCEDURE: After risks and benefits of procedure were discussed and questions were answered and informed consent was signed and placed on chart, the operative site was confirmed in the preoperative holding area initialed by the surgeon. The patient was then transported to the operating room and after adequate levels of general endotracheal anesthetic were obtained, a timeout was called confirming the operative site. The right upper extremity was prepped and draped in the usual sterile fashion. A standard anterior approach was utilized. The underlying soft tissues were carefully dissected. The plane between the brachioradialis and pronator teres was developed proximally. The radial artery and superficial radial nerve were identified and carefully protected throughout the procedure and intact at the conclusion of the procedure. Through blunt finger dissection, the radial shaft was exposed and the pronator was released from its insertion site. The fracture site was identified and being careful to stay subperiosteal. The healing fibrous tissue was excised. Proximally with the arm held in full supination, the supinator was released from its insertion site from a radial to ulnar direction. Nerve retractors were placed directly on the bony surface. Soft tissue retractors were used to expose the bone. The fracture was then reduced and a 6-hole dynamic compression plate was placed with three cortical screws proximally and three cortical screws placed distally; one of the proximal screws was placed in a locking fashion due to the poor bone quality. Multiple myeloma lesions were noted. The remainder of the screws had good fixation. The forearm was taken through full range of motion and the fracture was found to be stable. Fluoroscopy in AP and lateral planes revealed well-reduced fracture with well-placed hardware. The wound was copiously irrigated. The tourniquet was deflated for a total time of 75 minutes. The patient had had mild oozing throughout the procedure and there was a superficial vein that was cauterized after taking the tourniquet down. Otherwise, her neurovascular structures were intact. Radial artery was intact with no bleeding noted. A 2-0 Vicryl was used to reapproximate the subcutaneous tissue. The skin was closed with 4-0 nylon in vertical mattress interrupted fashion. A soft dressing and a sugar tong splint were applied and the patient was transported to the recovery room awake and in stable condition. Job ID: [id number] DocumentID: [id number] Dictated Date: 07/25/2018 14:24:45 Ticket Attendant Date: 07/26/2018 01:09:51 Dictated By: CHENG RAMOS MD
[2018-07-26 04:00] VITALS: BP 128/60
[2018-07-26] MEDS: oxyCODONE/APAP 5/325MG (PERCOCET 5) TABLET PO PRN ×2 (05:19→10:40)
[2018-07-26] MEDS ORDERED: NS IV 1000 ML 1,000 ML ONE (07:27)
--- NOTE | 2018-07-26 07:33 | Progress Note-Standard ---
Standard Progress Note Progress Notes/Assess & Plan Date Seen by a Provider: Jul 26, 2018 Time Seen by a Provider: 07:31 Progress/Assessment & Plan no complaints denies paresthesias Vital Signs Date Time Temp Pulse Resp B/P (MAP) Pulse Ox O2 Delivery O2 Flow Rate FiO2 07/26/18 04:00 97.8 68 16 128/60 (82) 92 Room Air 07/25/18 23:04 96 Room Air 07/25/18 23:00 98.2 64 16 142/68 (92) 98 Nasal Cannula 2.00 07/25/18 21:14 Nasal Cannula 3.00 07/25/18 21:00 98 Nasal Cannula 2.00 07/25/18 19:35 98 Nasal Cannula 2.00 07/25/18 19:30 97.0 74 18 170/77 (108) 98 Nasal Cannula 3.00 07/25/18 18:11 96.0 88 18 158/88 96 Nasal Cannula 3.00 07/25/18 15:35 97.0 88 18 158/88 (111) 94 Nasal Cannula 3.00 07/25/18 10:00 Room Air 07/25/18 10:00 98.7 68 18 201/82 (121) 98 Room Air I & O 07/26/18 07:00 Intake Total 210 ml Output Total 700 ml Balance -490 ml RUE--intact MCP extension, thumb IP flexion and extension and finger abduction intact sensationR/U/M distribution s/p ORIF R radius NVI DC home today FU in two weeks regular diet LINO WOOTEN MD Jul 26, 2018 07:33
--- NOTE | 2018-07-26 10:08 | Anesthesia-General Post-Op ---
General Patient Condition Mental Status/LOC: Same as Preop Cardiovascular: Satisfactory Nausea/Vomiting: Absent Respiratory: Satisfactory Pain: Controlled Complications: Absent Post Op Complications Complications None Follow Up Care/Instructions Patient Instructions None needed. Anesthesia/Patient Condition Patient Condition Patient is doing well, no complaints, stable vital signs, no apparent adverse anesthesia problems. No complications reported per nursing. PAMELA GARCIA CRNA Jul 26, 2018 10:08
[2018-07-26 13:38] VITALS: BP 142/68
== END 2018-07-26 13:40 | disposition home or self-care (01) | DRG 511 ==
LOC: 4TH 09:43 → SURG 09:44 → EDSTATUS 13:00 → 4TH 15:45
PROVIDERS: ADMIT Orthopaedic Surgery; ATTEND Orthopaedic Surgery
PROC: 0PSH04Z Reposition Right Radius with Internal Fixation Device, Open Approach (ICD-10-PCS; principal; 2018-07-25 12:17)
DX: M84.53 Pathological fracture in neoplastic disease, ulna and radius (principal); I10 Essential (primary) hypertension; E78.5 Hyperlipidemia, unspecified; C90.00 Multiple myeloma not having achieved remission; K86.9 Disease of pancreas, unspecified
CPT/HCPCS: 87081

== ENCOUNTER → 2018-08-16 | Outpatient (CLI) | payer MEDICARE ==
[~2018-08-16] MED LIST changes: +HYDR-3812 PO; +MORP10CA12 PO
--- NOTE | 2018-08-16 17:00 | Diagnostic Imaging Report ---
Clinical indication: Patient with macular degeneration, myeloma and left eyelid swollen. Patient is status post fall on 05/28/2018. Exam: MRI of the brain/orbits performed without IV contrast. Sequences include axial DWI, ADC map, axial T2, axial FLAIR, axial T1, axial gradient echo, sagittal T1, coronal T2 fat-sat thin, coronal T1 fat-sat thin, axial T2 thin, axial T1 thin, right and left sagittal T1 fat-sat. Comparison: None. Findings: There is a 5.0 cm x 3.0 cm x 3.0 cm (AP x Trans x CC) low T1/low T2 signal amorphous mass involving the roof and lateral wall of the left orbit which also extends into the lateral aspect of the left frontal sinus. This mass extends into the left superolateral intraorbital extraconal region and displaces the left orbital conus medially and inferiorly. It appears as though the upper aspect of the left globe is slightly flattened due to the intraorbital mass effect. There is proptosis of the left globe. This mass closely abuts the anterior aspect of the superior rectus muscle and there is loss of fat plane, anteriorly. The left lacrimal gland tissue is not discernible on this exam and is suspected to be infiltrated. The orbits and globes are otherwise unremarkable. There is another low T2, low T1 signal mass within the right posterior aspect of the skull adjacent to the right parietal lobe which measures 4.4 cm x 2.6 cm x 3.6 cm. There is bony destruction and expansile change seen in the region. There is a lateral convex border to the scalp in relation to this mass and inward convexity which slightly impresses upon the right parietal lobe. There is no abnormal signal involving the right parietal lobe region. There are multiple amorphous patchy areas of low T1/T2 signal involving the calvarium. There is no other infiltrative mass lesion seen. Given patient's history of multiple myeloma, these are concerning for myelomas. There is mild confluent areas of high T2 signal white matter changes involving both cerebral hemispheres, likely representing mild chronic ischemic changes and age-related brain parenchymal changes. The brain parenchymal volume appears appropriate for patient's age. There is no hydrocephalus, brain herniation or midline shift. The [place] vascular structures show no gross abnormality as visualized. The pituitary gland, sella, and suprasellar regions are unremarkable as visualized. There is small to moderate amount of secretions and mucosal thickening involving the left maxillary sinus. The right maxillary sinus is small in size with bony thickening. There is minimal fluid in the left mastoid air cell region. Impression: 1: There is a low signal infiltrative mass involving the roof and lateral aspect of the left orbital wall which causes significant encroachment upon the left orbital contents and proptosis of the left globe. There is concern for possible infiltration of the superior left rectus muscle and left lacrimal gland. This is concerning for myeloma. 2: There is an infiltrative calvarial mass in the right posterior aspect of the skull concerning for myeloma. 3: There is heterogeneous and patchy low T1 signal seen throughout the calvarium likely related to patient's history of multiple myeloma. 4: Age-related brain parenchymal changes. Report was faxed to the office of Dr. Deng Soto at 4:54 p.m., by jose. Dictated by: Dictated on workstation # [id number]
== END ==
LOC: RAD 14:47
PROVIDERS: ATTEND Internal Medicine Hematology & Oncology
DX: C90.00 Multiple myeloma not having achieved remission (principal); H05.89 Other disorders of orbit; G93.89 Other specified disorders of brain; H02.402 Unspecified ptosis of left eyelid; H35.30 Unspecified macular degeneration; Z91.81 History of falling
CPT/HCPCS: 70540

== ENCOUNTER 2018-09-04 10:06 | Outpatient (RCR) | payer MEDICARE ==
[2018-07-02 10:03] LABS: BASOPHILS % (AUTO) 0 % (0-10); EOSINOPHILS # (AUTO) 0.1 10^3/uL (0.0-0.3); EOSINOPHILS % (AUTO) 2 % (0-10); HEMATOCRIT 27 % (35-52); HEMOGLOBIN 8.5 G/DL (11.5-16.0); LYMPHOCYTES # (AUTO) 1.5 X 10^3 (1.0-4.0); LYMPHOCYTES % (AUTO) 30 % (12-44); MEAN CORPUSCULAR HEMOGLOBIN 31 PG (25-34); MEAN CORPUSCULAR HGB CONC 31 G/DL (32-36); MEAN CORPUSCULAR VOLUME 99 FL (80-99); MONOCYTES # (AUTO) 0.4 X 10^3 (0.0-1.0); MONOCYTES % (AUTO) 9 % (0-12); NEUTROPHILS % (AUTO) 59 % (42-75); PLATELET COUNT 185 10^3/uL (130-400)
[2018-07-02 10:20] LABS: CALCIUM 8.4 MG/DL (8.5-10.1); CREATININE SERUM 0.98 MG/DL (0.60-1.30); POTASSIUM 3.6 MMOL/L (3.6-5.0)
[2018-07-09 10:33] LABS: BASOPHILS % (AUTO) 0 % (0-10); EOSINOPHILS # (AUTO) 0.2 10^3/uL (0.0-0.3); EOSINOPHILS % (AUTO) 3 % (0-10); HEMATOCRIT 27 % (35-52); HEMOGLOBIN 8.5 G/DL (11.5-16.0); LYMPHOCYTES # (AUTO) 1.7 X 10^3 (1.0-4.0); LYMPHOCYTES % (AUTO) 31 % (12-44); MEAN CORPUSCULAR HEMOGLOBIN 31 PG (25-34); MEAN CORPUSCULAR HGB CONC 31 G/DL (32-36); MEAN CORPUSCULAR VOLUME 98 FL (80-99); MEAN PLATELET VOLUME 11.1 FL (7.4-10.4); MONOCYTES # (AUTO) 0.6 X 10^3 (0.0-1.0); MONOCYTES % (AUTO) 10 % (0-12); NEUTROPHILS # (AUTO) 3.2 X 10^3 (1.8-7.8); NEUTROPHILS % (AUTO) 56 % (42-75); PLATELET COUNT 126 10^3/uL (130-400); RED CELL DISTRIBUTION WIDTH 17.5 % (10.0-14.5); WHITE BLOOD COUNT 5.6 10^3/uL (4.3-11.0)
[2018-07-09 10:52] LABS: CALCIUM 8.7 MG/DL (8.5-10.1); CREATININE SERUM 1.09 MG/DL (0.60-1.30); POTASSIUM 3.6 MMOL/L (3.6-5.0)
[2018-07-13 11:15] LABS: BASOPHILS % (AUTO) 0 % (0-10); EOSINOPHILS # (AUTO) 0.1 10^3/uL (0.0-0.3); EOSINOPHILS % (AUTO) 2 % (0-10); HEMATOCRIT 27 % (35-52); HEMOGLOBIN 8.3 G/DL (11.5-16.0); LYMPHOCYTES # (AUTO) 1.8 X 10^3 (1.0-4.0); LYMPHOCYTES % (AUTO) 26 % (12-44); MEAN CORPUSCULAR HEMOGLOBIN 31 PG (25-34); MEAN CORPUSCULAR HGB CONC 31 G/DL (32-36); MEAN CORPUSCULAR VOLUME 100 FL (80-99); MEAN PLATELET VOLUME 10.4 FL (7.4-10.4); MONOCYTES # (AUTO) 0.4 X 10^3 (0.0-1.0); MONOCYTES % (AUTO) 7 % (0-12); NEUTROPHILS # (AUTO) 4.3 X 10^3 (1.8-7.8); NEUTROPHILS % (AUTO) 65 % (42-75); PLATELET COUNT 259 10^3/uL (130-400); RED CELL DISTRIBUTION WIDTH 17.9 % (10.0-14.5); WHITE BLOOD COUNT 6.7 10^3/uL (4.3-11.0)
[2018-07-13 11:35] LABS: ALBUMIN 3.4 GM/DL (3.2-4.5); BILIRUBIN,TOTAL 0.5 MG/DL (0.1-1.0); CALCIUM 8.6 MG/DL (8.5-10.1); CREATININE SERUM 1.05 MG/DL (0.60-1.30); POTASSIUM 3.9 MMOL/L (3.6-5.0); TOTAL PROTEIN 7.3 GM/DL (6.4-8.2)
[2018-07-23 09:26] LABS: BASOPHILS % (AUTO) 1 % (0-10); EOSINOPHILS # (AUTO) 0.1 10^3/uL (0.0-0.3); EOSINOPHILS % (AUTO) 2 % (0-10); HEMATOCRIT 28 % (35-52); LYMPHOCYTES # (AUTO) 1.6 X 10^3 (1.0-4.0); LYMPHOCYTES % (AUTO) 40 % (12-44); MEAN CORPUSCULAR HEMOGLOBIN 32 PG (25-34); MEAN CORPUSCULAR HGB CONC 32 G/DL (32-36); MEAN CORPUSCULAR VOLUME 99 FL (80-99); MEAN PLATELET VOLUME 10.2 FL (7.4-10.4); MONOCYTES # (AUTO) 0.5 X 10^3 (0.0-1.0); MONOCYTES % (AUTO) 13 % (0-12); NEUTROPHILS # (AUTO) 1.8 X 10^3 (1.8-7.8); NEUTROPHILS % (AUTO) 44 % (42-75); PLATELET COUNT 173 10^3/uL (130-400); RED CELL DISTRIBUTION WIDTH 17.1 % (10.0-14.5); WHITE BLOOD COUNT 4.1 10^3/uL (4.3-11.0)
[2018-07-23 09:41] LABS: CREATININE SERUM 1.27 MG/DL (0.60-1.30); POTASSIUM 3.5 MMOL/L (3.6-5.0)
[2018-07-23 09:42] LABS: CALCIUM 9.2 MG/DL (8.5-10.1)
[2018-08-10 10:45] LABS: BASOPHILS % (AUTO) 1 % (0-10); EOSINOPHILS # (AUTO) 0.1 10^3/uL (0.0-0.3); EOSINOPHILS % (AUTO) 2 % (0-10); HEMATOCRIT 23 % (35-52); LYMPHOCYTES # (AUTO) 1.6 X 10^3 (1.0-4.0); LYMPHOCYTES % (AUTO) 27 % (12-44); MEAN CORPUSCULAR HEMOGLOBIN 31 PG (25-34); MEAN CORPUSCULAR HGB CONC 31 G/DL (32-36); MEAN CORPUSCULAR VOLUME 102 FL (80-99); MONOCYTES # (AUTO) 0.4 X 10^3 (0.0-1.0); MONOCYTES % (AUTO) 6 % (0-12); NEUTROPHILS # (AUTO) 3.6 X 10^3 (1.8-7.8); NEUTROPHILS % (AUTO) 63 % (42-75); PLATELET COUNT 321 10^3/uL (130-400); RED CELL DISTRIBUTION WIDTH 16.7 % (10.0-14.5); WHITE BLOOD COUNT 5.7 10^3/uL (4.3-11.0)
[2018-08-10 11:07] LABS: ALBUMIN 3.3 GM/DL (3.2-4.5); BILIRUBIN,TOTAL 0.5 MG/DL (0.1-1.0); CALCIUM 8.9 MG/DL (8.5-10.1); CREATININE SERUM 1.45 MG/DL (0.60-1.30); POTASSIUM 3.5 MMOL/L (3.6-5.0); TOTAL PROTEIN 8.3 GM/DL (6.4-8.2)
[2018-08-17 09:29] LABS: BASOPHILS % (AUTO) 1 % (0-10); EOSINOPHILS # (AUTO) 0.1 10^3/uL (0.0-0.3); EOSINOPHILS % (AUTO) 2 % (0-10); HEMATOCRIT 23 % (35-52); LYMPHOCYTES # (AUTO) 2.3 X 10^3 (1.0-4.0); LYMPHOCYTES % (AUTO) 43 % (12-44); MEAN CORPUSCULAR HEMOGLOBIN 32 PG (25-34); MEAN CORPUSCULAR HGB CONC 31 G/DL (32-36); MEAN CORPUSCULAR VOLUME 103 FL (80-99); MEAN PLATELET VOLUME 9.2 FL (7.4-10.4); MONOCYTES # (AUTO) 0.5 X 10^3 (0.0-1.0); MONOCYTES % (AUTO) 10 % (0-12); NEUTROPHILS # (AUTO) 2.4 X 10^3 (1.8-7.8); NEUTROPHILS % (AUTO) 44 % (42-75); PLATELET COUNT 291 10^3/uL (130-400); RED CELL DISTRIBUTION WIDTH 17.3 % (10.0-14.5); WHITE BLOOD COUNT 5.4 10^3/uL (4.3-11.0)
[2018-08-20 13:05] LABS: BASOPHILS % (AUTO) 0 % (0-10); EOSINOPHILS # (AUTO) 0.1 10^3/uL (0.0-0.3); EOSINOPHILS % (AUTO) 1 % (0-10); HEMATOCRIT 22 % (35-52); LYMPHOCYTES # (AUTO) 1.9 X 10^3 (1.0-4.0); LYMPHOCYTES % (AUTO) 35 % (12-44); MEAN CORPUSCULAR HEMOGLOBIN 32 PG (25-34); MEAN CORPUSCULAR HGB CONC 32 G/DL (32-36); MEAN CORPUSCULAR VOLUME 101 FL (80-99); MEAN PLATELET VOLUME 9.6 FL (7.4-10.4); MONOCYTES # (AUTO) 0.4 X 10^3 (0.0-1.0); MONOCYTES % (AUTO) 8 % (0-12); NEUTROPHILS # (AUTO) 3.1 X 10^3 (1.8-7.8); NEUTROPHILS % (AUTO) 56 % (42-75); PLATELET COUNT 298 10^3/uL (130-400); RED CELL DISTRIBUTION WIDTH 16.7 % (10.0-14.5); WHITE BLOOD COUNT 5.5 10^3/uL (4.3-11.0)
[2018-08-20 13:07] LABS: HEMOGLOBIN 6.9 G/DL (11.5-16.0)
[2018-08-20 13:39] LABS: ALANINE AMINOTRANSFERASE < 6 U/L (0-55); ALBUMIN 3.3 GM/DL (3.2-4.5); ALKALINE PHOSPHATASE 36 U/L (40-136); BILIRUBIN,TOTAL 0.4 MG/DL (0.1-1.0); BUN/CREATININE RATIO 12; CALCIUM 9.1 MG/DL (8.5-10.1); CARBON DIOXIDE 25 MMOL/L (21-32); CHLORIDE 106 MMOL/L (98-107); CREATININE SERUM 1.44 MG/DL (0.60-1.30); GFR ESTIMATED 35; GLUCOSE 132 MG/DL (70-105); POTASSIUM 3.4 MMOL/L (3.6-5.0); SODIUM 136 MMOL/L (135-145)
[2018-08-27 13:30] LABS: BASOPHILS % (AUTO) 1 % (0-10); EOSINOPHILS # (AUTO) 0.1 10^3/uL (0.0-0.3); EOSINOPHILS % (AUTO) 2 % (0-10); HEMATOCRIT 25 % (35-52); HEMOGLOBIN 7.9 G/DL (11.5-16.0); LYMPHOCYTES # (AUTO) 2.1 X 10^3 (1.0-4.0); LYMPHOCYTES % (AUTO) 48 % (12-44); MEAN CORPUSCULAR HEMOGLOBIN 32 PG (25-34); MEAN CORPUSCULAR HGB CONC 32 G/DL (32-36); MEAN CORPUSCULAR VOLUME 100 FL (80-99); MEAN PLATELET VOLUME 10.8 FL (7.4-10.4); MONOCYTES # (AUTO) 0.5 X 10^3 (0.0-1.0); MONOCYTES % (AUTO) 11 % (0-12); NEUTROPHILS # (AUTO) 1.7 X 10^3 (1.8-7.8); NEUTROPHILS % (AUTO) 38 % (42-75); PLATELET COUNT 218 10^3/uL (130-400); WHITE BLOOD COUNT 4.4 10^3/uL (4.3-11.0)
[2018-08-27 13:47] LABS: CALCIUM 8.8 MG/DL (8.5-10.1); CREATININE SERUM 1.82 MG/DL (0.60-1.30); POTASSIUM 3.6 MMOL/L (3.6-5.0)
[2018-09-03 10:43] LABS: BASOPHILS % (AUTO) 0 % (0-10); EOSINOPHILS % (AUTO) 0 % (0-10); LYMPHOCYTES # (AUTO) 1.5 X 10^3 (1.0-4.0); LYMPHOCYTES % (AUTO) 16 % (12-44); MEAN CORPUSCULAR HEMOGLOBIN 32 PG (25-34); MEAN CORPUSCULAR HGB CONC 32 G/DL (32-36); MEAN CORPUSCULAR VOLUME 100 FL (80-99); MEAN PLATELET VOLUME 10.6 FL (7.4-10.4); MONOCYTES # (AUTO) 0.3 X 10^3 (0.0-1.0); MONOCYTES % (AUTO) 4 % (0-12); NEUTROPHILS # (AUTO) 7.3 X 10^3 (1.8-7.8); NEUTROPHILS % (AUTO) 80 % (42-75); PLATELET COUNT 204 10^3/uL (130-400); RED CELL DISTRIBUTION WIDTH 18.7 % (10.0-14.5); WHITE BLOOD COUNT 9.1 10^3/uL (4.3-11.0)
[2018-09-03 10:45] LABS: HEMATOCRIT 19 % (35-52); HEMOGLOBIN 5.9 G/DL (11.5-16.0)
[2018-09-03 11:11] LABS: ALBUMIN 3.1 GM/DL (3.2-4.5); BILIRUBIN,TOTAL 0.4 MG/DL (0.1-1.0); CALCIUM 8.8 MG/DL (8.5-10.1); CREATININE SERUM 3.22 MG/DL (0.60-1.30); POTASSIUM 3.2 MMOL/L (3.6-5.0); TOTAL PROTEIN 8.5 GM/DL (6.4-8.2)
[~2018-09-04] VITALS: Ht 157.5 cm; Wt 62.6 kg
[~2018-09-04 10:06] MED LIST changes: +ACETAMINOPHEN 325 MG TAB (TYLENOL) CANCER CTR PO PRN; +BORTEZOMIB 3.5 MG VELCADE SC SCH; +DEXAMETHASONE IV SCH; +ELOTUZUMAB IV SCH; +FAMOTIDINE 20MG/2ML IV (CANCER CTR) IV SCH; -HYDR-3454 PO; +HYDR-3455 PO; +NS IV 1000 ML (CANCER CTR) IV SCH; +NS IV 500 ML (CANCER CENTER) 500 ML ONE; +NS IV SCH; +ONDANSETRON IV SCH; +ZOLEDRONIC ACID (CANCER CTR) 3 MG in NS (IVPB) CANCER CENTER 100 ML IV SCH; +[UNRECOGNIZED DRUG - OTHER] IV SCH; +diphenhydrAMINE 25 MG TAB (BENADRYL) CANCER CENTER PO SCH
[2018-09-04] MEDS ORDERED: NS IV 500 ML (CANCER CENTER) 0 ML ONE (10:13)
[2018-09-04] MEDS ORDERED: DOCU-143 PO (12:59)
[2018-09-04] MEDS ORDERED: OXYC-471 PO (13:01)
[2018-09-04] MEDS ORDERED: HYDR12.56 PO (13:10)
[2018-09-04] MEDS ORDERED: SIMV20TA3 PO (13:10)
[2018-09-04] MEDS ORDERED: ZOLP5TAB PO (13:10)
== END 2018-09-19 | disposition home or self-care (01) ==
LOC: ONC 10:06
PROVIDERS: ATTEND Internal Medicine Hematology & Oncology
DX: Z51.11 Encounter for antineoplastic chemotherapy (principal); Z51.0 Encounter for antineoplastic radiation therapy; C90.00 Multiple myeloma not having achieved remission; E83.52 Hypercalcemia; D64.9 Anemia, unspecified; I10 Essential (primary) hypertension; Z79.899 Other long term (current) drug therapy
CPT/HCPCS: 36415; 36430; 36591; 77295; 77300; 77334; 77336; 77417; 80048; 80053; 82784; 83883; 84155; 84165; 85025; 86850; 86900; 86901; 86920; 88184; 88185; 96375; 96401; 96402; 96413; 99213

== ENCOUNTER 2018-09-04 10:28 | Inpatient (IN) | payer MEDICARE ==
[~2018-09-04] VITALS: Ht 157.5 cm; Wt 63.1 kg
[~2018-09-04 10:28] MED LIST changes: -ACETAMINOPHEN 325 MG TAB (TYLENOL) CANCER CTR PO PRN; -BORTEZOMIB 3.5 MG VELCADE SC SCH; -DEXAMETHASONE IV SCH; -ELOTUZUMAB IV SCH; -FAMOTIDINE 20MG/2ML IV (CANCER CTR) IV SCH; -NS IV 1000 ML (CANCER CTR) IV SCH; -NS IV 500 ML (CANCER CENTER) 500 ML ONE; -NS IV SCH; -ONDANSETRON IV SCH; -ZOLEDRONIC ACID (CANCER CTR) 3 MG in NS (IVPB) CANCER CENTER 100 ML IV SCH; -[UNRECOGNIZED DRUG - OTHER] IV SCH; -diphenhydrAMINE 25 MG TAB (BENADRYL) CANCER CENTER PO SCH
--- NOTE | 2018-09-04 10:45 | NUR ---
JOHANN LOPEZ admitted to room 412-1, with an admitting diagnosis of RENAL FAILURE, WEAKNESS, MULTIPLE MYLOMA, on 09/04/18 from via [facility], accompanied by FAMILY.JOHANN LOPEZ introduced to surroundings, call light, bed controls, phone, TV, temperature control, lights, meal times, smoking policy, visitor policy, side rail policy, bathrooms and showers. Patient Rights given to patient in the handbook.JOHANN LOPEZ verbalizes understanding that [facility] is not responsible for the loss or damage to any personal effects or valuables that are kept in the patients posession during their hospitalization. The following Patient Care Plans were discussed with the : Discharge Planning, ANEMIA,SELF CARE. JOHANN LOPEZ verbalizes understanding of Interdisciplinary Patient Education.
--- OUTSIDE RECORDS SUMMARY | 2018-09-04 10:53 | XMS REPORT | Continuity of Care Document ---
Author Author [facility] Organization [facility] Address Unknown Phone Unavailable Allergies Active Description Code Type Severity Reaction Onset Reported/Identified Relationship to Patient Clinical Status Yes SULFA UNKNOWN UNKNOWN Yes No Known Drug Allergies [id number] Drug Allergy Unknown N/A 06/28/2012 Yes Sulfa (Sulfonamide Antibiotics) [id number] Drug Allergy Unknown N/A 2017 Yes Sulfa (Sulfonamide Antibiotics) [id number] Drug Allergy Mild HIVES 2018 Medications There is no data. 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 JASMYNE MOLINA Ot D64.9 ANEMIA, UNSPECIFIED JASMYNE MOLINA Ot E83.52 HYPERCALCEMIA JASMYNE MOLINA Ot I10 ESSENTIAL (PRIMARY) HYPERTENSION JASMYNE MOLINA Ot 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 TAYLOR HILL MD, Ot 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 TAYLOR HILL MD, Ot D64.9 ANEMIA, UNSPECIFIED TAYLOR HILL MD, Ot E83.52 HYPERCALCEMIA TAYLOR HILL MD Ot I10 ESSENTIAL (PRIMARY) HYPERTENSION TAYLOR HILL MD Ot Z51.0 ENCOUNTER FOR ANTINEOPLASTIC RADIATION T TAYLOR HILL MD, Ot Z79.899 OTHER SKILLED NURSING (CURRENT) DRUG THERAPY 05/18/1042 RALPH SEGOVIA MD Ot 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 05/18/1042 RALPH SEGOVIA MD Ot D64.9 ANEMIA, UNSPECIFIED 05/18/1042 RALPH SEGOVIA MD Ot E83.52 HYPERCALCEMIA 05/18/1042 RALPH SEGOVIA MD Ot I10 ESSENTIAL (PRIMARY) HYPERTENSION 05/18/1042 RALPH SEGOVIA MD Ot Z51.11 ENCOUNTER FOR ANTINEOPLASTIC CHEMOTHERAP 05/18/1042 RALPH SEGOVIA MD, Ot Z79.899 OTHER SKILLED NURSING (CURRENT) DRUG THERAPY 05/18/1051 RALPH SEGOVIA MD, Ot 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 05/18/1051 RALPH SEGOVIA MD Ot 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 05/18/1051 RALPH SEGOVIA MD Ot E83.52 HYPERCALCEMIA 05/18/1051 RALPH SEGOVIA MD Ot E87.6 HYPOKALEMIA 05/18/1051 RALPH SEGOVIA MD Ot G62.9 POLYNEUROPATHY, UNSPECIFIED 05/18/1051 RALPH SEGOVIA MD Ot G89.3 NEOPLASM RELATED PAIN (ACUTE) (CHRONIC) 05/18/1051 RALPH SEGOVIA MD Ot I12.9 HYPERTENSIVE CHRONIC KIDNEY DISEASE W ST 05/18/1051 RALPH SEGOVIA MD Ot N18.3 CHRONIC KIDNEY DISEASE, STAGE 3 (MODERAT 05/18/1051 RALPH SEGOVIA MD Ot Z51.11 ENCOUNTER FOR ANTINEOPLASTIC CHEMOTHERAP 05/18/1051 RALPH SEGOVIA MD Ot 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 09/20/2012 Ot 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, 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 09/20/2012 Ot 275.42 HYPERCALCEMIA 09/20/2012 Ot 285.9 ANEMIA NOS 09/20/2012 Ot 401.9 HYPERTENSION NOS 09/20/2012 Ot 593.9 RENAL URETERAL DIS NOS 09/20/2012 Ot 719.41 JOINT PAIN- SHLDER 09/20/2012 Ot 719.45 JOINT PAIN- PELVIS 09/20/2012 Ot 733.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 09/20/2012 Ot 786.50 CHEST PAIN NOS 09/20/2012 Ot 790.29 OTHER ABNORMAL GLUCOSE 09/20/2012 Ot V58.69 OTH MED,LT, CURRENT USE 12/23/2012 RALPH SEGOVIA MD Ot 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, 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 12/23/2012 RALPH SEGOVIA MD Ot 275.42 HYPERCALCEMIA 12/23/2012 RALPH SEGOVIA MD Ot 285.9 ANEMIA NOS 12/23/2012 RALPH SEGOVIA MD Ot 401.9 HYPERTENSION NOS 12/23/2012 RALPH SEGOVIA MD Ot 593.9 RENAL URETERAL DIS NOS 12/23/2012 RALPH SEGOVIA MD Ot 719.41 JOINT PAIN-SHLDER 12/23/2012 RALPH SEGOVIA MD Ot 719.45 JOINT PAIN-PELVIS 12/23/2012 RALPH SEGOVIA MD Ot 733.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 12/23/2012 RALPH SEGOVIA MD Ot 786.50 CHEST PAIN NOS 12/23/2012 RALPH SEGOVIA MD Ot 790.29 OTHER ABNORMAL GLUCOSE 12/23/2012 RALPH SEGOVIA MD Ot V58.69 OTH MED,LT,CURRENT USE 03/22/2013 RALPH SEGOVIA MD Ot 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, 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 03/22/2013 RALPH SEGOVIA MD Ot 275.42 HYPERCALCEMIA 03/22/2013 RALPH SEGOVIA MD Ot 285.9 ANEMIA NOS 03/22/2013 RALPH SEGOVIA MD Ot 401.9 HYPERTENSION NOS 03/22/2013 RALPH SEGOVIA MD Ot 593.9 RENAL URETERAL DIS NOS 03/22/2013 RALPH SEGOVIA MD Ot 719.41 JOINT PAIN-SHLDER 03/22/2013 RALPH SEGOVIA MD Ot 719.45 JOINT PAIN-PELVIS 03/22/2013 RALPH SEGOVIA MD Ot 733.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 03/22/2013 RALPH SEGOVIA MD Ot 786.50 CHEST PAIN NOS 03/22/2013 RALPH SEGOVIA MD Ot 790.29 OTHER ABNORMAL GLUCOSE 03/22/2013 RALPH SEGOVIA MD Ot V58.69 OTH MED,LT,CURRENT USE 06/23/2013 RALPH SEGOVIA MD Ot 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, 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 06/23/2013 RALPH SEGOVIA MD Ot 275.42 HYPERCALCEMIA 06/23/2013 RALPH SEGOVIA MD Ot 285.9 ANEMIA NOS 06/23/2013 RALPH SEGOVIA MD Ot 401.9 HYPERTENSION NOS 06/23/2013 RALHP SEGOVIA MD Ot 593.9 RENAL URETERAL DIS NOS 06/23/2013 RALPH SEGOVIA MD Ot 719.41 JOINT PAIN-SHLDER 06/23/2013 RALPH SEGOVIA MD Ot 719.45 JOINT PAIN-PELVIS 06/23/2013 RALPH SEGOVIA MD Ot 733.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 06/23/2013 RALPH SEGOVIA MD Ot 786.50 CHEST PAIN NOS 06/23/2013 RALPH SEGOVIA MD Ot 790.29 OTHER ABNORMAL GLUCOSE 06/23/2013 RALPH SEGOVIA MD Ot V58.69 OTH MED,LT,CURRENT USE 09/29/2013 RALPH SEGOVIA MD Ot 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, 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 09/29/2013 RALPH SEGOVIA MD Ot 275.42 HYPERCALCEMIA 09/29/2013 RALPH SEGOVIA MD Ot 285.9 ANEMIA NOS 09/29/2013 RALPH SEGOVIA MD Ot 401.9 HYPERTENSION NOS 09/29/2013 RALPH SEGOVIA MD Ot 593.9 RENAL URETERAL DIS NOS 09/29/2013 RALPH SEGOVIA MD Ot 719.41 JOINT PAIN-SHLDER 09/29/2013 RALPH SEGOVIA MD Ot 719.45 JOINT PAIN-PELVIS 09/29/2013 RALPH SEGOVIA MD Ot 733.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 09/29/2013 RALPH SEGOVIA MD Ot 786.50 CHEST PAIN NOS 09/29/2013 RALPH SEGOVIA MD Ot 790.29 OTHER ABNORMAL GLUCOSE 09/29/2013 RALPH SEGOVIA MD Ot V58.69 OTH MED,LT,CURRENT USE 01/05/2014 RALPH SEGOVIA MD Ot 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, 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 01/05/2014 RALPH SEGOVIA MD Ot 275.42 HYPERCALCEMIA 01/05/2014 RALPH SEGOVIA MD Ot 285.9 ANEMIA NOS 01/05/2014 RALPH SEGOVIA MD Ot 401.9 HYPERTENSION NOS 01/05/2014 RALPH SEGOVIA MD Ot 593.9 RENAL URETERAL DIS NOS 01/05/2014 RALPH SEGOVIA MD Ot 719.41 JOINT PAIN-SHLDER 01/05/2014 RALPH SEGOVIA MD Ot 719.45 JOINT PAIN-PELVIS 01/05/2014 RALPH SEGOVIA MD Ot 733.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 01/05/2014 RALPH SEGOVIA MD Ot 786.50 CHEST PAIN NOS 01/05/2014 RALPH SEGOVIA MD Ot 790.29 OTHER ABNORMAL GLUCOSE 01/05/2014 RALPH SEGOVIA MD Ot V58.69 OTH MED,LT,CURRENT USE 04/13/2014 RALPH SEGOVIA MD Ot 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, 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 04/13/2014 RALPH SEGOVIA MD Ot 275.42 HYPERCALCEMIA 04/13/2014 RALPH SEGOVIA MD Ot 285.9 ANEMIA NOS 04/13/2014 RALPH SEGOVIA MD Ot 401.9 HYPERTENSION NOS 04/13/2014 RALPH SEGOVIA MD Ot 593.9 RENAL URETERAL DIS NOS 04/13/2014 RALPH SEGOVIA MD Ot 719.41 JOINT PAIN-SHLDER 04/13/2014 RALPH SEGOVIA MD Ot 719.45 JOINT PAIN-PELVIS 04/13/2014 RALPH SEGOVIA MD Ot 733.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 04/13/2014 RALPH SEGOVIA MD Ot 786.50 CHEST PAIN NOS 04/13/2014 RALPH SEGOVIA MD Ot 790.29 OTHER ABNORMAL GLUCOSE 04/13/2014 RALPH SEGOVIA MD Ot V58.69 OTH MED,LT,CURRENT USE 05/26/2014 RALPH SEGOVIA MD Ot 203.00 05/26/2014 RALPH SEGOVIA MD Ot 275.42 05/26/2014 RALPH SEGOVIA MD Ot 285.9 05/26/2014 RALPH SEGOVIA MD Ot 401.9 05/26/2014 RALPH SEGOVIA MD Ot 593.9 05/26/2014 RALPH SEGOVIA MD Ot 719.41 05/26/2014 RALPH SEGOVIA MD Ot 719.45 05/26/2014 RALPH SEGOVIA MD Ot 733.90 05/26/2014 RALPH SEGOVIA MD Ot 786.50 05/26/2014 RALPH SEGOVIA MD Ot 790.29 05/26/2014 RALPH SEGOVIA MD Ot V58.69 06/20/2014 LARISA BLAIR MD Ot 203.00 06/20/2014 LARISA BLAIR MD Ot 285.22 06/20/2014 JOHNNIE GONZALEZ, BROCK-FREYA Ot 338.3 06/20/2014 JOHNNIE GONZALEZ, LARISA Ot 357.6 06/20/2014 JOHNNIE GONZALEZ, LARISA Ot E849.7 06/20/2014 JOHNNIE GONZALEZ, LARISA Ot E933.1 06/20/2014 JOHNNIE GONZALEZ, BROCK-FREYA Ot V58.69 06/23/2014 LUCA GONZALEZ, RALPH K Ot 203.00 06/23/2014 LUCA GONZALEZ, RALPH K Ot 275.42 06/23/2014 LUCA GONZALEZ, RALPH K Ot 285.9 06/23/2014 LUCA GONZALEZ, RALPH K Ot 401.9 06/23/2014 LUCA GONZALEZ, RALPH K Ot 593.9 06/23/2014 LUCA GONZALEZ, RALPH K Ot 719.41 06/23/2014 LUCA GONZALEZ, RALPH K Ot 719.45 06/23/2014 LUCA GONZALEZ, RALPH K Ot 733.90 06/23/2014 LUCA GONZALEZ, RALPH K Ot 786.50 06/23/2014 LUCA GONZALEZ, RALPH K Ot 790.29 06/23/2014 LUCA GONZALEZ, RALPH K Ot V58.69 06/24/2014 LUCA GONZALEZ, RALPH K Ot 203.00 06/24/2014 LUCA GONZALEZ, RALPH K Ot 275.42 06/24/2014 LUCA GONZALEZ, RALPH K Ot 285.9 06/24/2014 LUCA GONZALEZ, RALPH K Ot 401.9 06/24/2014 LUCA GONZALEZ, RALPH K Ot 593.9 06/24/2014 LUCA GONZALEZ, RALPH K Ot 719.41 06/24/2014 LUCA GONZALEZ, RALPH K Ot 719.45 06/24/2014 LUCA GONZALEZ, RALPH K Ot 733.90 06/24/2014 LUCA GONZALEZ, RALPH K Ot 786.50 06/24/2014 LUCA GONZALEZ, RALPH K Ot 790.29 06/24/2014 LUCA GONZALEZ, RALPH K Ot V58.69 07/19/2014 JOHNNIE GONZALEZ, BROCK-FREYA Ot 203.00 07/19/2014 JOHNNIE GONZALEZ, LARISA Ot 285.22 07/19/2014 JOHNNIE GONZALEZ, LARISA Ot 338.3 07/19/2014 JOHNNIE GONZALEZ, LARISA Ot 357.6 07/19/2014 JOHNNIE GONZALEZ, LARISA Ot E849.7 07/19/2014 JOHNNIE GONZALEZ, LAIRSA Ot E933.1 07/19/2014 JOHNNIE GONZALEZ, LARISA Ot V58.69 07/20/2014 LUCA GONZALEZ, RALPH [place] Ot 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, 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 07/20/2014 LUCA GONZALEZ, RALPH [place] Ot 275.42 HYPERCALCEMIA 07/20/2014 LUCA GONZALEZ, RALPH [place] Ot 285.9 ANEMIA NOS 07/20/2014 LUCA GONZALEZ, RALPH [place] Ot 401.9 HYPERTENSION NOS 07/20/2014 LUCA GONZALEZ, RALPH [place] Ot 593.9 RENAL URETERAL DIS NOS 07/20/2014 LUCA GONZALEZ, RALPH [place] Ot 719.41 JOINT PAIN-SHLDER 07/20/2014 LUCA GONZALEZ, RALPH [place] Ot 719.45 JOINT PAIN-PELVIS 07/20/2014 LUCA GONZALEZ, RALPH [place] Ot 733.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 07/20/2014 LUCA GONZALEZ, RALPH [place] Ot 786.50 CHEST PAIN NOS 07/20/2014 LUCA GONZALEZ, RALPH [place] Ot 790.29 OTHER ABNORMAL GLUCOSE 07/20/2014 LUCA GONZALEZ, RALPH [place] Ot V58.69 OT MED,LT,CURRENT USE 07/28/2014 LUCA GONZALEZ, RALPH [place] Ot 203.00 07/28/2014 LUCA GONZALEZ, RALPH [place] Ot 275.42 07/28/2014 LUCA GONZALEZ, RALPH [place] Ot 285.9 07/28/2014 LUCA GONZALEZ, RALPH [place] Ot 401.9 07/28/2014 LUCA GONZALEZ, RALPH [place] Ot 593.9 07/28/2014 LUCA GONZALEZ, RALPH [place] Ot 719.41 07/28/2014 LUCA GONZALEZ, RALPH [place] Ot 719.45 07/28/2014 LUCA GONZALEZ, RALPH [place] Ot 733.90 07/28/2014 LUCA GONZALEZ, RALPH [place] Ot 786.50 07/28/2014 LUCA GONZALEZ, RALPH [place] Ot 790.29 07/28/2014 LUCA GONZALEZ, RALPH [place] Ot V58.69 07/28/2014 LUCA GONZALEZ, RALPH [place] Ot 203.00 07/28/2014 LUCA GONZALEZ, RALPH [place] Ot 275.42 07/28/2014 LUCA GONZALEZ, RALPH [place] Ot 285.9 07/28/2014 LUCA GONZALEZ, RALPH [place] Ot 401.9 07/28/2014 LUCA GONZALEZ, RALPH [place] Ot 593.9 07/28/2014 LUCA GONZALEZ, RALPH [place] Ot 719.41 07/28/2014 LUCA GONZALEZ, RALPH [place] Ot 719.45 07/28/2014 LUCA GONZALEZ, RALPH K Ot 733.90 07/28/2014 LUCA GONZALEZ, RALPH K Ot 786.50 07/28/2014 LUCA GONZALEZ, RALPH K Ot 790.29 07/28/2014 LUCA GONZALEZ, RALPH K Ot V58.69 07/28/2014 JOHNNIE GONZALEZ, SCOTTFREYA Ot 203.00 07/28/2014 JOHNNIE GONZALEZ, LARISA Ot 285.22 07/28/2014 JOHNNIE GONZALEZ, SCOTTFREYA Ot 338.3 07/28/2014 JOHNNIE GONZALEZ, LARISA Ot 357.6 07/28/2014 JOHNNIE GONZALEZ, LARISA Ot E849.7 07/28/2014 JOHNNIE GONZALEZ, SCOTTFREYA Ot E933.1 07/28/2014 JOHNNIE GONZALEZ, LARISA Ot V58.69 07/28/2014 LUCA GONZALEZ, RALPH K Ot 203.00 07/28/2014 LUCA GONZALEZ, RALPH K Ot 275.42 07/28/2014 LUCA GONZALEZ, RALPH K Ot 285.9 07/28/2014 LUCA GONZALEZ, RALPH K Ot 401.9 07/28/2014 LUCA GONZALEZ, RALPH K Ot 593.9 07/28/2014 LUCA GONZALEZ, RALPH K Ot 719.41 07/28/2014 LUCA GONZALEZ, RALPH K Ot 719.45 07/28/2014 LUCA GONZALEZ, RALPH K Ot 733.90 07/28/2014 LUCA GONZALEZ, RALPH K Ot 786.50 07/28/2014 LUCA GONZALEZ, RALPH K Ot 790.29 07/28/2014 LUCA GONZALEZ, RALPH K Ot V58.69 07/29/2014 LUCA GONZALEZ, RALPH K Ot 203.00 07/29/2014 LUCA GONZALEZ, RALPH K Ot 275.42 07/29/2014 LUCA GONZALEZ, RALPH K Ot 285.9 07/29/2014 LUCA GONZALEZ, RALPH K Ot 401.9 07/29/2014 LUCA GONZALEZ, RALPH K Ot 593.9 07/29/2014 LUCA GONZALEZ, RALPH K Ot 719.41 07/29/2014 LUCA GONZALEZ, RALPH K Ot 719.45 07/29/2014 LUCA GONZALEZ, RALPH K Ot 733.90 07/29/2014 LUCA GONZALEZ, RALPH K Ot 786.50 07/29/2014 LUCA GONZALEZ, RALPH K Ot 790.29 07/29/2014 LUCA GONZALEZ, RALPH K Ot V58.69 09/10/2014 LUCA GONZALEZ, RALPH K Ot 203.00 09/10/2014 LUCA GONZALEZ, RALPH K Ot 275.42 09/10/2014 LUCA GONZALEZ, RALPH K Ot 285.9 09/10/2014 LUCA GONZALEZ, RALPH K Ot 401.9 09/10/2014 LUCA GONZALEZ, RALPH K Ot 593.9 09/10/2014 LUCA GONZALEZ, RALPH K Ot 719.41 09/10/2014 LUCA GONZALEZ, RALPH K Ot 719.45 09/10/2014 LUCA GONZALEZ, RALPH K Ot 733.90 09/10/2014 LUCA GONZALEZ, RALPH K Ot 786.50 09/10/2014 LUCA GONZALEZ, RALPH K Ot 790.29 09/10/2014 LUCA GONZALEZ, RALPH K Ot V58.69 09/16/2014 LUCA GONZALEZ, RALPH K Ot 203.00 09/16/2014 LUCA GONZALEZ, RALPH K Ot 275.42 09/16/2014 LUCA GONZALEZ, RALPH K Ot 285.9 09/16/2014 LUCA GONZALEZ, RALPH K Ot 401.9 09/16/2014 LUCA GONZALEZ, RALPH Pawan Ot 593.9 09/16/2014 LUCA GONZALEZ, RALPH K Ot 719.41 09/16/2014 LUCA GONZALEZ, RALPH K Ot 719.45 09/16/2014 LUCA GONZALEZ, RALPH K Ot 733.90 09/16/2014 LUCA GONZALEZ, RALPH K Ot 786.50 09/16/2014 LUCA GONZALEZ, RALPH K Ot 790.29 09/16/2014 LUCA GONZALEZ, RALPH K Ot V58.69 09/19/2014 LUCA GONZALEZ, RALPH K Ot 203.00 09/19/2014 LUCA GONZALEZ, RALPH K Ot 275.42 09/19/2014 LUCA GONZALEZ, RALPH K Ot 285.9 09/19/2014 LUCA GONZALEZ, RALPH K Ot 401.9 09/19/2014 LUCA GONZALEZ, RALPH K Ot 593.9 09/19/2014 LUCA GONZALEZ, RALPH K Ot 719.41 09/19/2014 LUCA GONZALEZ, RALPH K Ot 719.45 09/19/2014 LUCA GONZALEZ, RALPH K Ot 733.90 09/19/2014 LUCA GONZALEZ, RALPH K Ot 786.50 09/19/2014 LUCA GONZALEZ, RALPH K Ot 790.29 09/19/2014 LUCA GONZALEZ, RALPH K Ot V58.69 10/08/2014 LUCA GONZALEZ, RALPH K Ot 203.00 10/08/2014 LUCA GONZALEZ, RALPH K Ot 275.42 10/08/2014 LUCA GONZALEZ, RALPH K Ot 285.9 10/08/2014 RALPH SEGOVIA MD Ot 401.9 10/08/2014 RALPH SEGOVIA MD Ot 593.9 10/08/2014 RALPH SEGOVIA MD Ot 719.41 10/08/2014 RALPH SEGOVIA MD Ot 719.45 10/08/2014 RALPH SEGOVIA MD Ot 733.90 10/08/2014 RALPH SEGOVIA MD Ot 786.50 10/08/2014 RALPH SEGOVIA MD Ot 790.29 10/08/2014 RALPH SEGOVIA MD Ot V58.69 10/26/2014 RALPH SEGOVIA MD Ot 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, 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 10/26/2014 RALPH SEGOVIA MD Ot 275.42 HYPERCALCEMIA 10/26/2014 RALPH SEGOVIA MD Ot 285.9 ANEMIA NOS 10/26/2014 RALPH SEGOVIA MD Ot 401.9 HYPERTENSION NOS 10/26/2014 RALPH SEGOVIA MD Ot 593.9 RENAL URETERAL DIS NOS 10/26/2014 RALPH SEGOVIA MD Ot 719.41 JOINT PAIN-SHLDER 10/26/2014 RALPH SEGOVIA MD Ot 719.45 JOINT PAIN-PELVIS 10/26/2014 RALPH SEGOVIA MD Ot 733.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 10/26/2014 RALPH SEGOVIA MD Ot 786.50 CHEST PAIN NOS 10/26/2014 RALPH SEGOVIA MD Ot 790.29 OTHER ABNORMAL GLUCOSE 10/26/2014 RALPH SEGOVIA MD Ot V58.69 OTH MED,LT,CURRENT USE 10/27/2014 RALPH SEGOVIA MD Ot 203.00 10/27/2014 RALPH SEGOVIA MD Ot 275.42 10/27/2014 RALPH SEGOVIA MD Ot 285.9 10/27/2014 RALPH SEGOVIA MD Ot 401.9 10/27/2014 RALPH SEGOVIA MD Ot 593.9 10/27/2014 RALPH SEGOVIA MD Ot 719.41 10/27/2014 RALPH SEGOVIA MD Ot 719.45 10/27/2014 RALPH SEGOVIA MD Ot 733.90 10/27/2014 RALPH SEGOVIA MD Ot 786.50 10/27/2014 RALPH SEGOVIA MD Ot 790.29 10/27/2014 RALPH SEGOVIA MD Ot V58.69 11/03/2014 LUCA MD, RALPH K Ot 203.00 11/03/2014 LUCA GONZALEZ, RALPH K Ot 275.42 11/03/2014 LUCA GONZALEZ, RALPH K Ot 285.9 11/03/2014 LUCA GONZALEZ, RALPH K Ot 401.9 11/03/2014 LUCA GONZALEZ, RALPH Pawan Ot 593.9 11/03/2014 LUCA GONZALEZ, RALPH K Ot 719.41 11/03/2014 LUCA GONZALEZ, RALPH K Ot 719.45 11/03/2014 LUCA GONZALEZ, RALPH Pawan Ot 733.90 11/03/2014 LUCA GONZALEZ, RALPH K Ot 786.50 11/03/2014 LUCA GONZALEZ, RALPH K Ot 790.29 11/03/2014 LUCA GONZALEZ, RALPH K Ot V58.69 11/04/2014 LUCA GONZALEZ, RALPH K Ot 203.00 11/04/2014 LUCA GONZALEZ, RALPH Pawan Ot 275.42 11/04/2014 LUCA GONZALEZ, RALPH K Ot 285.9 11/04/2014 LUCA GONZALEZ, RALPH [place] Ot 401.9 11/04/2014 LUCA GONZALEZ, RALPH [place] Ot 593.9 11/04/2014 LUCA GONZALEZ, RALPH K Ot 719.41 11/04/2014 LUCA GONZALEZ, RALPH K Ot 719.45 11/04/2014 LUCA GONZALEZ, RALPH K Ot 733.90 11/04/2014 LUCA GONZALEZ, RALPH K Ot 786.50 11/04/2014 LUCA GONZALEZ, RALPH K Ot 790.29 11/04/2014 LUCA GONZALEZ, RALPH K Ot V58.69 11/06/2014 LUCA GONZALEZ, RALPH K Ot 203.00 11/06/2014 LUCA GONZALEZ, RALPH K Ot 275.42 11/06/2014 LUCA GONZALEZ, RALPH K Ot 285.9 11/06/2014 LUCA GONZALEZ, RALPH K Ot 401.9 11/06/2014 LUCA GONZALEZ, RALPH K Ot 593.9 11/06/2014 LUCA GONZALEZ, RALPH K Ot 719.41 11/06/2014 LUCA GONZALEZ, RALPH K Ot 719.45 11/06/2014 LUCA GONZALEZ, RALPH K Ot 733.90 11/06/2014 LUCA GONZALEZ, RALPH K Ot 786.50 11/06/2014 LUCA GONZALEZ, RALPH K Ot 790.29 11/06/2014 LUCA GONZALEZ, RALPH K Ot V58.69 12/03/2014 LUCA GONZALEZ, RALPH K Ot 203.00 12/03/2014 LUCA GONZALEZ, RALPH K Ot 275.42 12/03/2014 LUCA GONZALEZ, RALPH K Ot 285.9 12/03/2014 LUCA GONZALEZ, RALPH K Ot 401.9 12/03/2014 LUCA GONZALEZ, RALPH K Ot 593.9 12/03/2014 LUCA GONZALEZ, RALPH K Ot 719.41 12/03/2014 LUCA GONZALEZ, RALPH K Ot 719.45 12/03/2014 LUCA GONZALEZ, RALPH K Ot 733.90 12/03/2014 LUCA GONZALEZ, RALPH K Ot 786.50 12/03/2014 LUCA GONZALEZ, RALPH K Ot 790.29 12/03/2014 LUCA GONZALEZ, RALPH K Ot V58.69 12/03/2014 LUCA GONZALEZ, RALPH K Ot 203.00 12/03/2014 LUCA GONZALEZ, RALPH K Ot 275.42 12/03/2014 LUCA GONZALEZ, RALPH K Ot 285.9 12/03/2014 LUCA GONZALEZ, RALPH K Ot 401.9 12/03/2014 LUCA GONZALEZ, RALPH K Ot 593.9 12/03/2014 LUCA GONZALEZ, RALPH K Ot 719.41 12/03/2014 LUCA GONZALEZ, RALPH K Ot 719.45 12/03/2014 LUCA GONZALEZ, RALPH K Ot 733.90 12/03/2014 LUCA GONZALEZ, RALPH K Ot 786.50 12/03/2014 LUCA GONZALEZ, RALPH K Ot 790.29 12/03/2014 LUCA GONZALEZ, RALPH K Ot V58.69 12/22/2014 LUCA GONZALEZ, RALPH K Ot 203.00 12/22/2014 LUCA GONZALEZ, RALPH K Ot 275.42 12/22/2014 LUCA GONZALEZ, RALPH K Ot 285.9 12/22/2014 LUCA GONZALEZ, RALPH K Ot 401.9 12/22/2014 LUCA GONZALEZ, RALPH K Ot 593.9 12/22/2014 LUCA GONZALEZ, RALPH K Ot 719.41 12/22/2014 LUCA GONZALEZ, RALPH K Ot 719.45 12/22/2014 LUCA GONZALEZ, RALPH K Ot 733.90 12/22/2014 LUCA GONZALEZ, RALPH K Ot 786.50 12/22/2014 LUCA GONZALEZ, RALPH K Ot 790.29 12/22/2014 LUCA GONZALEZ, RALPH K Ot V58.69 12/25/2014 LUCA GONZALEZ, RALPH K Ot 203.00 12/25/2014 LUCA GONZALEZ, RALPH K Ot 275.42 12/25/2014 LUCA GONZALEZ, RALPH K Ot 285.9 12/25/2014 LUCA GONZALEZ, RALPH K Ot 401.9 12/25/2014 LUCA GONZALEZ, RALPH [place] Ot 593.9 12/25/2014 LUCA GONZALEZ, RALPH K Ot 719.41 12/25/2014 LUCA GONZALEZ, RALPH [place] Ot 719.45 12/25/2014 LUCA GONZALEZ, RALPH K Ot 733.90 12/25/2014 LUCA GONZALEZ, RALPH K Ot 786.50 12/25/2014 LUCA GONZALEZ, RALPH K Ot 790.29 12/25/2014 LUCA GONZALEZ, RALPH K Ot V58.69 01/02/2015 LUCA GONZALEZ, RALPH K Ot 203.00 01/02/2015 LUCA GONZALEZ, RALPH K Ot 275.42 01/02/2015 LUCA GONZALEZ, RALPH K Ot 285.9 01/02/2015 LUCA GONZALEZ, RALPH [place] Ot 401.9 01/02/2015 LUCA GONZALEZ, RALPH [place] Ot 593.9 01/02/2015 LUCA GONZALEZ, RALPH K Ot 719.41 01/02/2015 LUCA GONZALEZ, RALPH [place] Ot 719.45 01/02/2015 LUCA GONZALEZ, RALPH [place] Ot 733.90 01/02/2015 LUCA GONZALEZ, RALPH [place] Ot 786.50 01/02/2015 LUCA GONZALEZ, RALPH K Ot 790.29 01/02/2015 LUCA GONZALEZ, RALPH K Ot V58.69 01/12/2015 LUCA GONZALEZ, RALPH [place] Ot 203.00 01/12/2015 LUCA GONZALEZ, RALPH K Ot 275.42 01/12/2015 LUCA GONZALEZ, RALPH K Ot 285.9 01/12/2015 LUCA GONZALEZ, RALPH [place] Ot 401.9 01/12/2015 LUCA GONZALEZ, RALPH [place] Ot 593.9 01/12/2015 LUCA GONZALEZ, RALPH K Ot 719.41 01/12/2015 LUCA GONZALEZ, RALPH K Ot 719.45 01/12/2015 LUCA GONZALEZ, RALPH K Ot 733.90 01/12/2015 LUCA GONZALEZ, RALPH K Ot 786.50 01/12/2015 LUCA GONZALEZ, RALPH K Ot 790.29 01/12/2015 LUCA GONZALEZ, RALPH K Ot V58.69 01/15/2015 LUCA GONZALEZ, RALPH K Ot 203.00 01/15/2015 LUCA GONZALEZ, RALPH K Ot 275.42 01/15/2015 LUCA GONZALEZ, RALPH K Ot 285.9 01/15/2015 LUCA GONZALEZ, RALPH K Ot 401.9 01/15/2015 LUCA GONZALEZ, RALPH K Ot 593.9 01/15/2015 LUCA GONZALEZ, RALPH [place] Ot 719.41 01/15/2015 LUCA GONZALEZ, RALPH [place] 719.45 01/15/2015 LUCA GONZALEZ, RALPH [place] 733.90 01/15/2015 LUCA GONZALEZ, RALPH [place] 786.50 01/15/2015 LUCA GONZALEZ, RALPH P[place] Ot 790.29 01/15/2015 LUCA GONZALEZ, RALPH [place] V58.69 01/15/2015 LUCA GONZALEZ, RALPH [place] 203.00 01/15/2015 LUCA GONZALEZ, RALPH [place] Ot 275.42 01/15/2015 LUCA GONZALEZ, RALPH [place] 285.9 01/15/2015 LUCA GONZALEZ, RALPH [place] 401.9 01/15/2015 LUCA GONZALEZ, RALPH [place] Ot 593.9 01/15/2015 LUCA GONZALEZ, RALPH [place] 719.41 01/15/2015 LUCA GONZALEZ, RALPH [place] 719.45 01/15/2015 LUCA GONZALEZ, RALPH [place] Ot 733.90 01/15/2015 LUCA GONZALEZ, RALPH [place] 786.50 01/15/2015 LUCA GONZALEZ, RALPH [place] Ot 790.29 01/15/2015 LUCA GONZALEZ, RALPH [place] Ot V58.69 01/20/2015 [facility] Ot 203.00 01/20/2015 [facility] Ot 285.9 01/20/2015 [facility] Ot 585.3 01/20/2015 [facility] Ot V58.69 01/20/2015 [facility] Ot 203.00 01/20/2015 [facility] Ot 285.9 01/20/2015 [facility] Ot 585.3 01/20/2015 [facility] Ot V58.69 02/01/2015 LUCA GONZALEZ, RALPH [place] Ot 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, 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 02/01/2015 LUCA GONZALEZ, RALPH [place] Ot 275.42 HYPERCALCEMIA 02/01/2015 LUCA GONZALEZ, RALPH [place] Ot 285.9 ANEMIA NOS 02/01/2015 LUCA GONZALEZ, RALPH [place] Ot 401.9 HYPERTENSION NOS 02/01/2015 LUCA GONZALEZ, RALPH [place] Ot 593.9 RENAL URETERAL DIS NOS 02/01/2015 LUCA GONZALEZ, RALPH [place] Ot 719.41 JOINT PAIN-SHLDER 02/01/2015 LUCA GONZALEZ, RALPH [place] Ot 719.45 JOINT PAIN-PELVIS 02/01/2015 LUCA GONZALEZ, RALPH [place] Ot 733.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 02/01/2015 LUCA GONZALEZ, RALPH [place] Ot 786.50 CHEST PAIN NOS 02/01/2015 LUCA GONZALEZ, RALPH [place] Ot 790.29 OTHER ABNORMAL GLUCOSE 02/01/2015 LUCA GONZALEZ, RALPH [place] V58.69 OTH MED,LT,CURRENT USE 02/02/2015 LUCA GONZALEZ, RALPH [place] Ot 203.00 02/02/2015 LUCA GONZALEZ, RALPH [place] Ot 275.42 02/02/2015 LUCA GONZALEZ, RALPH [place] Ot 285.9 02/02/2015 LUCA GONZALEZ, RALPH [place] Ot 401.9 02/02/2015 LUCA GONZALEZ, RALPH [place] Ot 593.9 02/02/2015 LUCA GONZALEZ, RALPH [place] Ot 719.41 02/02/2015 LUCA GONZALEZ, RALPH [place] Ot 719.45 02/02/2015 LUCA GONZALEZ, RALPH [place] Ot 733.90 02/02/2015 LUCA GONZALEZ, RALPH [place] Ot 786.50 02/02/2015 LUCA GONZALEZ, RALPH [place] 790.29 02/02/2015 LUCA GONZALEZ, RALPH [place] V58.69 02/03/2015 LUCA GONZALEZ, RALPH [place] 203.00 02/03/2015 LUCA GONZALEZ, RALPH [place] 275.42 02/03/2015 LUCA GONZALEZ, RALPH [place] Ot 285.9 02/03/2015 LUCA GONZALEZ, RALPH [place] 401.9 02/03/2015 LUCA GONZALEZ, RALPH [place] Ot 593.9 02/03/2015 LUCA GONZALEZ, RALPH [place] Ot 719.41 02/03/2015 LUCA GONZALEZ, RALPH [place] 719.45 02/03/2015 LUCA GONZALEZ, RALPH [place] Ot 733.90 02/03/2015 LUCA GONZALEZ, RALPH [place] Ot 786.50 02/03/2015 LUCA GONZALEZ, RAPLH [place] Ot 790.29 02/03/2015 LUCA GONZALEZ, RALPH [place] V58.69 02/10/2015 LUCA GONZALEZ, RALPH [place] 203.00 02/10/2015 LUCA GONZALEZ, RALPH [place] 275.42 02/10/2015 LUCA GONZALEZ, RALPH [place] Ot 285.9 02/10/2015 LUCA GONZALEZ, RALPH K Ot 401.9 02/10/2015 LUCA GONZALEZ, RALPH [place] Ot 593.9 02/10/2015 LUCA GONZALEZ, RALPH [place] 719.41 02/10/2015 LUCA GONZALEZ, RALPH [place] 719.45 02/10/2015 LUCA GONZALEZ, RALPH [place] Ot 733.90 02/10/2015 LUCA GONZALEZ, RALPH [place] Ot 786.50 02/10/2015 LUCA GONZALEZ, RALPH [place] Ot 790.29 02/10/2015 RALPH SEGOVIA MD Ot V58.11 02/10/2015 LUCA GONZALEZ, RALPH [place] V58.69 03/11/2015 LUCA GONZALEZ, RALPH [place] 203.00 03/11/2015 RALPH SEGOVIA MD Ot 275.42 03/11/2015 RALPH SEGOVIA MD Ot 285.9 03/11/2015 LUCA GONZALEZ, RALPH [place] Ot 401.9 03/11/2015 RALPH SEGOVIA MD Ot 593.9 03/11/2015 RALPH SEGOVIA MD Ot 719.41 03/11/2015 RALPH SEGOVIA MD Ot 719.45 03/11/2015 RALPH SEGOVIA MD Ot 733.90 03/11/2015 RALPH SEGOVIA MD Ot 786.50 03/11/2015 RALPH SEGOVIA MD Ot 790.29 03/11/2015 RALPH SEGOVIA MD Ot V58.11 03/11/2015 RALPH SEGOVIA MD Ot V58.69 03/18/2015 LUCA GONZALEZ, RALPH [place] Ot 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, 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 03/18/2015 RALPH SEGOVIA MD Ot 275.42 HYPERCALCEMIA 03/18/2015 RALPH SEGOVIA MD Ot 285.9 ANEMIA NOS 03/18/2015 RALPH SEGOVIA MD Ot 401.9 HYPERTENSION NOS 03/18/2015 RALPH SEGOVIA MD Ot 593.9 RENAL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 09/22/2016 RALPH SEGOVIA MD, Ot M25.551 PAIN IN RIGHT HIP 09/22/2016 RALPH SEGOVIA MD, Ot M25.552 PAIN IN LEFT HIP 09/22/2016 RALPH SEGOVIA MD, Ot M54.5 LOW BACK PAIN 09/22/2016 RALPH SEGOVIA MD, Ot 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 09/22/2016 RALPH SEGOVIA MD, Ot R05 COUGH 09/22/2016 RALPH SEGOVIA MD, Ot R91.8 OTHER NONSPECIFIC ABNORMAL FINDING OF JANN 09/22/2016 RALPH SEGOVIA MD, Ot 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 09/22/2016 RALPH SEGOVIA MD, Ot R19.00 INTRA-ABD AND PELVIC SWELLING, MASS AND 09/22/2016 RALPH SEGOVIA MD, Ot 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 09/22/2016 RALPH SEGOVIA MD, Ot R06.02 SHORTNESS OF BREATH 09/22/2016 RALPH SEGOVIA MD, Ot 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 09/22/2016 RALPH SEGOVIA MD, Ot D64.9 ANEMIA, UNSPECIFIED 09/22/2016 RALPH SEGOVIA MD, Ot E83.52 HYPERCALCEMIA 09/22/2016 RALPH SEGOVIA MD, Ot I10 ESSENTIAL (PRIMARY) HYPERTENSION 09/22/2016 RALPH SEGOVIA MD, Ot Z51.11 ENCOUNTER FOR ANTINEOPLASTIC CHEMOTHERAP 09/22/2016 RALPH SEGOVIA MD, Ot 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 10/06/2016 RALPH SEGOVIA MD, Ot 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 10/06/2016 RALPH SEGOVIA MD, Ot D64.9 ANEMIA, UNSPECIFIED 10/06/2016 RALPH SEGOVIA MD, Ot E83.52 HYPERCALCEMIA 10/06/2016 RALPH SEGOVIA MD Ot I10 ESSENTIAL (PRIMARY) HYPERTENSION 10/06/2016 RALPH SEGOVIA MD, Ot Z51.11 ENCOUNTER FOR ANTINEOPLASTIC CHEMOTHERAP 10/06/2016 LUCA GONZALEZ RALPH Pawan Ot 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 10/24/2016 RALPH SEGOVIA MD Ot 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 10/24/2016 RALPH SEGOVIA MD Ot D64.9 ANEMIA, UNSPECIFIED 10/24/2016 RALPH SEGOVIA MD Ot E83.52 HYPERCALCEMIA 10/24/2016 RALPH SEGOVIA MD Ot I10 ESSENTIAL (PRIMARY) HYPERTENSION 10/24/2016 RALPH SEGOVIA MD Ot Z51.11 ENCOUNTER FOR ANTINEOPLASTIC CHEMOTHERAP 10/24/2016 LUCA GONZALEZ RALPH Pawan Boyd Z79.899 OTHER SKILLED NURSING (CURRENT) DRUG THERAPY 11/07/2016 Ot 285.9 ANEMIA NOS 11/07/2016 Ot 733.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 11/07/2016 Ot 793.19 OTHER NONSPECIFIC ABNORMAL FINDING OF JANN 11/07/2016 Ot 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, 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 11/07/2016 RALPH SEGOVIA MD Ot 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, 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 11/07/2016 LUCA GONZALEZ RALPH Pawan Ot 722.4 CERVICAL DISC DEGEN 11/07/2016 LUCA GONZALEZ RALPH Pawan Ot 724.1 PAIN IN THORACIC SPINE 11/07/2016 KARLEY WHITMORE Ot 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, 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 11/07/2016 KARLEY WHITMOREP Ot 275.42 HYPERCALCEMIA 11/07/2016 KARLEY WHITMOREP Ot 285.9 ANEMIA NOS 11/07/2016 KARLEY WHITMOREP Ot 403.90 HYPTNSV CHR KID DIS, UNSPEC, W CHR KD ST 11/07/2016 KARLEY WHITMOREP Ot 585.3 CHRONIC KIDNEY DISEASE, STAGE III (MODER 11/07/2016 KARLEY WHITMOREP Ot 716.90 ARTHROPATHY NOS-UNSPEC 11/07/2016 RALPH SEGOVIA MD Ot 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 11/07/2016 LARISA BLAIR MD Ot 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, 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 11/07/2016 LARISA BLAIR MD Ot 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 11/07/2016 LARISA BLAIR MD Ot 338.3 NEOPLASM RELATED PAIN (ACUTE)(CHRONIC) 11/07/2016 LARISA BLAIR MD Ot 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 11/07/2016 LARISA BLAIR MD Ot E849.7 ACCID IN RESIDENT INSTIT 11/07/2016 LARISA BLAIR MD Ot E933.1 ADV EFF ANTINEOPLASTIC 11/07/2016 LARISA BLAIR MD, Ot V58.69 OTH MED,LT,CURRENT USE 11/07/2016 KARLEY WHITMOREP Ot 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, 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 11/07/2016 KARLEY WHITMORE [facility] Ot 285.9 ANEMIA NOS 11/07/2016 KARLEY WHITMORE [facility] Ot 585.3 CHRONIC KIDNEY DISEASE, STAGE III (MODER 11/07/2016 KARLEY WHITMORE Ot V58.69 OTH MED,LT,CURRENT USE 11/07/2016 LOWE DDSARON Ot Z01.812 ENCOUNTER FOR PREPROCEDURAL LABORATORY E 11/07/2016 RALPH SEGOVIA MD Ot 959.2 SHLDR/UPPER ARM INJ NOS 11/07/2016 RALPH SEGOVIA MD Ot 959.6 HIP THIGH INJURY NOS 11/07/2016 RALPH SEGOVIA MD Ot E000.8 OTHER EXTERNAL CAUSE STATUS 11/07/2016 RALPH SEGOVIA MD Ot E849.0 ACCIDENT IN HOME 11/07/2016 RALPH SEGOVIA MD Ot E888.9 FALL NOS 11/07/2016 RALPH SEGOVIA MD Ot 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 11/07/2016 RALPH SEGOVIA MD Ot R60.9 EDEMA, UNSPECIFIED 11/07/2016 RALPH SEGOVIA MD Ot 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 11/07/2016 RALPH SEGOVIA MD Ot M25.551 PAIN IN RIGHT HIP 11/07/2016 RALPH SEGOVIA MD, Ot M25.552 PAIN IN LEFT HIP 11/07/2016 RALPH SEGOVIA MD Ot M54.5 LOW BACK PAIN 11/07/2016 RALPH SEGOVIA MD Ot 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 11/07/2016 RALPH SEGOVIA MD Ot R05 COUGH 11/07/2016 RALPH SEGOVIA MD Ot R91.8 OTHER NONSPECIFIC ABNORMAL FINDING OF JANN 11/07/2016 RALPH SEGOVIA MD Ot 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 11/07/2016 RALPH SEGOVIA MD Ot R19.00 INTRA-ABD AND PELVIC SWELLING, MASS AND 11/07/2016 RALPH SEGOVIA MD, Ot 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 11/07/2016 RALPH SEGOVIA MD Ot R06.02 SHORTNESS OF BREATH 11/07/2016 RALPH SEGOVIA MD Ot 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 11/07/2016 RALPH SEGOVIA MD Ot D64.9 ANEMIA, UNSPECIFIED 11/07/2016 RALPH SEGOVIA MD Ot E83.52 HYPERCALCEMIA 11/07/2016 RALPH SEGOVIA MD Ot I10 ESSENTIAL (PRIMARY) HYPERTENSION 11/07/2016 RALPH SEGOVIA MD Ot Z51.11 ENCOUNTER FOR ANTINEOPLASTIC CHEMOTHERAP 11/07/2016 RALPH SEGOVIA MD, Ot Z79.899 OTHER SKILLED NURSING (CURRENT) DRUG THERAPY 11/21/2016 Ot 285.9 ANEMIA NOS 11/21/2016 Ot 733.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 11/21/2016 Ot 793.19 OTHER NONSPECIFIC ABNORMAL FINDING OF JANN 11/21/2016 Ot 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, 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 11/21/2016 RALPH SEGOVIA MD Ot 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, 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 11/21/2016 RALPH SEGOVIA MD Ot 722.4 CERVICAL DISC DEGEN 11/21/2016 RALPH SEGOVIA MD Ot 724.1 PAIN IN THORACIC SPINE 11/21/2016 KARLEY WHITMORE Ot 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, 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 11/21/2016 KARLEY WHITMORE Ot 275.42 HYPERCALCEMIA 11/21/2016 KARLEY WHITMOREP Ot 285.9 ANEMIA NOS 11/21/2016 KARLEY WHITMOREP Ot 403.90 HYPTNSV CHR KID DIS, UNSPEC, W CHR KD ST 11/21/2016 KARLEY WHITMORE Ot 585.3 CHRONIC KIDNEY DISEASE, STAGE III (MODER 11/21/2016 KARLEY WHITMOREP Ot 716.90 ARTHROPATHY NOS-UNSPEC 11/21/2016 RALPH SEGOVIA MD Ot 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 11/21/2016 LARISA BLAIR MD Ot 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, 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 11/21/2016 LARISA BLAIR MD Ot 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 11/21/2016 LARISA BLAIR MD Ot 338.3 NEOPLASM RELATED PAIN (ACUTE)(CHRONIC) 11/21/2016 LARISA BLAIR MD Ot 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 11/21/2016 LARISA BLAIR MD Ot E849.7 ACCID IN RESIDENT INSTIT 11/21/2016 LARISA BLAIR MD Ot E933.1 ADV EFF ANTINEOPLASTIC 11/21/2016 LARISA BLAIR MD, Ot V58.69 OTH MED,LT,CURRENT USE 11/21/2016 KARLEY WHITMORE Ot 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, 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 11/21/2016 KARLEY WHITMORE [facility] Ot 285.9 ANEMIA NOS 11/21/2016 KARLEY WHITMORE [facility] Ot 585.3 CHRONIC KIDNEY DISEASE, STAGE III (MODER 11/21/2016 KARLEY WHITMORE Ot V58.69 OTH MED,LT,CURRENT USE 11/21/2016 LOWE DDSARON Ot Z01.812 ENCOUNTER FOR PREPROCEDURAL LABORATORY E 11/21/2016 RALPH SEGOVIA MD Ot 959.2 SHLDR/UPPER ARM INJ NOS 11/21/2016 RALPH SEGOVIA MD Ot 959.6 HIP THIGH INJURY NOS 11/21/2016 RALPH SEGOVIA MD Ot E000.8 OTHER EXTERNAL CAUSE STATUS 11/21/2016 RALPH SEGOVIA MD Ot E849.0 ACCIDENT IN HOME 11/21/2016 RALPH SEGOVIA MD Ot E888.9 FALL NOS 11/21/2016 RALPH SEGOVIA MD Ot 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 11/21/2016 RALPH SEGOVIA MD Ot R60.9 EDEMA, UNSPECIFIED 11/21/2016 RALPH SEGOVIA MD Ot 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 11/21/2016 RALPH SEGOVIA MD Ot M25.551 PAIN IN RIGHT HIP 11/21/2016 RALPH SEGOVIA MD, Ot M25.552 PAIN IN LEFT HIP 11/21/2016 RALPH SEGOVIA MD Ot M54.5 LOW BACK PAIN 11/21/2016 RALPH SEGOVIA MD, Ot 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 11/21/2016 RALPH SEGOVIA MD Ot R05 COUGH 11/21/2016 RALPH SEGOVIA MD Ot R91.8 OTHER NONSPECIFIC ABNORMAL FINDING OF JANN 11/21/2016 RALPH SEGOVIA MD, Ot 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 11/21/2016 RALPH SEGOVIA MD, Ot R19.00 INTRA-ABD AND PELVIC SWELLING, MASS AND 11/21/2016 RALPH SEGOVIA MD, Ot 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 11/21/2016 RALPH SEGOVIA MD Ot R06.02 SHORTNESS OF BREATH 11/21/2016 RALPH SEGOVIA MD, Ot 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 11/21/2016 RALPH SEGOVIA MD Ot D64.9 ANEMIA, UNSPECIFIED 11/21/2016 RALPH SEGOVIA MD, Ot E83.52 HYPERCALCEMIA 11/21/2016 RALPH SEGOVIA MD Ot I10 ESSENTIAL (PRIMARY) HYPERTENSION 11/21/2016 RALPH SEGOVIA MD, Ot Z51.11 ENCOUNTER FOR ANTINEOPLASTIC CHEMOTHERAP 11/21/2016 RALPH SEGOVIA MD, Ot 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 11/21/2016 RALPH SEGOVIA MD Ot M16.0 BILATERAL PRIMARY OSTEOARTHRITIS OF HIP 11/21/2016 RALPH SEGOVIA MD, Ot M25.551 PAIN IN RIGHT HIP 11/21/2016 RALPH SEGOVIA MD, Ot M25.552 PAIN IN LEFT HIP 11/21/2016 RALPH SEGOVIA MD Ot M85.80 OTH DISRD OF BONE DENSITY AND STRUCTURE, 11/30/2016 Ot 285.9 ANEMIA NOS 11/30/2016 Ot 733.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 11/30/2016 Ot 793.19 OTHER NONSPECIFIC ABNORMAL FINDING OF JANN 11/30/2016 Ot 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, 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 11/30/2016 RALPH SEGOVIA MD Ot 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, 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 11/30/2016 RALPH SEGOVIA MD Ot 722.4 CERVICAL DISC DEGEN 11/30/2016 RALPH SEGOVIA MD Ot 724.1 PAIN IN THORACIC SPINE 11/30/2016 KARLEY WHITMORE Ot 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, 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 11/30/2016 KARLEY WHITMORE Ot 275.42 HYPERCALCEMIA 11/30/2016 KARLEY WHITMORE [facility] Ot 285.9 ANEMIA NOS 11/30/2016 KARLEY WHITMORE Ot 403.90 HYPTNSV CHR KID DIS, UNSPEC, W CHR KD ST 11/30/2016 KARLEY WHITMORE Ot 585.3 CHRONIC KIDNEY DISEASE, STAGE III (MODER 11/30/2016 KARLEY WHITMORE Ot 716.90 ARTHROPATHY NOS-UNSPEC 11/30/2016 RALPH SEGOVIA MD Ot 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 11/30/2016 LARISA BLAIR MD Ot 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, 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 11/30/2016 LARISA BLAIR MD Ot 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 11/30/2016 LARISA BLAIR MD Ot 338.3 NEOPLASM RELATED PAIN (ACUTE)(CHRONIC) 11/30/2016 LARISA BLAIR MD Ot 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 11/30/2016 LARISA BLAIR MD Ot E849.7 ACCID IN RESIDENT INSTIT 11/30/2016 LARISA BLAIR MD Ot E933.1 ADV EFF ANTINEOPLASTIC 11/30/2016 LARISA BLAIR MD, Ot V58.69 OTH MED,LT,CURRENT USE 11/30/2016 KARLEY WHITMORE Ot 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, 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 11/30/2016 KARLEY WHITMORE Ot 285.9 ANEMIA NOS 11/30/2016 KARLEY WHITMORE Ot 585.3 CHRONIC KIDNEY DISEASE, STAGE III (MODER 11/30/2016 KARLEY WHITMORE Ot V58.69 OTH MED,LT,CURRENT USE 11/30/2016 ARON ARCE DDS Ot Z01.812 ENCOUNTER FOR PREPROCEDURAL LABORATORY E 11/30/2016 RALPH SEGOVIA MD Ot 959.2 SHLDR/UPPER ARM INJ NOS 11/30/2016 RALPH SEGOVIA MD Ot 959.6 HIP THIGH INJURY NOS 11/30/2016 RALPH SEGOVIA MD Ot E000.8 OTHER EXTERNAL CAUSE STATUS 11/30/2016 RALPH SEGOVIA MD Ot E849.0 ACCIDENT IN HOME 11/30/2016 RALPH SEGOVIA MD Ot E888.9 FALL NOS 11/30/2016 RALPH SEGOVIA MD, Ot 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 11/30/2016 RALPH SEGOVIA MD, Ot R60.9 EDEMA, UNSPECIFIED 11/30/2016 RALPH SEGOVIA MD, Ot 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 11/30/2016 RALPH SEGOVIA MD, Ot M25.551 PAIN IN RIGHT HIP 11/30/2016 RALPH SEGOVIA MD, Ot M25.552 PAIN IN LEFT HIP 11/30/2016 RALPH SEGOVIA MD, Ot M54.5 LOW BACK PAIN 11/30/2016 RALPH SEGOVIA MD, Ot 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 11/30/2016 RALPH SEGOVIA MD, Ot R05 COUGH 11/30/2016 RALPH SEGOVIA MD, Ot R91.8 OTHER NONSPECIFIC ABNORMAL FINDING OF JANN 11/30/2016 RALPH SEGOVIA MD, Ot 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 11/30/2016 RALPH SEGOVIA MD, Ot R19.00 INTRA-ABD AND PELVIC SWELLING, MASS AND 11/30/2016 RALPH SEGOVIA MD, Ot 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 11/30/2016 RALPH SEGOVIA MD, Ot R06.02 SHORTNESS OF BREATH 11/30/2016 RALPH SEGOVIA MD, Ot 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 11/30/2016 RALPH SEGOVIA MD, Ot D64.9 ANEMIA, UNSPECIFIED 11/30/2016 RALPH SEGOVIA MD, Ot E83.52 HYPERCALCEMIA 11/30/2016 RALPH SEGOVIA MD, Ot I10 ESSENTIAL (PRIMARY) HYPERTENSION 11/30/2016 RALPH SEGOVIA MD, Ot Z51.11 ENCOUNTER FOR ANTINEOPLASTIC CHEMOTHERAP 11/30/2016 RALPH SEGOVIA MD, Ot Z79.899 OTHER SKILLED NURSING (CURRENT) DRUG THERAPY 11/30/2016 RALPH SEGOVIA MD, Ot M16.0 BILATERAL PRIMARY OSTEOARTHRITIS OF HIP 11/30/2016 RALPH SEGOVIA MD, Ot M25.551 PAIN IN RIGHT HIP 11/30/2016 RALPH SEGOVIA MD, Ot M25.552 PAIN IN LEFT HIP 11/30/2016 RALPH SEGOVIA MD, Ot M85.80 OTH DISRD OF BONE DENSITY AND STRUCTURE, 11/30/2016 RALPH SEGOVIA MD, Ot 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 11/30/2016 RALPH SEGOVIA MD, Ot D64.9 ANEMIA, UNSPECIFIED 11/30/2016 RALPH SEGOVIA MD, Ot E83.52 HYPERCALCEMIA 11/30/2016 RALPH SEGOVIA MD, Ot I10 ESSENTIAL (PRIMARY) HYPERTENSION 11/30/2016 RALPH SEGOVIA MD, Ot Z51.11 ENCOUNTER FOR ANTINEOPLASTIC CHEMOTHERAP 11/30/2016 RALPH SEGOVIA MD, Ot 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 11/30/2016 RALPH SEGOVIA MD, Ot M16.0 BILATERAL PRIMARY OSTEOARTHRITIS OF HIP 11/30/2016 RALPH SEGOVIA MD, Ot M25.551 PAIN IN RIGHT HIP 11/30/2016 RALPH SEGOVIA MD, Ot M25.552 PAIN IN LEFT HIP 11/30/2016 RALPH SEGOVIA MD, Ot M85.80 OT DISRD OF BONE DENSITY AND STRUCTURE, 12/07/2016 ROGELIO GONZALEZ, TRAV-YOMI Ot NA 12/07/2016 ROGELIO GONZALEZ, TRAV-YOMI Ot NA 12/07/2016 ROGELIO GONZALEZ, TRAV-YOMI Ot NA 12/07/2016 ROGELIO GONZALEZ, TRAV-YOMI Ot NA 12/07/2016 ROGELIO GONZALEZ, TRAV-YOMI Ot NA 12/07/2016 ROGELIO GONZALEZ, TRAV-YOMI Ot NA 12/08/2016 RALPH SEGOVIA MD Ot M16.0 BILATERAL PRIMARY OSTEOARTHRITIS OF HIP 12/08/2016 RALPH SEGOVIA MD, Ot M25.551 PAIN IN RIGHT HIP 12/08/2016 RALPH SEGOVIA MD, Ot M25.552 PAIN IN LEFT HIP 12/08/2016 RALPH SEGOVIA MD, Ot M85.80 OT DISRD OF BONE DENSITY AND STRUCTURE, 12/21/2016 RALPH SEGOVIA MD Ot 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52 HYPERCALCEMIA 12/29/2016 RALPH SEGOVIA MD Ot I10 ESSENTIAL (PRIMARY) HYPERTENSION 12/29/2016 RALPH SEGOVIA MD Ot Z51.11 ENCOUNTER FOR ANTINEOPLASTIC CHEMOTHERAP 12/29/2016 RALPH SEGOVIA MD Ot 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 01/25/2017 RALPH SEGOVIA MD, Ot 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 01/25/2017 RALPH SEGOVIA MD, Ot D64.9 ANEMIA, UNSPECIFIED 01/25/2017 RALPH SEGOVIA MD, Ot E83.52 HYPERCALCEMIA 01/25/2017 RALPH SEGOVIA MD Ot I10 ESSENTIAL (PRIMARY) HYPERTENSION 01/25/2017 RALPH SEGOVIA MD Ot Z51.11 ENCOUNTER FOR ANTINEOPLASTIC CHEMOTHERAP 01/25/2017 RALPH SEGOVIA MD Ot 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 02/23/2017 JESSE, BOBAN N Ot 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 02/23/2017 JESSE, BOBAN N Ot D64.9 ANEMIA, UNSPECIFIED 02/23/2017 JESSE, BOBAN N Ot E83.52 HYPERCALCEMIA 02/23/2017 JESSE, BOBAN N Ot I10 ESSENTIAL (PRIMARY) HYPERTENSION 02/23/2017 JESSE, BOBAN N Ot Z79.899 OTHER SKILLED NURSING (CURRENT) DRUG THERAPY 03/10/2017 JESSE, BOBAN N Ot 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 03/10/2017 JESSE, BOBAN N Ot D64.9 ANEMIA, UNSPECIFIED 03/10/2017 JESSE, BOBAN N Ot E83.52 HYPERCALCEMIA 03/10/2017 JESSE, BOBAN N Ot I10 ESSENTIAL (PRIMARY) HYPERTENSION 03/10/2017 JESSE, BOBAN N Ot Z79.899 OTHER SKILLED NURSING (CURRENT) DRUG THERAPY 03/15/2017 JESSE, BOBAN N Ot 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 03/15/2017 JESSE, BOBAN N Ot D64.9 ANEMIA, UNSPECIFIED 03/15/2017 JESSE, BOBAN N Ot E83.52 HYPERCALCEMIA 03/15/2017 JESSEJASMYNE TAFOYA N Ot I10 ESSENTIAL (PRIMARY) HYPERTENSION 03/15/2017 JESSEJASMYNE TAFOYA N Ot 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 03/18/2017 JESSEJASMYNE TAFOYA N Ot 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 03/18/2017 JESSEJASMYNE TAFOYA N Ot D64.9 ANEMIA, UNSPECIFIED 03/18/2017 JESSEJASMYNE TAFOYA N Ot E83.52 HYPERCALCEMIA 03/18/2017 JESSEJASMYNE TAFOYA N Ot I10 ESSENTIAL (PRIMARY) HYPERTENSION 03/18/2017 JESSEJASMYNE TAFOYA N Ot Z51.11 ENCOUNTER FOR ANTINEOPLASTIC CHEMOTHERAP 03/18/2017 JASMYNE MOLINA N Ot Z79.899 OTHER SKILLED NURSING (CURRENT) DRUG THERAPY 03/24/2017 JASMYNE MOLINA N Ot 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 03/24/2017 JESSE JASMYNE N Ot D64.9 ANEMIA, UNSPECIFIED 03/24/2017 JESSEJASMYNE TAFOYA N Ot E83.52 HYPERCALCEMIA 03/24/2017 JASMYNE MOLINA N Ot I10 ESSENTIAL (PRIMARY) HYPERTENSION 03/24/2017 JESSEJASMYNE TAFOYA N Ot Z51.11 ENCOUNTER FOR ANTINEOPLASTIC CHEMOTHERAP 03/24/2017 JASMYNE MOLINA N Ot 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 04/19/2017 JASMYNE MOLINA N Ot 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 04/19/2017 JESSE JASMYNE N Ot D64.9 ANEMIA, UNSPECIFIED 04/19/2017 JESSEJASMYNE N Ot E83.52 HYPERCALCEMIA 04/19/2017 JESSEJASMYNE N Ot I10 ESSENTIAL (PRIMARY) HYPERTENSION 04/19/2017 JESSEJASMYNE TAFOYA N Ot Z51.11 ENCOUNTER FOR ANTINEOPLASTIC CHEMOTHERAP 04/19/2017 JESSEJASMYNE TAFOYA N Ot Z79.899 OTHER SKILLED NURSING (CURRENT) DRUG THERAPY 04/21/2017 TAYLOR HILL MD Ot 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 04/21/2017 TAYLOR HILL MD, Ot D64.9 ANEMIA, UNSPECIFIED 04/21/2017 TAYLOR HILL MD, Ot E83.52 HYPERCALCEMIA 04/21/2017 TAYLOR HILL MD Ot I10 ESSENTIAL (PRIMARY) HYPERTENSION 04/21/2017 TAYLOR HILL MD Ot Z51.11 ENCOUNTER FOR ANTINEOPLASTIC CHEMOTHERAP 04/21/2017 TAYLOR HILL MD Ot 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 05/18/2017 TAYLOR HILL MD Ot 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 05/18/2017 TAYLOR HILL MD Ot D64.9 ANEMIA, UNSPECIFIED 05/18/2017 TAYLOR HILL MD Ot E83.52 HYPERCALCEMIA 05/18/2017 TAYLOR HILL MD Ot I10 ESSENTIAL (PRIMARY) HYPERTENSION 05/18/2017 TAYLOR HILL MD Ot Z51.11 ENCOUNTER FOR ANTINEOPLASTIC CHEMOTHERAP 05/18/2017 TAYLOR HILL MD Ot 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 06/14/2017 TAYLOR HILL MD, Ot 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 06/14/2017 TAYLOR HILL MD Ot D64.9 ANEMIA, UNSPECIFIED 06/14/2017 TAYLOR HILL MD Ot E83.52 HYPERCALCEMIA 06/14/2017 TAYLOR HILL MD Ot I10 ESSENTIAL (PRIMARY) HYPERTENSION 06/14/2017 TAYLOR HILL MD Ot Z51.11 ENCOUNTER FOR ANTINEOPLASTIC CHEMOTHERAP 06/14/2017 TAYLOR HILL MD Ot 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 06/15/2017 TAYLOR HILL MD, Ot 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 06/15/2017 TAYLOR HILL MD Ot D64.9 ANEMIA, UNSPECIFIED 06/15/2017 TAYLOR HILL MD Ot E83.52 HYPERCALCEMIA 06/15/2017 TAYLOR HILL MD Ot I10 ESSENTIAL (PRIMARY) HYPERTENSION 06/15/2017 TAYOLR HILL MD Ot Z51.11 ENCOUNTER FOR ANTINEOPLASTIC CHEMOTHERAP 06/15/2017 TAYLOR HILL MD Ot 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 06/23/2017 TAYLOR HILL MD, Ot 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 06/23/2017 TAYLOR HILL MD, Ot D64.9 ANEMIA, UNSPECIFIED 06/23/2017 TAYLOR HILL MD Ot E83.52 HYPERCALCEMIA 06/23/2017 TAYLOR HILL MD Ot I10 ESSENTIAL (PRIMARY) HYPERTENSION 06/23/2017 TAYLOR HILL MD Ot Z51.11 ENCOUNTER FOR ANTINEOPLASTIC CHEMOTHERAP 06/23/2017 TAYLOR HILL MD Ot 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 07/17/2017 TAYLOR HILL MD, Ot 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 07/17/2017 TAYLOR HILL MD, Ot D64.9 ANEMIA, UNSPECIFIED 07/17/2017 TAYLOR HILL MD Ot E83.52 HYPERCALCEMIA 07/17/2017 TAYLOR HILL MD Ot I10 ESSENTIAL (PRIMARY) HYPERTENSION 07/17/2017 TAYLOR HILL MD Ot Z51.11 ENCOUNTER FOR ANTINEOPLASTIC CHEMOTHERAP 07/17/2017 TAYLOR HILL MD Ot 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 07/19/2017 TAYLOR HILL MD, Ot 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 07/19/2017 TAYLOR HILL MD, Ot D64.9 ANEMIA, UNSPECIFIED 07/19/2017 TAYLOR HILL MD Ot E83.52 HYPERCALCEMIA 07/19/2017 TAYLOR HILL MD Ot I10 ESSENTIAL (PRIMARY) HYPERTENSION 07/19/2017 TAYLOR HILL MD Ot Z51.11 ENCOUNTER FOR ANTINEOPLASTIC CHEMOTHERAP 07/19/2017 TAYLOR HILL MD Ot Z79.899 OTHER SKILLED NURSING (CURRENT) DRUG THERAPY 07/20/2017 TAYLOR HILL MD, Ot 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 07/20/2017 TAYLOR HILL MD, Ot D64.9 ANEMIA, UNSPECIFIED 07/20/2017 TAYLOR HILL MD Ot E83.52 HYPERCALCEMIA 07/20/2017 TAYLOR HILL MD Ot I10 ESSENTIAL (PRIMARY) HYPERTENSION 07/20/2017 TAYLOR HILL MD Ot Z51.11 ENCOUNTER FOR ANTINEOPLASTIC CHEMOTHERAP 07/20/2017 TAYLOR HILL MD Ot Z79.899 OTHER SKILLED NURSING (CURRENT) DRUG THERAPY 08/10/2017 TAYLOR HILL MD, Ot 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 08/10/2017 TAYLOR HILL MD, Ot D64.9 ANEMIA, UNSPECIFIED 08/10/2017 TAYLOR HILL MD Ot E83.52 HYPERCALCEMIA 08/10/2017 TAYLOR HILL MD Ot I10 ESSENTIAL (PRIMARY) HYPERTENSION 08/10/2017 TAYLOR HILL MD Ot Z51.11 ENCOUNTER FOR ANTINEOPLASTIC CHEMOTHERAP 08/10/2017 TAYLOR HILL MD, Ot Z79.899 OTHER SKILLED NURSING (CURRENT) DRUG THERAPY 08/14/2017 TAYLOR HILL MD, Ot 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 08/14/2017 TAYLOR HILL MD, Ot D64.9 ANEMIA, UNSPECIFIED 08/14/2017 TAYLOR HILL MD, Ot E83.52 HYPERCALCEMIA 08/14/2017 TAYLOR HILL MD Ot I10 ESSENTIAL (PRIMARY) HYPERTENSION 08/14/2017 TAYLOR HILL MD Ot Z51.11 ENCOUNTER FOR ANTINEOPLASTIC CHEMOTHERAP 08/14/2017 TAYLOR HILL MD, Ot 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 08/22/2017 JESSE, JASMYNE N Ot 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 08/22/2017 JESSEJASMYNE TAFOYA N Ot D64.9 ANEMIA, UNSPECIFIED 08/22/2017 JESSEJASMYNE N Ot E83.52 HYPERCALCEMIA 08/22/2017 FLORENTINO MOLINAAN N Ot I10 ESSENTIAL (PRIMARY) HYPERTENSION 08/22/2017 JASMYNE MOLINA N Ot Z51.11 ENCOUNTER FOR ANTINEOPLASTIC CHEMOTHERAP 08/22/2017 JASMYNE MOLINA N Ot 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 08/30/2017 JESSE, JASMYNE N Ot 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 08/30/2017 JASMYNE MOLINA N Ot D64.9 ANEMIA, UNSPECIFIED 08/30/2017 JESSEJASMYNE N Ot E83.52 HYPERCALCEMIA 08/30/2017 JASMYNE MOLINA N Ot I10 ESSENTIAL (PRIMARY) HYPERTENSION 08/30/2017 JASMYNE MOLINA N Ot Z51.11 ENCOUNTER FOR ANTINEOPLASTIC CHEMOTHERAP 08/30/2017 JASMYNE MOLINA N Ot Z79.899 OTHER SKILLED NURSING (CURRENT) DRUG THERAPY 09/07/2017 TAYLOR HILL MD, Ot 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 09/07/2017 TAYLOR HILL MD, Ot D64.9 ANEMIA, UNSPECIFIED 09/07/2017 TAYLOR HILL MD, Ot E83.52 HYPERCALCEMIA 09/07/2017 TAYLOR HILL MD Ot I10 ESSENTIAL (PRIMARY) HYPERTENSION 09/07/2017 TAYLOR HILL MD Ot Z51.11 ENCOUNTER FOR ANTINEOPLASTIC CHEMOTHERAP 09/07/2017 TAYLOR HILL MD Ot Z79.899 OTHER SKILLED NURSING (CURRENT) DRUG THERAPY 09/07/2017 LIZ GONZALEZ, TAYLOR Ot 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 09/07/2017 LIZ GONZALEZ, TAYLOR Boyd D64.9 ANEMIA, UNSPECIFIED 09/07/2017 ATYLOR HILL MD, Ot E83.52 HYPERCALCEMIA 09/07/2017 TAYLOR HILL MD Ot I10 ESSENTIAL (PRIMARY) HYPERTENSION 09/07/2017 LIZ GONZALEZ, TAYLOR Boyd Z51.11 ENCOUNTER FOR ANTINEOPLASTIC CHEMOTHERAP 09/07/2017 LIZ GONZALEZ, TAYLOR Boyd 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 09/21/2017 Mercado, Trav-Yomi W 401.9 UNSPECIFIED ESSENTIAL HYPERTENSION 09/21/2017 Mercado, Trav-Yomi W I10 ESSENTIAL (PRIMARY) HYPERTENSION 09/21/2017 Mercado, Trav-Yomi W 272.4 OTHER AND UNSPECIFIED HYPERLIPIDEMIA 09/21/2017 Mercado, Trav-Yomi W 401.9 UNSPECIFIED ESSENTIAL HYPERTENSION 09/21/2017 Mercado, Trav-Yomi W E78.5 HYPERLIPIDEMIA, UNSPECIFIED 09/21/2017 Mercado, Trav-Yomi W I10 ESSENTIAL (PRIMARY) HYPERTENSION 09/21/2017 Mercado, Trav-Yomi W 272.4 OTHER AND UNSPECIFIED HYPERLIPIDEMIA 09/21/2017 Mercado, Trav-Yomi W 401.9 UNSPECIFIED ESSENTIAL HYPERTENSION 09/21/2017 Mercado, Trav-Yomi W E78.5 HYPERLIPIDEMIA, UNSPECIFIED 09/21/2017 Mercado, Trav-Yomi W I10 ESSENTIAL (PRIMARY) HYPERTENSION 09/21/2017 Mercado, Trav-Yomi W 272.4 OTHER AND UNSPECIFIED HYPERLIPIDEMIA 09/21/2017 Mercado, Trav-Yomi W 401.9 UNSPECIFIED ESSENTIAL HYPERTENSION 09/21/2017 Mercado, Trav-Yomi W E78.5 HYPERLIPIDEMIA, UNSPECIFIED 09/21/2017 Mercado, Trav-Yomi W I10 ESSENTIAL (PRIMARY)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 03/28/2018 LARISA BLAIR MD, Ot V58.69 OTH MED,LT,CURRENT USE 03/28/2018 KARLEY WHITMOREP Ot 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, 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 03/28/2018 KARLEY WHITMORE [facility] Ot 285.9 ANEMIA NOS 03/28/2018 KARLEY WHITMORE [facility] Ot 585.3 CHRONIC KIDNEY DISEASE, STAGE III (MODER 03/28/2018 KARLEY WHITMORE [facility] Ot V58.69 OT MED,LT,CURRENT USE 03/28/2018 LOWE DDS, ARON Ot Z01.812 ENCOUNTER FOR PREPROCEDURAL LABORATORY E 03/28/2018 RALPH SEGOVIA MD Ot 959.2 SHLDR/UPPER ARM INJ NOS 03/28/2018 RALPH SEGOVIA MD, Ot 959.6 HIP THIGH INJURY NOS 03/28/2018 RALPH SEGOVIA MD, Ot E000.8 OTHER EXTERNAL CAUSE STATUS 03/28/2018 RALPH SEGOVIA MD, Ot E849.0 ACCIDENT IN HOME 03/28/2018 RALPH SEGOVIA MD, Ot E888.9 FALL NOS 03/28/2018 RALPH SEGOVIA MD, Ot 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 03/28/2018 RALPH SEGOVIA MD, Ot R60.9 EDEMA, UNSPECIFIED 03/28/2018 RALPH SEGOVIA MD Ot 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 03/28/2018 RALPH SEGOVIA MD, Ot M25.551 PAIN IN RIGHT HIP 03/28/2018 RALPH SEGOVIA MD, Ot M25.552 PAIN IN LEFT HIP 03/28/2018 RALPH SEGOVIA MD, Ot M54.5 LOW BACK PAIN 03/28/2018 RALPH SEGOVIA MD, Ot 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 03/28/2018 RALPH SEGOVIA MD Ot R05 COUGH 03/28/2018 RALPH SEGOVIA MD Ot R91.8 OTHER NONSPECIFIC ABNORMAL FINDING OF JANN 03/28/2018 RALPH SEGOVIA MD, Ot 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 03/28/2018 RALPH SEGOVIA MD Ot R19.00 INTRA-ABD AND PELVIC SWELLING, MASS AND 03/28/2018 RALPH SEGOVIA MD, Ot 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 03/28/2018 RALPH SEGOVIA MD Ot R06.02 SHORTNESS OF BREATH 03/28/2018 RALPH SEGOVIA MD Ot M16.0 BILATERAL PRIMARY OSTEOARTHRITIS OF HIP 03/28/2018 RALPH SEGOVIA MD, Ot M25.551 PAIN IN RIGHT HIP 03/28/2018 RALPH SEGOVIA MD Ot M25.552 PAIN IN LEFT HIP 03/28/2018 RALPH SEGOVIA MD Ot M85.80 OT DISRD OF BONE DENSITY AND STRUCTURE, 03/28/2018 ROGELIO GONZALEZ, KAITLIN Ot E78.5 HYPERLIPIDEMIA, UNSPECIFIED 03/28/2018 TAYLOR HILL MD, Ot 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 03/28/2018 TAYLOR HILL MD, Ot M25.552 PAIN IN LEFT HIP 05/14/2018 TAYLOR HILL MD, Ot 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 05/14/2018 TAYLOR HILL MD, Ot D64.9 ANEMIA, UNSPECIFIED 05/14/2018 TAYLOR HILL MD Ot E83.52 HYPERCALCEMIA 05/14/2018 TAYLOR HILL MD, Ot I10 ESSENTIAL (PRIMARY) HYPERTENSION 05/14/2018 TAYLOR HILL MD, Ot Z79.899 OTHER SKILLED NURSING (CURRENT) DRUG THERAPY 05/14/2018 TAYLOR HILL MD, Ot 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 05/14/2018 TAYLOR HILL MD, Ot D64.9 ANEMIA, UNSPECIFIED 05/14/2018 TAYLOR HILL MD, Ot E83.52 HYPERCALCEMIA 05/14/2018 TAYLOR HILL MD Ot I10 ESSENTIAL (PRIMARY) HYPERTENSION 05/14/2018 TAYLOR HILL MD, Ot 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 05/31/2018 PHUONG FORTE MD, Ot 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 05/31/2018 PHUONG FORTE MD, Ot D64.81 ANEMIA DUE TO ANTINEOPLASTIC CHEMOTHERAP 05/31/2018 PHUONG FORTE MD, Ot I10 ESSENTIAL (PRIMARY) HYPERTENSION 05/31/2018 PHUONG FORTE MD, Ot S52.331A DISPLACED OBLIQUE FRACTURE OF SHAFT OF R 05/31/2018 PHUONG FORTE MD, Ot W01.198A FALL SAME LEV FROM SLIP/TRIP W STRIKE AG 05/31/2018 PHUONG FORTE MD, Ot Y92.[address]ART[address] 05/31/2018 PHUONG FORTE MD, Ot 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 05/31/2018 PHUONG FORTE MD, Ot D64.81 ANEMIA DUE TO ANTINEOPLASTIC CHEMOTHERAP 05/31/2018 PHUONG FORTE MD Ot I10 ESSENTIAL (PRIMARY) HYPERTENSION 05/31/2018 PUHONG FORTE MD Ot S52.331A DISPLACED OBLIQUE FRACTURE OF SHAFT OF R 05/31/2018 PHUONG FORTE MD Ot W01.198A FALL SAME LEV FROM SLIP/TRIP W STRIKE AG 05/31/2018 PHUONG FORTE MD Ot Y92.[address] 05/31/2018 PHUONG FORTE MD Ot 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 05/31/2018 PHUONG FORTE MD Ot D64.81 ANEMIA DUE TO ANTINEOPLASTIC CHEMOTHERAP 05/31/2018 PHUONG FORTE MD Ot I10 ESSENTIAL (PRIMARY) HYPERTENSION 05/31/2018 PHUONG FORTE MD Ot S52.331A DISPLACED OBLIQUE FRACTURE OF SHAFT OF R 05/31/2018 PHUONG FORTE MD Ot W01.198A FALL SAME LEV FROM SLIP/TRIP W STRIKE AG 05/31/2018 PHUONG FORTE MD Ot Y92.[address] 05/31/2018 PHUONG FORTE MD Ot 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 05/31/2018 PHUONG FORTE MD Ot D64.81 ANEMIA DUE TO ANTINEOPLASTIC CHEMOTHERAP 05/31/2018 PHUONG FORTE MD Ot I10 ESSENTIAL (PRIMARY) HYPERTENSION 05/31/2018 PHUONG FORTE MD Ot S52.331A DISPLACED OBLIQUE FRACTURE OF SHAFT OF R 05/31/2018 PHUONG FORTE MD Ot W01.198A FALL SAME LEV FROM SLIP/TRIP W STRIKE AG 05/31/2018 PHUONG FORTE MD Ot Y92.[address] 06/04/2018 PHUONG FORTE MD Ot 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 06/04/2018 PHUONG FORTE MD Ot D64.81 ANEMIA DUE TO ANTINEOPLASTIC CHEMOTHERAP 06/04/2018 PHUONG FORTE MD Ot I10 ESSENTIAL (PRIMARY) HYPERTENSION 06/04/2018 PHUONG FORTE MD Ot S52.331A DISPLACED OBLIQUE FRACTURE OF SHAFT OF R 06/04/2018 PHUONG FORTE MD Ot W01.198A FALL SAME LEV FROM SLIP/TRIP W STRIKE AG 06/04/2018 PHUONG FORTE MD Ot Y92.[address] 06/05/2018 PHUONG FORTE MD Ot 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 06/05/2018 PHUONG FORTE MD Ot D64.81 ANEMIA DUE TO ANTINEOPLASTIC CHEMOTHERAP 06/05/2018 PHUONG FORTE MD Ot I10 ESSENTIAL (PRIMARY) HYPERTENSION 06/05/2018 PHUONG FORTE MD Ot S52.331A DISPLACED OBLIQUE FRACTURE OF SHAFT OF R 06/05/2018 PHUONG FORTE MD Ot W01.198A FALL SAME LEV FROM SLIP/TRIP W STRIKE AG 06/05/2018 PHUONG FORTE MD Ot Y92.[address] 06/05/2018 PHUONG FORTE MD Ot 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 06/05/2018 PHUONG FORTE MD Ot D64.81 ANEMIA DUE TO ANTINEOPLASTIC CHEMOTHERAP 06/05/2018 PHUONG FORTE MD Ot I10 ESSENTIAL (PRIMARY) HYPERTENSION 06/05/2018 PHUONG FORTE MD Ot S52.331A DISPLACED OBLIQUE FRACTURE OF SHAFT OF R 06/05/2018 PHUONG FORTE MD Ot W01.198A FALL SAME LEV FROM SLIP/TRIP W STRIKE AG 06/05/2018 PHUONG FORTE MD Ot Y92.[address] 06/07/2018 PHUONG FORTE MD Ot 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 06/07/2018 PHUONG FORTE MD Ot D50.0 IRON DEFICIENCY ANEMIA SECONDARY TO BLOO 06/07/2018 PHUONG FORTE MD Ot D62 ACUTE POSTHEMORRHAGIC ANEMIA 06/07/2018 PHUONG FORTE MD Ot D64.81 ANEMIA DUE TO ANTINEOPLASTIC CHEMOTHERAP 06/07/2018 PHUONG FORTE MD Ot E87.6 HYPOKALEMIA 06/07/2018 PHUONG FORTE MD Ot I10 ESSENTIAL (PRIMARY) HYPERTENSION 06/07/2018 PHUONG FORTE MD Ot K25.0 ACUTE GASTRIC ULCER WITH HEMORRHAGE 06/07/2018 PHUONG FORTE MD Ot K29.71 GASTRITIS, UNSPECIFIED, WITH BLEEDING 06/07/2018 PHUONG FORTE MD Ot K31.9 DISEASE OF STOMACH AND DUODENUM, UNSPECI 06/07/2018 PHUONG FORTE MD Ot K44.9 DIAPHRAGMATIC HERNIA WITHOUT OBSTRUCTION 06/07/2018 PHUONG FORTE MD Ot K64.8 OTHER HEMORRHOIDS 06/07/2018 PHUONG FORTE MD Ot S52.331A DISPLACED OBLIQUE FRACTURE OF SHAFT OF R 06/07/2018 PHUONG FORTE MD Ot W01.198A FALL SAME LEV FROM SLIP/TRIP W STRIKE AG 06/07/2018 PHUONG FORTE MD Ot Y92.[address] 06/11/2018 PHUONG FORTE MD Ot 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 06/11/2018 PHUONG FORTE MD Ot D50.0 IRON DEFICIENCY ANEMIA SECONDARY TO BLOO 06/11/2018 PHUONG FORTE MD Ot D62 ACUTE POSTHEMORRHAGIC ANEMIA 06/11/2018 PHUONG FORTE MD Ot D64.81 ANEMIA DUE TO ANTINEOPLASTIC CHEMOTHERAP 06/11/2018 PHUONG FORTE MD Ot E87.6 HYPOKALEMIA 06/11/2018 PHUONG FORTE MD Ot I10 ESSENTIAL (PRIMARY) HYPERTENSION 06/11/2018 PHUONG FORTE MD Ot K25.0 ACUTE GASTRIC ULCER WITH HEMORRHAGE 06/11/2018 PHUONG FORTE MD Ot K25.3 ACUTE GASTRIC ULCER WITHOUT HEMORRHAGE O 06/11/2018 PHUONG FORTE MD Ot K29.70 GASTRITIS, UNSPECIFIED, WITHOUT BLEEDING 06/11/2018 PHUONG FORTE MD Ot K29.71 GASTRITIS, UNSPECIFIED, WITH BLEEDING 06/11/2018 PHUONG FORTE MD Ot K31.9 DISEASE OF STOMACH AND DUODENUM, UNSPECI 06/11/2018 PHUONG FORTE MD Ot K44.9 DIAPHRAGMATIC HERNIA WITHOUT OBSTRUCTION 06/11/2018 PHUONG FORTE MD Ot K59.03 DRUG INDUCED CONSTIPATION 06/11/2018 PHUONG FORTE MD Ot K64.8 OTHER HEMORRHOIDS 06/11/2018 PHUONG FORTE MD, Ot K86.9 DISEASE OF PANCREAS, UNSPECIFIED 06/11/2018 PHUONG FORTE MD, Ot S52.331A DISPLACED OBLIQUE FRACTURE OF SHAFT OF R 06/11/2018 PHUONG FORTE MD, Ot W01.198A FALL SAME LEV FROM SLIP/TRIP W STRIKE AG 06/11/2018 PHUONG FORTE MD, Ot Y92.[address] 06/20/2018 TAYLOR HILL MD Ot 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 06/20/2018 TAYLOR HILL MD Ot D64.9 ANEMIA, UNSPECIFIED 06/20/2018 TAYLOR HILL MD Ot E83.52 HYPERCALCEMIA 06/20/2018 TAYLOR HILL MD Ot I10 ESSENTIAL (PRIMARY) HYPERTENSION 06/20/2018 TAYLOR HILL MD Ot Z79.899 OTHER SKILLED NURSING (CURRENT) DRUG THERAPY 06/22/2018 TAYLOR HILL MD Ot 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 06/22/2018 TAYLOR HILL MD Ot D64.9 ANEMIA, UNSPECIFIED 06/22/2018 TAYLOR HILL MD Ot E83.52 HYPERCALCEMIA 06/22/2018 TAYLOR HILL MD Ot I10 ESSENTIAL (PRIMARY) HYPERTENSION 06/22/2018 TAYLOR HILL MD Ot 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 06/25/2018 TAYLOR HILL MD Ot 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 06/25/2018 TAYLOR HILL MD Ot D64.9 ANEMIA, UNSPECIFIED 06/25/2018 TAYLOR HILL MD Ot E83.52 HYPERCALCEMIA 06/25/2018 TAYLOR HILL MD Ot I10 ESSENTIAL (PRIMARY) HYPERTENSION 06/25/2018 TAYLOR HILL MD Ot Z79.899 OTHER SKILLED NURSING (CURRENT) DRUG THERAPY 06/26/2018 TAYLOR HILL MD Ot 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 06/26/2018 TAYLOR HILL MD Ot D64.9 ANEMIA, UNSPECIFIED 06/26/2018 TAYLOR HILL MD Ot E83.52 HYPERCALCEMIA 06/26/2018 TAYLOR HILL MD Ot I10 ESSENTIAL (PRIMARY) HYPERTENSION 06/26/2018 TAYLOR HILL MD Ot 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 06/28/2018 TAYLOR HILL MD Ot 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 06/28/2018 TAYLOR HILL MD Ot D64.9 ANEMIA, UNSPECIFIED 06/28/2018 TAYLOR HILL MD Ot E83.52 HYPERCALCEMIA 06/28/2018 TAYLOR HILL MD Ot I10 ESSENTIAL (PRIMARY) HYPERTENSION 06/28/2018 TAYLOR HILL MD Ot Z51.11 ENCOUNTER FOR ANTINEOPLASTIC CHEMOTHERAP 06/28/2018 TAYLOR HILL MD Ot 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 06/29/2018 TAYLOR HILL MD Ot 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 06/29/2018 TAYLOR HILL MD Ot D64.9 ANEMIA, UNSPECIFIED 06/29/2018 TAYLOR HILL MD Ot E83.52 HYPERCALCEMIA 06/29/2018 TAYLOR HILL MD Ot I10 ESSENTIAL (PRIMARY) HYPERTENSION 06/29/2018 TAYLOR HILL MD Ot 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 07/16/2018 TAYLOR HILL MD Ot 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 07/16/2018 TAYLOR HILL MD Ot D64.9 ANEMIA, UNSPECIFIED 07/16/2018 TAYLOR HILL MD Ot E83.52 HYPERCALCEMIA 07/16/2018 TAYLOR HILL MD Ot I10 ESSENTIAL (PRIMARY) HYPERTENSION 07/16/2018 TAYLOR HILL MD Ot Z79.899 OTHER SKILLED NURSING (CURRENT) DRUG THERAPY 07/23/2018 TAYLOR HILL MD Ot 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 07/23/2018 TAYLOR HILL MD Ot D64.9 ANEMIA, UNSPECIFIED 07/23/2018 TAYLOR HILL MD Ot E83.52 HYPERCALCEMIA 07/23/2018 TAYLOR HILL MD Ot I10 ESSENTIAL (PRIMARY) HYPERTENSION 07/23/2018 TAYLOR HILL MD Ot Z79.899 OTHER SKILLED NURSING (CURRENT) DRUG THERAPY 07/23/2018 LINO WOOTEN MD Ot Z01.818 ENCOUNTER FOR OTHER PREPROCEDURAL EXAMIN 07/24/2018 LINO WOOTEN MD Ot Z01.818 ENCOUNTER FOR OTHER PREPROCEDURAL EXAMIN 07/26/2018 LINO WOOTEN MD Ot 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 07/26/2018 LINO WOOTEN MD Ot E78.5 HYPERLIPIDEMIA, UNSPECIFIED 07/26/2018 LINO WOOTEN MD Ot I10 ESSENTIAL (PRIMARY) HYPERTENSION 07/26/2018 LINO WOOTEN MD Ot K86.9 DISEASE OF PANCREAS, UNSPECIFIED 07/26/2018 LINO WOOTEN MD Ot M84.533A PATH FRACTURE IN NEOPLASTIC DISEASE, RIG 08/01/2018 LINO WOOTEN MD Ot 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 08/01/2018 LINO WOOTEN MD Ot E78.5 HYPERLIPIDEMIA, UNSPECIFIED 08/01/2018 LINO WOOTEN MD Ot I10 ESSENTIAL (PRIMARY) HYPERTENSION 08/01/2018 LINO WOOTEN MD Ot K86.9 DISEASE OF PANCREAS, UNSPECIFIED 08/01/2018 LINO WOOTEN MD Ot M84.533A PATH FRACTURE IN NEOPLASTIC DISEASE, RIG 08/02/2018 LINO WOOTEN MD Ot 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 08/02/2018 LINO WOOTEN MD Ot E78.5 HYPERLIPIDEMIA, UNSPECIFIED 08/02/2018 LINO WOOTEN MD Ot I10 ESSENTIAL (PRIMARY) HYPERTENSION 08/02/2018 LINO WOOTEN MD Ot K86.9 DISEASE OF PANCREAS, UNSPECIFIED 08/02/2018 LINO WOOTEN MD Ot M84.533A PATH FRACTURE IN NEOPLASTIC DISEASE, RIG 08/03/2018 LINO WOOTEN MD Ot 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 08/03/2018 LINO WOOTEN MD Ot E78.5 HYPERLIPIDEMIA, UNSPECIFIED 08/03/2018 LINO WOOTEN MD Ot I10 ESSENTIAL (PRIMARY) HYPERTENSION 08/03/2018 LINO WOOTEN MD Ot K86.9 DISEASE OF PANCREAS, UNSPECIFIED 08/03/2018 LINO WOOTEN MD Ot M84.533A PATH FRACTURE IN NEOPLASTIC DISEASE, RIG 08/13/2018 TAYLOR HILL MD, Ot 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 08/13/2018 TAYLOR HILL MD, Ot D64.9 ANEMIA, UNSPECIFIED 08/13/2018 LIZ MD, VAZQUEZ Ot E83.52 HYPERCALCEMIA 08/13/2018 TAYLOR HILL MD Ot I10 ESSENTIAL (PRIMARY) HYPERTENSION 08/13/2018 TAYLOR HILL MD Ot Z79.899 OTHER SKILLED NURSING (CURRENT) DRUG THERAPY 08/17/2018 TAYLOR HILL MD Ot 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 08/17/2018 TAYLOR HILL MD Ot G93.89 OTHER SPECIFIED DISORDERS OF BRAIN 08/17/2018 TAYLOR HILL MD Ot H02.402 UNSPECIFIED PTOSIS OF LEFT EYELID 08/17/2018 TAYLOR HILL MD Ot H05.89 OTHER DISORDERS OF ORBIT 08/17/2018 TAYLOR HILL MD Ot H35.30 UNSPECIFIED MACULAR DEGENERATION 08/17/2018 TAYLOR IHLL MD Ot Z91.81 HISTORY OF FALLING 08/22/2018 TAYLOR HILL MD Ot 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 08/22/2018 TAYLOR HILL MD Ot G93.89 OTHER SPECIFIED DISORDERS OF BRAIN 08/22/2018 TAYLOR HILL MD Ot H02.402 UNSPECIFIED PTOSIS OF LEFT EYELID 08/22/2018 TAYLOR HILL MD Ot H05.89 OTHER DISORDERS OF ORBIT 08/22/2018 TAYLOR HILL MD Ot H35.30 UNSPECIFIED MACULAR DEGENERATION 08/22/2018 TAYLOR HILL MD Ot Z91.81 HISTORY OF FALLING 08/29/2018 TAYLOR HILL MD Ot 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 08/29/2018 TAYLOR HILL MD Ot D64.9 ANEMIA, UNSPECIFIED 08/29/2018 TAYLOR HILL MD Ot E83.52 HYPERCALCEMIA 08/29/2018 TAYLOR HILL MD Ot I10 ESSENTIAL (PRIMARY) HYPERTENSION 08/29/2018 TAYLOR HILL MD Ot 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 Procedures Code Description Performed By Performed On [id number] EXCISION OF STOMACH, ENDO , DIAGN 06/04/2018 [id number] EXCISION OF STOMACH, PYLORUS, ENDO, DIAG 06/04/2018 [id number] INSPECTION OF LOWER INTESTINAL TRACT, EN 06/04/2018 [id number] INSPECTION OF UPPER INTESTINAL TRACT, EN 06/06/2018 [id number] EXCISION OF STOMACH, PERCUTANEOUS ENDOSC 06/07/2018 [id number] REPOSITION RIGHT RADIUS WITH INT FIX, OP 07/25/2018 Results Test Result Range Bacterial urine culture - 02/02/16 13:00 URINE CULTURE RESULTS <10,000/ML NR Lipid 1996 panel - 11/30/16 09:30 Serum or plasma triglyceride measurement (mass/volume) 115 mg/dL <150 Serum or plasma cholesterol measurement (mass/volume) 180 mg/dL < 200 Serum or plasma cholesterol in HDL measurement (mass/volume) 57 mg/ dL 40-60 Cholesterol in LDL [mass/volume] in serum or plasma by direct assay 97 mg/dL 1-129 Serum or plasma cholesterol in VLDL measurement (mass/volume) 23 mg/ dL 5-40 Complete blood count (CBC) with automated white blood cell (WBC) differential - 06/15/17 08:50 Blood leukocytes automated count (number/volume) 7.2 10*3/uL 4.3-11.0 Blood erythrocytes automated count (number/volume) 3.69 10*6/uL 4.35-5.85 Venous blood hemoglobin measurement (mass/volume) 12.2 g/dL 11.5-16.0 Blood hematocrit (volume fraction) 35 % 35-52 Automated erythrocyte mean corpuscular volume 96 [foz_us] 80-99 Automated erythrocyte mean corpuscular hemoglobin (mass per erythrocyte) 33 pg 25-34 Automated erythrocyte mean corpuscular hemoglobin concentration measurement ( mass/volume) 35 g/dL 32-36 Automated erythrocyte distribution width ratio 13.1 % 10.0-14.5 Automated blood platelet count (count/volume) 223 10*3/uL 130-400 Automated blood platelet mean volume measurement 10.1 [foz_us] 7.4-10.4 Automated blood neutrophils/100 leukocytes 54 % 42-75 Automated blood lymphocytes/100 leukocytes 30 % 12-44 Blood monocytes/100 leukocytes 13 % 0-12 Automated blood eosinophils/100 leukocytes 2 % 0-10 Automated blood basophils/100 leukocytes 1 % 0-10 Blood neutrophils automated count (number/volume) 3.9 10*3 1.8-7.8 Blood lymphocytes automated count (number/volume) 2.2 10*3 1.0-4.0 Blood monocytes automated count (number/volume) 0.9 10*3 0.0-1.0 Automated eosinophil count 0.2 10*3/uL 0.0-0.3 Automated blood basophil count (count/volume) 0.0 10*3/uL 0.0-0.1 Comprehensive metabolic panel - 06/15/17 08:50 Serum or plasma sodium measurement (moles/volume) 138 mmol/L 135-145 Serum or plasma potassium measurement (moles/volume) 3.8 mmol/L 3.6-5.0 Serum or plasma chloride measurement (moles/volume) 104 mmol/L 98-107 Carbon dioxide 24 mmol/L 21-32 Serum or plasma anion gap determination (moles/volume) 10 mmol/L 5-14 Serum or plasma urea nitrogen measurement (mass/volume) 19 mg/dL 7-18 Serum or plasma creatinine measurement (mass/volume) 0.96 mg/dL 0.60-1.30 Serum or plasma urea nitrogen/creatinine mass ratio 20 NRG Serum or plasma creatinine measurement with calculation of estimated glomerular filtration rate 56 NRG Serum or plasma glucose measurement (mass/volume) 100 mg/dL 70-105 Serum or plasma calcium measurement (mass/volume) 9.4 mg/dL 8.5-10.1 Serum or plasma total bilirubin measurement (mass/volume) 0.6 mg/dL 0.1-1.0 Serum or plasma alkaline phosphatase measurement (enzymatic activity/volume) 49 U/L 40-136 Serum or plasma aspartate aminotransferase measurement (enzymatic activity/ volume) 15 U/L 5-34 Serum or plasma alanine aminotransferase measurement (enzymatic activity/volume ) 11 U/L 0-55 Serum or plasma protein measurement (mass/volume) 6.2 g/dL 6.4-8.2 Serum or plasma albumin measurement (mass/volume) 3.9 g/dL 3.2-4.5 Magnesium - 06/15/17 08:50 Magnesium 2.0 mg/dL 1.8-2.4 Serum coix-6-ldevaudyjffpa measurement (mass/volume) - 06/15/17 08:50 [id number] [Mass/volume] in Serum or Plasma 4.77 % 0.00-1.85 [id number] - 06/15/17 08:50 [id number] 36 % 47-209 Immunoglobulin panel (IgG, IgM, IgA) serum < 71-263 Quantitative urine kappa and lambda free light chains measurement - 06/15/17 08 :50 Quantitative serum kappa light chain measurement 31.40 % 3.30-19.40 Quantitative serum lambda light chain measurement 1.62 % 5.71-26.30 Serum immunoglobulin free kappa light chains/immunoglobulin lambda light chains mass ratio 19.38 % 0.26-1.65 Clostridium difficile detection - 08/14/17 09:00 C DIFF MOLECULAR RESULT Positive for toxigenic C diff by molecular method [facility] Lipid Panel - 09/21/17 10:30 C/HDL 5.5 3.7-6.7 Cholesterol 171 mg/dL 100-240 HDL 31 mg/dL 30-85 LDL-Calculated 88 mg/dL 0-100 Trig 260 mg/dL 35-160 VLDL 52 mg/dL 0-42 Comprehensive Metabolic Panel - 09/21/17 10:30 Albumin 4.7 g/dL 3.6-5.1 ALP 72 U/L 35-130 ALT 19 U/L 6-45 Anion Gap 18 6-14 AST 18 U/L 2-40 BUN 33 mg/dL 5-25 Calcium 9.5 mg/dL 8.3-10.4 Chloride 107 mmol/L 95-114 CO2 18 mEq/L 22-33 Creat 1.24 mg/dL 0.50-1.50 eGFR 42 mL/min/1.73m2 >59 Globulin 3.3 g/dL 2.3-3.5 Glucose 109 mg/dL 70-110 Osmo 292 280-295 Potassium 5.0 mmol/L 3.5-5.3 Sodium 138 mmol/L 134-148 TBil 0.6 mg/dL 0.2-1.2 TP 8.0 g/dL 6.0-8.3 Complete blood count (CBC) with automated white blood cell (WBC) differential - 05/22/18 09:10 Blood leukocytes automated count (number/volume) 8.4 10*3/uL 4.3-11.0 Blood erythrocytes automated count (number/volume) 2.92 10*6/uL 4.35-5.85 Venous blood hemoglobin measurement (mass/volume) 9.2 g/dL 11.5-16.0 Blood hematocrit (volume fraction) 28 % 35-52 Automated erythrocyte mean corpuscular volume 95 [foz_us] 80-99 Automated erythrocyte mean corpuscular hemoglobin (mass per erythrocyte) 32 pg 25-34 Automated erythrocyte mean corpuscular hemoglobin concentration measurement ( mass/volume) 33 g/dL 32-36 Automated erythrocyte distribution width ratio 15.4 % 10.0-14.5 Automated blood platelet count (count/volume) 186 10*3/uL 130-400 Automated blood platelet mean volume measurement 10.7 [foz_us] 7.4-10.4 Automated blood neutrophils/100 leukocytes 76 % 42-75 Automated blood lymphocytes/100 leukocytes 16 % 12-44 Blood monocytes/100 leukocytes 6 % 0-12 Automated blood eosinophils/100 leukocytes 2 % 0-10 Automated blood basophils/100 leukocytes 0 % 0-10 Blood neutrophils automated count (number/volume) 6.4 10*3 1.8-7.8 Blood lymphocytes automated count (number/volume) 1.3 10*3 1.0-4.0 Blood monocytes automated count (number/volume) 0.5 10*3 0.0-1.0 Automated eosinophil count 0.1 10*3/uL 0.0-0.3 Automated blood basophil count (count/volume) 0.0 10*3/uL 0.0-0.1 Whole blood basic metabolic panel - 05/22/18 09:10 Serum or plasma sodium measurement (moles/volume) 141 mmol/L 135-145 Serum or plasma potassium measurement (moles/volume) 3.9 mmol/L 3.6-5.0 Serum or plasma chloride measurement (moles/volume) 108 mmol/L 98-107 Carbon dioxide 24 mmol/L 21-32 Serum or plasma anion gap determination (moles/volume) 9 mmol/L 5-14 Serum or plasma urea nitrogen measurement (mass/volume) 27 mg/dL 7-18 Serum or plasma creatinine measurement (mass/volume) 1.34 mg/dL 0.60-1.30 Serum or plasma urea nitrogen/creatinine mass ratio 20 NRG Serum or plasma creatinine measurement with calculation of estimated glomerular filtration rate 38 NRG Serum or plasma glucose measurement (mass/volume) 93 mg/dL 70-105 Serum or plasma calcium measurement (mass/volume) 9.4 mg/dL 8.5-10.1 Complete blood count (CBC) with automated white blood cell (WBC) differential - 05/29/18 16:00 Blood leukocytes automated count (number/volume) 14.4 10*3/uL 4.3-11.0 Blood erythrocytes automated count (number/volume) 1.13 10*6/uL 4.35-5.85 Venous blood hemoglobin measurement (mass/volume) 3.6 g/dL 11.5-16.0 Blood hematocrit (volume fraction) 11 % 35-52 Automated erythrocyte mean corpuscular volume 97 [foz_us] 80-99 Automated erythrocyte mean corpuscular hemoglobin (mass per erythrocyte) 32 pg 25-34 Automated erythrocyte mean corpuscular hemoglobin concentration measurement ( mass/volume) 33 g/dL 32-36 Automated erythrocyte distribution width ratio 15.7 % 10.0-14.5 Automated blood platelet count (count/volume) 121 10*3/uL 130-400 Automated blood platelet mean volume measurement 12.5 [foz_us] 7.4-10.4 Automated blood neutrophils/100 leukocytes 83 % 42-75 Automated blood lymphocytes/100 leukocytes 12 % 12-44 Blood monocytes/100 leukocytes 5 % 0-12 Automated blood eosinophils/100 leukocytes 1 % 0-10 Automated blood basophils/100 leukocytes 0 % 0-10 Blood neutrophils automated count (number/volume) 11.9 10*3 1.8-7.8 Blood lymphocytes automated count (number/volume) 1.7 10*3 1.0-4.0 Blood monocytes automated count (number/volume) 0.7 10*3 0.0-1.0 Automated eosinophil count 0.1 10*3/uL 0.0-0.3 Automated blood basophil count (count/volume) 0.0 10*3/uL 0.0-0.1 Comprehensive metabolic panel - 05/29/18 16:00 Serum or plasma sodium measurement (moles/volume) 144 mmol/L 135-145 Serum or plasma potassium measurement (moles/volume) 3.7 mmol/L 3.6-5.0 Serum or plasma chloride measurement (moles/volume) 115 mmol/L 98-107 Carbon dioxide 20 mmol/L 21-32 Serum or plasma anion gap determination (moles/volume) 9 mmol/L 5-14 Serum or plasma urea nitrogen measurement (mass/volume) 77 mg/dL 7-18 Serum or plasma creatinine measurement (mass/volume) 1.23 mg/dL 0.60-1.30 Serum or plasma urea nitrogen/creatinine mass ratio 63 NRG Serum or plasma creatinine measurement with calculation of estimated glomerular filtration rate 42 NRG Serum or plasma glucose measurement (mass/volume) 110 mg/dL 70-105 Serum or plasma calcium measurement (mass/volume) 9.5 mg/dL 8.5-10.1 Serum or plasma total bilirubin measurement (mass/volume) 0.4 mg/dL 0.1-1.0 Serum or plasma alkaline phosphatase measurement (enzymatic activity/volume) 26 U/L 40-136 Serum or plasma aspartate aminotransferase measurement (enzymatic activity/ volume) 16 U/L 5-34 Serum or plasma alanine aminotransferase measurement (enzymatic activity/volume ) 11 U/L 0-55 Serum or plasma protein measurement (mass/volume) 5.7 g/dL 6.4-8.2 Serum or plasma albumin measurement (mass/volume) 3.2 g/dL 3.2-4.5 CALCIUM CORRECTED 10.1 mg/dL 8.5-10.1 RED CELLS LEUKO REDUCED AS1 - 05/29/18 16:00 RED CELLS LEUKO REDUCED AS1 TRANSFUSED 05/29/18 2140 NRG Blood type T Indirect antibody screen panel - 05/29/18 16:00 ABO+Rh group AN NRG Transfusion band number [id number] NRG Blood group antibody screen NEGATIVE NRG Blood manual differential performed detection - 05/29/18 16:00 Blood monocytes/100 leukocytes 3 % NRG Manual blood segmented neutrophils/100 leukocytes 85 % NRG Blood band neutrophils/100 leukocytes 2 % NRG Manual blood lymphocytes/100 leukocytes 10 % NRG Manual eosinophils/100 leukocytes in nose 0 % NRG Manual blood basophils/100 leukocytes 0 % NRG Blood erythrocyte morphology finding identification NORMAL NRG Complete urinalysis with reflex to culture - 05/29/18 16:18 Urine color determination YELLOW NRG Urine clarity determination SLIGHTLY CLOUDY NRG Urine pH measurement by test strip 5 5-9 Specific gravity of urine by test strip 1.010 1.016- 1.022 Urine protein assay by test strip, semi-quantitative 1+ NEGATIVE Urine glucose detection by automated test strip NEGATIVE NEGATIVE Erythrocytes detection in urine sediment by light microscopy 5+ NEGATIVE Urine ketones detection by automated test strip NEGATIVE NEGATIVE Urine nitrite detection by test strip NEGATIVE NEGATIVE Urine total bilirubin detection by test strip NEGATIVE NEGATIVE Urine urobilinogen measurement by automated test strip (mass/volume) NORMAL NORMAL Urine leukocyte esterase detection by dipstick 1+ NEGATIVE Automated urine sediment erythrocyte count by microscopy (number/high power field) [HPF] NRG Automated urine sediment leukocyte count by microscopy (number/high power field ) [HPF] NRG Bacteria detection in urine sediment by light microscopy NONE NRG Squamous epithelial cells detection in urine sediment by light microscopy 0-2 NRG Crystals detection in urine sediment by light microscopy PRESENT NRG Casts detection in urine sediment by light microscopy NONE NRG Mucus detection in urine sediment by light microscopy NEGATIVE NRG Complete urinalysis with reflex to culture NO NRG Amorphous sediment detection in urine sediment by light microscopy FEW SANDRA URATES NRG Complete blood count (CBC) with automated white blood cell (WBC) differential - 05/30/18 06:05 Blood leukocytes automated count (number/volume) 11.4 10*3/uL 4.3-11.0 Blood erythrocytes automated count (number/volume) 1.85 10*6/uL 4.35-5.85 Venous blood hemoglobin measurement (mass/volume) 5.8 g/dL 11.5-16.0 Blood hematocrit (volume fraction) 17 % 35-52 Automated erythrocyte mean corpuscular volume 91 [foz_us] 80-99 Automated erythrocyte mean corpuscular hemoglobin (mass per erythrocyte) 31 pg 25-34 Automated erythrocyte mean corpuscular hemoglobin concentration measurement ( mass/volume) 34 g/dL 32-36 Automated erythrocyte distribution width ratio 16.6 % 10.0-14.5 Automated blood platelet count (count/volume) 112 10*3/uL 130-400 Automated blood platelet mean volume measurement 11.1 [foz_us] 7.4-10.4 Automated blood neutrophils/100 leukocytes 78 % 42-75 Automated blood lymphocytes/100 leukocytes 13 % 12-44 Blood monocytes/100 leukocytes 7 % 0-12 Automated blood eosinophils/100 leukocytes 2 % 0-10 Automated blood basophils/100 leukocytes 0 % 0-10 Blood neutrophils automated count (number/volume) 8.9 10*3 1.8-7.8 Blood lymphocytes automated count (number/volume) 1.5 10*3 1.0-4.0 Blood monocytes automated count (number/volume) 0.8 10*3 0.0-1.0 Automated eosinophil count 0.3 10*3/uL 0.0-0.3 Automated blood basophil count (count/volume) 0.0 10*3/uL 0.0-0.1 Comprehensive metabolic panel - 05/30/18 06:05 Serum or plasma sodium measurement (moles/volume) 143 mmol/L 135-145 Serum or plasma potassium measurement (moles/volume) 3.7 mmol/L 3.6-5.0 Serum or plasma chloride measurement (moles/volume) 115 mmol/L 98-107 Carbon dioxide 21 mmol/L 21-32 Serum or plasma anion gap determination (moles/volume) 7 mmol/L 5-14 Serum or plasma urea nitrogen measurement (mass/volume) 64 mg/dL 7-18 Serum or plasma creatinine measurement (mass/volume) 1.24 mg/dL 0.60-1.30 Serum or plasma urea nitrogen/creatinine mass ratio 52 NRG Serum or plasma creatinine measurement with calculation of estimated glomerular filtration rate 42 NRG Serum or plasma glucose measurement (mass/volume) 94 mg/dL 70-105 Serum or plasma calcium measurement (mass/volume) 8.7 mg/dL 8.5-10.1 Serum or plasma total bilirubin measurement (mass/volume) 0.6 mg/dL 0.1-1.0 Serum or plasma alkaline phosphatase measurement (enzymatic activity/volume) 23 U/L 40-136 Serum or plasma aspartate aminotransferase measurement (enzymatic activity/ volume) 13 U/L 5-34 Serum or plasma alanine aminotransferase measurement (enzymatic activity/volume ) 9 U/L 0-55 Serum or plasma protein measurement (mass/volume) 5.2 g/dL 6.4-8.2 Serum or plasma albumin measurement (mass/volume) 2.8 g/dL 3.2-4.5 CALCIUM CORRECTED 9.7 mg/dL 8.5-10.1 Complete blood count (CBC) with automated white blood cell (WBC) differential - 05/31/18 06:33 Blood leukocytes automated count (number/volume) 9.1 10*3/uL 4.3-11.0 Blood erythrocytes automated count (number/volume) 2.33 10*6/uL 4.35-5.85 Venous blood hemoglobin measurement (mass/volume) 7.0 g/dL 11.5-16.0 Blood hematocrit (volume fraction) 21 % 35-52 Automated erythrocyte mean corpuscular volume 91 [foz_us] 80-99 Automated erythrocyte mean corpuscular hemoglobin (mass per erythrocyte) 30 pg 25-34 Automated erythrocyte mean corpuscular hemoglobin concentration measurement ( mass/volume) 33 g/dL 32-36 Automated erythrocyte distribution width ratio 18.9 % 10.0-14.5 Automated blood platelet count (count/volume) 135 10*3/uL 130-400 Automated blood platelet mean volume measurement 11.2 [foz_us] 7.4-10.4 Automated blood neutrophils/100 leukocytes 73 % 42-75 Automated blood lymphocytes/100 leukocytes 17 % 12-44 Blood monocytes/100 leukocytes 7 % 0-12 Automated blood eosinophils/100 leukocytes 3 % 0-10 Automated blood basophils/100 leukocytes 0 % 0-10 Blood neutrophils automated count (number/volume) 6.6 10*3 1.8-7.8 Blood lymphocytes automated count (number/volume) 1.6 10*3 1.0-4.0 Blood monocytes automated count (number/volume) 0.7 10*3 0.0-1.0 Automated eosinophil count 0.3 10*3/uL 0.0-0.3 Automated blood basophil count (count/volume) 0.0 10*3/uL 0.0-0.1 Comprehensive metabolic panel - 05/31/18 06:33 Serum or plasma sodium measurement (moles/volume) 143 mmol/L 135-145 Serum or plasma potassium measurement (moles/volume) 3.6 mmol/L 3.6-5.0 Serum or plasma chloride measurement (moles/volume) 114 mmol/L 98-107 Carbon dioxide 22 mmol/L 21-32 Serum or plasma anion gap determination (moles/volume) 7 mmol/L 5-14 Serum or plasma urea nitrogen measurement (mass/volume) 38 mg/dL 7-18 Serum or plasma creatinine measurement (mass/volume) 1.08 mg/dL 0.60-1.30 Serum or plasma urea nitrogen/creatinine mass ratio 35 NRG Serum or plasma creatinine measurement with calculation of estimated glomerular filtration rate 49 NRG Serum or plasma glucose measurement (mass/volume) 86 mg/dL 70-105 Serum or plasma calcium measurement (mass/volume) 8.6 mg/dL 8.5-10.1 Serum or plasma total bilirubin measurement (mass/volume) 0.5 mg/dL 0.1-1.0 Serum or plasma alkaline phosphatase measurement (enzymatic activity/volume) 30 U/L 40-136 Serum or plasma aspartate aminotransferase measurement (enzymatic activity/ volume) 26 U/L 5-34 Serum or plasma alanine aminotransferase measurement (enzymatic activity/volume ) 10 U/L 0-55 Serum or plasma protein measurement (mass/volume) 5.5 g/dL 6.4-8.2 Serum or plasma albumin measurement (mass/volume) 2.9 g/dL 3.2-4.5 CALCIUM CORRECTED 9.5 mg/dL 8.5-10.1 IRON TEST - 05/31/18 10:55 Serum or plasma iron measurement (mass/volume) 19 % 35- 180 Methicillin resistant Staphylococcus aureus (MRSA) screening culture - 16:24 Methicillin resistant Staphylococcus aureus (MRSA) screening culture NEG NRG Stool occult blood screen - 05/31/18 20:00 Stool gastrointestinal hemoglobin detection POSITIVE NEGATIVE Complete blood count (CBC) with automated white blood cell (WBC) differential - 06/01/18 06:20 Blood leukocytes automated count (number/volume) 8.9 10*3/uL 4.3-11.0 Blood erythrocytes automated count (number/volume) 2.36 10*6/uL 4.35-5.85 Venous blood hemoglobin measurement (mass/volume) 7.2 g/dL 11.5-16.0 Blood hematocrit (volume fraction) 22 % 35-52 Automated erythrocyte mean corpuscular volume 92 [foz_us] 80-99 Automated erythrocyte mean corpuscular hemoglobin (mass per erythrocyte) 31 pg 25-34 Automated erythrocyte mean corpuscular hemoglobin concentration measurement ( mass/volume) 33 g/dL 32-36 Automated erythrocyte distribution width ratio 18.8 % 10.0-14.5 Automated blood platelet count (count/volume) 165 10*3/uL 130-400 Automated blood platelet mean volume measurement 10.8 [foz_us] 7.4-10.4 Automated blood neutrophils/100 leukocytes 76 % 42-75 Automated blood lymphocytes/100 leukocytes 15 % 12-44 Blood monocytes/100 leukocytes 9 % 0-12 Automated blood eosinophils/100 leukocytes 1 % 0-10 Automated blood basophils/100 leukocytes 0 % 0-10 Blood neutrophils automated count (number/volume) 6.7 10*3 1.8-7.8 Blood lymphocytes automated count (number/volume) 1.3 10*3 1.0-4.0 Blood monocytes automated count (number/volume) 0.8 10*3 0.0-1.0 Automated eosinophil count 0.1 10*3/uL 0.0-0.3 Automated blood basophil count (count/volume) 0.0 10*3/uL 0.0-0.1 Comprehensive metabolic panel - 06/01/18 06:20 Serum or plasma sodium measurement (moles/volume) 138 mmol/L 135-145 Serum or plasma potassium measurement (moles/volume) 3.6 mmol/L 3.6-5.0 Serum or plasma chloride measurement (moles/volume) 111 mmol/L 98-107 Carbon dioxide 21 mmol/L 21-32 Serum or plasma anion gap determination (moles/volume) 6 mmol/L 5-14 Serum or plasma urea nitrogen measurement (mass/volume) 26 mg/dL 7-18 Serum or plasma creatinine measurement (mass/volume) 0.97 mg/dL 0.60-1.30 Serum or plasma urea nitrogen/creatinine mass ratio 27 NRG Serum or plasma creatinine measurement with calculation of estimated glomerular filtration rate 55 NRG Serum or plasma glucose measurement (mass/volume) 91 mg/dL 70-105 Serum or plasma calcium measurement (mass/volume) 8.0 mg/dL 8.5-10.1 Serum or plasma total bilirubin measurement (mass/volume) 1.1 mg/dL 0.1-1.0 Serum or plasma alkaline phosphatase measurement (enzymatic activity/volume) 38 U/L 40-136 Serum or plasma aspartate aminotransferase measurement (enzymatic activity/ volume) 31 U/L 5-34 Serum or plasma alanine aminotransferase measurement (enzymatic activity/volume ) 11 U/L 0-55 Serum or plasma protein measurement (mass/volume) 5.8 g/dL 6.4-8.2 Serum or plasma albumin measurement (mass/volume) 2.9 g/dL 3.2-4.5 CALCIUM CORRECTED 8.9 mg/dL 8.5-10.1 Complete blood count (CBC) with automated white blood cell (WBC) differential - 06/02/18 04:35 Blood leukocytes automated count (number/volume) 8.6 10*3/uL 4.3-11.0 Blood erythrocytes automated count (number/volume) 2.18 10*6/uL 4.35-5.85 Venous blood hemoglobin measurement (mass/volume) 7.0 g/dL 11.5-16.0 Blood hematocrit (volume fraction) 21 % 35-52 Automated erythrocyte mean corpuscular volume 95 [foz_us] 80-99 Automated erythrocyte mean corpuscular hemoglobin (mass per erythrocyte) 32 pg 25-34 Automated erythrocyte mean corpuscular hemoglobin concentration measurement ( mass/volume) 33 g/dL 32-36 Automated erythrocyte distribution width ratio 18.7 % 10.0-14.5 Automated blood platelet count (count/volume) 175 10*3/uL 130-400 Automated blood platelet mean volume measurement 11.1 [foz_us] 7.4-10.4 Automated blood neutrophils/100 leukocytes 82 % 42-75 Automated blood lymphocytes/100 leukocytes 10 % 12-44 Blood monocytes/100 leukocytes 7 % 0-12 Automated blood eosinophils/100 leukocytes 1 % 0-10 Automated blood basophils/100 leukocytes 0 % 0-10 Blood neutrophils automated count (number/volume) 7.0 10*3 1.8-7.8 Blood lymphocytes automated count (number/volume) 0.8 10*3 1.0-4.0 Blood monocytes automated count (number/volume) 0.6 10*3 0.0-1.0 Automated eosinophil count 0.1 10*3/uL 0.0-0.3 Automated blood basophil count (count/volume) 0.0 10*3/uL 0.0-0.1 Comprehensive metabolic panel - 06/02/18 04:35 Serum or plasma sodium measurement (moles/volume) 139 mmol/L 135-145 Serum or plasma potassium measurement (moles/volume) 3.3 mmol/L 3.6-5.0 Serum or plasma chloride measurement (moles/volume) 112 mmol/L 98-107 Carbon dioxide 19 mmol/L 21-32 Serum or plasma anion gap determination (moles/volume) 8 mmol/L 5-14 Serum or plasma urea nitrogen measurement (mass/volume) 27 mg/dL 7-18 Serum or plasma creatinine measurement (mass/volume) 1.01 mg/dL 0.60-1.30 Serum or plasma urea nitrogen/creatinine mass ratio 27 NRG Serum or plasma creatinine measurement with calculation of estimated glomerular filtration rate 53 NRG Serum or plasma glucose measurement (mass/volume) 101 mg/dL 70-105 Serum or plasma calcium measurement (mass/volume) 8.2 mg/dL 8.5-10.1 Serum or plasma total bilirubin measurement (mass/volume) 0.7 mg/dL 0.1-1.0 Serum or plasma alkaline phosphatase measurement (enzymatic activity/volume) 43 U/L 40-136 Serum or plasma aspartate aminotransferase measurement (enzymatic activity/ volume) 25 U/L 5-34 Serum or plasma alanine aminotransferase measurement (enzymatic activity/volume ) 16 U/L 0-55 Serum or plasma protein measurement (mass/volume) 5.5 g/dL 6.4-8.2 Serum or plasma albumin measurement (mass/volume) 2.7 g/dL 3.2-4.5 CALCIUM CORRECTED 9.2 mg/dL 8.5-10.1 Automated blood complete blood count (hemogram) panel - 06/03/18 05:10 Blood leukocytes automated count (number/volume) 8.3 10*3/uL 4.3-11.0 Blood erythrocytes automated count (number/volume) 2.03 10*6/uL 4.35-5.85 Venous blood hemoglobin measurement (mass/volume) 6.2 g/dL 11.5-16.0 Blood hematocrit (volume fraction) 19 % 35-52 Automated erythrocyte mean corpuscular volume 96 [foz_us] 80-99 Automated erythrocyte mean corpuscular hemoglobin (mass per erythrocyte) 31 pg 25-34 Automated erythrocyte mean corpuscular hemoglobin concentration measurement ( mass/volume) 32 g/dL 32-36 Automated erythrocyte distribution width ratio 18.7 % 10.0-14.5 Automated blood platelet count (count/volume) 222 10*3/uL 130-400 Automated blood platelet mean volume measurement 10.7 [foz_us] 7.4-10.4 Comprehensive metabolic panel - 06/03/18 05:26 Serum or plasma sodium measurement (moles/volume) 140 mmol/L 135-145 Serum or plasma potassium measurement (moles/volume) 3.8 mmol/L 3.6-5.0 Serum or plasma chloride measurement (moles/volume) 113 mmol/L 98-107 Carbon dioxide 19 mmol/L 21-32 Serum or plasma anion gap determination (moles/volume) 8 mmol/L 5-14 Serum or plasma urea nitrogen measurement (mass/volume) 27 mg/dL 7-18 Serum or plasma creatinine measurement (mass/volume) 1.20 mg/dL 0.60-1.30 Serum or plasma urea nitrogen/creatinine mass ratio 23 NRG Serum or plasma creatinine measurement with calculation of estimated glomerular filtration rate 43 NRG Serum or plasma glucose measurement (mass/volume) 96 mg/dL 70-105 Serum or plasma calcium measurement (mass/volume) 7.8 mg/dL 8.5-10.1 Serum or plasma total bilirubin measurement (mass/volume) 0.7 mg/dL 0.1-1.0 Serum or plasma alkaline phosphatase measurement (enzymatic activity/volume) 64 U/L 40-136 Serum or plasma aspartate aminotransferase measurement (enzymatic activity/ volume) 28 U/L 5-34 Serum or plasma alanine aminotransferase measurement (enzymatic activity/volume ) 20 U/L 0-55 Serum or plasma protein measurement (mass/volume) 5.7 g/dL 6.4-8.2 Serum or plasma albumin measurement (mass/volume) 2.6 g/dL 3.2-4.5 CALCIUM CORRECTED 8.9 mg/dL 8.5-10.1 RED CELLS LEUKO REDUCED AS1 - 06/03/18 11:10 RED CELLS LEUKO REDUCED AS1 TRANSFUSED 06/03/18 1535 [facility] Blood type T Indirect antibody screen panel - 06/03/18 11:10 ABO+Rh group AN NR Transfusion band number [id number] [facility] Blood group antibody screen NEGATIVE [facility] Complete blood count (CBC) with automated white blood cell (WBC) differential - 06/04/18 10:45 Blood leukocytes automated count (number/volume) 9.6 10*3/uL 4.3-11.0 Blood erythrocytes automated count (number/volume) 2.92 10*6/uL 4.35-5.85 Venous blood hemoglobin measurement (mass/volume) 8.9 g/dL 11.5-16.0 Blood hematocrit (volume fraction) 27 % 35-52 Automated erythrocyte mean corpuscular volume 93 [foz_us] 80-99 Automated erythrocyte mean corpuscular hemoglobin (mass per erythrocyte) 30 pg 25-34 Automated erythrocyte mean corpuscular hemoglobin concentration measurement ( mass/volume) 33 g/dL 32-36 Automated erythrocyte distribution width ratio 17.7 % 10.0-14.5 Automated blood platelet count (count/volume) 305 10*3/uL 130-400 Automated blood platelet mean volume measurement 10.7 [foz_us] 7.4-10.4 Automated blood neutrophils/100 leukocytes 84 % 42-75 Automated blood lymphocytes/100 leukocytes 7 % 12-44 Blood monocytes/100 leukocytes 7 % 0-12 Automated blood eosinophils/100 leukocytes 2 % 0-10 Automated blood basophils/100 leukocytes 0 % 0-10 Blood neutrophils automated count (number/volume) 8.1 10*3 1.8-7.8 Blood lymphocytes automated count (number/volume) 0.6 10*3 1.0-4.0 Blood monocytes automated count (number/volume) 0.7 10*3 0.0-1.0 Automated eosinophil count 0.2 10*3/uL 0.0-0.3 Automated blood basophil count (count/volume) 0.0 10*3/uL 0.0-0.1 Blood manual differential performed detection - 06/04/18 10:45 Blood monocytes/100 leukocytes 8 % NRG Manual blood segmented neutrophils/100 leukocytes 81 % NRG Blood band neutrophils/100 leukocytes 1 % NRG Manual blood lymphocytes/100 leukocytes 7 % NRG Manual eosinophils/100 leukocytes in nose 3 % NRG Manual blood basophils/100 leukocytes 0 % NRG Blood anisocytosis detection by light microscopy SLIGHT NRG Whole blood basic metabolic panel - 06/04/18 10:45 Serum or plasma sodium measurement (moles/volume) 138 mmol/L 135-145 Serum or plasma potassium measurement (moles/volume) 3.9 mmol/L 3.6-5.0 Serum or plasma chloride measurement (moles/volume) 111 mmol/L 98-107 Carbon dioxide 19 mmol/L 21-32 Serum or plasma anion gap determination (moles/volume) 8 mmol/L 5-14 Serum or plasma urea nitrogen measurement (mass/volume) 36 mg/dL 7-18 Serum or plasma creatinine measurement (mass/volume) 1.11 mg/dL 0.60-1.30 Serum or plasma urea nitrogen/creatinine mass ratio 32 NRG Serum or plasma creatinine measurement with calculation of estimated glomerular filtration rate 47 NRG Serum or plasma glucose measurement (mass/volume) 102 mg/dL 70-105 Serum or plasma calcium measurement (mass/volume) 8.5 mg/dL 8.5-10.1 Complete urinalysis with reflex to culture - 06/04/18 11:55 Urine color determination MARIYA NRG Urine clarity determination VERY CLOUDY NRG Urine pH measurement by test strip 5 5-9 Specific gravity of urine by test strip 1.020 1.016- 1.022 Urine protein assay by test strip, semi-quantitative 3+ NEGATIVE Urine glucose detection by automated test strip NEGATIVE NEGATIVE Erythrocytes detection in urine sediment by light microscopy 5+ NEGATIVE Urine ketones detection by automated test strip NEGATIVE NEGATIVE Urine nitrite detection by test strip NEGATIVE NEGATIVE Urine total bilirubin detection by test strip NEGATIVE NEGATIVE Urine urobilinogen measurement by automated test strip (mass/volume) 1 mg/dL NORMAL Urine leukocyte esterase detection by dipstick 3+ NEGATIVE Automated urine sediment erythrocyte count by microscopy (number/high power field) [HPF] NRG Automated urine sediment leukocyte count by microscopy (number/high power field ) TNTC NRG Bacteria detection in urine sediment by light microscopy MODERATE NRG Squamous epithelial cells detection in urine sediment by light microscopy 5-10 NRG Crystals detection in urine sediment by light microscopy NONE NRG Casts detection in urine sediment by light microscopy PRESENT NRG Mucus detection in urine sediment by light microscopy NEGATIVE NRG Complete urinalysis with reflex to culture YES NRG Granular casts detection in urine sediment by light microscopy 5-10 NRG Bacterial urine culture - 06/04/18 11:55 Bacterial urine culture [id number] NRG COLONY COUNT >100,000/ML NRG FTX;REPORTABLE RML REPORTED ID 06/05/18 14:05 NRG FREE TEXT ENTRY 2 SENSITIVITY REPORTED 06/06/18 09:05 NRG RML Sensitivity Panel - 06/04/18 11:55 Gentamicin susceptibility test by minimum inhibitory concentration < = NRG Trimethoprim/sulfamethoxazole susceptibility test by minimum inhibitoryconcentration <= NRG Levofloxacin susceptibility test by minimum inhibitory concentration <= NRG Ampicillin susceptibility test by minimum inhibitory concentration < = NRG Cefazolin susceptibility test by minimum inhibitory concentration 2 NRG Ceftriaxone susceptibility test by minimum inhibitory concentration <= NRG Ciprofloxacin susceptibility test by minimum inhibitory concentration <= NRG Meropenem susceptibility test by minimum inhibitory concentration < = NRG Nitrofurantoin susceptibility test by minimum inhibitory concentration <= NRG Amoxicillin and clavulanate potassium susc GEOVANNA <= NRG Complete blood count (CBC) with automated white blood cell (WBC) differential - 06/05/18 05:40 Blood leukocytes automated count (number/volume) 7.9 10*3/uL 4.3-11.0 Blood erythrocytes automated count (number/volume) 2.45 10*6/uL 4.35-5.85 Venous blood hemoglobin measurement (mass/volume) 7.5 g/dL 11.5-16.0 Blood hematocrit (volume fraction) 23 % 35-52 Automated erythrocyte mean corpuscular volume 94 [foz_us] 80-99 Automated erythrocyte mean corpuscular hemoglobin (mass per erythrocyte) 31 pg 25-34 Automated erythrocyte mean corpuscular hemoglobin concentration measurement ( mass/volume) 33 g/dL 32-36 Automated erythrocyte distribution width ratio 17.4 % 10.0-14.5 Automated blood platelet count (count/volume) 330 10*3/uL 130-400 Automated blood platelet mean volume measurement 10.9 [foz_us] 7.4-10.4 Automated blood neutrophils/100 leukocytes 80 % 42-75 Automated blood lymphocytes/100 leukocytes 9 % 12-44 Blood monocytes/100 leukocytes 8 % 0-12 Automated blood eosinophils/100 leukocytes 3 % 0-10 Automated blood basophils/100 leukocytes 0 % 0-10 Blood neutrophils automated count (number/volume) 6.3 10*3 1.8-7.8 Blood lymphocytes automated count (number/volume) 0.7 10*3 1.0-4.0 Blood monocytes automated count (number/volume) 0.6 10*3 0.0-1.0 Automated eosinophil count 0.2 10*3/uL 0.0-0.3 Automated blood basophil count (count/volume) 0.0 10*3/uL 0.0-0.1 Whole blood basic metabolic panel - 06/05/18 05:40 Serum or plasma sodium measurement (moles/volume) 138 mmol/L 135-145 Serum or plasma potassium measurement (moles/volume) 3.9 mmol/L 3.6-5.0 Serum or plasma chloride measurement (moles/volume) 114 mmol/L 98-107 Carbon dioxide 19 mmol/L 21-32 Serum or plasma anion gap determination (moles/volume) 5 mmol/L 5-14 Serum or plasma urea nitrogen measurement (mass/volume) 39 mg/dL 7-18 Serum or plasma creatinine measurement (mass/volume) 1.07 mg/dL 0.60-1.30 Serum or plasma urea nitrogen/creatinine mass ratio 36 NRG Serum or plasma creatinine measurement with calculation of estimated glomerular filtration rate 49 NRG Serum or plasma glucose measurement (mass/volume) 102 mg/dL 70-105 Serum or plasma calcium measurement (mass/volume) 8.0 mg/dL 8.5-10.1 Complete blood count (CBC) with automated white blood cell (WBC) differential - 06/06/18 04:50 Blood leukocytes automated count (number/volume) 7.1 10*3/uL 4.3-11.0 Blood erythrocytes automated count (number/volume) 2.35 10*6/uL 4.35-5.85 Venous blood hemoglobin measurement (mass/volume) 7.2 g/dL 11.5-16.0 Blood hematocrit (volume fraction) 22 % 35-52 Automated erythrocyte mean corpuscular volume 95 [foz_us] 80-99 Automated erythrocyte mean corpuscular hemoglobin (mass per erythrocyte) 31 pg 25-34 Automated erythrocyte mean corpuscular hemoglobin concentration measurement ( mass/volume) 32 g/dL 32-36 Automated erythrocyte distribution width ratio 16.9 % 10.0-14.5 Automated blood platelet count (count/volume) 360 10*3/uL 130-400 Automated blood platelet mean volume measurement 10.3 [foz_us] 7.4-10.4 Automated blood neutrophils/100 leukocytes 73 % 42-75 Automated blood lymphocytes/100 leukocytes 14 % 12-44 Blood monocytes/100 leukocytes 10 % 0-12 Automated blood eosinophils/100 leukocytes 3 % 0-10 Automated blood basophils/100 leukocytes 1 % 0-10 Blood neutrophils automated count (number/volume) 5.2 10*3 1.8-7.8 Blood lymphocytes automated count (number/volume) 1.0 10*3 1.0-4.0 Blood monocytes automated count (number/volume) 0.7 10*3 0.0-1.0 Automated eosinophil count 0.2 10*3/uL 0.0-0.3 Automated blood basophil count (count/volume) 0.0 10*3/uL 0.0-0.1 Whole blood basic metabolic panel - 06/06/18 04:50 Serum or plasma sodium measurement (moles/volume) 138 mmol/L 135-145 Serum or plasma potassium measurement (moles/volume) 4.1 mmol/L 3.6-5.0 Serum or plasma chloride measurement (moles/volume) 114 mmol/L 98-107 Carbon dioxide 18 mmol/L 21-32 Serum or plasma anion gap determination (moles/volume) 6 mmol/L 5-14 Serum or plasma urea nitrogen measurement (mass/volume) 34 mg/dL 7-18 Serum or plasma creatinine measurement (mass/volume) 1.03 mg/dL 0.60-1.30 Serum or plasma urea nitrogen/creatinine mass ratio 33 NRG Serum or plasma creatinine measurement with calculation of estimated glomerular filtration rate 52 NRG Serum or plasma glucose measurement (mass/volume) 95 mg/dL 70-105 Serum or plasma calcium measurement (mass/volume) 8.4 mg/dL 8.5-10.1 Complete blood count (CBC) with automated white blood cell (WBC) differential - 06/07/18 05:20 Blood leukocytes automated count (number/volume) 7.3 10*3/uL 4.3-11.0 Blood erythrocytes automated count (number/volume) 2.35 10*6/uL 4.35-5.85 Venous blood hemoglobin measurement (mass/volume) 7.1 g/dL 11.5-16.0 Blood hematocrit (volume fraction) 23 % 35-52 Automated erythrocyte mean corpuscular volume 96 [foz_us] 80-99 Automated erythrocyte mean corpuscular hemoglobin (mass per erythrocyte) 30 pg 25-34 Automated erythrocyte mean corpuscular hemoglobin concentration measurement ( mass/volume) 32 g/dL 32-36 Automated erythrocyte distribution width ratio 16.8 % 10.0-14.5 Automated blood platelet count (count/volume) 407 10*3/uL 130-400 Automated blood platelet mean volume measurement 9.8 [foz_us] 7.4-10.4 Automated blood neutrophils/100 leukocytes 76 % 42-75 Automated blood lymphocytes/100 leukocytes 15 % 12-44 Blood monocytes/100 leukocytes 7 % 0-12 Automated blood eosinophils/100 leukocytes 2 % 0-10 Automated blood basophils/100 leukocytes 0 % 0-10 Blood neutrophils automated count (number/volume) 5.5 10*3 1.8-7.8 Blood lymphocytes automated count (number/volume) 1.1 10*3 1.0-4.0 Blood monocytes automated count (number/volume) 0.5 10*3 0.0-1.0 Automated eosinophil count 0.2 10*3/uL 0.0-0.3 Automated blood basophil count (count/volume) 0.0 10*3/uL 0.0-0.1 Whole blood basic metabolic panel - 06/07/18 05:20 Serum or plasma sodium measurement (moles/volume) 139 mmol/L 135-145 Serum or plasma potassium measurement (moles/volume) 4.1 mmol/L 3.6-5.0 Serum or plasma chloride measurement (moles/volume) 113 mmol/L 98-107 Carbon dioxide 18 mmol/L 21-32 Serum or plasma anion gap determination (moles/volume) 8 mmol/L 5-14 Serum or plasma urea nitrogen measurement (mass/volume) 25 mg/dL 7-18 Serum or plasma creatinine measurement (mass/volume) 0.98 mg/dL 0.60-1.30 Serum or plasma urea nitrogen/creatinine mass ratio 26 NRG Serum or plasma creatinine measurement with calculation of estimated glomerular filtration rate 55 NRG Serum or plasma glucose measurement (mass/volume) 92 mg/dL 70-105 Serum or plasma calcium measurement (mass/volume) 8.5 mg/dL 8.5-10.1 RED CELLS LEUKO REDUCED AS1 - 06/07/18 14:10 RED CELLS LEUKO REDUCED AS1 NOT AVAILABLE NRG Blood type T Indirect antibody screen panel - 06/07/18 14:10 ABO+Rh group AN NRG Transfusion band number [id number] Blood group antibody screen NEGATIVE NRG Complete blood count (CBC) with automated white blood cell (WBC) differential - 06/08/18 06:50 Blood leukocytes automated count (number/volume) 8.2 10*3/uL 4.3-11.0 Blood erythrocytes automated count (number/volume) 2.27 10*6/uL 4.35-5.85 Venous blood hemoglobin measurement (mass/volume) 6.7 g/dL 11.5-16.0 Blood hematocrit (volume fraction) 22 % 35-52 Automated erythrocyte mean corpuscular volume 97 [foz_us] 80-99 Automated erythrocyte mean corpuscular hemoglobin (mass per erythrocyte) 30 pg 25-34 Automated erythrocyte mean corpuscular hemoglobin concentration measurement ( mass/volume) 31 g/dL 32-36 Automated erythrocyte distribution width ratio 16.5 % 10.0-14.5 Automated blood platelet count (count/volume) 407 10*3/uL 130-400 Automated blood platelet mean volume measurement 9.4 [foz_us] 7.4-10.4 Automated blood neutrophils/100 leukocytes 83 % 42-75 Automated blood lymphocytes/100 leukocytes 9 % 12-44 Blood monocytes/100 leukocytes 7 % 0-12 Automated blood eosinophils/100 leukocytes 1 % 0-10 Automated blood basophils/100 leukocytes 0 % 0-10 Blood neutrophils automated count (number/volume) 6.8 10*3 1.8-7.8 Blood lymphocytes automated count (number/volume) 0.7 10*3 1.0-4.0 Blood monocytes automated count (number/volume) 0.6 10*3 0.0-1.0 Automated eosinophil count 0.1 10*3/uL 0.0-0.3 Automated blood basophil count (count/volume) 0.0 10*3/uL 0.0-0.1 Whole blood basic metabolic panel - 06/08/18 06:50 Serum or plasma sodium measurement (moles/volume) 136 mmol/L 135-145 Serum or plasma potassium measurement (moles/volume) 4.1 mmol/L 3.6-5.0 Serum or plasma chloride measurement (moles/volume) 109 mmol/L 98-107 Carbon dioxide 18 mmol/L 21-32 Serum or plasma anion gap determination (moles/volume) 9 mmol/L 5-14 Serum or plasma urea nitrogen measurement (mass/volume) 21 mg/dL 7-18 Serum or plasma creatinine measurement (mass/volume) 1.10 mg/dL 0.60-1.30 Serum or plasma urea nitrogen/creatinine mass ratio 19 NRG Serum or plasma creatinine measurement with calculation of estimated glomerular filtration rate 48 NRG Serum or plasma glucose measurement (mass/volume) 88 mg/dL 70-105 Serum or plasma calcium measurement (mass/volume) 8.5 mg/dL 8.5-10.1 Complete urinalysis with reflex to culture - 06/08/18 15:30 Urine color determination YELLOW NRG Urine clarity determination SLIGHTLY CLOUDY NRG Urine pH measurement by test strip 5 5-9 Specific gravity of urine by test strip 1.020 1.016- 1.022 Urine protein assay by test strip, semi-quantitative 2+ NEGATIVE Urine glucose detection by automated test strip NEGATIVE NEGATIVE Erythrocytes detection in urine sediment by light microscopy 5+ NEGATIVE Urine ketones detection by automated test strip NEGATIVE NEGATIVE Urine nitrite detection by test strip NEGATIVE NEGATIVE Urine total bilirubin detection by test strip NEGATIVE NEGATIVE Urine urobilinogen measurement by automated test strip (mass/volume) NORMAL NORMAL Urine leukocyte esterase detection by dipstick 1+ NEGATIVE Automated urine sediment erythrocyte count by microscopy (number/high power field) > [HPF] NRG Automated urine sediment leukocyte count by microscopy (number/high power field ) [HPF] NRG Bacteria detection in urine sediment by light microscopy NONE NRG Squamous epithelial cells detection in urine sediment by light microscopy 2-5 NRG Crystals detection in urine sediment by light microscopy NONE NRG Casts detection in urine sediment by light microscopy NONE NRG Mucus detection in urine sediment by light microscopy NEGATIVE NRG Complete urinalysis with reflex to culture NO NRG Complete blood count (CBC) with automated white blood cell (WBC) differential - 06/09/18 06:54 Blood leukocytes automated count (number/volume) 8.0 10*3/uL 4.3-11.0 Blood erythrocytes automated count (number/volume) 2.39 10*6/uL 4.35-5.85 Venous blood hemoglobin measurement (mass/volume) 7.2 g/dL 11.5-16.0 Blood hematocrit (volume fraction) 23 % 35-52 Automated erythrocyte mean corpuscular volume 96 [foz_us] 80-99 Automated erythrocyte mean corpuscular hemoglobin (mass per erythrocyte) 30 pg 25-34 Automated erythrocyte mean corpuscular hemoglobin concentration measurement ( mass/volume) 31 g/dL 32-36 Automated erythrocyte distribution width ratio 16.2 % 10.0-14.5 Automated blood platelet count (count/volume) 373 10*3/uL 130-400 Automated blood platelet mean volume measurement 9.2 [foz_us] 7.4-10.4 Automated blood neutrophils/100 leukocytes 79 % 42-75 Automated blood lymphocytes/100 leukocytes 11 % 12-44 Blood monocytes/100 leukocytes 7 % 0-12 Automated blood eosinophils/100 leukocytes 2 % 0-10 Automated blood basophils/100 leukocytes 1 % 0-10 Blood neutrophils automated count (number/volume) 6.3 10*3 1.8-7.8 Blood lymphocytes automated count (number/volume) 0.9 10*3 1.0-4.0 Blood monocytes automated count (number/volume) 0.6 10*3 0.0-1.0 Automated eosinophil count 0.2 10*3/uL 0.0-0.3 Automated blood basophil count (count/volume) 0.0 10*3/uL 0.0-0.1 Whole blood basic metabolic panel - 06/09/18 06:54 Serum or plasma sodium measurement (moles/volume) 137 mmol/L 135-145 Serum or plasma potassium measurement (moles/volume) 4.2 mmol/L 3.6-5.0 Serum or plasma chloride measurement (moles/volume) 109 mmol/L 98-107 Carbon dioxide 18 mmol/L 21-32 Serum or plasma anion gap determination (moles/volume) 10 mmol/L 5-14 Serum or plasma urea nitrogen measurement (mass/volume) 17 mg/dL 7-18 Serum or plasma creatinine measurement (mass/volume) 0.96 mg/dL 0.60-1.30 Serum or plasma urea nitrogen/creatinine mass ratio 18 NRG Serum or plasma creatinine measurement with calculation of estimated glomerular filtration rate 56 NRG Serum or plasma glucose measurement (mass/volume) 60 mg/dL 70-105 Serum or plasma calcium measurement (mass/volume) 8.1 mg/dL 8.5-10.1 Complete blood count (CBC) with automated white blood cell (WBC) differential - 06/10/18 06:45 Blood leukocytes automated count (number/volume) 6.1 10*3/uL 4.3-11.0 Blood erythrocytes automated count (number/volume) 2.52 10*6/uL 4.35-5.85 Venous blood hemoglobin measurement (mass/volume) 7.6 g/dL 11.5-16.0 Blood hematocrit (volume fraction) 24 % 35-52 Automated erythrocyte mean corpuscular volume 96 [foz_us] 80-99 Automated erythrocyte mean corpuscular hemoglobin (mass per erythrocyte) 30 pg 25-34 Automated erythrocyte mean corpuscular hemoglobin concentration measurement ( mass/volume) 31 g/dL 32-36 Automated erythrocyte distribution width ratio 16.0 % 10.0-14.5 Automated blood platelet count (count/volume) 378 10*3/uL 130-400 Automated blood platelet mean volume measurement 8.9 [foz_us] 7.4-10.4 Automated blood neutrophils/100 leukocytes 75 % 42-75 Automated blood lymphocytes/100 leukocytes 14 % 12-44 Blood monocytes/100 leukocytes 8 % 0-12 Automated blood eosinophils/100 leukocytes 3 % 0-10 Automated blood basophils/100 leukocytes 1 % 0-10 Blood neutrophils automated count (number/volume) 4.5 10*3 1.8-7.8 Blood lymphocytes automated count (number/volume) 0.9 10*3 1.0-4.0 Blood monocytes automated count (number/volume) 0.5 10*3 0.0-1.0 Automated eosinophil count 0.2 10*3/uL 0.0-0.3 Automated blood basophil count (count/volume) 0.0 10*3/uL 0.0-0.1 Whole blood basic metabolic panel - 06/10/18 06:45 Serum or plasma sodium measurement (moles/volume) 138 mmol/L 135-145 Serum or plasma potassium measurement (moles/volume) 4.0 mmol/L 3.6-5.0 Serum or plasma chloride measurement (moles/volume) 109 mmol/L 98-107 Carbon dioxide 22 mmol/L 21-32 Serum or plasma anion gap determination (moles/volume) 7 mmol/L 5-14 Serum or plasma urea nitrogen measurement (mass/volume) 11 mg/dL 7-18 Serum or plasma creatinine measurement (mass/volume) 0.92 mg/dL 0.60-1.30 Serum or plasma urea nitrogen/creatinine mass ratio 12 NRG Serum or plasma creatinine measurement with calculation of estimated glomerular filtration rate 59 NRG Serum or plasma glucose measurement (mass/volume) 88 mg/dL 70-105 Serum or plasma calcium measurement (mass/volume) 8.5 mg/dL 8.5-10.1 Complete blood count (CBC) with automated white blood cell (WBC) differential - 06/11/18 06:55 Blood leukocytes automated count (number/volume) 4.6 10*3/uL 4.3-11.0 Blood erythrocytes automated count (number/volume) 2.36 10*6/uL 4.35-5.85 Venous blood hemoglobin measurement (mass/volume) 7.2 g/dL 11.5-16.0 Blood hematocrit (volume fraction) 23 % 35-52 Automated erythrocyte mean corpuscular volume 98 [foz_us] 80-99 Automated erythrocyte mean corpuscular hemoglobin (mass per erythrocyte) 31 pg 25-34 Automated erythrocyte mean corpuscular hemoglobin concentration measurement ( mass/volume) 31 g/dL 32-36 Automated erythrocyte distribution width ratio 15.7 % 10.0-14.5 Automated blood platelet count (count/volume) 348 10*3/uL 130-400 Automated blood platelet mean volume measurement 9.1 [foz_us] 7.4-10.4 Automated blood neutrophils/100 leukocytes 71 % 42-75 Automated blood lymphocytes/100 leukocytes 15 % 12-44 Blood monocytes/100 leukocytes 9 % 0-12 Automated blood eosinophils/100 leukocytes 4 % 0-10 Automated blood basophils/100 leukocytes 1 % 0-10 Blood neutrophils automated count (number/volume) 3.3 10*3 1.8-7.8 Blood lymphocytes automated count (number/volume) 0.7 10*3 1.0-4.0 Blood monocytes automated count (number/volume) 0.4 10*3 0.0-1.0 Automated eosinophil count 0.2 10*3/uL 0.0-0.3 Automated blood basophil count (count/volume) 0.0 10*3/uL 0.0-0.1 Whole blood basic metabolic panel - 06/11/18 06:55 Serum or plasma sodium measurement (moles/volume) 141 mmol/L 135-145 Serum or plasma potassium measurement (moles/volume) 3.9 mmol/L 3.6-5.0 Serum or plasma chloride measurement (moles/volume) 111 mmol/L 98-107 Carbon dioxide 24 mmol/L 21-32 Serum or plasma anion gap determination (moles/volume) 6 mmol/L 5-14 Serum or plasma urea nitrogen measurement (mass/volume) 8 mg/dL 7-18 Serum or plasma creatinine measurement (mass/volume) 0.84 mg/dL 0.60-1.30 Serum or plasma urea nitrogen/creatinine mass ratio 10 NRG Serum or plasma creatinine measurement with calculation of estimated glomerular filtration rate > NRG Serum or plasma glucose measurement (mass/volume) 87 mg/dL 70-105 Serum or plasma calcium measurement (mass/volume) 8.3 mg/dL 8.5-10.1 Methicillin resistant Staphylococcus aureus (MRSA) screening culture - 10:28 Methicillin resistant Staphylococcus aureus (MRSA) screening culture NEG NRG Encounters ACCT No. Visit Date/Time Discharge Status Pt. Type Provider Facility Loc./Unit Complaint [id number] 08/31/2018 10:21:00 08/31/2018 23:59:59 CLS Outpatient TAYLOR HILL MD [facility] ONC [id number] 08/16/2018 14:47:00 08/16/2018 23:59:59 CLS Outpatient TAYLOR HILL MD [facility] RAD PTOSIS OF LEFT EYELID [id number] 07/25/2018 09:43:00 07/26/2018 13:40:00 DIS Outpatient LINO WOOTEN MD [facility] SDC RIGHT RADIUS FRACTURE [id number] 07/23/2018 06:45:00 07/23/2018 12:50:00 DIS Outpatient LINO WOOTEN MD [facility] PREOP ORIF RIGHT RADIUS [id number] 06/25/2018 12:40:00 06/26/2018 00:01:00 DIS Outpatient TAYLOR HILL MD [facility] ONC [id number] 05/29/2018 16:55:00 06/11/2018 11:55:00 DIS Inpatient PHUONG FORTE MD [facility] 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,MULTIPLE MYELOMA, R RADIAL HEAD FRACTURE [id number] 02/27/2018 09:36:00 03/27/2018 09:57:00 DIS Outpatient TAYLOR HILL MD [facility] ONC [id number] 01/16/2018 14:27:00 01/16/2018 14:35:00 DIS Outpatient TAYLOR HILL MD [facility] ONC [id number] 11/30/2017 13:57:00 11/30/2017 23:59:59 CLS Outpatient TAYLOR HILL MD [facility] RAD LEFT HIP PAIN [id number] 11/02/2017 08:17:00 11/28/2017 00:01:00 DIS Outpatient TAYLOR HILL MD [facility] ONC [id number] 09/26/2017 08:47:00 09/26/2017 23:59:59 CLS Outpatient TAYLOR HILL MD [facility] RAD C90.00 MYELOMA [id number] 08/14/2017 09:23:00 08/30/2017 09:54:00 DIS Outpatient JASMYNE MOLINA [facility] ONC [id number] 08/10/2017 08:21:00 08/14/2017 09:21:00 DIS Outpatient TAYLOR HILL MD [facility] ONC [id number] 07/13/2017 08:23:00 07/19/2017 00:01:00 DIS Outpatient TAYLOR HILL MD [facility] ONC [id number] 03/23/2017 09:17:00 04/19/2017 12:05:00 DIS Outpatient JASMYNE MOLINA [facility] ONC [id number] 02/23/2017 10:11:00 03/18/2017 00:01:00 DIS Outpatient JASMYNE MOLINA [facility] ONC [id number] 12/29/2016 09:10:00 01/25/2017 10:43:00 DIS Outpatient RALPH SEGOVIA MD [facility] ONC [id number] 12/15/2016 14:16:00 12/21/2016 00:01:00 DIS Outpatient RALPH SEGOVIA MD [facility] ONC [id number] 11/30/2016 09:27:00 11/30/2016 23:59:59 CLS Outpatient KAITLIN MERCADO MD [facility] LAB [id number] 11/07/2016 08:41:00 11/07/2016 23:59:59 CLS Outpatient RALPH SEGOVIA MD [facility] RAD M25.551 BILAT HIP PAIN [id number] 09/15/2016 11:13:00 09/21/2016 00:01:00 DIS Outpatient RALPH SEGOVIA MD [facility] ONC [id number] 06/16/2016 10:56:00 06/22/2016 00:01:00 DIS Outpatient RALPH SEGOVIA MD [facility] ONC [id number] 04/07/2016 11:06:00 04/07/2016 23:59:59 CLS Outpatient RALPH SEGOVIA MD [facility] RAD [id number] 03/18/2016 09:43:00 03/21/2016 10:52:00 DIS Outpatient RALPH SEGOVIA MD [facility] ONC [id number] 12/17/2015 12:45:00 12/22/2015 00:01:00 DIS Outpatient RALPH SEGOVIA MD [facility] ONC [id number] 12/18/2015 07:42:00 12/18/2015 13:20:00 DIS Outpatient URVASHI PRIETO MD [facility] SDC MULTIPLE LIPOMAS [id number] 12/15/2015 05:47:00 12/15/2015 13:01:00 DIS Outpatient IDA GONZALEZ, URVASHI M [facility] PREOP MULTIPLE LIPOMAS [id number] 11/09/2015 09:15:00 11/09/2015 23:59:59 CLS Outpatient RALPH SEGOVIA MD [facility] CARD METASTATIC BONE PLASMACYTOMA [id number] 10/30/2015 07:46:00 10/30/2015 23:59:59 CLS Outpatient RALPH SEGOVIA MD [facility] RAD METASTATIC BONE PLASMAYTOMA [id number] 09/17/2015 13:47:00 09/22/2015 00:01:00 DIS Outpatient RALPH SEGOVIA MD [facility] ONC [id number] 07/29/2015 09:27:00 07/29/2015 23:59:59 CLS Outpatient RALPH SEGOVIA MD [facility] RAD COUGH [id number] 06/15/2015 12:47:00 06/21/2015 00:01:00 DIS Outpatient RALPH SEGOVIA MD [facility] ONC [id number] 06/05/2015 12:09:00 06/05/2015 23:59:59 CLS Outpatient RALPH SEGOVIA MD [facility] RAD ACUTE PELVIS PAIN [id number] 06/03/2015 09:10:00 06/03/2015 23:59:59 CLS Outpatient RALPH SEGOVIA MD [facility] RAD ACUTE PELVIS PAIN [id number] 04/13/2015 12:55:00 04/13/2015 23:59:59 CLS Outpatient ARON ARCE DDS [facility] LAB PRE SURGERY EVAL [id number] 03/20/2015 13:44:00 03/20/2015 23:59:59 CLS Outpatient RAPLH SEGOVIA MD [facility] CARD EDEMA,MULITPLE MYLOMA [id number] 03/17/2015 13:13:00 03/18/2015 00:01:00 DIS Outpatient RALPH SEGOVIA MD [facility] ONC [id number] 02/16/2015 13:28:00 02/16/2015 23:59:59 CLS Outpatient RALPH SEGOVIA MD [facility] RAD FALL AT HOME [id number] 01/27/2015 12:50:00 02/01/2015 00:01:00 DIS Outpatient RALPH SEGOVIA MD [facility] ONC [id number] 01/16/2015 13:00:00 01/16/2015 23:59:59 CLS Outpatient KARLEY WHITMORE [facility] ONC [id number] 10/06/2014 13:14:00 10/26/2014 00:01:00 DIS Outpatient RALPH SEGOVIA MD [facility] ONC [id number] 07/14/2014 13:41:00 07/20/2014 00:01:00 DIS Outpatient RALPH SEGOVIA MD [facility] ONC [id number] 06/17/2014 10:48:00 06/17/2014 23:59:59 CLS Outpatient LARISA BLAIR MD [facility] ONC [id number] 04/07/2014 11:14:00 04/13/2014 00:01:00 DIS Outpatient RALPH SEGOVIA MD [facility] ONC [id number] 02/24/2014 14:54:00 02/24/2014 23:59:59 CLS Outpatient RALPH SEGOVIA MD [facility] RAD [id number] 12/30/2013 13:38:00 01/05/2014 00:01:00 DIS Outpatient RALPH SEGOVIA MD [facility] ONC [id number] 09/23/2013 13:46:00 09/29/2013 00:01:00 DIS Outpatient RALPH SEGOVIA MD [facility] ONC [id number] 06/17/2013 12:52:00 06/23/2013 00:01:00 DIS Outpatient RALPH SEGOVIA MD [facility] ONC [id number] 05/20/2013 13:16:00 05/20/2013 23:59:59 CLS Outpatient KARLEY WHITMORE [facility] ONC [id number] 03/18/2013 13:25:00 03/22/2013 11:39:00 DIS Outpatient RALPH SEGOVIA MD [facility] ONC [id number] 01/02/2013 11:03:00 01/02/2013 23:59:59 CLS Outpatient RALPH SEGOVIA MD [facility] LAB MULTIPLE MYELOMA [id number] 12/17/2012 13:25:00 12/23/2012 00:01:00 DIS Outpatient RALPH SEGOVIA MD [facility] ONC [id number] 09/17/2012 13:19:00 Document Registration [id number] 06/27/2012 09:06:00 Document Registration [id number] 06/25/2012 13:03:00 Document Registration [id number] 08/17/2010 07:51:00 Document Registration [id number] 03/24/2015 05:26:19 ACT Document Registration [id number] 09/21/2017 14:26:00 Document Registration [id number] 09/21/2017 14:26:00 09/21/2017 23:59:00 DIS Outpatient Kaitlin Mercado
[2018-09-04] MEDS ORDERED: PATIENT MAY USE OWN MEDS, ALL PO SCH (11:45)
[2018-09-04] MEDS ORDERED: diphenhydrAMINE 25 MG TAB (BENADRYL) PO PRN (11:45)
[2018-09-04] MEDS ORDERED: ALPRAZolam 0.25 MG (XANAX) TAB PO PRN (11:45)
[2018-09-04] MEDS ORDERED: ACETAMINOPHEN 325 MG TABLET PO PRN (11:45)
[2018-09-04] MEDS ORDERED: MILK OF MAGNESIA 400 MG/5 ML 30 ML UDC PO PRN (11:45)
[2018-09-04] MEDS ORDERED: SENNA W/DOCUSATE (SENOKOT S) TABLET PO PRN (11:45)
[2018-09-04 12:03] VITALS: BP 187/72
[2018-09-04 12:17] VITALS: BP 187/72
[2018-09-04] MEDS ORDERED: DOCU-143 PO (12:59)
[2018-09-04] MEDS ORDERED: OXYC-471 PO (13:01)
[2018-09-04] MEDS: NS IV 1000 ML 1,000 ML IV SCH (13:03)
[2018-09-04] MEDS ORDERED: ZOLP5TAB PO (13:10)
[2018-09-04] MEDS ORDERED: SIMV20TA3 PO (13:10)
[2018-09-04] MEDS ORDERED: HYDR12.56 PO (13:10)
[2018-09-04 13:11] LABS: BILIRUBIN,URINE NEGATIVE (NEGATIVE); CLARITY,URINE SLIGHTLY CLOUDY; COLOR,URINE BROWN; GLUCOSE, URINE (UA) NEGATIVE (NEGATIVE); KETONES,URINE 1+ (NEGATIVE); LEUKOCYTE ESTERASE ,URINE 1+ (NEGATIVE); NITRITE,URINE NEGATIVE (NEGATIVE); PH,URINE 5 (5-9); PROTEIN,URINE 3+ (NEGATIVE); UROBILINOGEN,URINE NORMAL (NORMAL)
--- NOTE | 2018-09-04 13:12 | NUR ---
SPOKE WITH THE PATIENT ABOUT HER MEDICATIONS. SHE LISTED WHAT SHE IS TAKING. I CALLED [facility] TO VERIFY THE LAST FILL DATES. I ALSO COMPARED WITH THE [facility]. THERE ARE SEVERAL MEDICATIONS ON THE LIST FROM [facility] THAT THE PATIENT DID NOT LIST SHE WAS TAKING AND SHE HAS NOT FILLED FOR SOME TIME. I DID NOT INCLUDE THEM ON THE MED REC. [facility] FILLED ON 08-10-18 AMBIEN 5MG HS PRN IT WAS ON THE LIST FROM [facility], SHE DID NOT LIST TAKING IT BUT I ADDED IT PRN AT THIS TIME SINCE IT WAS RECENTLY FILLED SHE STATES SHE IS TAKING A CHOLESTEROL MEDICATION AT NIGHT AND A WATER PILL OF A MORNING. THEY ARE PAST DUE FOR REFILL HOWEVER I ADDED THEM TO THE MED REC AT THIS TIME SINCE SHE STATES SHE IS TAKING THEM. 04-07-18 HCTZ 12.5MG DAILY #90 03-23-18 SIMVASTATIN 20MG HS #90 SHE ALSO REPORTS TAKING 2 COLACE AT BEDTIME OTC.
[2018-09-04 13:52] LABS: AMORPHOUS SEDIMENT,UR FEW AMOR URATES /LPF; RBC,URINE TNTC /HPF
[2018-09-04 13:54] LABS: BACTERIA,URINE MODERATE /HPF
[2018-09-04] MEDS ORDERED: PANTOPRAZOLE 40 MG (PROTONIX) VIAL IV NR (14:00)
--- NOTE | 2018-09-04 14:04 | Oncology History & Physical ---
Visit Information Visit Information Date of Admission Sep 04, 2018 at 10:42 Attending Physician Saskia Blair MD Admitting Physician Osmin Seth MD Chief Complaint weakness, acute renal failure, diarrhea, dehydration, severe anemia, multiple myeloma Interval History Ms. Rice is an 78 year old white female with recurrent multiple myeloma/ plasmacytoma under the care of primary oncologist Dr Soto, who presented to [facility] yesterday with general weakness, not able to take care of herself at home, nausea and diarrhea 5-6x/day, near syncope. She was found to have Hb 5.9 and acutely deteriorating the renal function Cr from 1.4 to 3.2. We were trying to admit her to in-pt for IVF, RBC transfusion but there was no bed available. We gave her one unit of RBC and 500ml of IVF. She went home and returned to [facility] and still feeling very weak. We now has a bed and she was directly from [facility]. Last chemo treatment 08/30/2018 Velcade. 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 Recent radiation to sternum, scalp. 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 I consulted the patient on: 09/04/18 13:50 Time Seen by Provider: 13:51 Review of Systems Constitutional: weakness, weight loss EENTM: blurred vision Respiratory: short of breath Cardiovascular: palpitations Gastrointestinal: abdominal pain, diarrhea, heartburn, nausea Genitourinary: decreased output Musculoskeletal: muscle weakness Psychiatric/Neurological: No Symptoms Reported Health Status Allergies Coded Allergies: Sulfa (Sulfonamide Antibiotics) (Verified Allergy, Mild, HIVES, 07/23/18) Home Medications Docusate Sodium (Colace) 100 Mg Capsule, 200 MG PO HS, (Reported) TAKES 2 (100MG) CAPSULES Hydrochlorothiazide (Hydrochlorothiazide) 12.5 Mg Tablet, 12.5 MG PO DAILY, ( Reported) LAST FILLED #90 04-07-18 Metoprolol Succinate (Metoprolol Succinate) 25 Mg Tab.er.24h, 25 MG PO DAILY, ( Reported) Oxycodone HCl/Acetaminophen (Oxycodone-Acetaminophen 5-325) 1 Each Tablet, 1 TAB PO Q4H PRN for PAIN-MODERATE, (Reported) Simvastatin (Simvastatin) 20 Mg Tablet, 20 MG PO HS, (Reported) LAST FILLED #90 10-18 Zolpidem Tartrate (Ambien) 5 Mg Tablet, 5 MG PO HS PRN for SLEEP, (Reported) [id number] Hx Patient Social History Alcohol Use: Denies Use Recreational Drug Use: No Recent Foreign Travel: No Contact w/other who traveled: No Recent Infectious Disease Expo: No Recent Hopitalizations: Yes (MAY 2018-BLEEDING STOMACH MASS/FALL) Physical Abuse Screen: No Sexual Abuse: No Immunizations Up To Date Date of Influenza Vaccine: May 07, 2018 Family Medical History Significant Family History: CAD Over 55 Years Old Family History: Cardiovascular disease 19 MOTHER Data Review Labs Laboratory Tests 09/04/18 12:50: Urine Color BROWNH, Urine Specific [place] 1.015L, Urine Protein 3+H, Urine Ketones 1+H, Urine Leukocyte Esterase 1+H, Urine RBC (Auto) 5+H, Urine RBC TNTCH , Urine WBC 10-25H, Urine Crystals PRESENTH, Urine Amorphous Sediment FEW SANDRA URATESH, Urine Bacteria MODERATEH, Urine Granular Casts 10-25H Physical Exam Vital Signs Vital Signs - First Documented 09/04/18 12:03 Temp 97.8 Pulse 65 Resp 20 B/P (MAP) 187/72 Pulse Ox 97 O2 Delivery Room Air Capillary Refill : Less Than 3 Seconds Height, Weight, BMI Height: 5'2.00" Weight: 124lbs. 2.0oz. [id number]; 21.3 BMI Method:Stated General Appearance: No Apparent Distress, Chronically ill HEENT: PERRL/EOMI, Other (left eye protruding) Neck: Non Tender, Supple Respiratory: Normal Breath Sounds, No Accessory Muscle Use, No Respiratory Distress Cardiovascular: Regular Rate, Rhythm, Tachycardia Gastrointestinal: Soft, Tenderness Extremity: Swelling, Other (right arm in splint) Neurologic/Psychiatric: Alert, Oriented x3 Impression & Plan Impression & Plan IMP: 1. Acute on chronic renal failure 2. Dehydration 3. Nausea, diarrhea 5-6x/day 4. Severe anemia Hb 5.9 5. GI bleeding 6. Multiple myeloma/plasmacytoma multiple sites on radiation treatment and chemo , last dose 08/30/[address] Soto 7. Hypokalemia 8. Pt is DNR 9. Pt lives by herself with a technical healthcare consultant at home prior to this admission. Plan: 1. IVF 2. RBC transfusion 2 units 3. Proton inhibitor and Carafate 4. Check stool for C. Diff 5. Pain control 6. Hold off chemo and radiation for now. 7. Dr Soto will be back tomorrow Diagnosis Admission Status: Inpatient Order (span 2 midnights) Reason for Inpatient Admission: Weakness, diarrhea, dehydration, acute renal failure, severe anemia SASKIA BLAIR MD Sep 04, 2018 14:04
[2018-09-04 15:35] LABS: BASOPHILS % (AUTO) 0 % (0-10); EOSINOPHILS # (AUTO) 0.1 10^3/uL (0.0-0.3); EOSINOPHILS % (AUTO) 1 % (0-10); LYMPHOCYTES # (AUTO) 1.5 X 10^3 (1.0-4.0); LYMPHOCYTES % (AUTO) 22 % (12-44); MEAN CORPUSCULAR HEMOGLOBIN 32 PG (25-34); MEAN CORPUSCULAR HGB CONC 33 G/DL (32-36); MEAN CORPUSCULAR VOLUME 97 FL (80-99); MEAN PLATELET VOLUME 11.1 FL (7.4-10.4); MONOCYTES # (AUTO) 0.4 X 10^3 (0.0-1.0); MONOCYTES % (AUTO) 6 % (0-12); NEUTROPHILS # (AUTO) 4.9 X 10^3 (1.8-7.8); NEUTROPHILS % (AUTO) 72 % (42-75); PLATELET COUNT 160 10^3/uL (130-400); RED CELL DISTRIBUTION WIDTH 19.4 % (10.0-14.5); WHITE BLOOD COUNT 6.9 10^3/uL (4.3-11.0)
[2018-09-04 15:38] LABS: HEMATOCRIT 19 % (35-52); HEMOGLOBIN 6.2 G/DL (11.5-16.0)
[2018-09-04 15:55] LABS: BILIRUBIN,TOTAL 0.4 MG/DL (0.1-1.0); CALCIUM 8.4 MG/DL (8.5-10.1); CREATININE SERUM 3.27 MG/DL (0.60-1.30); POTASSIUM 3.2 MMOL/L (3.6-5.0); TOTAL PROTEIN 7.9 GM/DL (6.4-8.2)
[2018-09-04 16:00] VITALS: BP 181/67
--- NOTE | 2018-09-04 17:51 | NUR ---
IV MEDS HELD AT THIS TIME UNTIL BLOOD IS COMPLETE
[2018-09-04] MEDS: SUCRALFATE 1 GM (CARAFATE) TAB PO SCH ×2 (18:16→23:02)
[2018-09-04] MEDS: POTASSIUM CL 10MEQ/50ML IVPB 50 ML IV SCH (18:32)
[2018-09-04 19:46] VITALS: BP 185/74
[2018-09-05] MEDS: NS IV 1000 ML 1,000 ML IV SCH ×3 (02:54→12:28)
[2018-09-05] MEDS: SUCRALFATE 1 GM (CARAFATE) TAB PO SCH ×4 (05:41→20:50)
[2018-09-05] MEDS: ONDANSETRON 4 MG/2 ML (SDV) Z0FRAN IV PRN ×3 (06:44→23:31)
[2018-09-05 08:00] VITALS: BP 187/68
[2018-09-05] MEDS ORDERED: POTASSIUM CL 10MEQ/50ML IVPB 150 ML IV ONE (08:12)
[2018-09-05] MEDS: POTASSIUM CL 10MEQ/50ML IVPB 50 ML IV SCH ×5 (08:16→11:00)
--- NOTE | 2018-09-05 08:19 | NUR ---
NOTED 3 BAGS POTASSIUM NOT GIVEN LAST PM ORDERED. PHARMACY NOTIFIED. DC'D OFF EMAR AND RE-ENTERED BY PHARMACY SO MEDS COULD BE DOCUMENTED.
[2018-09-05] MEDS: PANTOPRAZOLE 40 MG (PROTONIX) TAB PO SCH (09:19)
[2018-09-05 12:00] VITALS: BP 173/68
--- NOTE | 2018-09-05 14:27 | NUR ---
TO [facility] PER [facility] FOR RADIATION TX.
--- NOTE | 2018-09-05 15:10 | NUR ---
PORT DRAW LABS.
[2018-09-05 15:12] LABS: BASOPHILS % (AUTO) 0 % (0-10); EOSINOPHILS # (AUTO) 0.1 10^3/uL (0.0-0.3); EOSINOPHILS % (AUTO) 2 % (0-10); HEMATOCRIT 22 % (35-52); HEMOGLOBIN 7.2 G/DL (11.5-16.0); LYMPHOCYTES # (AUTO) 1.6 X 10^3 (1.0-4.0); LYMPHOCYTES % (AUTO) 32 % (12-44); MEAN CORPUSCULAR HEMOGLOBIN 32 PG (25-34); MEAN CORPUSCULAR HGB CONC 33 G/DL (32-36); MEAN CORPUSCULAR VOLUME 97 FL (80-99); MEAN PLATELET VOLUME 10.9 FL (7.4-10.4); MONOCYTES # (AUTO) 0.4 X 10^3 (0.0-1.0); MONOCYTES % (AUTO) 7 % (0-12); NEUTROPHILS # (AUTO) 2.9 X 10^3 (1.8-7.8); NEUTROPHILS % (AUTO) 59 % (42-75); PLATELET COUNT 175 10^3/uL (130-400); RED CELL DISTRIBUTION WIDTH 19.6 % (10.0-14.5); WHITE BLOOD COUNT 4.9 10^3/uL (4.3-11.0)
--- NOTE | 2018-09-05 15:24 | NUR ---
RADIATION TREATMENT # 6 OF 10 DELIVERED AT 230 PM.
[2018-09-05 15:27] LABS: CALCIUM 7.9 MG/DL (8.5-10.1); CREATININE SERUM 3.17 MG/DL (0.60-1.30); POTASSIUM 3.9 MMOL/L (3.6-5.0)
--- NOTE | 2018-09-05 15:30 | NUR ---
CRITICAL GLUCOSE CALLED 55MG/DL. EATING PEANUT BUTTER, OJ, AND ORDERED LUNCH. WILL RECHECK.
[2018-09-05 16:39] VITALS: BP 190/70
--- NOTE | 2018-09-05 16:39 | NUR ---
REPEAT GLUCOSE 63. PT EATING.
--- NOTE | 2018-09-05 19:06 | Progress Note-Standard ---
Standard Progress Note Progress Notes/Assess & Plan Date Seen by a Provider: Sep 05, 2018 Time Seen by a Provider: 18:56 Progress/Assessment & Plan 78 yo female with refractory multiple myeloma and multiple plasmacytomas was admitted yesterday with acute on chronic anemia, severe nausea, vomiting and diarrhea. She was so weak and nauseated that she could not eat nor transfer without assistance. Patient was given two units of PRBCs yesterday with appropriate rise in hemoglobin. She continues to have severe intermittent nausea that responds well to IV Zofran. Diarrhea has improved significantly with Lomotil. Over the last few days, patient says the diarrhea was the worst of her symptoms. Patient has significant deviation of her left eye and periorbital structures. She has some ulcerations on her nose. Her right forearm is in a splint. She is in moderate distress from intermittent bouts of nausea. She has tenderness and pain in her left lower chest wall. Laboratory Tests Test 09/04/18 12:50 09/04/18 15:15 09/05/18 13:03 09/05/18 14:55 Range/Units Urine Color BROWN H Urine Clarity SLIGHTLY CLOUDY Urine pH 5 5-9 Urine Specific [place] 1.015 L 1.016-1.022 Urine Protein 3+ H NEGATIVE Urine Glucose (UA) NEGATIVE NEGATIVE Urine Ketones 1+ H NEGATIVE Urine Nitrite NEGATIVE NEGATIVE Urine Bilirubin NEGATIVE NEGATIVE Urine Urobilinogen NORMAL NORMAL MG/DL Urine Leukocyte Esterase 1+ H NEGATIVE Urine RBC (Auto) 5+ H NEGATIVE Urine RBC TNTC H /HPF Urine WBC 10-25 H /HPF Urine Squamous Epithelial Cells 2-5 /HPF Urine Crystals PRESENT H /LPF Urine Amorphous Sediment FEW SANDRA URATES H /LPF Urine Bacteria MODERATE H /HPF Urine Casts PRESENT /LPF Urine Granular Casts 10-25 H /LPF Urine Mucus NEGATIVE /LPF Urine Culture Indicated YES White Blood Count 6.9 4.9 4.3-11.0 10^3/uL Red Blood Count 1.96 L 2.27 L 4.35-5.85 10^6/uL Hemoglobin 6.2 *L 7.2 L 11.5-16.0 G/DL Hematocrit 19 *L 22 L 35-52 % Mean Corpuscular Volume 97 97 80-99 FL Mean Corpuscular Hemoglobin 32 32 25-34 PG Mean Corpuscular Hemoglobin Concent 33 33 32-36 G/DL Red Cell Distribution Width 19.4 H 19.6 H 10.0-14.5 % Platelet Count 160 175 130-400 10^3/uL Mean Platelet Volume 11.1 H 10.9 H 7.4-10.4 FL Neutrophils (%) (Auto) 72 59 42-75 % Lymphocytes (%) (Auto) 22 32 12-44 % Monocytes (%) (Auto) 6 7 0-12 % Eosinophils (%) (Auto) 1 2 0-10 % Basophils (%) (Auto) 0 0 0-10 % Neutrophils # (Auto) 4.9 2.9 1.8-7.8 X 10^3 Lymphocytes # (Auto) 1.5 1.6 1.0-4.0 X 10^3 Monocytes # (Auto) 0.4 0.4 0.0-1.0 X 10^3 Eosinophils # (Auto) 0.1 0.1 0.0-0.3 10^3/uL Basophils # (Auto) 0.0 0.0 0.0-0.1 10^3/uL Sodium Level 140 138 135-145 MMOL/L Potassium Level 3.2 L 3.9 3.6-5.0 MMOL/L Chloride Level 110 H 111 H 98-107 MMOL/L Carbon Dioxide Level 19 L 17 L 21-32 MMOL/L Anion Gap 11 10 5-14 MMOL/L Blood Urea Nitrogen 64 H 58 H 7-18 MG/DL Creatinine 3.27 H 3.17 H 0.60-1.30 MG/DL Estimat Glomerular Filtration Rate 14 14 BUN/Creatinine Ratio 20 18 Glucose Level 67 L 55 *L 70-105 MG/DL Calcium Level 8.4 L 7.9 L 8.5-10.1 MG/DL Corrected Calcium 9.2 8.5-10.1 MG/DL Total Bilirubin 0.4 0.1-1.0 MG/DL Aspartate Amino Transf (AST/SGOT) 17 5-34 U/L Alanine Aminotransferase (ALT/SGPT) 7 0-55 U/L Alkaline Phosphatase 29 L 40-136 U/L Total Protein 7.9 6.4-8.2 GM/DL Albumin 3.0 L 3.2-4.5 GM/DL Lab Scanned Report Transfusion Reaction Form [id number] Test 09/05/18 16:14 Range/Units Glucometer 63 L 70-110 MG/DL I think her nausea is caused by a combination of factors, including hypoglycemia from malnutrition, visual disruption, 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 Anemia could be progression of the plasmacytoma in a different area of the GI tract or along the resection margin. We had an extensive conversation about her goals of care. At this point, antineoplastic therapy is no longer useful. I discussed that I would no longer be treating her aggressively with these agents. I then talked with her about various degrees of palliative therapy and diagnostics, with the most aggressive being continued full admission with daily diagnostic labs, IVF and nutrition, endoscopy to rule out GI bleeding. Patient is unsure if she would like to continue a very aggressive course and may be amenable to pure outpatient management with palliative treatments only. She is going to discuss different plans of care with her cousin, who is her DPOA. For now, we will continue aggressive daily labs and transfusions as needed and plan for endoscopy tomorrow. Patient has agreed, however, that her code status is Do Not Attempt Resuscitation. TAYLOR HILL MD Sep 05, 2018 19:06
[2018-09-05] MEDS: D5 1/2 NS 1000 ML IV SOLUTION 1,000 ML IV SCH (19:53)
[2018-09-05 20:10] VITALS: BP 188/76
--- NOTE | 2018-09-05 23:36 | NUR ---
pt woke up feeling nauseated and had small emesis light brown. admin 8 mg zofran per orders.
--- NOTE | 2018-09-06 00:22 | NUR ---
PT CONTINUES TO FEEL NAUSEOUS. RAISED HOB AND APPLIED COOL COMPRESS TO FOREHEAD. PT STATED THIS FEELS BETTER.
--- NOTE | 2018-09-06 01:24 | NUR ---
PT HAD LARGE EMESIS WITH UNDIGESTED BROCCOLI THAT SHE STATES SHE ATE THIS AFTERNOON. INSTRUCTED PT ON MEDICATIONS AND ADVISED THAT ZOFRAN CAN NOT BE GIVEN AGAIN UNTIL 0530 AND SHE HAS A BENADRYL PILL BUT SHE DOES NOT THINK SHE WILL KEEP THE PILL DOWN. PT THINKS SHE CAN REST NOW THAT SHE HAD SUCH A LARGE EMESIS.
[2018-09-06 04:13] LABS: BASOPHILS % (AUTO) 0 % (0-10); EOSINOPHILS # (AUTO) 0.1 10^3/uL (0.0-0.3); EOSINOPHILS % (AUTO) 2 % (0-10); HEMATOCRIT 22 % (35-52); HEMOGLOBIN 7.1 G/DL (11.5-16.0); LYMPHOCYTES # (AUTO) 1.1 X 10^3 (1.0-4.0); LYMPHOCYTES % (AUTO) 21 % (12-44); MEAN CORPUSCULAR HEMOGLOBIN 31 PG (25-34); MEAN CORPUSCULAR HGB CONC 32 G/DL (32-36); MEAN CORPUSCULAR VOLUME 96 FL (80-99); MONOCYTES # (AUTO) 0.4 X 10^3 (0.0-1.0); MONOCYTES % (AUTO) 7 % (0-12); NEUTROPHILS # (AUTO) 3.5 X 10^3 (1.8-7.8); NEUTROPHILS % (AUTO) 69 % (42-75); PLATELET COUNT 191 10^3/uL (130-400); RED CELL DISTRIBUTION WIDTH 19.3 % (10.0-14.5); WHITE BLOOD COUNT 5.1 10^3/uL (4.3-11.0)
[2018-09-06 04:28] LABS: CALCIUM 7.9 MG/DL (8.5-10.1); CREATININE SERUM 3.25 MG/DL (0.60-1.30); POTASSIUM 3.6 MMOL/L (3.6-5.0)
[2018-09-06] MEDS: D5 1/2 NS 1000 ML IV SOLUTION 1,000 ML IV SCH ×3 (04:35→14:12)
[2018-09-06] MEDS: SUCRALFATE 1 GM (CARAFATE) TAB PO SCH ×4 (06:24→21:12)
[2018-09-06] MEDS: ONDANSETRON 4 MG/2 ML (SDV) Z0FRAN IV PRN ×2 (08:02→14:12)
[2018-09-06] MEDS: PANTOPRAZOLE 40 MG (PROTONIX) TAB PO SCH (08:02)
[2018-09-06 09:00] VITALS: BP 180/77
--- NOTE | 2018-09-06 18:28 | Progress Note-Standard ---
Standard Progress Note Progress Notes/Assess & Plan Date Seen by a Provider: Sep 06, 2018 Time Seen by a Provider: 18:20 Progress/Assessment & Plan 78 yo female with refractory multiple myeloma and multiple plasmacytomas was admitted 09/04/18 with acute on chronic anemia, severe nausea, vomiting and diarrhea. She was so weak and nauseated that she could not eat nor transfer without assistance. Patient was given two units of PRBCs on 09/05/18 with appropriate rise in hemoglobin. She continues to have severe intermittent nausea that responds well to IV Zofran. Diarrhea has improved significantly with Lomotil and has not recurred. Patient has significant deviation of her left eye and periorbital structures. She has some ulcerations on her nose. Her right forearm is in a splint. She is tachycardic but regular but breath sounds are diminished. Nausea controlled this evening but she was not able to get radiation this morning because of nausea, and she has nausea all night. PO intake poor. Laboratory Tests Test 09/04/18 12:50 09/04/18 15:15 09/05/18 13:03 09/05/18 14:55 Range/Units Urine Color BROWN H Urine Clarity SLIGHTLY CLOUDY Urine pH 5 5-9 Urine Specific [place] 1.015 L 1.016-1.022 Urine Protein 3+ H NEGATIVE Urine Glucose (UA) NEGATIVE NEGATIVE Urine Ketones 1+ H NEGATIVE Urine Nitrite NEGATIVE NEGATIVE Urine Bilirubin NEGATIVE NEGATIVE Urine Urobilinogen NORMAL NORMAL MG/DL Urine Leukocyte Esterase 1+ H NEGATIVE Urine RBC (Auto) 5+ H NEGATIVE Urine RBC TNTC H /HPF Urine WBC 10-25 H /HPF Urine Squamous Epithelial Cells 2-5 /HPF Urine Crystals PRESENT H /LPF Urine Amorphous Sediment FEW SANDRA URATES H /LPF Urine Bacteria MODERATE H /HPF Urine Casts PRESENT /LPF Urine Granular Casts 10-25 H /LPF Urine Mucus NEGATIVE /LPF Urine Culture Indicated YES White Blood Count 6.9 4.9 4.3-11.0 10^3/uL Red Blood Count 1.96 L 2.27 L 4.35-5.85 10^6/uL Hemoglobin 6.2 *L 7.2 L 11.5-16.0 G/DL Hematocrit 19 *L 22 L 35-52 % Mean Corpuscular Volume 97 97 80-99 FL Mean Corpuscular Hemoglobin 32 32 25-34 PG Mean Corpuscular Hemoglobin Concent 33 33 32-36 G/DL Red Cell Distribution Width 19.4 H 19.6 H 10.0-14.5 % Platelet Count 160 175 130-400 10^3/uL Mean Platelet Volume 11.1 H 10.9 H 7.4-10.4 FL Neutrophils (%) (Auto) 72 59 42-75 % Lymphocytes (%) (Auto) 22 32 12-44 % Monocytes (%) (Auto) 6 7 0-12 % Eosinophils (%) (Auto) 1 2 0-10 % Basophils (%) (Auto) 0 0 0-10 % Neutrophils # (Auto) 4.9 2.9 1.8-7.8 X 10^3 Lymphocytes # (Auto) 1.5 1.6 1.0-4.0 X 10^3 Monocytes # (Auto) 0.4 0.4 0.0-1.0 X 10^3 Eosinophils # (Auto) 0.1 0.1 0.0-0.3 10^3/uL Basophils # (Auto) 0.0 0.0 0.0-0.1 10^3/uL Sodium Level 140 138 135-145 MMOL/L Potassium Level 3.2 L 3.9 3.6-5.0 MMOL/L Chloride Level 110 H 111 H 98-107 MMOL/L Carbon Dioxide Level 19 L 17 L 21-32 MMOL/L Anion Gap 11 10 5-14 MMOL/L Blood Urea Nitrogen 64 H 58 H 7-18 MG/DL Creatinine 3.27 H 3.17 H 0.60-1.30 MG/DL Estimat Glomerular Filtration Rate 14 14 BUN/Creatinine Ratio 20 18 Glucose Level 67 L 55 *L 70-105 MG/DL Calcium Level 8.4 L 7.9 L 8.5-10.1 MG/DL Corrected Calcium 9.2 8.5-10.1 MG/DL Total Bilirubin 0.4 0.1-1.0 MG/DL Aspartate Amino Transf (AST/SGOT) 17 5-34 U/L Alanine Aminotransferase (ALT/SGPT) 7 0-55 U/L Alkaline Phosphatase 29 L 40-136 U/L Total Protein 7.9 6.4-8.2 GM/DL Albumin 3.0 L 3.2-4.5 GM/DL Lab Scanned Report Transfusion Reaction Form [id number] Test 09/05/18 16:14 Range/Units Glucometer 63 L 70-110 MG/DL 1. 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 Will order abdominal plain films to rule out bowel obstruction. 2. Anemia could be progression of the plasmacytoma in a different area of the GI tract or along the resection margin. Stable hgb since last night. Patient is still unsure if she wants aggressive workup. We will monitor for now without endoscopy. Continue PPI. Transfuse as needed. 3. No improvement in renal function despite adequate IVF replacement. Will order renal ultrasound and bladder scan. Urine output remains poor. 4. Multiple myeloma with orbital plasmacytoma. Continue radiation therapy as able. We have stopped systemic therapy. Patient is still unsure what level of palliative care she would like to have so we are maintaining an semi-aggressive course of diagnostics and therapy as she currently prefers. 5. Disposition: DNAR. Continue inpatient admission. Patient has not decided if she wants hospice or palliative care. I do not wish to smith her decision making per patient preference; however, if her renal function worsens, and she needs transfer to a different hospital, I may need to recommend hospice more strongly. She is no longer receiving systemic therapy for MM. TAYLOR HILL MD Sep 06, 2018 18:27
[2018-09-06 19:34] VITALS: BP 178/79
--- NOTE | 2018-09-06 21:57 | Diagnostic Imaging Report ---
INDICATION: Nausea and vomiting. COMPARISON: None available. FINDINGS: Nonobstructive bowel gas pattern. No evidence of free intraperitoneal air, though assessment is limited on supine imaging. Stable lines present in the left upper quadrant likely from prior sleeve gastrectomy. Degenerative changes in lumbar spine. IMPRESSION: Nonobstructive bowel gas pattern. Dictated by: Dictated on workstation # [id number]
[2018-09-07] MEDS: D5 1/2 NS 1000 ML IV SOLUTION 1,000 ML IV SCH ×2 (00:25→11:56)
[2018-09-07] MEDS: SUCRALFATE 1 GM (CARAFATE) TAB PO SCH ×4 (05:38→21:11)
[2018-09-07 05:47] LABS: BASOPHILS % (AUTO) 0 % (0-10); EOSINOPHILS # (AUTO) 0.2 10^3/uL (0.0-0.3); EOSINOPHILS % (AUTO) 4 % (0-10); HEMATOCRIT 23 % (35-52); HEMOGLOBIN 7.5 G/DL (11.5-16.0); LYMPHOCYTES # (AUTO) 1.3 X 10^3 (1.0-4.0); LYMPHOCYTES % (AUTO) 28 % (12-44); MEAN CORPUSCULAR HEMOGLOBIN 32 PG (25-34); MEAN CORPUSCULAR HGB CONC 33 G/DL (32-36); MEAN CORPUSCULAR VOLUME 96 FL (80-99); MEAN PLATELET VOLUME 10.3 FL (7.4-10.4); MONOCYTES # (AUTO) 0.4 X 10^3 (0.0-1.0); MONOCYTES % (AUTO) 9 % (0-12); NEUTROPHILS # (AUTO) 2.7 X 10^3 (1.8-7.8); NEUTROPHILS % (AUTO) 58 % (42-75); PLATELET COUNT 217 10^3/uL (130-400); RED CELL DISTRIBUTION WIDTH 18.9 % (10.0-14.5); WHITE BLOOD COUNT 4.6 10^3/uL (4.3-11.0)
[2018-09-07 06:02] LABS: CALCIUM 7.7 MG/DL (8.5-10.1); CREATININE SERUM 3.18 MG/DL (0.60-1.30); POTASSIUM 3.2 MMOL/L (3.6-5.0)
--- NOTE | 2018-09-07 08:04 | Diagnostic Imaging Report ---
PROCEDURE: US Renal Bilateral. TECHNIQUE: Multiple real-time grayscale images were obtained over the kidneys in various projections bilaterally. INDICATION: Acute renal insufficiency Right and left kidneys measure 9.9 x 4.0 x 5.5 cm and 11 x 5.8 x 5.2 cm, respectively. There is prominence of the pyramids of both kidneys without chavez hydronephrosis. No renal mass is identified. Small amount of perihepatic free fluid is noted. Bladder has a normal appearance. Bladder jets were not confirmed. IMPRESSION: Small amount of peritoneal fluid of uncertain significance. No definite renal abnormality is identified. Dictated by: Dictated on workstation # [id number]
--- NOTE | 2018-09-07 08:25 | NUR ---
RADIATION TREAMENT # 7 OF 10 WAS DELIVERED TODAY AT 8:20 AM
[2018-09-07] MEDS: PANTOPRAZOLE 40 MG (PROTONIX) TAB PO SCH (08:52)
[2018-09-07 09:00] VITALS: BP 197/77
--- NOTE | 2018-09-07 09:50 | Physical Therapy Evaluation ---
PT Evaluation-General Medical Diagnosis Admission Date Sep 04, 2018 at 10:42 Medical Diagnosis: dehydration/renal failure/anemia Onset Date: Sep 04, 2018 Therapy Diagnosis Therapy Diagnosis: debility Height/Weight Height (Feet): 5 Height (Inches): 2.00 Weight (Pounds): 124 Weight (Ounces): 2.0 Precautions Precautions/Isolations: Fall Prevention, Standard Precautions Weight Bear Status Right Lower Extremity: Right Full Weight Bearing Left Lower Extremity: Left Full Weight Bearing Referral Physician: Charles Reason for Referral: Evaluation/Treatment Medical History Pertinent Medical History: Renal Insufficiency Additional Medical History multiple myeloma Current History Direct admit from cancer center due to dehydration and inability to care for self Reviewed History: Yes Social History Home: Assisted Living Prior/Core FIM Prior Level of Function Therapy Code Descriptions/Definitions Functional [place] Measure: 0=Not Assessed/NA 4=Minimal Assistance 1=Total Assistance 5=Supervision or Setup 2=Maximal Assistance 6=Modified [place] 3=Moderate Assistance 7=Complete [place] Therapy Quality Codes: 6 Independent with activity with or without an assistive device 5 Patient requires set up or clean up by helper. Patient completes activity by themselves 4 Supervision or touching assist (CGA). [place] provide cues , steadying assist 3 The helper provides less than half the effort to complete the activity 2 The helper provides more than half the effort to complete the activity 1 Dependent. The helper does all the effort to complete an activity 7 Patient refused to complete or attempt activity 9 The patient did not perform the activity before the current illness or injury 88 Not attempted due to Medical conditions or safety concerns Functional Abilities and Goals: Independent: Patient completed the activities by him/herself, with or without an assistive device, with no assistance from a helper. Needed Some Help: Patient needed partial assistance from another person to complete activities. Dependent: A helper completed the activities for the patient. Unknown: Not Applicable: Bed Mobility: 6 Transfers (B,C,W/C) (FIM): 6 Gait: 6 Indoor Mobility (Ambulation): Independent Prior Devices Use: None (cane) PT Evaluation-Current Subjective Patient agrees to PT. Pain Numeric Pain Scale: 0-No Pain Location: No Pain Reported Objective Patient Orientation: Normal For Age Problem Solving: Fair Attachments: IV ROM/Strength ROM Lower Extremities bilateral LE WFL Strength Lower Extremities 4/5 grossly bilateral LE Integumentary/Posture Integumentary refer to nursing notes Bowel Incontinence: No Bladder Incontinence: No Posture WFL Neuromuscular (Tone, Coordination, Reflexes) grossly intact Sensory Vision: Functional Hearing: Functional Sensation Right Lower Extremit: Intact Sensation Left Lower Extremity: Intact Transfers Therapy Code Descriptions/Definitions Functional [place] Measure: 0=Not Assessed/NA 4=Minimal Assistance 1=Total Assistance 5=Supervision or Setup 2=Maximal Assistance 6=Modified [place] 3=Moderate Assistance 7=Complete [place] Transfers (B, C, W/C) (FIM): 5 Scootin Supine to/from Sit: 5 Sit to/from Stand: 5 Gait Mode of Locomotion: Walk Anticipated Mode of Locomotion: Walk Gait (FIM): 5 Distance (FIM): 3=150 ft Distance: 175' Gait Level of Assist: 5 Gait Assistive Device: Cane Single Point Comments/Gait Description steady gait sequence with no deviation Balance Sitting Static: Normal Sitting Dynamic: Normal Standing Static: Normal Standing Dynamic: Normal Assessment/Needs 78 y.o. female, will be seen short term by skilled PT to address functional mobility to ensure safe return to home (AL) at maximum LOF. Patient has a caregiver at home per her report. Rehab Potential: Guarded Post Rehab Potential-Barriers: multiple myeloma PT Usp Goals Scientist Immunology Goals PT Usp Goals Time Frame: Sep 16, 2018 Transfers (B,C,W/C) (FIM): 6 Gait (FIM): 6 Gait distance (FIM): 3=150 ft Distance: 200' Gait Level of Assist: 6 Gait Assistive Device: Cane Single Point PT Plan Problem List Problem List: Activity Tolerance Treatment/Plan Treatment Plan: Continue Plan of Care Treatment Plan: Education, Functional Activity Yasm[place], Functional Strength, Gait , Safety, Therapeutic Exercise Treatment Duration: Sep 16, 2018 Frequency: 6 times per week Estimated Hrs Per Day: .25 hour per day Patient and/or Family Agrees t: Yes Safety Risks/Education Patient Education: Safety Issues Teaching Recipient: Patient Teaching Methods: Discussion Response to Teaching: Verbalize Understanding Discharge Recommendations Therapy D/C Recommendations: Assisted Living, Physical Therapy Home Care Time/GCodes Time In: 903 Time Out: 914 Total Billed Treatment Time: 11 Total Billed Treatment 1 visit EVLowC 11 min RAYMUNDO DELEON PT Sep 07, 2018 09:50
--- NOTE | 2018-09-07 11:18 | Progress Note-Standard ---
Standard Progress Note Progress Notes/Assess & Plan Date Seen by a Provider: Sep 07, 2018 Time Seen by a Provider: 11:09 Progress/Assessment & Plan 78 yo female with refractory multiple myeloma and multiple plasmacytomas was admitted 09/04/18 with acute on chronic anemia, severe nausea, vomiting and diarrhea. She was so weak and nauseated that she could not eat nor transfer without assistance. Patient was given two units of PRBCs on 09/05/18 with appropriate rise in hemoglobin. She continues to have severe intermittent nausea that responds well to IV Zofran. Diarrhea has improved significantly with Lomotil and has not recurred. Patient has significant deviation of her left eye and periorbital structures. She has some ulcerations on her nose. Her right forearm is in a splint. She is tachycardic but regular but breath sounds are diminished. Nausea better controlled last night and this morning, although she had dizziness and nausea when receiving radiation this morning. Patient reports nursing has not been keeping track of urine output beyond counting number of voids. 1. 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 Abdominal plain films do not show bowel obstruction. Continue zofran, add compazine prn. 2. Anemia could be progression of the plasmacytoma in a different area of the GI tract or along the resection margin. Stable hgb x2-3 days. Continue PPI. We will stop checking labs. 3. No improvement in renal function despite adequate IVF replacement. Renal ultrasound negative for hydroureteronephrosis. Post void bladder scan was 0ml. There are no signs of obstructive uropathy, and patient has had significant amount of volume replacement which excludes pre-renal azotemia. 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 Urine output is not being recorded by nursing, but there does not seem to be any signs of volume overload at this time, and electrolytes are stable. 4. Multiple myeloma with orbital plasmacytoma. Continue radiation therapy as able. We have stopped systemic therapy. 5. Disposition: DNAR. Continue inpatient admission until patient completes palliative radiation to the orbit. She is no longer receiving systemic therapy for MM. Given her acute and likely to be progressive renal failure, I strongly recommended hospice to the patient. Patient is still not sure she wants to go on hospice yet, but she agreed to stop all daily labs and diagnostics unless there are actionable issues to address. I will have social work speak with her about placement after hospitalization, either back to her assisted living situation or detention with palliative care/hospice. TAYLOR HILL MD Sep 07, 2018 11:18
[2018-09-07] MEDS: ONDANSETRON 4 MG/2 ML (SDV) Z0FRAN IV PRN (12:48)
--- NOTE | 2018-09-07 14:05 | NUR ---
Pastoral care visit.
--- NOTE | 2018-09-07 15:25 | Occupational Therapy Eval ---
OT Evaluation-General/PLF Medical Diagnosis Admission Date Sep 04, 2018 at 10:42 Medical Diagnosis: dehydration/renal failure/anemia Onset Date: Sep 04, 2018 Therapy Diagnosis Therapy Diagnosis: Weakness Height/Weight Height (Feet): 5 Height (Inches): 2.00 Weight (Pounds): 124 Weight (Ounces): 2.0 Precautions Precautions/Isolations: Fall Prevention, Standard Precautions Safety Interventions: None Weight Bear Status Weight Bearing Restriction: Full Weight Bearing Location Restriction: L LE, R LE Referral Physician: Charles Referral Reason: Activity Tolerance, Self Care, Evaluation/Treatment, Strengthening/ROM Medical History Pertinent Medical History: Renal Insufficiency Additional Medical History PMHx multiple myeloma, Gastric ulcer, mass pancreas, Fracture Rt Radius, Current History Direct admission from Cancer center due to dehydration, vomitting & Nausea & inability to to take care of herself.. Reviewed History: Yes Social History Home: Assisted Living Current Living Status: Alone ADL-Prior Level of Function Therapy Code Descriptions/Definitions Functional [place] Measure: 0=Not Assessed/NA 4=Minimal Assistance 1=Total Assistance 5=Supervision or Setup 2=Maximal Assistance 6=Modified [place] 3=Moderate Assistance 7=Complete [place] Therapy Quality Codes: 6 Independent with activity with or without an assistive device 5 Patient requires set up or clean up by helper. Patient completes activity by themselves 4 Supervision or touching assist (CGA). Noel provide cues , steadying assist 3 The helper provides less than half the effort to complete the activity 2 The helper provides more than half the effort to complete the activity 1 Dependent. The helper does all the effort to complete an activity 7 Patient refused to complete or attempt activity 9 The patient did not perform the activity before the current illness or injury 88 Not attempted due to Medical conditions or safety concerns Functional Abilities and Goals: Independent: Patient completed the activities by him/herself, with or without an assistive device, with no assistance from a helper. Needed Some Help: Patient needed partial assistance from another person to complete activities. Dependent: A helper completed the activities for the patient. Unknown: Not Applicable: Self Care: Needed Some Help DME/Equipment: Bath Bench, Grab Bars, Shower Hose Auto Repair Technician Drive Self: No OT Current Status Subjective Pt in bed, alert, oriented , mild confused, cooperative & agree for therapy. Pain Numeric Pain Scale: 5-Moderate Pain Location: Right Location Body Site: Elbow Pain Description: Pressure Mental Status/Objective Patient Orientation: Person, Place, Situation Attachments: IV, Saline Lock Current Glasses/Contacts: Yes Hand Dominance: Right Upper Extremity ROM Limited ROM in Rt shoulder 0-70*, Lf. Sh WFL Upper Extremity Coordination Intact Upper Extremity Strength MS in Lf UE -4/5 & Rt UE 3+/5 grossly graded. Rt fore-arm has Brace due to Fracture Rt Radius on May 2018. due to fall. ADL-Treatment ADL-Current Pt needs mod A overall in all self care tasks. Supine to sit with SBA & sit to stand SBA. Pt Func ambulate with FWW 30 feet with SBA. Unsteady standing balance , high risk of fall due to weakness . Pt nauseated all the time during Eval. MS in Rt UE 3+/5 & Lf UE -4/5 grossly graded. Therapy Code Descriptions/Definitions Functional [place] Measure: 0=Not Assessed/NA 4=Minimal Assistance 1=Total Assistance 5=Supervision or Setup 2=Maximal Assistance 6=Modified [place] 3=Moderate Assistance 7=Complete [place] Therapy Quality Codes: 6 Independent with activity with or without an assistive device 5 Patient requires set up or clean up by helper. Patient completes activity by themselves 4 Supervision or touching assist (CGA). Noel provide cues , steadying assist 3 The helper provides less than half the effort to complete the activity 2 The helper provides more than half the effort to complete the activity 1 Dependent. The helper does all the effort to complete an activity 7 Patient refused to complete or attempt activity 9 The patient did not perform the activity before the current illness or injury 88 Not attempted due to Medical conditions or safety concerns Eating (FIM): 6 Grooming (FIM): 4 Bathing (FIM): 0 Upper Body Dressing (FIM): 0 Lower Body Dressing (FIM): 0 Toileting (FIM): 4 Transfers (B, C, W/C) (FIM): 4 Toilet/Commode Transfer (FIM): 4 Tub Transfer (FIM): 0 Shower Transfer (FIM): 0 Education OT Patient Education: Correct positioning Teaching Recipient: Patient Teaching Methods: Demonstration Response to Teaching: Verbalize Understanding OT Short Term Goals Short Term Goals Time Frame: Sep 21, 2018 Additional Short Term Goals: 1-Demonstrate ADL Tasks, 2-Verbalize Understanding , 3-ImproveStrength/Yasmany 1=Demonstrate adherence to instructed precautions during ADL tasks. 2=Patient will verbalize/demonstrate understanding of assistive devices/ modifications for ADL. 3=Patient will improve strength/tolerance for activity to enable patient to perform ADL's. OT Transit Bus Operator Goals Transit Bus Operator Goals Time Frame: Oct 05, 2018 Eating (FIM): 6 Grooming(FIM): 6 Bathing(FIM): 5 Bathing Location: L Arm, R Arm, L Upper Leg, R Upper Leg, L Lower Leg ( including foot), R Lower Leg (including foot), Chest, Abdomen, Buttocks, Perineal Area Upper Body Dressing(FIM): 5 Lower Body Dressing(FIM): 5 Toileting(FIM): 6 Transfers (B,C,W/C) (FIM): 6 Toilet/Commode Transfer(FIM): 6 Tub Transfer(FIM): 0 Shower Transfer(FIM): 6 Additional Goals: 1-Demonstrate ADL Tasks, 2-Verbalize Understanding, 3- ImproveStrength/Yasmany 1=Demonstrate adherence to instructed precautions during ADL tasks. 2=Patient will verbalize/demonstrate understanding of assistive devices/ modifications for ADL. 3=Patient will improve strength/tolerance for activity to enable patient to perform ADL's. OT Education/Plan Problem List/Assessment Assessment: Decreased Activ Tolerance, Decreased Safety Aware, Decreased UE Strength, Dependent Transfers, Impaired Bed Mobility, Impaired Funct Balance, Impaired Self-Care Skills Discharge Recommendations Plan/Recommendations: Continue POC Therapy D/C Recommendations: Assisted Living Equpiment Recommendations-D/C: Extended Bath Bench, Extended Shower Sprayer, Diamond Powder Technician Patient/Family Goals To return to Assisted Living Independently with AD. Treatment Plan/Plan of Care Treatment,Training & Education: Yes Patient would benefit from OT for education, treatment and training to promote independence in ADL's, mobility, safety and/or upper extremity function for ADL' s. Plan of Care: ADL Retraining, Caregiver Training, Functional Mobility, UE Funct Exercise/Act, UE Neuromus Re-Ed/Coord Treatment Duration: Oct 05, 2018 Frequency: 5 times per week Estimated Hrs Per Day: .5 hour per day Agreement: Yes Rehab Potential: Guarded Time/GCodes Start Time: 14:45 Stop Time: 15:10 Total Time Billed (hr/min): 25 Billed Treatment Time 1, EVM 14 min , FA 11 min. Total 25 min. KIERSTEN COPELAND OT Sep 07, 2018 15:25
[2018-09-07] MEDS ORDERED: DEXAMETHASONE 4 MG/ML SDV (DECADRON) IV PRN (17:30)
[2018-09-07] MEDS: PROCHLORPERAZINE 10 MG/2ML INJ (COMPAZINE) IV PRN (18:38)
--- NOTE | 2018-09-07 19:34 | Diagnostic Imaging Report ---
INDICATION: Shortness of breath. History of multiple myeloma. Comparison with 06/08/2018. FINDINGS: Right Port-A-Cath is unchanged in position. There has been increasing cardiac size. There has been development of bilateral pulmonary edema and pleural effusion on the right. Cannot exclude superimposed pneumonia in the right lung base as well. IMPRESSION: 1. Cardiomegaly with development of pulmonary venous congestion and pulmonary edema since previous exam with right basilar pleural effusion. 2. Cannot exclude superimposed pneumonia in the right lung base as well. Dictated by: Dictated on workstation # [id number]
[2018-09-07 20:19] VITALS: BP 192/88
--- NOTE | 2018-09-07 20:20 | NUR ---
190-pt c/o soa 1905-Sivan RN called dr. nuno 1914-this rn was informed by Sivan that dr. nuno ordered to stop iv maintenance fluids, do cxr, & call him with results 2019-cxr results draft called to dr. nuno no new orders
[2018-09-08 04:30] VITALS: BP 170/70
[2018-09-08] MEDS: SUCRALFATE 1 GM (CARAFATE) TAB PO SCH ×4 (05:28→21:47)
[2018-09-08] MEDS: PANTOPRAZOLE 40 MG (PROTONIX) TAB PO SCH (08:51)
[2018-09-08 09:00] VITALS: BP 203/80
--- NOTE | 2018-09-08 09:19 | Physical Therapy Daily Note ---
PT Daily Note-Current Subjective States that she is doing well. Pain Numeric Pain Scale: 0-No Pain Transfers Therapy Code Descriptions/Definitions Functional [place] Measure: 0=Not Assessed/NA 4=Minimal Assistance 1=Total Assistance 5=Supervision or Setup 2=Maximal Assistance 6=Modified [place] 3=Moderate Assistance 7=Complete [place] Therapy Quality Codes: 6 Independent with activity with or without an assistive device 5 Patient requires set up or clean up by helper. Patient completes activity by themselves 4 Supervision or touching assist (CGA). Kenna provide cues , steadying assist 3 The helper provides less than half the effort to complete the activity 2 The helper provides more than half the effort to complete the activity 1 Dependent. The helper does all the effort to complete an activity 7 Patient refused to complete or attempt activity 9 The patient did not perform the activity before the current illness or injury 88 Not attempted due to Medical conditions or safety concerns Weight Bearing Right Lower Extremity: Right Full Weight Bearing Left Lower Extremity: Left Full Weight Bearing Gait Training Gait (FIM): 5 Distance: 200' Gait Level of Assist: 5 Gait Persons Needed: 1 Gait Assistive Device: Cane Single Point Assessment Current Status: Excellent Progress Patient did well with gait. PT Reading Teacher Goals Usp Goals PT Reading Teacher Goals Time Frame: Sep 16, 2018 Transfers (B,C,W/C) (FIM): 6 Gait (FIM): 6 Gait distance (FIM): 3=150 ft Distance: 200' Gait Level of Assist: 6 Gait Assistive Device: Cane Single Point PT Plan Treatment/Plan Treatment Plan: Continue Plan of Care Treatment Plan: Education, Functional Activity Yasmany, Functional Strength, Gait , Safety, Therapeutic Exercise Treatment Duration: Sep 16, 2018 Frequency: 6 times per week Estimated Hrs Per Day: .25 hour per day Patient and/or Family Agrees t: Yes Time/GCodes Time In: 907 Time Out: 917 Total Billed Treatment Time: 10 Total Billed Treatment 1, GT x 10' VIJAY HANSEN PT Sep 08, 2018 09:19
--- NOTE | 2018-09-08 10:00 | NUR ---
DR. CARUSOEW HERE AND NOTIFIED OF ELEVATED BP. ORDER TO RESTART HOME METOPROLOL.
--- NOTE | 2018-09-08 12:01 | Progress Note-Standard ---
Standard Progress Note Progress Notes/Assess & Plan Date Seen by a Provider: Sep 08, 2018 Time Seen by a Provider: 11:56 Progress/Assessment & Plan 78-year-old female with history of IgG kappa multiple myeloma diagnosed in 2012 and has undergone numerous treatments over the years. 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 Patient denied any major problems today. She feels her left eye may be slightly better. She still complained of intermittent nausea which is controlled with the Zofran. She denied any acid peptic symptoms. Appetite is better and she is eating better. Patient understands that all systemic options have been exhausted. After the palliative radiation therapy is completed, patient is planning to return home with 24-hour care. She is still deciding about hospice care which has been strongly recommended to her. I will ask Melissa from social sciences department chair to see patient on Monday to facilitate the transition to home. Her overall prognosis is poor and we'll continue with best supportive care. JASMYNE MOLINA Sep 08, 2018 12:01
--- NOTE | 2018-09-08 15:00 | NUR ---
OXYIR 10 PO FOR PAIN.
[2018-09-08 16:10] VITALS: BP 215/98
--- NOTE | 2018-09-08 16:15 | NUR ---
DECADRON 4MG AND ZOFRAN 8MG IV FOR PAIN. Addendum: 09/08/18 at 1743 by DANIKA LINO RN FOR NAUSEA (NOT PAIN).
[2018-09-08] MEDS: ONDANSETRON 4 MG/2 ML (SDV) Z0FRAN IV PRN ×2 (16:18→23:57)
[2018-09-08] MEDS: DEXAMETHASONE 4 MG/ML SDV (DECADRON) IV PRN ×2 (16:21→23:57)
[2018-09-08] MEDS: PROCHLORPERAZINE 10 MG/2ML INJ (COMPAZINE) IV PRN (19:52)
[2018-09-08 20:40] VITALS: BP 215/98
[2018-09-09] MEDS: SUCRALFATE 1 GM (CARAFATE) TAB PO SCH ×4 (06:31→20:13)
[2018-09-09] MEDS: PANTOPRAZOLE 40 MG (PROTONIX) TAB PO SCH (08:42)
[2018-09-09 09:00] VITALS: BP 166/66
--- NOTE | 2018-09-09 10:27 | Progress Note-Standard ---
Standard Progress Note Progress Notes/Assess & Plan Date Seen by a Provider: Sep 09, 2018 Time Seen by a Provider: 10:25 Progress/Assessment & Plan 78-year-old female with history of IgG kappa multiple myeloma diagnosed in 2013 and has undergone numerous treatments over the years. 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 Patient denied any major problems today. The intermittent nausea is better and the nursing staff is administering the nausea medications along with the pain medication. She denied any acid peptic symptoms. Appetite is low and she is not eating much. After the palliative radiation therapy is completed, patient is planning to return home with 24-hour care. She is still deciding about hospice care which has been strongly recommended to her. creative services specialist will follow and make appropriate arrangements. Her overall prognosis is poor and we' ll continue with best supportive care. JASMYNE MOLINA Sep 09, 2018 10:27
[2018-09-09] MEDS: ONDANSETRON 4 MG/2 ML (SDV) Z0FRAN IV PRN (17:59)
[2018-09-09] MEDS: DEXAMETHASONE 4 MG/ML SDV (DECADRON) IV PRN (17:59)
[2018-09-09 19:12] VITALS: BP 192/78
[2018-09-10 04:20] VITALS: BP 166/70
[2018-09-10] MEDS: SUCRALFATE 1 GM (CARAFATE) TAB PO SCH ×4 (05:02→20:13)
--- NOTE | 2018-09-10 08:46 | NUR ---
RADIATION TREATMENT # 8 OF 10 WAS DELIVERED TODAY AT 8:46 AM.
[2018-09-10] MEDS: PANTOPRAZOLE 40 MG (PROTONIX) TAB PO SCH (08:55)
[2018-09-10 09:00] VITALS: BP 177/73
--- NOTE | 2018-09-10 10:08 | Physical Therapy Daily Note ---
PT Daily Note-Current Subjective Patient agrees to PT. No c/o at this time. Pain Numeric Pain Scale: 0-No Pain Location: No Pain Reported Mental Status Patient Orientation: Person, Time, Situation Transfers Therapy Code Descriptions/Definitions Functional [place] Measure: 0=Not Assessed/NA 4=Minimal Assistance 1=Total Assistance 5=Supervision or Setup 2=Maximal Assistance 6=Modified [place] 3=Moderate Assistance 7=Complete [place] Therapy Quality Codes: 6 Independent with activity with or without an assistive device 5 Patient requires set up or clean up by helper. Patient completes activity by themselves 4 Supervision or touching assist (CGA). [place] provide cues , steadying assist 3 The helper provides less than half the effort to complete the activity 2 The helper provides more than half the effort to complete the activity 1 Dependent. The helper does all the effort to complete an activity 7 Patient refused to complete or attempt activity 9 The patient did not perform the activity before the current illness or injury 88 Not attempted due to Medical conditions or safety concerns Transfers (B, C, W/C) (FIM): 6 Scootin Supine to/from Sit: 6 Sit to/from Stand: 6 Weight Bearing Right Lower Extremity: Right Full Weight Bearing Left Lower Extremity: Left Full Weight Bearing Gait Training Gait (FIM): 6 Distance (FIM): 3=150 ft Distance: 225' Gait Level of Assist: 6 Gait Assistive Device: Cane Single Point slow, steady functional gait sequence with no deviation Assessment Patient declined up in recliner and returned to bed with needs met. Patient is currently at [facility] with gross motor skills. PT Chcf Goals Chcf Goals PT Chcf Goals Time Frame: Sep 16, 2018 Transfers (B,C,W/C) (FIM): 6 Gait (FIM): 6 Gait distance (FIM): 3=150 ft Distance: 200' Gait Level of Assist: 6 Gait Assistive Device: Cane Single Point PT Plan Treatment/Plan Treatment Plan: Continue Plan of Care Treatment Plan: Education, Functional Activity Yasmany, Functional Strength, Gait , Safety, Therapeutic Exercise Treatment Duration: Sep 16, 2018 Frequency: 6 times per week Estimated Hrs Per Day: .25 hour per day Patient and/or Family Agrees t: Yes Time/GCodes Time In: 931 Time Out: 941 Total Billed Treatment Time: 10 Total Billed Treatment 1 visit FA 10 min RAYMUNDO DELEON PT Sep 10, 2018 10:08
--- NOTE | 2018-09-10 11:46 | NUR ---
Received referral for Social Work consult. Met with pt and discussed continued care plans. She lives in an independent living apt at [facility] and has hired private caregivers. She would like to return there after radiation treatments are complete and when medically appropriate. Will contact the [facility] territory manager general sales for arrangement for day care givers and pt will talk with her night caregiver to ensure she is available.Pt has questions about hospice care. Her Chema received [facility] services and would like to talk with them and is also interested in talking with [facility] hospice. She plans to meet with [facility] for informational visit tomorrow. Will follow and assist.
--- NOTE | 2018-09-10 11:57 | Occupational Ther Daily Note ---
OT Current Status-Daily Note Subjective Pt alert, lying in bed. Pt agrees to therapy. No c/o pain at this time. Mental Status/Objective Patient Orientation: Person, Place, Time, Situation Therapy Code Descriptions/Definitions Functional [place] Measure: 0=Not Assessed/NA 4=Minimal Assistance 1=Total Assistance 5=Supervision or Setup 2=Maximal Assistance 6=Modified [place] 3=Moderate Assistance 7=Complete [place] ADL-Treatment Pt states that she has round the clock care at home due to inability to care for self from R wrist fracture. Assistance in her home to complete daily living skills-cooking, cleaning, bathing dressing, oral care and when needed toileting. Pt has aides in her home round the clock, approximately 22 hrs a day. Pt requested to use toilet. Pt had diarrhea on the way to the toilet. Pt required assist to doff/don Depends, socks and hospital gown. Pt able to cleanse lower body with bath wipes. Pt able to stand at sink to complete hand washing and set up for oral care. Minimal assist to lift LE's into bed. Edema noted in R hand. After therapy, pt lying in bed with call light/phone in reach. All needs met in room. OT Short Term Goals Short Term Goals Time Frame: Sep 21, 2018 Additional Short Term Goals: 1-Demonstrate ADL Tasks, 2-Verbalize Understanding , 3-ImproveStrength/Yasmany 1=Demonstrate adherence to instructed precautions during ADL tasks. 2=Patient will verbalize/demonstrate understanding of assistive devices/ modifications for ADL. 3=Patient will improve strength/tolerance for activity to enable patient to perform ADL's. OT Soft Drink Powder Mixer Goals Correction Goals Time Frame: Oct 05, 2018 Eating (FIM): 6 Grooming(FIM): 6 Bathing(FIM): 5 Bathing Location: L Arm, R Arm, L Upper Leg, R Upper Leg, L Lower Leg ( including foot), R Lower Leg (including foot), Chest, Abdomen, Buttocks, Perineal Area Upper Body Dressing(FIM): 5 Lower Body Dressing(FIM): 5 Toileting(FIM): 6 Transfers (B,C,W/C) (FIM): 6 Toilet/Commode Transfer(FIM): 6 Tub Transfer(FIM): 0 Shower Transfer(FIM): 6 Additional Goals: 1-Demonstrate ADL Tasks, 2-Verbalize Understanding, 3- ImproveStrength/Yasmany 1=Demonstrate adherence to instructed precautions during ADL tasks. 2=Patient will verbalize/demonstrate understanding of assistive devices/ modifications for ADL. 3=Patient will improve strength/tolerance for activity to enable patient to perform ADL's. OT Education/Plan Discharge Recommendations Plan/Recommendations: Continue POC Treatment Plan/Plan of Care Patient would benefit from OT for education, treatment and training to promote independence in ADL's, mobility, safety and/or upper extremity function for ADL' s. Plan of Care: ADL Retraining, Caregiver Training, Functional Mobility, UE Funct Exercise/Act, UE Neuromus Re-Ed/Coord Treatment Duration: Oct 05, 2018 Frequency: 5 times per week Estimated Hrs Per Day: .5 hour per day Agreement: Yes Rehab Potential: Guarded Time/GCodes Start Time: 11:15 Stop Time: 11:40 Total Time Billed (hr/min): 25 Billed Treatment Time 1 visit-ADL 2 (25 min) EMELY BUSTOS Sep 10, 2018 11:57
--- NOTE | 2018-09-10 17:06 | Progress Note-Standard ---
Standard Progress Note Progress Notes/Assess & Plan Date Seen by a Provider: Sep 10, 2018 Time Seen by a Provider: 17:02 Progress/Assessment & Plan 78-year-old female with history of IgG kappa multiple myeloma diagnosed in 2012 and has undergone numerous treatments over the years. 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 She complained of significant diarrhea today which is making her weaker. Appetite is low and she is not eating much. I will obtain a stool sample for C. difficile toxin today. Start the patient on Questran Lite 4 g daily. Obtain CBC, CMP and magnesium level in a.m. After the palliative radiation therapy is completed, patient is planning to return home with 24-hour care. She is still deciding about hospice care which has been strongly recommended to her. fire services plumber met with patient and has arranged interviews with hospice providers. Continue palliative radiation therapy. Her overall prognosis is poor and we'll continue with best supportive care. JASMYNE MOLINA Sep 10, 2018 17:06
[2018-09-10] MEDS: CHOLESTYRAMINE 4 GM (QUESTRAN LITE, PREVALITE) PKT PO SCH (17:50)
[2018-09-10 19:05] VITALS: BP 172/68
[2018-09-10] MEDS: ONDANSETRON 4 MG/2 ML (SDV) Z0FRAN IV PRN (21:58)
[2018-09-11] MEDS: SUCRALFATE 1 GM (CARAFATE) TAB PO SCH ×5 (06:20→21:04)
[2018-09-11 06:33] LABS: BASOPHILS % (AUTO) 0 % (0-10); EOSINOPHILS # (AUTO) 0.1 10^3/uL (0.0-0.3); EOSINOPHILS % (AUTO) 3 % (0-10); HEMATOCRIT 22 % (35-52); HEMOGLOBIN 7.3 G/DL (11.5-16.0); LYMPHOCYTES # (AUTO) 1.4 X 10^3 (1.0-4.0); LYMPHOCYTES % (AUTO) 30 % (12-44); MEAN CORPUSCULAR HEMOGLOBIN 32 PG (25-34); MEAN CORPUSCULAR HGB CONC 33 G/DL (32-36); MEAN CORPUSCULAR VOLUME 97 FL (80-99); MEAN PLATELET VOLUME 9.7 FL (7.4-10.4); MONOCYTES # (AUTO) 0.6 X 10^3 (0.0-1.0); MONOCYTES % (AUTO) 13 % (0-12); NEUTROPHILS # (AUTO) 2.5 X 10^3 (1.8-7.8); NEUTROPHILS % (AUTO) 54 % (42-75); PLATELET COUNT 334 10^3/uL (130-400); RED CELL DISTRIBUTION WIDTH 18.3 % (10.0-14.5); WHITE BLOOD COUNT 4.7 10^3/uL (4.3-11.0)
[2018-09-11 06:59] LABS: ALANINE AMINOTRANSFERASE < 6 U/L (0-55); ALBUMIN 2.5 GM/DL (3.2-4.5); ALKALINE PHOSPHATASE 33 U/L (40-136); BILIRUBIN,TOTAL 0.4 MG/DL (0.1-1.0); BUN/CREATININE RATIO 10; CALCIUM 8.1 MG/DL (8.5-10.1); CARBON DIOXIDE 15 MMOL/L (21-32); CHLORIDE 111 MMOL/L (98-107); CREATININE SERUM 6.03 MG/DL (0.60-1.30); GFR ESTIMATED 7; MAGNESIUM 1.3 MG/DL (1.8-2.4); SODIUM 135 MMOL/L (135-145); TOTAL PROTEIN 7.3 GM/DL (6.4-8.2)
[2018-09-11 07:03] LABS: GLUCOSE 59 MG/DL (70-105)
--- NOTE | 2018-09-11 07:50 | NUR ---
LAD CALLED FOR BLOOD SUGAR 59. ORANGE JUICE AND CHOCOLATE CHIP COOKIE GIVEN. 0740 BLOOD SUGAR NOW 96. WILL CONTINUA TO MONITOR BLOOD SUGAR
--- NOTE | 2018-09-11 08:41 | NUR ---
RADIATION TREATMENT #9 OF 10 DELIVERED AT 840 AM.
[2018-09-11 08:57] VITALS: BP 179/58
[2018-09-11] MEDS: PANTOPRAZOLE 40 MG (PROTONIX) TAB PO SCH (09:11)
--- NOTE | 2018-09-11 09:23 | Physical Therapy Progress Note ---
Therapy Progress Note Patient adamantly declined PT secondary to incontinent BM, vomiting, radiation, etc. PT will attempt later today. 1 ref ([id number]) RAYMUNDO DELEON PT Sep 11, 2018 09:23
--- NOTE | 2018-09-11 10:15 | Occupational Ther Daily Note ---
OT Current Status-Daily Note Subjective Pt alert, lying in bed. Pt stated that she has had vomiting and diarrhea. Pt did agree to UE bed exercises. Mental Status/Objective Patient Orientation: Person, Place, Time, Situation Therapy Code Descriptions/Definitions Functional [place] Measure: 0=Not Assessed/NA 4=Minimal Assistance 1=Total Assistance 5=Supervision or Setup 2=Maximal Assistance 6=Modified [place] 3=Moderate Assistance 7=Complete [place] Attachments: Central Line Other Treatment Pt able to reach and brush hair with L UE, residual movement with R UE. WFL for B shldr, approx 100* shldr flexion. Completed 20 reps for B shldr flexion without resistance. Light edema massage to R fingers and upper dorsum of hand to decrease swelling and increase AROM. Opposition thumb and 2nd, 3rd digits, unable to reach others. Decreased ROM in DIP and PIP jts, blocking exercises to areas. Theraputty sponge given to increase strength and AROM to digits. Light resistance theraband given and placed on L upper bed rail for pt to complete L UE exercises to increase strength and activity tolerance for daily functional tasks. Pt able to complete 10 reps of 3 exercises given and demonstrated understanding. After therapy, pt lying in bed with call light/ phone in reach. All needs met in room. Education OT Patient Education: Exercise program Teaching Recipient: Patient Teaching Methods: Demonstration, Discussion Response to Teaching: Return Demonstration OT Short Term Goals Short Term Goals Time Frame: Sep 21, 2018 Additional Short Term Goals: 1-Demonstrate ADL Tasks, 2-Verbalize Understanding , 3-ImproveStrength/Yasmany 1=Demonstrate adherence to instructed precautions during ADL tasks. 2=Patient will verbalize/demonstrate understanding of assistive devices/ modifications for ADL. 3=Patient will improve strength/tolerance for activity to enable patient to perform ADL's. OT Senior Care Goals Senior Care Goals Time Frame: Oct 05, 2018 Eating (FIM): 6 Grooming(FIM): 6 Bathing(FIM): 5 Bathing Location: L Arm, R Arm, L Upper Leg, R Upper Leg, L Lower Leg ( including foot), R Lower Leg (including foot), Chest, Abdomen, Buttocks, Perineal Area Upper Body Dressing(FIM): 5 Lower Body Dressing(FIM): 5 Toileting(FIM): 6 Transfers (B,C,W/C) (FIM): 6 Toilet/Commode Transfer(FIM): 6 Tub Transfer(FIM): 0 Shower Transfer(FIM): 6 Additional Goals: 1-Demonstrate ADL Tasks, 2-Verbalize Understanding, 3- ImproveStrength/Yasmany 1=Demonstrate adherence to instructed precautions during ADL tasks. 2=Patient will verbalize/demonstrate understanding of assistive devices/ modifications for ADL. 3=Patient will improve strength/tolerance for activity to enable patient to perform ADL's. OT Education/Plan Discharge Recommendations Plan/Recommendations: Continue POC Treatment Plan/Plan of Care Patient would benefit from OT for education, treatment and training to promote independence in ADL's, mobility, safety and/or upper extremity function for ADL' s. Plan of Care: ADL Retraining, Caregiver Training, Functional Mobility, UE Funct Exercise/Act, UE Neuromus Re-Ed/Coord Treatment Duration: Oct 05, 2018 Frequency: 5 times per week Estimated Hrs Per Day: .5 hour per day Agreement: Yes Rehab Potential: Guarded Time/GCodes Start Time: 09:47 Stop Time: 10:10 Total Time Billed (hr/min): 23 Billed Treatment Time 1 visit-EX 2 (23 min) EMELY BUSTOS Sep 11, 2018 10:15
[2018-09-11] MEDS: CHOLESTYRAMINE 4 GM (QUESTRAN LITE, PREVALITE) PKT PO SCH (10:35)
--- NOTE | 2018-09-11 11:22 | Physical Therapy Progress Note ---
Therapy Progress Note Patient declined PT again this a.m. due to nausea. PT attempted to educate patient on importance of OOB activity, however, patient continued to decline. PT will attempt later today. 1 ref ([id number]) RAYMUNDO DELEON PT Sep 11, 2018 11:22
[2018-09-11] MEDS: DEXAMETHASONE 4 MG/ML SDV (DECADRON) IV PRN (13:12)
[2018-09-11] MEDS: ONDANSETRON 4 MG/2 ML (SDV) Z0FRAN IV PRN (13:18)
--- NOTE | 2018-09-11 13:20 | Physical Therapy Progress Note ---
Therapy Progress Note Patient declined PT again due to nausea. Per RN, patient has not c/o nausea or vomiting to her on this date. PT attempted to encourage patient to participate , however, patient continued to decline. 1 ref ([id number]) RAYMUNDO DELEON PT Sep 11, 2018 13:20
--- NOTE | 2018-09-11 17:04 | NUR ---
Pt having intermittent bouts of nausea and diarrhea which is upsetting. She did meet with staff from [facility] but wants to meet with [facility] before making a hospice decision. They plan to meet with her tomorrow at 1:00pm. Will follow
[2018-09-11] MEDS ORDERED: NS IV 1000 ML 1,000 ML ONE (17:15)
[2018-09-11] MEDS: NS IV 1000 ML 1,000 ML IV SCH (17:37)
--- NOTE | 2018-09-11 18:08 | NUR ---
NOTIFIED DR. WOOTEN OF CONSULT AT THIS TIME. NO NEW ORDERS.
--- NOTE | 2018-09-11 18:55 | Progress Note-Standard ---
Standard Progress Note Progress Notes/Assess & Plan Date Seen by a Provider: Sep 11, 2018 Time Seen by a Provider: 18:51 Progress/Assessment & Plan 78-year-old female with history of IgG kappa multiple myeloma diagnosed in 2012 and has undergone numerous treatments over the years. 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 Diarrhea has slowed down today but patient complained of increased weakness. She also complained of her mouth being dry. Appetite is low and she is not eating much. Lab work done this morning showed acute on chronic renal failure with GFR 7 mL per minute. This is most likely due to the myeloma but worsened by diarrhea and dehydration. I will administer normal saline at 100 mL per hour and repeat a BMP tomorrow morning. Her hemoglobin was 7.3 today and I will repeat a CBC tomorrow to rule out hemodilution with hydration. I informed the patient and her family that if the renal failure does not improve, she could decline fast. She understands this and wants to continue palliative treatment. legal services manager following patient. Continue palliative radiation therapy. Her overall prognosis is poor and we'll continue with best supportive care. JASMYNE MOLINA Sep 11, 2018 18:55
[2018-09-11 19:24] VITALS: BP 187/72
[2018-09-12] MEDS: NS IV 1000 ML 1,000 ML IV SCH ×2 (03:39→14:40)
[2018-09-12] MEDS: SUCRALFATE 1 GM (CARAFATE) TAB PO SCH ×4 (05:46→21:16)
[2018-09-12 06:55] LABS: BASOPHILS % (AUTO) 0 % (0-10); EOSINOPHILS % (AUTO) 0 % (0-10); HEMATOCRIT 24 % (35-52); HEMOGLOBIN 7.7 G/DL (11.5-16.0); LYMPHOCYTES % (AUTO) 36 % (12-44); MEAN CORPUSCULAR HEMOGLOBIN 32 PG (25-34); MEAN CORPUSCULAR HGB CONC 33 G/DL (32-36); MEAN CORPUSCULAR VOLUME 96 FL (80-99); MEAN PLATELET VOLUME 9.9 FL (7.4-10.4); MONOCYTES # (AUTO) 0.5 X 10^3 (0.0-1.0); MONOCYTES % (AUTO) 9 % (0-12); NEUTROPHILS % (AUTO) 54 % (42-75); PLATELET COUNT 361 10^3/uL (130-400); WHITE BLOOD COUNT 5.5 10^3/uL (4.3-11.0)
[2018-09-12 07:08] LABS: CALCIUM 7.8 MG/DL (8.5-10.1); CREATININE SERUM 7.03 MG/DL (0.60-1.30); POTASSIUM 3.2 MMOL/L (3.6-5.0)
[2018-09-12] MEDS: DEXAMETHASONE 4 MG/ML SDV (DECADRON) IV PRN (08:39)
[2018-09-12] MEDS: ONDANSETRON 4 MG/2 ML (SDV) Z0FRAN IV PRN (08:39)
[2018-09-12 09:00] VITALS: BP 200/77
--- NOTE | 2018-09-12 10:13 | CONSULTATION REPORT ---
DATE OF SERVICE: 09/12/2018 INPATIENT CONSULTATION REASON FOR CONSULTATION: Follow up for right radius fracture. HISTORY OF PRESENT ILLNESS: The patient is an 78-year-old female well known to me who had previously undergone plating of a right radius fracture. I was asked to see the patient regarding treatment. She reports no new injuries to the forearm. She has been wearing her brace. On exam, her radial nerve is improving. She has MCP extension as well as thumb IP extension. She is nontender over fracture site. IMPRESSION: Right radius fracture healing. PLAN: Continue with brace wear for activities and to aid with wrist extension. We will follow up as an outpatient in 3 weeks. Thank you for the consultation. Job ID: [id number] DocumentID: [id number] Dictated Date: 09/12/2018 09:28:35 Vamp Marker Date: 09/12/2018 10:12:51 Dictated By: LINO WOOTEN MD
[2018-09-12] MEDS: PANTOPRAZOLE 40 MG (PROTONIX) TAB PO SCH (10:28)
[2018-09-12] MEDS: CHOLESTYRAMINE 4 GM (QUESTRAN LITE, PREVALITE) PKT PO SCH (10:29)
--- NOTE | 2018-09-12 10:59 | Occ Therapy Progress Note ---
Therapy Progress Note Nrsg stated that pt may not participate in therapy due to increased nausea and fatigue. Per nrsg pt declined radiation. SWEET and WEB PRODUCTION MANAGER positioned pt for comfort. 1 [id number] EMELY BUSTOS Sep 12, 2018 10:59
--- NOTE | 2018-09-12 12:54 | Occ Therapy Progress Note ---
Therapy Progress Note Pt stated "I still feel lousy." Pt refused therapy. Will attempted to see pt . EMELY BUSTOS Sep 12, 2018 12:54
--- NOTE | 2018-09-12 13:24 | Physical Therapy Daily Note ---
PT Daily Note-Current Subjective Pt. refused Rx x 2 this date stating she just feels terrible, nauseous etc, pt. lethargic Transfers Therapy Code Descriptions/Definitions Functional [place] Measure: 0=Not Assessed/NA 4=Minimal Assistance 1=Total Assistance 5=Supervision or Setup 2=Maximal Assistance 6=Modified [place] 3=Moderate Assistance 7=Complete [place] Therapy Quality Codes: 6 Independent with activity with or without an assistive device 5 Patient requires set up or clean up by helper. Patient completes activity by themselves 4 Supervision or touching assist (CGA). [place] provide cues , steadying assist 3 The helper provides less than half the effort to complete the activity 2 The helper provides more than half the effort to complete the activity 1 Dependent. The helper does all the effort to complete an activity 7 Patient refused to complete or attempt activity 9 The patient did not perform the activity before the current illness or injury 88 Not attempted due to Medical conditions or safety concerns Weight Bearing Right Lower Extremity: Right Full Weight Bearing Left Lower Extremity: Left Full Weight Bearing Treatments pt. slumped down in bed did agree to allowing this MEAL PACKER and KEE Neumann to assist her in pushing to top of bed, pt. bending both legs and therapists using bed pad to pull her up higher in bed. Pt. denies this feels any better than slumping in bed Assessment Current Status: Refused Treatment PT Microcomputer Technician Goals Jail Goals PT Jail Goals Time Frame: Sep 16, 2018 Transfers (B,C,W/C) (FIM): 6 Gait (FIM): 6 Gait distance (FIM): 3=150 ft Distance: 200' Gait Level of Assist: 6 Gait Assistive Device: Cane Single Point PT Plan Treatment/Plan Treatment Plan: Continue Plan of Care Treatment Plan: Education, Functional Activity Yasmany, Functional Strength, Gait , Safety, Therapeutic Exercise Treatment Duration: Sep 16, 2018 Frequency: 6 times per week Estimated Hrs Per Day: .25 hour per day Patient and/or Family Agrees t: Yes Time/GCodes Time In: 1030 (1245) Time Out: 1037 (1246) Total Billed Treatment Time: 0 Total Billed Treatment 1, no Rx, no chg G Codes Necessary: No TANNER ROY MEAL PACKER Sep 12, 2018 13:24
--- NOTE | 2018-09-12 16:43 | Progress Note-Standard ---
Standard Progress Note Progress Notes/Assess & Plan Date Seen by a Provider: Sep 12, 2018 Time Seen by a Provider: 16:38 Progress/Assessment & Plan 78 yo female with refractory multiple myeloma and multiple plasmacytomas was admitted 09/04/18 with acute on chronic anemia, severe nausea, vomiting and diarrhea. She was so weak and nauseated that she could not eat nor transfer without assistance. Patient was given two units of PRBCs on 09/05/18 with appropriate rise in hemoglobin and has remained stable. Patient has significant deviation of her left eye and periorbital structures. She has some ulcerations on her nose. Her right forearm is in a brace. She is tachycardic but regular. Breath sounds are diminished R>L. Nausea and vomiting still considerable issues. Diarrhea persists. Nausea medications are helpful. Intake is very poor. She missed radiation today because of nausea. 1. 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 Abdominal plain films did not show bowel obstruction. Continue zofran, add compazine prn. 2. Anemia could be progression of the plasmacytoma in a different area of the GI tract or along the resection margin. Stable hgb for days. Continue PPI. 3. No improvement in renal function despite adequate IVF replacement. Renal ultrasound negative for hydroureteronephrosis. Post void bladder scan was 0ml. There are no signs of obstructive uropathy, and patient has had significant amount of volume replacement which excludes pre-renal azotemia. 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 Urine output is still adequate to maintain fluid balance, as there is minimal pulmonary vascular congestion and little peripheral edema. 4. Multiple myeloma with orbital plasmacytoma. Continue radiation therapy as able. We have stopped systemic therapy. 5. Disposition: DNAR. Continue inpatient admission until patient at least completes palliative radiation to the orbit. She is no longer receiving systemic therapy for MM. Given her acute and likely to be progressive renal failure, I strongly recommended hospice to the patient. Patient is still not sure she wants to go on hospice yet, but she agreed to stop all daily labs and diagnostics unless there are actionable issues to address. We did recheck her kidney function the last two days, and it seems to be even worse than before, even with additional IVF. Patient is still deciding on a hospice plan. TAYLOR HILL MD Sep 12, 2018 16:43
--- NOTE | 2018-09-12 17:52 | NUR ---
Pt met with [place] MARX from [facility] but she wasn't feeling well so visit was brief. Will be discussing continued care plans and her choice of hospice when she is able to discuss as due to her nausea she was unable to discuss her plans.
[2018-09-12 19:44] VITALS: BP 168/74
[2018-09-13] MEDS: DEXAMETHASONE 4 MG/ML SDV (DECADRON) IV PRN ×2 (02:31→12:29)
[2018-09-13] MEDS: ONDANSETRON 4 MG/2 ML (SDV) Z0FRAN IV PRN ×2 (02:32→12:29)
--- NOTE | 2018-09-13 02:41 | NUR ---
pt called this rn to her room, pt vomiting after drinking part of a chocolate ensure-prn Zofran & Decadron given.
[2018-09-13] MEDS: SUCRALFATE 1 GM (CARAFATE) TAB PO SCH ×4 (06:02→20:31)
[2018-09-13 08:00] VITALS: BP 190/82
[2018-09-13] MEDS: NS IV 1000 ML 1,000 ML IV SCH (09:20)
[2018-09-13] MEDS: PANTOPRAZOLE 40 MG (PROTONIX) TAB PO SCH (10:15)
--- NOTE | 2018-09-13 11:23 | Occupational Ther Daily Note ---
OT Current Status-Daily Note Subjective Pt sleeping in bed, woke to name. Pt agrees to therapy. Pt states she feels better than yesterday. No c/o pain. Mental Status/Objective Patient Orientation: Person, Place, Time, Situation Therapy Code Descriptions/Definitions Functional [place] Measure: 0=Not Assessed/NA 4=Minimal Assistance 1=Total Assistance 5=Supervision or Setup 2=Maximal Assistance 6=Modified [place] 3=Moderate Assistance 7=Complete [place] Attachments: IV ADL-Treatment Pt declined shower, stating that she wanted it in the morning. Supine to sit, SBA with HOB raised and bedrails then sit to supine with min A to lift B LE's. Pt ambulated with SBA using IV pole to bathroom to complete grooming and toileting. Supervision in standing to complete grooming, assist to open toothpaste and apply to toothbrush. Pt able to transfer to toilet and hike pants down over hips with SBA. Pt cleanses self using grabbars for safety. Assist to hike R side of [place] while pt hiked L side. Pt washed hands then ambulated back to bed. After therapy, pt lying in bed with call light/phone in reach. All needs met in room. Grooming (FIM): 5 Toileting (FIM): 4 Toilet/Commode Transfer (FIM): 5 OT Short Term Goals Short Term Goals Time Frame: Sep 21, 2018 Additional Short Term Goals: 1-Demonstrate ADL Tasks, 2-Verbalize Understanding , 3-ImproveStrength/Yasmany 1=Demonstrate adherence to instructed precautions during ADL tasks. 2=Patient will verbalize/demonstrate understanding of assistive devices/ modifications for ADL. 3=Patient will improve strength/tolerance for activity to enable patient to perform ADL's. OT Care Home Goals Care Home Goals Time Frame: Oct 05, 2018 Eating (FIM): 6 Grooming(FIM): 6 Bathing(FIM): 5 Bathing Location: L Arm, R Arm, L Upper Leg, R Upper Leg, L Lower Leg ( including foot), R Lower Leg (including foot), Chest, Abdomen, Buttocks, Perineal Area Upper Body Dressing(FIM): 5 Lower Body Dressing(FIM): 5 Toileting(FIM): 6 Transfers (B,C,W/C) (FIM): 6 Toilet/Commode Transfer(FIM): 6 Tub Transfer(FIM): 0 Shower Transfer(FIM): 6 Additional Goals: 1-Demonstrate ADL Tasks, 2-Verbalize Understanding, 3- ImproveStrength/Yasmany 1=Demonstrate adherence to instructed precautions during ADL tasks. 2=Patient will verbalize/demonstrate understanding of assistive devices/ modifications for ADL. 3=Patient will improve strength/tolerance for activity to enable patient to perform ADL's. OT Education/Plan Problem List/Assessment Assessment: Decreased Activ Tolerance, Restricted Funct UE ROM Discharge Recommendations Plan/Recommendations: Continue POC Treatment Plan/Plan of Care Patient would benefit from OT for education, treatment and training to promote independence in ADL's, mobility, safety and/or upper extremity function for ADL' s. Plan of Care: ADL Retraining, Caregiver Training, Functional Mobility, UE Funct Exercise/Act, UE Neuromus Re-Ed/Coord Treatment Duration: Oct 05, 2018 Frequency: 5 times per week Estimated Hrs Per Day: .5 hour per day Agreement: Yes Rehab Potential: Guarded Time/GCodes Start Time: 10:40 Stop Time: 11:03 Total Time Billed (hr/min): 23 Billed Treatment Time 1 visit-ADL 2 (23 min) EMELY BUSTOS Sep 13, 2018 11:23
--- NOTE | 2018-09-13 11:36 | Physical Therapy Daily Note ---
PT Daily Note-Current Subjective Patient in bed pre tx, agrees to PT, has 5/10 low back pain. Appearance Patient back to bed post tx with nurse call, phone, tray, all needs met. Mental Status Patient Orientation: Person, Place, Situation Attachments: IV Transfers Therapy Code Descriptions/Definitions Functional [place] Measure: 0=Not Assessed/NA 4=Minimal Assistance 1=Total Assistance 5=Supervision or Setup 2=Maximal Assistance 6=Modified [place] 3=Moderate Assistance 7=Complete [place] Therapy Quality Codes: 6 Independent with activity with or without an assistive device 5 Patient requires set up or clean up by helper. Patient completes activity by themselves 4 Supervision or touching assist (CGA). [place] provide cues , steadying assist 3 The helper provides less than half the effort to complete the activity 2 The helper provides more than half the effort to complete the activity 1 Dependent. The helper does all the effort to complete an activity 7 Patient refused to complete or attempt activity 9 The patient did not perform the activity before the current illness or injury 88 Not attempted due to Medical conditions or safety concerns Transfers (B, C, W/C) (FIM): 3 Scootin Rollin Supine to/from Sit: 3 Sit to/from Stand: 6 Bed to/from Chair: 6 Patient needs assist with both legs for sit -> supine. Weight Bearing Right Lower Extremity: Right Full Weight Bearing Left Lower Extremity: Left Full Weight Bearing Gait Training Gait (FIM): 6 Distance: 400' Gait Level of Assist: 6 Gait Assistive Device: Cane Single Point Steady ambulation, patient gets SOB and needs occasional standing rest break. She was very fatigued after ambulation. Treatments ambulation Assessment Current Status: Fair Progress mod I with ambulation PT Halfway Goals Technical Translator Goals PT Halfway Goals Time Frame: Sep 16, 2018 Transfers (B,C,W/C) (FIM): 6 Gait (FIM): 6 Gait distance (FIM): 3=150 ft Distance: 200' Gait Level of Assist: 6 Gait Assistive Device: Cane Single Point PT Plan Problem List Problem List: Activity Tolerance, Functional Strength, Safety, Balance, Gait, Transfer, Bed Mobility Treatment/Plan Treatment Plan: Continue Plan of Care Treatment Plan: Education, Functional Activity Yasmany, Functional Strength, Gait , Safety, Therapeutic Exercise Treatment Duration: Sep 16, 2018 Frequency: 6 times per week Estimated Hrs Per Day: .25 hour per day Patient and/or Family Agrees t: Yes Safety Risks/Education Patient Education: Gait Training, Transfer Techniques, Correct Positioning, Safety Issues Teaching Recipient: Patient Teaching Methods: Demonstration, Discussion Response to Teaching: Reinforcement Needed Time/GCodes Time In: 1120 Time Out: 1135 Total Billed Treatment Time: 15 Total Billed Treatment 1 visit GT 15' FOUZIA NIÑO PT Sep 13, 2018 11:36
[2018-09-13] MEDS: CHOLESTYRAMINE 4 GM (QUESTRAN LITE, PREVALITE) PKT PO SCH (12:30)
--- NOTE | 2018-09-13 17:24 | Progress Note-Standard ---
Standard Progress Note Progress Notes/Assess & Plan Date Seen by a Provider: Sep 13, 2018 Time Seen by a Provider: 12:30 Progress/Assessment & Plan 78 yo female with refractory multiple myeloma and multiple plasmacytomas was admitted 09/04/18 with acute on chronic anemia, severe nausea, vomiting and diarrhea. She was so weak and nauseated that she could not eat nor transfer without assistance. Patient was given two units of PRBCs on 09/05/18 with appropriate rise in hemoglobin and has remained stable. Patient has significant deviation of her left eye and periorbital structures. She has some ulcerations on her nose. Her right forearm is in a brace. She is tachycardic but regular. Breath sounds are diminished R>L. No improvement in nausea and diarrhea. She feels exhausted after going to the bathroom. Completed last radiation treatment today. 1. 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 Abdominal plain films did not show bowel obstruction. Continue zofran, add compazine prn. 2. Anemia could be progression of the plasmacytoma in a different area of the GI tract or along the resection margin. Stable hgb for days, labs d/c'ed. Continue PPI. 3. No improvement in renal function despite adequate IVF replacement. Renal ultrasound negative for hydroureteronephrosis. Post void bladder scan was 0ml. There are no signs of obstructive uropathy, and patient has had significant amount of volume replacement which excludes pre-renal azotemia. 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 Urine output is still adequate to maintain fluid balance, as there is minimal pulmonary vascular congestion and little peripheral edema. 4. Multiple myeloma with orbital plasmacytoma. Radiation completed. We have stopped systemic therapy. 5. Disposition: DNAR. Completed radiation treatment. Renal failure is not treatable due to refractory malignancy. She is no longer receiving systemic therapy for MM. Working on hospice discharge, but given the rapid progression of renal failure, her longevity may be on the order of weeks. TAYLOR HILL MD Sep 13, 2018 17:24
--- NOTE | 2018-09-13 18:08 | NUR ---
Meeting with pt as to hospice selection and arranging 24 hour care at her independent [facility]. Will advise when definite arrangement made. Pt sleeping and unable to arouse so will be meeting with her tomorrow.
[2018-09-13 19:04] VITALS: BP 168/72
[2018-09-14] MEDS: SUCRALFATE 1 GM (CARAFATE) TAB PO SCH ×3 (06:30→15:15)
[2018-09-14 09:00] VITALS: BP 217/93
--- NOTE | 2018-09-14 09:25 | Physical Therapy Progress Note ---
Therapy Progress Note Attempted PT treatment but patient refused. She states she feels bad, is nauseated and has diarrhea. Will try back this afternoon. FOUZIA NIÑO PT Sep 14, 2018 09:25
[2018-09-14] MEDS: DEXAMETHASONE 4 MG/ML SDV (DECADRON) IV PRN ×2 (09:36→17:27)
[2018-09-14] MEDS: CHOLESTYRAMINE 4 GM (QUESTRAN LITE, PREVALITE) PKT PO SCH (09:39)
[2018-09-14] MEDS: PANTOPRAZOLE 40 MG (PROTONIX) TAB PO SCH (09:39)
--- NOTE | 2018-09-14 09:40 | NUR ---
ZOFRAN AND DECADRON IV FOR NAUSEA.
--- NOTE | 2018-09-14 11:34 | Occ Therapy Progress Note ---
Therapy Progress Note Per nrsg, pt has been nauseated and a decline in medical status. Pt declines therapy due to weakness and nausea. 1 visit EMELY BUSTOS Sep 14, 2018 11:34
--- NOTE | 2018-09-14 15:02 | Physical Therapy Progress Note ---
Therapy Progress Note Physical therapy attempted but patient refused again. Patient states that she is still nauseated and having bowel issues and doesn't want to participate this afternoon. Will try back tomorrow. FOUZIA NIÑO PT Sep 14, 2018 15:02
--- NOTE | 2018-09-14 15:28 | NUR ---
Pt chose [facility] as her hospice of choice. They plan to meet with pt and her DPOA Erasmo Tam on Monday at 1:00 pm to discuss arrangements for 24 hour care. Pt states she is having a "bad day" and due to her decline is unable to initiate plans for 24 hour care but Mr. Tam states he will assist her with arrangements.
[2018-09-14] MEDS: ONDANSETRON 4 MG/2 ML (SDV) Z0FRAN IV PRN (17:27)
--- NOTE | 2018-09-14 17:30 | NUR ---
JESSICA AND MARIBEL GUTIERREZ. PT ORDERING DINNER.
--- NOTE | 2018-09-14 17:31 | Progress Note-Standard ---
Standard Progress Note Progress Notes/Assess & Plan Date Seen by a Provider: Sep 14, 2018 Time Seen by a Provider: 17:29 Progress/Assessment & Plan 78 yo female with refractory multiple myeloma and multiple plasmacytomas was admitted 09/04/18 with acute on chronic anemia, severe nausea, vomiting and diarrhea. She was so weak and nauseated that she could not eat nor transfer without assistance. Patient was given two units of PRBCs on 09/05/18 with appropriate rise in hemoglobin and has remained stable. Patient has significant deviation of her left eye and periorbital structures. She has some ulcerations on her nose. Her right forearm is in a brace. Patient continues to be very nauseated and fatigued. She declined PT/OT today. She has not been taking cholestyramine or sucralfate because they gag her, but diarrhea is improved. She had three loose stools today. 1. 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 Abdominal plain films did not show bowel obstruction. Continue zofran, compazine prn. Diarrhea may also be a uremic issue. 2. Anemia could be progression of the plasmacytoma in a different area of the GI tract or along the resection margin. Stable hgb for days, labs d/c'ed. Continue PPI. 3. No improvement in renal function despite adequate IVF replacement. Renal ultrasound negative for hydroureteronephrosis. Post void bladder scan was 0ml. There are no signs of obstructive uropathy, and patient has had significant amount of volume replacement which excludes pre-renal azotemia. 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 Urine output is still adequate to maintain fluid balance, as there is minimal pulmonary vascular congestion and little peripheral edema. 4. Multiple myeloma with orbital plasmacytoma. Radiation completed. We have stopped systemic therapy. 5. Disposition: DNAR. Completed radiation treatment. Renal failure is not treatable due to refractory malignancy. She is no longer receiving systemic therapy for MM. Working on hospice discharge, but given the rapid progression of renal failure, her longevity may be on the order of weeks. TAYLOR HILL MD Sep 14, 2018 17:31
[2018-09-14] MEDS: NS IV 1000 ML 1,000 ML IV SCH (18:23)
[2018-09-14 20:15] VITALS: BP 187/79
[2018-09-14] MEDS: DIPHENOXYLATE/ATROPINE 2.5MG/0.025MG (LOMOTIL) TAB PO PRN (20:20)
[2018-09-15 09:02] VITALS: BP 193/77
[2018-09-15] MEDS: PANTOPRAZOLE 40 MG (PROTONIX) TAB PO SCH (09:48)
--- NOTE | 2018-09-15 09:53 | Progress Note-Standard ---
Standard Progress Note Progress Notes/Assess & Plan Date Seen by a Provider: Sep 15, 2018 Time Seen by a Provider: 09:48 Progress/Assessment & Plan 78 yo female with refractory multiple myeloma and multiple plasmacytomas was admitted 09/04/18 with acute on chronic anemia, severe nausea, vomiting and diarrhea. She was so weak and nauseated that she could not eat nor transfer without assistance. Patient was given two units of PRBCs on 09/05/18 with appropriate rise in hemoglobin and has remained stable. Patient has significant deviation of her left eye and periorbital structures. She has some ulcerations on her nose. Her right forearm is in a brace. 1-2+ edema in lower extremities, lung are clear. Patient was incontinent of stool this morning and is exhausted after being cleaned up by nursing. She felt like she did pretty well last night and was able to eat a little. She has more swelling in her legs but she has no shortness of breath. 1. 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 Abdominal plain films did not show bowel obstruction. Continue zofran, compazine prn. Diarrhea may also be a uremic issue for which we can use Lomotil if patient is willing. 2. Anemia could be progression of the plasmacytoma in a different area of the GI tract or along the resection margin. Stable hgb for days, labs d/c'ed. Continue PPI. 3. No improvement in renal function despite adequate IVF replacement. Renal ultrasound negative for hydroureteronephrosis. Post void bladder scan was 0ml. There are no signs of obstructive uropathy, and patient has had significant amount of volume replacement which excludes pre-renal azotemia. 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 Between urine output and diarrhea, patient may be able to maintain fluid balance adequately, but development of lower extremity edema is a concerning sign. 4. Multiple myeloma with orbital plasmacytoma. Radiation completed. We have stopped systemic therapy. 5. Disposition: DNAR. Completed radiation treatment. Renal failure is not treatable due to refractory malignancy. She is no longer receiving systemic therapy for MM. Working on hospice discharge, but given the rapid progression of renal failure, her longevity may be on the order of weeks. TAYLOR HILL MD Sep 15, 2018 09:53
--- NOTE | 2018-09-15 10:20 | Physical Therapy Daily Note ---
PT Daily Note-Current Subjective Pt visited x 2 this am, 0810am and 0940am. Pt refused both attempts. Pt states she has diarrhea again and is vomiting. Pt denied pain. Declined exercise in bed, appeared irritated, raising her voice. Pt allowed to rest. Transfers Therapy Code Descriptions/Definitions Functional [place] Measure: 0=Not Assessed/NA 4=Minimal Assistance 1=Total Assistance 5=Supervision or Setup 2=Maximal Assistance 6=Modified [place] 3=Moderate Assistance 7=Complete [place] Therapy Quality Codes: 6 Independent with activity with or without an assistive device 5 Patient requires set up or clean up by helper. Patient completes activity by themselves 4 Supervision or touching assist (CGA). [place] provide cues , steadying assist 3 The helper provides less than half the effort to complete the activity 2 The helper provides more than half the effort to complete the activity 1 Dependent. The helper does all the effort to complete an activity 7 Patient refused to complete or attempt activity 9 The patient did not perform the activity before the current illness or injury 88 Not attempted due to Medical conditions or safety concerns Weight Bearing Right Lower Extremity: Right Full Weight Bearing Left Lower Extremity: Left Full Weight Bearing Treatments No treatment rendered per pt request. Assessment Pt in bed, all needs met per pt. PT Ecological Modeler Goals Alf Goals PT Ecological Modeler Goals Time Frame: Sep 16, 2018 Transfers (B,C,W/C) (FIM): 6 Gait (FIM): 6 Gait distance (FIM): 3=150 ft Distance: 200' Gait Level of Assist: 6 Gait Assistive Device: Cane Single Point PT Plan Treatment/Plan Treatment Plan: Continue Plan of Care Treatment Plan: Education, Functional Activity Yasmany, Functional Strength, Gait , Safety, Therapeutic Exercise Treatment Duration: Sep 16, 2018 Frequency: 6 times per week Estimated Hrs Per Day: .25 hour per day Patient and/or Family Agrees t: Yes Time/GCodes Time In: 938 Time Out: 940 Total Billed Treatment Time: 0 Total Billed Treatment 1, pt refused [place] [place] CPTA Sep 15, 2018 10:20
[2018-09-15] MEDS: DIPHENOXYLATE/ATROPINE 2.5MG/0.025MG (LOMOTIL) TAB PO PRN (12:31)
[2018-09-15 19:31] VITALS: BP 180/75
[2018-09-16] MEDS: ONDANSETRON 4 MG/2 ML (SDV) Z0FRAN IV PRN (03:46)
[2018-09-16] MEDS: NS IV 1000 ML 1,000 ML IV SCH (03:50)
[2018-09-16 07:10] VITALS: BP 203/67
[2018-09-16] MEDS: PANTOPRAZOLE 40 MG (PROTONIX) TAB PO SCH (07:51)
[2018-09-16] MEDS: PROCHLORPERAZINE 10 MG/2ML INJ (COMPAZINE) IV PRN (07:57)
--- NOTE | 2018-09-16 10:53 | Progress Note-Standard ---
Standard Progress Note Progress Notes/Assess & Plan Date Seen by a Provider: Sep 16, 2018 Time Seen by a Provider: 10:52 Progress/Assessment & Plan 78 yo female with refractory multiple myeloma and multiple plasmacytomas was admitted 09/04/18 with acute on chronic anemia, severe nausea, vomiting and diarrhea. She was so weak and nauseated that she could not eat nor transfer without assistance. Patient was given two units of PRBCs on 09/05/18 with appropriate rise in hemoglobin and has remained stable. Patient has significant deviation of her left eye and periorbital structures. She has some ulcerations on her nose. Her right forearm is in a brace. 1-2+ edema in lower extremities, lung are clear. Patient sleeping this morning. More diarrhea yesterday. She has been too tired for any significant physical activity. 1. 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 Abdominal plain films did not show bowel obstruction. Continue zofran, compazine prn. Diarrhea may also be a uremic issue for which we can use Lomotil if patient is willing. 2. Anemia could be progression of the plasmacytoma in a different area of the GI tract or along the resection margin. Stable hgb for days, labs d/c'ed. Continue PPI. 3. No improvement in renal function despite adequate IVF replacement. Renal ultrasound negative for hydroureteronephrosis. Post void bladder scan was 0ml. There are no signs of obstructive uropathy, and patient has had significant amount of volume replacement which excludes pre-renal azotemia. 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 Between urine output and diarrhea, patient may be able to maintain fluid balance adequately, but development of lower extremity edema is a concerning sign. 4. Multiple myeloma with orbital plasmacytoma. Radiation completed. We have stopped systemic therapy. 5. Disposition: DNAR. Completed radiation treatment. Renal failure is not treatable due to refractory malignancy. She is no longer receiving systemic therapy for MM. Working on hospice discharge, but given the rapid progression of renal failure, her longevity may be on the order of weeks. TAYLOR HILL MD Sep 16, 2018 10:53
[2018-09-16 12:00] VITALS: BP 185/75
[2018-09-16] MEDS: DIPHENOXYLATE/ATROPINE 2.5MG/0.025MG (LOMOTIL) TAB PO PRN (12:42)
[2018-09-16 19:18] VITALS: BP 181/72
[2018-09-17 00:25] VITALS: BP 194/86
--- NOTE | 2018-09-17 00:37 | NUR ---
PT NOTED TO HAVE AUDIBLE WHEEZING. VITALS TAKEN AND B/P WAS 224/91. RETAKEN MANUALLY 194/86. THIS RN CALLED DR HILL AND RECEIVED ORDER FOR PRN BREATHING TREATMENTS AND 20 MG IV LASIX ONE TIME ORDER.
[2018-09-17] MEDS ORDERED: FUROSEMIDE 40 MG/4 ML INJ (LASIX) ONE (00:43)
[2018-09-17] MEDS ORDERED: FUROSEMIDE 40 MG/4 ML INJ (LASIX) IVP ONE (00:45)
[2018-09-17] MEDS: DIPHENOXYLATE/ATROPINE 2.5MG/0.025MG (LOMOTIL) TAB PO PRN (01:56)
[2018-09-17] MEDS ORDERED: RT-ALBUTEROL SULF 2.5 MG/3 ML PRE-MIX VIAL ONE (02:05)
[2018-09-17] MEDS: RT-ALBUTEROL SULF 2.5 MG/3 ML PRE-MIX VIAL INH PRN (02:08)
[2018-09-17] MEDS: PANTOPRAZOLE 40 MG (PROTONIX) TAB PO SCH (08:16)
[2018-09-17 09:30] VITALS: BP 188/70
--- NOTE | 2018-09-17 09:38 | Physical Therapy Daily Note ---
PT Daily Note-Current Subjective Patient agrees to PT. She report extreme weakness. Mental Status Patient Orientation: Person, Time, Situation Attachments: IV Transfers Therapy Code Descriptions/Definitions Functional [place] Measure: 0=Not Assessed/NA 4=Minimal Assistance 1=Total Assistance 5=Supervision or Setup 2=Maximal Assistance 6=Modified [place] 3=Moderate Assistance 7=Complete [place] Therapy Quality Codes: 6 Independent with activity with or without an assistive device 5 Patient requires set up or clean up by helper. Patient completes activity by themselves 4 Supervision or touching assist (CGA). [place] provide cues , steadying assist 3 The helper provides less than half the effort to complete the activity 2 The helper provides more than half the effort to complete the activity 1 Dependent. The helper does all the effort to complete an activity 7 Patient refused to complete or attempt activity 9 The patient did not perform the activity before the current illness or injury 88 Not attempted due to Medical conditions or safety concerns Transfers (B, C, W/C) (FIM): 4 Scootin Sit to/from Stand: 4 Weight Bearing Right Lower Extremity: Right Full Weight Bearing Left Lower Extremity: Left Full Weight Bearing Gait Training Gait (FIM): 1 Distance (FIM): 1=up to 49 ft Distance: 25' Gait Level of Assist: 4 Gait Persons Needed: 1 Gait Assistive Device: Cane Single Point trunk flexed posture Assessment Patient fatigues with minimal activity and remains up in recliner with needs met. PT Penitentiary Goals Orthopedic Shoe Fitter Goals PT Orthopedic Shoe Fitter Goals Time Frame: Sep 16, 2018 Transfers (B,C,W/C) (FIM): 6 Gait (FIM): 6 Gait distance (FIM): 3=150 ft Distance: 200' Gait Level of Assist: 6 Gait Assistive Device: Cane Single Point PT Plan Treatment/Plan Treatment Plan: Continue Plan of Care Treatment Plan: Education, Functional Activity Yasmany, Functional Strength, Gait , Safety, Therapeutic Exercise Treatment Duration: Sep 22, 2018 Frequency: 6 times per week Estimated Hrs Per Day: .25 hour per day Patient and/or Family Agrees t: Yes Time/GCodes Time In: 902 Time Out: 913 Total Billed Treatment Time: 11 Total Billed Treatment 1 visit GT 11 min RAYMUNDO DELEON PT Sep 17, 2018 09:38
--- NOTE | 2018-09-17 12:18 | Occ Therapy Progress Note ---
Therapy Progress Note Attempted to see pt. Pt appears to be working to get a breath. Pt states she is not having a good day. Will attempt to see pt later today. 1 visit EMELY BUSTOS Sep 17, 2018 12:18
[2018-09-17] MEDS: NS IV 1000 ML 1,000 ML IV SCH (12:23)
--- NOTE | 2018-09-17 14:47 | Occ Therapy Progress Note ---
Therapy Progress Note Attempted to see pt again. Pt had difficulty waking appears very fatigue. Will check on pt tomorrow. EMELY BUSTOS Sep 17, 2018 14:47
--- NOTE | 2018-09-17 15:23 | NUR ---
Pt ,[facility] and pt's DPOA met with [facility] and discussed continued care plans. Pt persists in having severe episodeds of nausea with diarrhea and doesn't think her care could be managed at home even with 24 hour caregivers. DPOA agrees and has been interviewing caregiver agencies and none are willing at this time to assist in her care. Hospice in checking into alternatives which pt and DPOA would accept .
[2018-09-17] MEDS ORDERED: morphine INJ 4 MG/ML 1 ML (VIAL/SYRINGE) IVP NR (16:30)
--- NOTE | 2018-09-17 17:08 | Progress Note-Standard ---
Standard Progress Note Progress Notes/Assess & Plan Date Seen by a Provider: Sep 17, 2018 Time Seen by a Provider: 17:05 Progress/Assessment & Plan 78-year-old female with history of IgG kappa multiple myeloma diagnosed in 2012 and has undergone numerous treatments over the years. Recently developed multiple plasmacytomas and completed palliative radiation therapy to the left orbital plasmacytoma causing proptosis and deviation of the left eye. Appetite is low and she is not eating much. Still has some urinary output but renal function is extremely poor. She is retaining some fluid with the edema around the ankles. She also complained of shortness of breath. She has nausea with dry heaving intermittently. This is not controlled well with the antiemetics and is most likely related to uremia. She has not taken oral pain medications for the past 2 or 3 days. I will administer morphine 2-3 mg IV 1 and if this improves her air hunger, we will order it as needed. She is declining fast and we will continue with best supportive care. Her overall prognosis is poor. JASMYNE MOLINA Sep 17, 2018 17:08
[2018-09-17 18:00] VITALS: BP 178/77
[2018-09-17 20:00] VITALS: BP 146/60
[2018-09-18 08:55] VITALS: BP 198/60
[2018-09-18] MEDS: morphine INJ 4 MG/ML 1 ML (VIAL/SYRINGE) IVP PRN ×3 (09:16→15:36)
[2018-09-18] MEDS: PANTOPRAZOLE 40 MG (PROTONIX) TAB PO SCH (09:16)
--- NOTE | 2018-09-18 09:40 | Physical Therapy Progress Note ---
Therapy Progress Note Patient declined PT on this date and stated, "Can we back off today and you check with me tomorrow?" PT respects patient wishes. 1 ref ([id number]) RAYMUNDO DELEON PT Sep 18, 2018 09:39
--- NOTE | 2018-09-18 10:47 | Occupational Ther Daily Note ---
OT Current Status-Daily Note Subjective Attempted to see pt. Pt sleeping in recliner. SWEET attempted to wake pt, unable to initially. When checking on L hand edema, pt woke when arm was moved. Mental Status/Objective Patient Orientation: Person, Situation Therapy Code Descriptions/Definitions Functional [place] Measure: 0=Not Assessed/NA 4=Minimal Assistance 1=Total Assistance 5=Supervision or Setup 2=Maximal Assistance 6=Modified [place] 3=Moderate Assistance 7=Complete [place] Other Treatment Pt's L UE positioned to decrease edema and in neutral forearm position. Pt then stated not to do anything with her arm, worried about hurting it. Pt then stated all she wanted to do was sleep. SWEET respected pt's wishes. As SWEET was leaving room pt stated that she wanted the tv turned off, tv was not on and SWEET left door slightly ajar to keep down noise. After therapy, pt sitting in recliner with call light/phone in reach. All needs met in room. OT Short Term Goals Short Term Goals Time Frame: Sep 21, 2018 Additional Short Term Goals: 1-Demonstrate ADL Tasks, 2-Verbalize Understanding , 3-ImproveStrength/Yasmany 1=Demonstrate adherence to instructed precautions during ADL tasks. 2=Patient will verbalize/demonstrate understanding of assistive devices/ modifications for ADL. 3=Patient will improve strength/tolerance for activity to enable patient to perform ADL's. OT Group Home Goals Group Home Goals Time Frame: Oct 05, 2018 Eating (FIM): 6 Grooming(FIM): 6 Bathing(FIM): 5 Bathing Location: L Arm, R Arm, L Upper Leg, R Upper Leg, L Lower Leg ( including foot), R Lower Leg (including foot), Chest, Abdomen, Buttocks, Perineal Area Upper Body Dressing(FIM): 5 Lower Body Dressing(FIM): 5 Toileting(FIM): 6 Transfers (B,C,W/C) (FIM): 6 Toilet/Commode Transfer(FIM): 6 Tub Transfer(FIM): 0 Shower Transfer(FIM): 6 Additional Goals: 1-Demonstrate ADL Tasks, 2-Verbalize Understanding, 3- ImproveStrength/Yasmany 1=Demonstrate adherence to instructed precautions during ADL tasks. 2=Patient will verbalize/demonstrate understanding of assistive devices/ modifications for ADL. 3=Patient will improve strength/tolerance for activity to enable patient to perform ADL's. OT Education/Plan Problem List/Assessment Assessment: Decreased Activ Tolerance, Decreased UE Strength, Restricted Funct UE ROM Discharge Recommendations Plan/Recommendations: Continue POC Treatment Plan/Plan of Care Patient would benefit from OT for education, treatment and training to promote independence in ADL's, mobility, safety and/or upper extremity function for ADL' s. Plan of Care: ADL Retraining, Caregiver Training, Functional Mobility, UE Funct Exercise/Act, UE Neuromus Re-Ed/Coord Treatment Duration: Oct 05, 2018 Frequency: 5 times per week Estimated Hrs Per Day: .5 hour per day Agreement: Yes Rehab Potential: Guarded Time/GCodes Start Time: 10:20 Stop Time: 10:28 Total Time Billed (hr/min): 8 Billed Treatment Time 1 visit-FA 1 (8 min) EMELY BUSTOS Sep 18, 2018 10:47
[2018-09-18] MEDS ORDERED: D5 NS 1000 ML IV SOLUTION 1,000 ML IV SCH (12:30)
[2018-09-18] MEDS: RT-ALBUTEROL SULF 2.5 MG/3 ML PRE-MIX VIAL INH PRN (13:57)
[2018-09-18] MEDS ORDERED: SCOPOLAMINE 1.5 MG (TRANSDERM-SCOP) PATCH TD SCH (15:15)
--- NOTE | 2018-09-18 15:24 | NUR ---
Pastoral care visit, pt asleep.
--- NOTE | 2018-09-18 15:54 | NUR ---
PT CONTINUES TO HAVE NAUSEA AND DIARRHEA. PT EATING VERY LITTLE. PT GOING ON HOSPICE. PROVIDE COMFORT MEASURES.
[2018-09-18] MEDS ORDERED: NS IV 1000 ML 1,000 ML IV SCH (16:26)
[2018-09-18] MEDS ORDERED: morphine PCA 100 MG/100 ML BAG IV PRN (16:30)
--- NOTE | 2018-09-18 16:58 | Progress Note-Standard ---
Standard Progress Note Progress Notes/Assess & Plan Date Seen by a Provider: Sep 18, 2018 Time Seen by a Provider: 16:53 Progress/Assessment & Plan 78-year-old female with history of IgG kappa multiple myeloma diagnosed in 2012 and has undergone numerous treatments over the years. Recently developed multiple plasmacytomas and completed palliative radiation therapy to the left orbital plasmacytoma. Appetite is low and she is not eating or drinking. Nursing staff reported borderline hypoglycemia. I will change the IV fluids to D5 normal saline at 30 mL per hour. Still has some urinary output. She is somnolent and barely arousable. She is not completely oriented. She continues to have shortness of breath but rest better with morphine boluses. She has been receiving 2 mg of morphine every 3 hours throughout the day. She has also developed gurgling. I will change the morphine to a OPTICAL ENGINEERING TECHNICIAN at 0.6 mg/h continuous infusion with 0.3 mg bolus every 30 minutes as stated. I will also start her on scopolamine patch to dry oral secretions. Her overall prognosis is poor. We will continue with best supportive care. JASMYNE MOLINA Sep 18, 2018 16:58
[2018-09-18 20:00] VITALS: BP 96/49
--- NOTE | 2018-09-18 20:08 | NUR ---
PT B/P 96/49 HR 65 SPO2 58% 2LNC RESPIRATIONS 32-DIFFICULT TO AROUSE-RESPONDS TO PAINFUL STIMULI ONLY THIS RN CALLED DR. MOLINA TO INFORM HIM OF PT DECLINE & CURRENT CONDITION THIS RN WAS INFORMED THAT THIS PT IS COMFORT CARE ONLY, ATROPINE X1 ORDER, DC FSBS 2011 THIS RN CALLED PT DPOA HEBER VALENTE TO CLARIFY PT DPOA STATUS & INFORM HIM OF PT DECLINE-DPOA AGREES TO COMFORT CARE & IS AWARE THAT THIS PT IS DECLINING. THIS RN WAS INFORMED THAT PT HAS ARRANGEMENTS WITH [facility].
[2018-09-18] MEDS ORDERED: ATROPINE 1% OPHTHALMIC SOLN 2 ML SL STA (20:16)
--- NOTE | 2018-09-18 21:15 | NUR ---
PASTORAL CARE NOTIFIED-PASTORAL CARE HERE TO SEE PT PROVIDED PRAYER & SCRIPTURE TO PT.
--- NOTE | 2018-09-19 05:30 | NUR ---
MORPHINE CONSOLIDATION ACCOUNTANT-STOPPED 105 ML WASTED WITH AARON ABBOTT RN
--- NOTE | 2018-09-19 07:44 | NUR ---
0710-body released with Ryan to be delivered to [facility]. pt belongings sent with pt-mr. huerta pt dpoa requested that specifically her cell phone & ring be sent with the body.
--- NOTE | 2018-09-19 07:48 | NUR ---
05-respirations ceased, no perceptible heart beat-verified with Lisa Juarez RN & dez rn . all medical lines removed, post mortem care provided [phone] KAPOOR Notified-requested that she be sent to [facility]
[2018-09-19] MEDS ORDERED: SENNA W/DOCUSATE (SENOKOT S) TABLET PO SCH (09:00)
[2018-09-21] MEDS ORDERED: SCOPOLAMINE PATCH REMOVAL TP SCH (15:14)
== END 2018-09-19 05:10 | disposition expired | DRG 683 ==
LOC: 4TH 10:42
PROVIDERS: ADMIT Internal Medicine Hematology & Oncology; ATTEND Internal Medicine Hematology & Oncology
DX: N17.9 Acute kidney failure, unspecified (principal); C90.00 Multiple myeloma not having achieved remission; K92.2 Gastrointestinal hemorrhage, unspecified; E46 Unspecified protein-calorie malnutrition; D62 Acute posthemorrhagic anemia; K56.7 Ileus, unspecified; E86.0 Dehydration; R19.7 Diarrhea, unspecified; Z66 Do not resuscitate; Z51.5 Encounter for palliative care; E16.2 Hypoglycemia, unspecified; K86.9 Disease of pancreas, unspecified; R60.0 Localized edema; N18.9 Chronic kidney disease, unspecified; E87.6 Hypokalemia; H05.212 Displacement (lateral) of globe, left eye; S52.91XD Unspecified fracture of right forearm, subsequent encounter for closed fracture with routine healing; Z90.3 Acquired absence of stomach [part of]; Z92.21 Personal history of antineoplastic chemotherapy; Z92.3 Personal history of irradiation
CPT/HCPCS: 36415; 71045; 74019; 76770; 77336; 77417; 80048; 80053; 81000; 82962; 83735; 85025; 87088; 87324; 87449; 94640; 94760